=== PATIENT | male | born 1970 | race African-American/Black ===

== ENCOUNTER 2016-11-11 20:59 | Inpatient (IN) | payer MEDICAID ==
[~2016-11-11] VITALS: Ht 185.4 cm; Wt 90.7 kg
[~2016-11-11 20:59] MED LIST: AMOXICILLIN500 MG ORAL; NKM; PRILOSEC20 MG ORAL; TRAMADOL HCL50 MG ORAL
[2016-11-11 21:32] VITALS: BP 154/71
[2016-11-11] MEDS ORDERED: Ampicillin/Sulbactam Sod 3 GM in NS 100 ML IVPB ONE (22:30)
[2016-11-11] MEDS ORDERED: Unasyn 3gm Inj ONE (22:49)
[2016-11-11 23:17] LABS: MEAN CORPUSCULAR HEMOGLOBIN 29.7 PG (27.0-31.0); MEAN CORPUSCULAR VOLUME 93 FL (80-99); MEAN PLATELET VOLUME 5.3 FL (6.5-10.1); PLATELET COUNT 211 K/UL (150-450); RED BLOOD COUNT 4.21 M/UL (4.70-6.10); RED CELL DISTRIBUTION WIDTH 11.7 % (11.6-14.8); WHITE BLOOD COUNT 21.8 K/UL (4.8-10.8)
[2016-11-11 23:36] LABS: TROPONIN I < 0.30 ng/mL (<=0.30)
[2016-11-11 23:44] LABS: LYMPHOCYTES % (MANUAL) 7 % (20-45); NEUTROPHILS % (MANUAL) 92 % (45-75); TOTAL CELLS COUNTED 100
--- NOTE | 2016-11-11 23:44 | Emergency Room Report ---
History of Present Illness General Chief Complaint: Pain Source: Patient Present Illness HPI Patient is a 46-year-old male who presented after increased left leg pain and swelling. The patient had noted to have increased fever. He had been having increased redness and swelling to his left leg. A gradual onset of symptoms. Patient states that he thought he had cellulitis. The patient had not been vomiting. He reported having pain with movement. Allergies: Coded Allergies: No Known Allergies (Unverified , 11/11/16) Patient History Past Medical History: see triage record Reviewed Nursing Documentation: PMH: Agreed, PSxH: Agreed Nursing Documentation-PMH Past Medical History: No Stated History Review of Systems All Other Systems: negative except mentioned in HPI Physical Exam Vital Signs Date Time Temp Pulse Resp B/P Pulse Ox O2 Delivery O2 Flow Rate FiO2 11/11/16 20:52 102.7 76 18 154/71 98 Room Air Sp02 EP Interpretation: reviewed, normal General Appearance: normal inspection, well appearing, no apparent distress, alert, GCS 15, Chronically Ill Head: atraumatic ENT: normal ENT inspection, hearing grossly normal, normal voice Neck: normal inspection, full range of motion, supple, no bony tend Respiratory: normal inspection, lungs clear, normal breath sounds, no respiratory distress, no retraction, no wheezing Cardiovascular #1: regular rate, rhythm, no edema Gastrointestinal: normal inspection, normal bowel sounds, non tender, soft, no guarding, no hernia Genitourinary: no CVA tenderness Musculoskeletal: normal inspection, back normal, normal range of motion Neurologic: normal inspection, alert, oriented x3, responsive, 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 Right Leg with swelling without evident infection Medical Decision Making Diagnostic Impression: Primary Impression: Cellulitis ER Course Patient presented for extremity pain. Differential diagnosis included but was not limited to fracture, contusion, vascular insufficiency, aortic aneurysm, cellulitis.Because of complexity of patient's case laboratory testing and imaging studies were ordered. The patient was noted to have fever and tenderness to his left leg. This is consistent with cellulitis. Laboratory testing was notable for elevated white blood count. The patient was given IV antibiotics. The patient was discussed with Dr. patten for inpatient management Labs Test 11/11/16 22:30 White Blood Count 21.8 K/UL (4.8-10.8) Red Blood Count 4.21 M/UL (4.70-6.10) Hemoglobin 12.5 G/DL (14.2-18.0) Hematocrit 39.1 % (42.0-52.0) Mean Corpuscular Volume 93 FL (80-99) Mean Corpuscular Hemoglobin 29.7 PG (27.0-31.0) Mean Corpuscular Hemoglobin Concent 32.0 G/DL (32.0-36.0) Red Cell Distribution Width 11.7 % (11.6-14.8) Platelet Count 211 K/UL (150-450) Mean Platelet Volume 5.3 FL (6.5-10.1) Neutrophils (%) (Auto) % (45.0-75.0) Lymphocytes (%) (Auto) % (20.0-45.0) Monocytes (%) (Auto) % (1.0-10.0) Eosinophils (%) (Auto) % (0.0-3.0) Basophils (%) (Auto) % (0.0-2.0) Lactic Acid Level 1.60 mmol/L (0.66-2.22) Troponin I < 0.30 ng/mL (<=0.30) Last Vital Signs Date Time Temp Pulse Resp B/P Pulse Ox O2 Delivery O2 Flow Rate FiO2 11/11/16 21:32 102.7 79 18 154/71 98 Room Air Status: unchanged Disposition: ADMITTED INPATIENT Condition: Serious Referrals: NOT CHOSEN IPA/,REFERRING (PCP) Chris Ricci Nov 11, 2016 23:44
[2016-11-11 23:45] LABS: BAND NEUTROPHILS % (MANUAL) 0 % (0-8); BASOPHILS % (MANUAL) 0 % (0-2); EOSINOPHILS % (MANUAL) 0 % (0-3); PLATELET ESTIMATE ADEQUATE; PLATELET MORPHOLOGY NORMAL
[2016-11-11] MEDS ORDERED: Morphine Sulfate 2mg/ml Inj IVP PRN (23:45)
[2016-11-11] MEDS ORDERED: LORazepam Inj 2mg/ml 1ml IV PRN (23:45)
[2016-11-11] MEDS ORDERED: Miralax 17gm pkt ORAL PRN (23:45)
[2016-11-11] MEDS ORDERED: Zolpidem 5mg tab ORAL PRN (23:45)
[2016-11-11] MEDS ORDERED: Mylanta II UD 30ml ORAL PRN (23:45)
[2016-11-11 23:54] LABS: ALANINE AMINOTRANSFERASE 13 U/L (3-41); ANION GAP 17 (5-15); ASPARTATE AMINO TRANSFERASE 23 U/L (5-40); CALCIUM 8.5 mg/dL (8.6-10.2); CARBON DIOXIDE 23 mEQ/L (20-30); CHLORIDE 91 mEQ/L (98-107); CREATININE 1.2 mg/dL (0.7-1.2); GLOMERULAR FILTRATION RATE > 60 mL/min (>60); HEMOLYSIS 7; POTASSIUM 3.5 mEQ/L (3.4-4.9); SODIUM 131 mEQ/L (135-145); TOTAL PROTEIN 6.8 g/dL (6.6-8.7)
[2016-11-12 01:40] VITALS: BP_SYST 104; BP_SYST 90; BP_DIAS 52; BP_DIAS 69
[2016-11-12] MEDS ORDERED: Vancomycin 1.5 GM in D5W 300 ML IVPB SCH ×2 (03:00→16:00)
[2016-11-12 04:00] VITALS: BP 129/65
[2016-11-12] MEDS ORDERED: Cefepime 2gm ONE (05:02)
[2016-11-12 07:27] LABS: MEAN CORPUSCULAR HEMOGLOBIN 29.2 PG (27.0-31.0); MEAN CORPUSCULAR HGB CONC 31.4 G/DL (32.0-36.0); MEAN CORPUSCULAR VOLUME 93 FL (80-99); MEAN PLATELET VOLUME 5.6 FL (6.5-10.1); PLATELET COUNT 236 K/UL (150-450); RED BLOOD COUNT 4.46 M/UL (4.70-6.10); RED CELL DISTRIBUTION WIDTH 11.8 % (11.6-14.8); WHITE BLOOD COUNT 16.6 K/UL (4.8-10.8)
[2016-11-12 07:44] LABS: THYROID STIMULATING HORMONE 0.248 uIU/mL (0.300-4.500)
[2016-11-12 07:45] LABS: ALANINE AMINOTRANSFERASE 11 U/L (3-41); ALBUMIN/GLOBULIN RATIO 0.8 (1.0-2.7); ANION GAP 17 (5-15); ASPARTATE AMINO TRANSFERASE 23 U/L (5-40); CALCIUM 8.2 mg/dL (8.6-10.2); CARBON DIOXIDE 23 mEQ/L (20-30); CHLORIDE 94 mEQ/L (98-107); CHOLESTEROL 88 mg/dL (< 200); CHOLESTEROL/HDL RATIO 1.8 (3.3-4.4); CREATININE 1.4 mg/dL (0.7-1.2); GLOMERULAR FILTRATION RATE > 60 mL/min (>60); HEMOLYSIS 39; LDL CHOLESTEROL (CALC.) 25 mg/dL (60-99); POTASSIUM 4.1 mEQ/L (3.4-4.9); SODIUM 134 mEQ/L (135-145); TOTAL PROTEIN 6.2 g/dL (6.6-8.7)
[2016-11-12 08:00] VITALS: BP 105/64
[2016-11-12 08:02] LABS: HEMOGLOBIN A1C 5.6 % (< 6.0)
[2016-11-12] MEDS: Heparin 5000 units/ml inj SUBQ SCH ×2 (08:22→21:22)
[2016-11-12 10:16] LABS: BAND NEUTROPHILS % (MANUAL) 3 % (0-8); BASOPHILS % (MANUAL) 0 % (0-2); EOSINOPHILS % (MANUAL) 0 % (0-3); LYMPHOCYTES % (MANUAL) 13 % (20-45); NEUTROPHILS % (MANUAL) 79 % (45-75); PLATELET ESTIMATE ADEQUATE; PLATELET MORPHOLOGY NORMAL; TOTAL CELLS COUNTED 100
[2016-11-12 10:17] LABS: HYPOCHROMASIA 1+
--- NOTE | 2016-11-12 11:45 | Consultation ---
Consult Note Consult Note ID Dic # [id number] ALE NOONAN M.D. Nov 12, 2016 11:45
[2016-11-12 12:00] VITALS: BP 110/54
--- NOTE | 2016-11-12 13:38 | Consultation ---
DATE OF CONSULTATION: INFECTIOUS DISEASE CONSULTATION CONSULTING PHYSICIAN: Brad Taylor M.D. REFERRING PHYSICIAN: Hugo Chaparro M.D. REASON FOR CONSULTATION: Left lower extremity cellulitis and antibiotic management. HISTORY OF PRESENT ILLNESS: The patient is a 46-year-old male with admitting prior past medical history of anemia who came to the hospital with chief complaint of left lower extremity swelling and erythema. In the last few days that has worsened. The patient is febrile. Infectious consultation requested for further evaluation of the patient and antibiotic management. PAST MEDICAL HISTORY: Anemia. MEDICATIONS: Vancomycin and cefepime. ALLERGIES: No known drug allergies. SOCIAL HISTORY: The patient smokes cigarettes and drinks alcohol occasionally. The patient also occasionally uses . FAMILY HISTORY: Noncontributory. PHYSICAL EXAMINATION: VITAL SIGNS: Temperature 100.4 degrees, pulse 86, respiratory rate 18, and blood pressure 105/64. HEENT: Mild pale conjunctivae. No icterus. NECK: No lymphadenopathy. CHEST: Coarse breathing sounds. HEART: S1 and S2. ABDOMEN: Soft. EXTREMITIES: The patient has erythema over the left leg that is tender. The patient has left lower extremity edema. LABORATORY AND DIAGNOSTIC DATA: White blood cells 16.6, hemoglobin 13, and platelets 236,000. BUN 15 and creatinine 1.4. ALT, AST and alkaline phosphatase within normal range. ASSESSMENT AND PLAN: The patient is a 46-year-old male with past medical history significant for anemia, who came with left lower extremity cellulitis most likely strep. The patient is afebrile with of possibility of bacteremia. The patient also has leukocytosis. At this time, the patient may benefit from broad-spectrum antibiotics. We get further information from cultures. PLAN: 1. We will continue the patient on vancomycin and cefepime. 2. Monitor CBC. 3. Monitor BMP. 4. Monitor blood culture. 5. Monitor laboratories. 6. Based on the patient's clinical course, laboratories and cultures, we will do further recommendation. Thank you, Dr. Chaparro, for allowing me to participate in the care of this patient. I will follow the patient with you during this hospitalization Brad Taylor M.D. DR: Bhavana JOB#: [id number] CC:
[2016-11-12 15:55] VITALS: BP 91/55
--- NOTE | 2016-11-12 15:57 | History and Physical ---
History of Present Illness General Date patient seen: Nov 12, 2016 Reason for Hospitalization: Pain Present Illness HPI 46-year-old male who presented after increased left leg pain and swelling. The patient had noted to have fever. He had been having increased redness and swelling to his left leg. He was diagnosed to have extensive cellulitis and admitted for further evaluation. Allergies: Coded Allergies: No Known Allergies (Unverified , 11/11/16) Patient History Healthcare decision maker Resuscitation status Full Code Advanced Directive on File No Past Medical/Surgical History Past Medical/Surgical History: (1) Cellulitis Review of Systems All Other Systems: negative except mentioned in HPI Physical Exam Lines, tubes and drains: peripheral, central line HEENT: normocephalic, atraumatic Neck: non-tender, normal alignment Respiratory/Chest: chest wall non-tender, lungs clear Cardiovascular/Chest: normal peripheral pulses, normal rate Abdomen: normal bowel sounds, non tender Genitourinary/Rectal: normal genital exam, normal rectal exam Last 24 Hour Vital Signs Date Time Temp Pulse Resp B/P Pulse Ox O2 Delivery O2 Flow Rate FiO2 11/12/16 12:00 101.7 109 22 110/54 97 Room Air 11/12/16 11:42 101.7 11/12/16 10:38 100.4 11/12/16 08:00 98.4 100 20 105/64 100 Room Air 11/12/16 04:00 99.0 89 18 129/65 100 Room Air 11/12/16 01:40 99.3 87 18 90/52 97 Room Air 11/12/16 01:00 83 16 138/98 100 Room Air 11/11/16 21:32 102.7 79 18 154/71 98 Room Air 11/11/16 20:52 102.7 76 18 154/71 98 Room Air Intake and Output 11/11/16 11/12/16 18:59 06:59 Intake Total 400 ml Balance 400 ml Intake Oral 0 ml IV Total 400 ml # Voids 1 Laboratory Tests Test 11/11/16 22:30 11/12/16 05:25 White Blood Count 21.8 K/UL (4.8-10.8) H 16.6 K/UL (4.8-10.8) H Red Blood Count 4.21 M/UL (4.70-6.10) L 4.46 M/UL (4.70-6.10) L Hemoglobin 12.5 G/DL (14.2-18.0) L 13.0 G/DL (14.2-18.0) L Hematocrit 39.1 % (42.0-52.0) L 41.4 % (42.0-52.0) L Mean Corpuscular Volume 93 FL (80-99) 93 FL (80-99) Mean Corpuscular Hemoglobin 29.7 PG (27.0-31.0) 29.2 PG (27.0-31.0) Mean Corpuscular Hemoglobin Concent 32.0 G/DL (32.0-36.0) 31.4 G/DL (32.0-36.0) L Red Cell Distribution Width 11.7 % (11.6-14.8) 11.8 % (11.6-14.8) Platelet Count 211 K/UL (150-450) 236 K/UL (150-450) Mean Platelet Volume 5.3 FL (6.5-10.1) L 5.6 FL (6.5-10.1) L Neutrophils (%) (Auto) % (45.0-75.0) % (45.0-75.0) Lymphocytes (%) (Auto) % (20.0-45.0) % (20.0-45.0) Monocytes (%) (Auto) % (1.0-10.0) % (1.0-10.0) Eosinophils (%) (Auto) % (0.0-3.0) % (0.0-3.0) Basophils (%) (Auto) % (0.0-2.0) % (0.0-2.0) Differential Total Cells Counted 100 100 Neutrophils % (Manual) 92 % (45-75) H 79 % (45-75) H Lymphocytes % (Manual) 7 % (20-45) L 13 % (20-45) L Monocytes % (Manual) 1 % (1-10) 5 % (1-10) Eosinophils % (Manual) 0 % (0-3) 0 % (0-3) Basophils % (Manual) 0 % (0-2) 0 % (0-2) Band Neutrophils 0 % (0-8) 3 % (0-8) Platelet Estimate Adequate Adequate Platelet Morphology Normal Normal Red Blood Cell Morphology Normal Sodium Level 131 mEQ/L (135-145) L 134 mEQ/L (135-145) L Potassium Level 3.5 mEQ/L (3.4-4.9) 4.1 mEQ/L (3.4-4.9) Chloride Level 91 mEQ/L (98-107) L 94 mEQ/L (98-107) L Carbon Dioxide Level 23 mEQ/L (20-30) 23 mEQ/L (20-30) Anion Gap 17 (5-15) H 17 (5-15) H Blood Urea Nitrogen 13 mg/dL (7-23) 15 mg/dL (7-23) Creatinine 1.2 mg/dL (0.7-1.2) 1.4 mg/dL (0.7-1.2) H Estimat Glomerular Filtration Rate > 60 mL/min (>60) > 60 mL/min (>60) Glucose Level 114 mg/dL (74-106) H 108 mg/dL (74-106) H Lactic Acid Level 1.60 mmol/L (0.66-2.22) Calcium Level 8.5 mg/dL (8.6-10.2) L 8.2 mg/dL (8.6-10.2) L Total Bilirubin 0.6 mg/dL (0.0-1.2) 0.7 mg/dL (0.0-1.2) Aspartate Amino Transf (AST/SGOT) 23 U/L (5-40) 23 U/L (5-40) Alanine Aminotransferase (ALT/SGPT) 13 U/L (3-41) 11 U/L (3-41) Alkaline Phosphatase 58 U/L (40-129) 56 U/L (40-129) Troponin I < 0.30 ng/mL (<=0.30) Total Protein 6.8 g/dL (6.6-8.7) 6.2 g/dL (6.6-8.7) L Albumin 3.4 g/dL (3.5-5.2) L 2.8 g/dL (3.5-5.2) L Globulin 3.4 g/dL 3.4 g/dL Albumin/Globulin Ratio 1.0 (1.0-2.7) 0.8 (1.0-2.7) L Hypochromasia 1+ Hemoglobin A1c 5.6 % (< 6.0) Triglycerides Level 65 mg/dL (< 150) Cholesterol Level 88 mg/dL (< 200) LDL Cholesterol 25 mg/dL (60-99) L HDL Cholesterol 50 mg/dL (> 60) Cholesterol/HDL Ratio 1.8 (3.3-4.4) L Thyroid Stimulating Hormone (TSH) 0.248 uIU/mL (0.300-4.500) Height (Feet): 6 Height (Inches): 1.00 Weight (Pounds): 200 Medications Current Medications Medications (Trade) Dose Ordered Sig/Jenny Route PRN Reason Start Time Stop Time Status Last Admin Dose Admin Acetaminophen (Tylenol) 650 mg Q4H PRN ORAL fever 11/11/16 23:45 12/11/16 23:44 11/12/16 10:43 Al Hydroxide/Mg Hydroxide (Mylanta II) 30 ml Q6H PRN ORAL dyspepsia 11/11/16 23:45 12/11/16 23:44 Cefepime HCl 1 gm/ Sodium Chloride 100 ml @ 200 mls/hr EVERY 8 HOURS IVPB 11/12/16 14:00 11/19/16 13:59 11/12/16 13:23 Dextrose (Dextrose 50%) STAT PRN IV Hypoglycemia 11/11/16 23:45 12/11/16 23:44 Heparin Sodium (Porcine) (Heparin 5000 units/ml) 5,000 units EVERY 12 HOURS SUBQ 11/12/16 09:00 12/12/16 08:59 11/12/16 08:22 Lorazepam (Ativan 2mg/ml 1ml) 0.5 mg Q4H PRN IV For Anxiety 11/11/16 23:45 11/18/16 23:44 Morphine Sulfate (Morphine Sulfate) 1 mg EVERY 4 HOURS PRN IVP For Pain 11/11/16 23:45 11/18/16 23:44 Ondansetron HCl (Zofran) 4 mg Q6H PRN IVP Nausea & Vomiting 11/11/16 23:45 12/11/16 23:44 Polyethylene Glycol (Miralax) 17 gm HSPRN PRN ORAL Constipation 11/11/16 23:45 12/11/16 23:44 Vancomycin HCl 1 ea 1 ea DAILY PRN MISC Per rx protocol 11/11/16 23:45 12/11/16 23:44 Vancomycin HCl/ Dextrose (Vancomycin/D5W 250ml) 250 ml @ 167 mls/hr Q12HR@0400,1600 IVPB 11/12/16 16:00 11/17/16 15:59 Zolpidem Tartrate (Ambien) 5 mg HSPRN PRN ORAL Insomnia 11/11/16 23:45 12/11/16 23:44 Assessment/Plan Problem List: (1) Sepsis ICD Codes: A41.9 - Sepsis, unspecified organism SNOMED: 84680572 (2) Cellulitis ICD Codes: L03.90 - Cellulitis, unspecified SNOMED: 907766022 Qualifiers: Qualified Codes: L03.116 - Cellulitis of left lower limb Assessment/Plan IV antibiotics f/u wbc morphine for pain NARENDRA NICOLE Nov 12, 2016 15:57
[2016-11-12] MEDS ORDERED: Amikacin Rx to dose MISC PRN (16:00)
[2016-11-12] MEDS: Morphine Sulfate 4mg/ml Inj IVP PRN (16:13)
[2016-11-12] MEDS: Vancomycin 1gm/D5W 250ml IVPB SCH ×2 (16:44)
[2016-11-12] MEDS ORDERED: D5NS 1,000 ML IV SCH (17:00)
[2016-11-12] MEDS: D5NS 1,000 ML IV SCH (18:37)
[2016-11-12 19:31] VITALS: BP 117/62
[2016-11-13] VITALS: BP 109/61
[2016-11-13] MEDS: Vancomycin 1gm/D5W 250ml IVPB SCH ×4 (03:38→16:24)
[2016-11-13 04:00] VITALS: BP 111/63
[2016-11-13] MEDS: D5NS 1,000 ML IV SCH ×2 (05:00→13:59)
[2016-11-13 08:00] VITALS: BP 121/57
[2016-11-13] MEDS: Morphine Sulfate 4mg/ml Inj IVP PRN ×2 (08:14→17:33)
[2016-11-13] MEDS: Heparin 5000 units/ml inj SUBQ SCH ×2 (08:15→20:56)
--- NOTE | 2016-11-13 08:58 | Infectious Diseases Prog Note ---
Assessment/Plan Assessment/Plan A: The patient is a 46-year-old male with Fever leucocytosis Left lower extremity cellulitis Doppler : NO DVT Ro bacteremia Hx of Anemia. smoker PLAN: Cont on vancomycin and cefepime # 3 Monitor CBC. Monitor BMP. Monitor blood culture. Monitor laboratories. Subjective Allergies: Coded Allergies: No Known Allergies (Unverified , 11/11/16) Objective Vital Signs Last 24 Hour Vital Signs Date Time Temp Pulse Resp B/P Pulse Ox O2 Delivery O2 Flow Rate FiO2 11/13/16 08:00 100.2 96 22 121/57 98 Room Air 11/13/16 04:00 99.1 87 20 111/63 97 Room Air 11/13/16 02:00 99.6 11/13/16 00:00 100.9 96 20 109/61 99 Room Air 11/12/16 19:31 102.6 111 17 117/62 97 Room Air 11/12/16 15:55 99.9 44 17 91/55 90 Room Air 11/12/16 12:00 101.7 109 22 110/54 97 Room Air 11/12/16 10:38 100.4 Height (Feet): 6 Height (Inches): 1.00 Weight (Pounds): 200 Microbiology Date/Time Source Procedure Growth Status 11/11/16 22:35 Blood Blood Culture - Preliminary NO GROWTH AFTER 24 HOURS Resulted 11/11/16 22:30 Blood Blood Culture - Preliminary NO GROWTH AFTER 24 HOURS Resulted Current Medications Medications (Trade) Dose Ordered Sig/Jenny Route PRN Reason Start Time Stop Time Status Last Admin Dose Admin Acetaminophen (Tylenol) 650 mg Q4H PRN ORAL fever 11/11/16 23:45 12/11/16 23:44 11/13/16 01:00 Al Hydroxide/Mg Hydroxide (Mylanta II) 30 ml Q6H PRN ORAL dyspepsia 11/11/16 23:45 12/11/16 23:44 Amikacin Protocol 1 ea 1 ea DAILY PRN MISC Per rx protocol 11/12/16 16:00 12/12/16 15:59 Amikacin Sulfate 1000 mg/Sodium Chloride 104 ml @ 200 mls/hr Q24H IV 11/12/16 18:00 11/19/16 17:59 11/12/16 18:38 Cefepime HCl 1 gm/ Sodium Chloride 100 ml @ 200 mls/hr EVERY 8 HOURS IVPB 11/12/16 14:00 11/19/16 13:59 11/13/16 05:00 Dextrose (Dextrose 50%) STAT PRN IV Hypoglycemia 11/11/16 23:45 12/11/16 23:44 Dextrose/Sodium Chloride (D5ns) 1,000 ml @ 100 mls/hr Q10H IV 11/12/16 19:00 12/12/16 18:59 11/13/16 05:00 Heparin Sodium (Porcine) (Heparin 5000 units/ml) 5,000 units EVERY 12 HOURS SUBQ 11/12/16 09:00 12/12/16 08:59 11/13/16 08:15 Lorazepam (Ativan 2mg/ml 1ml) 0.5 mg Q4H PRN IV For Anxiety 11/11/16 23:45 11/18/16 23:44 Morphine Sulfate (Morphine Sulfate) 4 mg EVERY 4 HOURS PRN IVP For Pain 11/12/16 16:00 11/19/16 15:59 11/13/16 08:14 Ondansetron HCl (Zofran) 4 mg Q6H PRN IVP Nausea & Vomiting 11/11/16 23:45 12/11/16 23:44 Polyethylene Glycol (Miralax) 17 gm HSPRN PRN ORAL Constipation 11/11/16 23:45 12/11/16 23:44 Vancomycin HCl 1 ea 1 ea DAILY PRN MISC Per rx protocol 11/11/16 23:45 12/11/16 23:44 Vancomycin HCl/ Dextrose (Vancomycin/D5W 250ml) 250 ml @ 167 mls/hr Q12HR@0400,1600 IVPB 11/12/16 16:00 11/17/16 15:59 11/13/16 03:38 Zolpidem Tartrate (Ambien) 5 mg HSPRN PRN ORAL Insomnia 11/11/16 23:45 12/11/16 23:44 ALE NOONAN M.D. Nov 13, 2016 08:58
[2016-11-13 12:10] VITALS: BP 116/64
[2016-11-13 13:00] VITALS: BP 118/72
[2016-11-13] MEDS ORDERED: D5NS 1,000 ML IV SCH (17:00)
[2016-11-13] MEDS ORDERED: D5NS 1000ml IV ONE ×2 (17:16→17:23)
[2016-11-13] MEDS ORDERED: Tubing IV Secondary IV ONE (17:23)
[2016-11-13] MEDS ORDERED: NS 275ml ONE (17:23)
--- NOTE | 2016-11-13 17:46 | Pulmonology Progress Note ---
Assessment/Plan Problems: (1) Sepsis (2) Cellulitis Assessment/Plan continue antibiotics surgical evaluation check cultures Subjective ROS Limited/Unobtainable: No Interval Events: less pain, still febrile Allergies: Coded Allergies: No Known Allergies (Unverified , 11/11/16) Objective Last 24 Hour Vital Signs Date Time Temp Pulse Resp B/P Pulse Ox O2 Delivery O2 Flow Rate FiO2 11/13/16 13:00 98.8 79 20 118/72 98 Room Air 11/13/16 12:10 101.8 81 22 116/64 98 Room Air 11/13/16 10:31 101.8 11/13/16 08:00 100.2 96 22 121/57 98 Room Air 11/13/16 04:00 99.1 87 20 111/63 97 Room Air 11/13/16 00:00 100.9 96 20 109/61 99 Room Air 11/12/16 19:31 102.6 111 17 117/62 97 Room Air Intake and Output 11/12/16 11/13/16 19:00 07:00 Intake Total 1040 ml 2194 ml Output Total 600 ml 700 ml Balance 440 ml 1494 ml Intake Oral 790 ml 740 ml IV Total 250 ml 1454 ml Output Urine Total 600 ml 700 ml General Appearance: WD/WN HEENT: normocephalic Respiratory/Chest: chest wall non-tender, lungs clear Cardiovascular: normal peripheral pulses, normal rate Abdomen: normal bowel sounds Skin: rash Musculoskeletal: other - calf is less swollen Microbiology Date/Time Source Procedure Growth Status 11/11/16 22:35 Blood Blood Culture - Preliminary NO GROWTH AFTER 24 HOURS Resulted 11/11/16 22:30 Blood Blood Culture - Preliminary NO GROWTH AFTER 24 HOURS Resulted Laboratory Tests 11/13/16 09:50: Random Amikacin Level 3.0 11/13/16 15:00: Vancomycin Level Trough 10.2 Current Medications Medications (Trade) Dose Ordered Sig/Jenny Route PRN Reason Start Time Stop Time Status Last Admin Dose Admin Acetaminophen (Tylenol) 650 mg Q4H PRN ORAL fever 11/11/16 23:45 12/11/16 23:44 11/13/16 09:32 Al Hydroxide/Mg Hydroxide (Mylanta II) 30 ml Q6H PRN ORAL dyspepsia 11/11/16 23:45 12/11/16 23:44 Cefepime HCl 1 gm/ Sodium Chloride 100 ml @ 200 mls/hr EVERY 8 HOURS IVPB 11/12/16 14:00 11/19/16 13:59 11/13/16 13:59 Dextrose (Dextrose 50%) STAT PRN IV Hypoglycemia 11/11/16 23:45 12/11/16 23:44 Dextrose/Sodium Chloride (D5ns) 1,000 ml @ 100 mls/hr Q10H IV 11/12/16 19:00 12/12/16 18:59 11/13/16 13:59 Heparin Sodium (Porcine) (Heparin 5000 units/ml) 5,000 units EVERY 12 HOURS SUBQ 11/12/16 09:00 12/12/16 08:59 11/13/16 08:15 Lorazepam (Ativan 2mg/ml 1ml) 0.5 mg Q4H PRN IV For Anxiety 11/11/16 23:45 11/18/16 23:44 Morphine Sulfate 4 mg 4 mg EVERY 4 HOURS PRN IVP For Pain 11/12/16 16:00 11/19/16 15:59 11/13/16 17:33 Ondansetron HCl (Zofran) 4 mg Q6H PRN IVP Nausea & Vomiting 11/11/16 23:45 12/11/16 23:44 Polyethylene Glycol (Miralax) 17 gm HSPRN PRN ORAL Constipation 11/11/16 23:45 12/11/16 23:44 Vancomycin HCl 1 ea 1 ea DAILY PRN MISC Per rx protocol 11/11/16 23:45 12/11/16 23:44 Vancomycin HCl/ Dextrose (Vancomycin/D5W 250ml) 250 ml @ 167 mls/hr Q12HR@0400,1600 IVPB 11/12/16 16:00 11/17/16 15:59 11/13/16 16:24 Zolpidem Tartrate (Ambien) 5 mg HSPRN PRN ORAL Insomnia 11/11/16 23:45 12/11/16 23:44 NARENDRA NICOLE Nov 13, 2016 17:46
[2016-11-13 19:59] VITALS: BP 130/68
[2016-11-14] MEDS: D5NS 1,000 ML IV SCH (03:08)
[2016-11-14] MEDS: Vancomycin 1gm/D5W 250ml IVPB SCH ×4 (03:58→16:00)
[2016-11-14 04:00] VITALS: BP 127/67
[2016-11-14 07:00] LABS: BASOPHILS % (AUTO) 0.3 % (0.0-2.0); EOSINOPHILS % (AUTO) 0.5 % (0.0-3.0); LYMPHOCYTES % (AUTO) 9.5 % (20.0-45.0); MEAN CORPUSCULAR HEMOGLOBIN 30.6 PG (27.0-31.0); MEAN CORPUSCULAR HGB CONC 32.9 G/DL (32.0-36.0); MEAN CORPUSCULAR VOLUME 93 FL (80-99); MONOCYTES % (AUTO) 9.5 % (1.0-10.0); NEUTROPHILS % (AUTO) 80.2 % (45.0-75.0); PLATELET COUNT 162 K/UL (150-450); RED BLOOD COUNT 3.53 M/UL (4.70-6.10); RED CELL DISTRIBUTION WIDTH 11.6 % (11.6-14.8); WHITE BLOOD COUNT 12.2 K/UL (4.8-10.8)
[2016-11-14 07:15] LABS: ALBUMIN/GLOBULIN RATIO 0.6 (1.0-2.7); CALCIUM 7.6 mg/dL (8.6-10.2); CREATININE 2.1 mg/dL (0.7-1.2); GLOMERULAR FILTRATION RATE 41.5 mL/min (>60); POTASSIUM 3.7 mEQ/L (3.4-4.9); TOTAL PROTEIN 5.6 g/dL (6.6-8.7)
--- NOTE | 2016-11-14 09:21 | Consultation ---
History of Present Illness General Date patient seen: Nov 14, 2016 Chief Complaint: Left lower extremity cellulitis and pain Reason for Consultation: LLE Cellulitis Present Illness HPI 46 year old male with left lower extremity cellulitis. states that he was in his normal state of health until day of admission when he had acute onset of left lower extremity pain. he does not recall prior trauma or incident. states he had [place] left the [place] when he noted it. called EMS because of pain which restricted ambulation. presented with edema, erythema, tenderness, fever , and leukocytosis. was admitted and placed on IV Abx. since has been stable but given pain and edema in extremity there were some concerns for potential fascitis. Surgery called for evaluation. when seen patient states that edema is similar but erythema improved a bit. has some skin changes overlying the area of edema. no blisters or evidence of trauma noted. compartments soft. Allergies: Coded Allergies: No Known Allergies (Unverified , 11/11/16) Patient History History Provided By: Patient Healthcare decision maker Resuscitation status Full Code Advanced Directive on File No Review of Systems Constitutional: Denies: chills, fever, malaise, no symptoms, other, see HPI, sweats, weakness Eye: Denies: acuity changes, blurred vision, discharge, double vision, eye pain , no symptoms, nose congestion, nose pain, other, see HPI, tearing ENT: Denies: ear discharge, ear pain, hearing loss, mouth pain, nasal discharge , no symptoms, nose congestion, nose pain, other, see HPI, throat pain, throat swelling Respiratory: Denies: CID, cough, no symptoms, orthopnea, other, see HPI, shortness of breath, sputum, stridor, wheezing Cardiovascular: Denies: PND, chest pain, edema, no symptoms, other, palpitations, see HPI, syncope Gastrointestinal: Denies: abdominal pain, constipation, diarrhea, hematemesis, melena, nausea, no symptoms, other, see HPI, vomiting Genitourinary: Denies: discharge, dysuria, frequency, hematuria, incontinence, no symptoms, other, pain, retention, see HPI, urgency, vag bleed/dc Musculoskeletal: Denies: back pain, gout, joint pain, joint swelling, muscle pain, muscle stiffness, no symptoms, other - lower extermity pain , see HPI Skin: Denies: change in color, change in hair/nails, dryness, lesions, no symptoms, other, rash, see HPI Psychiatric: Denies: HI, SI, anxiety, depressed feelings, emotional problems, hallucinations, no symptoms, other, prior hx, see HPI Neurological: Denies: dizziness, focal weakness, headache, no symptoms, numbness, other, paresthesia, see HPI, seizure, syncope, tingling, tremors Endocrine: Denies: excessive sweating, flushing, increased thirst, increased urine, intolerance to temperature, no symptoms, other, see HPI, unexplained weight loss Hematologic/Lymphatic: Denies: anemia, blood clots, diathesis, easy bleeding, easy bruising, no symptoms, other, see HPI, swollen glands All Other Systems: negative except mentioned in HPI Physical Exam General Appearance: WD/WN, no apparent distress, alert Lines, tubes and drains: peripheral HEENT: normocephalic, atraumatic Neck: non-tender, normal alignment Respiratory/Chest: chest wall non-tender, lungs clear, normal breath sounds, no respiratory distress Cardiovascular/Chest: normal peripheral pulses, normal rate, regular rhythm Abdomen: normal bowel sounds, non tender, soft, no organomegaly Extremities: normal range of motion, other - left foot and distal calf with edema and erythema. compartments soft. pulses present. range of montion in ankle limited from edema. 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, no motor/sensory deficits, alert, oriented x 3, responsive Last 24 Hour Vital Signs Date Time Temp Pulse Resp B/P Pulse Ox O2 Delivery O2 Flow Rate FiO2 11/14/16 07:13 98.4 11/14/16 04:00 99.5 79 18 127/67 96 Room Air 11/13/16 21:07 99.1 11/13/16 19:59 102.0 91 20 130/68 98 Room Air 11/13/16 13:00 98.8 79 20 118/72 98 Room Air 11/13/16 12:10 101.8 81 22 116/64 98 Room Air Intake and Output 11/13/16 11/14/16 19:00 07:00 Intake Total 1150 ml 1657 ml Output Total 475 ml Balance 1150 ml 1182 ml Intake Oral 340 ml IV Total 1150 ml 1317 ml Output Urine Total 475 ml # Voids 2 3 Laboratory Tests Test 11/13/16 09:50 11/13/16 15:00 1/5/17 06:10 Random Amikacin Level 3.0 ug/mL Vancomycin Level Trough 10.2 ug/mL (5.0-12.0) White Blood Count 12.2 K/UL (4.8-10.8) H Red Blood Count 3.53 M/UL (4.70-6.10) L Hemoglobin 10.8 G/DL (14.2-18.0) L Hematocrit 32.8 % (42.0-52.0) L Mean Corpuscular Volume 93 FL (80-99) Mean Corpuscular Hemoglobin 30.6 PG (27.0-31.0) Mean Corpuscular Hemoglobin Concent 32.9 G/DL (32.0-36.0) Red Cell Distribution Width 11.6 % (11.6-14.8) Platelet Count 162 K/UL (150-450) Mean Platelet Volume 6.0 FL (6.5-10.1) L Neutrophils (%) (Auto) 80.2 % (45.0-75.0) H Lymphocytes (%) (Auto) 9.5 % (20.0-45.0) L Monocytes (%) (Auto) 9.5 % (1.0-10.0) Eosinophils (%) (Auto) 0.5 % (0.0-3.0) Basophils (%) (Auto) 0.3 % (0.0-2.0) Sodium Level 137 mEQ/L (135-145) Potassium Level 3.7 mEQ/L (3.4-4.9) Chloride Level 104 mEQ/L (98-107) Carbon Dioxide Level 24 mEQ/L (20-30) Anion Gap 9 (5-15) Blood Urea Nitrogen 22 mg/dL (7-23) Creatinine 2.1 mg/dL (0.7-1.2) H Estimat Glomerular Filtration Rate 41.5 mL/min (>60) Glucose Level 110 mg/dL (74-106) H Calcium Level 7.6 mg/dL (8.6-10.2) L Total Bilirubin 0.3 mg/dL (0.0-1.2) Aspartate Amino Transf (AST/SGOT) 14 U/L (5-40) Alanine Aminotransferase (ALT/SGPT) 8 U/L (3-41) Alkaline Phosphatase 68 U/L (40-129) Total Creatine Kinase 70 U/L (38-174) Total Protein 5.6 g/dL (6.6-8.7) L Albumin 2.2 g/dL (3.5-5.2) L Globulin 3.4 g/dL Albumin/Globulin Ratio 0.6 (1.0-2.7) L Height (Feet): 6 Height (Inches): 1.00 Weight (Pounds): 200 Medications Current Medications Medications (Trade) Dose Ordered Sig/Jenny Route PRN Reason Start Time Stop Time Status Last Admin Dose Admin Acetaminophen (Tylenol) 650 mg Q4H PRN ORAL fever 11/11/16 23:45 12/11/16 23:44 11/14/16 06:14 Al Hydroxide/Mg Hydroxide (Mylanta II) 30 ml Q6H PRN ORAL dyspepsia 11/11/16 23:45 12/11/16 23:44 Cefepime HCl 1 gm/ Sodium Chloride 100 ml @ 200 mls/hr EVERY 8 HOURS IVPB 11/12/16 14:00 11/19/16 13:59 11/14/16 05:28 Dextrose (Dextrose 50%) STAT PRN IV Hypoglycemia 11/11/16 23:45 12/11/16 23:44 Dextrose/Sodium Chloride (D5ns) 1,000 ml @ 100 mls/hr Q10H IV 11/12/16 19:00 12/12/16 18:59 11/14/16 03:08 Heparin Sodium (Porcine) (Heparin 5000 units/ml) 5,000 units EVERY 12 HOURS SUBQ 11/12/16 09:00 12/12/16 08:59 11/13/16 20:56 Lorazepam (Ativan 2mg/ml 1ml) 0.5 mg Q4H PRN IV For Anxiety 11/11/16 23:45 11/18/16 23:44 Morphine Sulfate 4 mg 4 mg EVERY 4 HOURS PRN IVP For Pain 11/12/16 16:00 11/19/16 15:59 11/13/16 17:33 Ondansetron HCl (Zofran) 4 mg Q6H PRN IVP Nausea & Vomiting 11/11/16 23:45 12/11/16 23:44 Polyethylene Glycol (Miralax) 17 gm HSPRN PRN ORAL Constipation 11/11/16 23:45 12/11/16 23:44 Vancomycin HCl 1 ea 1 ea DAILY PRN MISC Per rx protocol 11/11/16 23:45 12/11/16 23:44 Vancomycin HCl/ Dextrose (Vancomycin/D5W 250ml) 250 ml @ 167 mls/hr Q12HR@0400,1600 IVPB 11/12/16 16:00 11/17/16 15:59 11/14/16 03:58 Zolpidem Tartrate (Ambien) 5 mg HSPRN PRN ORAL Insomnia 11/11/16 23:45 12/11/16 23:44 Assessment/Plan Problem List: (1) Cellulitis ICD Codes: L03.90 - Cellulitis, unspecified SNOMED: 264433241 Qualifiers: Qualified Codes: L03.116 - Cellulitis of left lower limb (2) Sepsis ICD Codes: A41.9 - Sepsis, unspecified organism SNOMED: 16350146 Assessment/Plan 46 year old male with left lower extremity cellulitis. Febrile T max 102, leukocytosis improved to 12k from 22k, exam stable. No clinical signs of compartment. Continue current care and management IV Abx Elevated affected extremity Will monitor with serial exams Recommend CT of Left lower extremity (below knee). Marco Villasenor MD Nov 14, 2016 09:21
[2016-11-14] MEDS: Heparin 5000 units/ml inj SUBQ SCH ×2 (10:12→21:00)
[2016-11-14] MEDS: D5 1/2NS 1,000 ML IV SCH ×3 (10:12→22:19)
[2016-11-14 11:44] VITALS: BP 122/72
--- NOTE | 2016-11-14 11:59 | Diagnostic Imaging Report ---
Indications: Pain, swelling, erythema left lower leg Technique: Coronal, sagittal, and axial T1 weighted and STIR sequences of the left leg and ankle performed without IV gadolinium administration. Skin marker placed over area of greatest clinical concern. No IV gadolinium administered due to elevated creatinine level. Findings: Comparison: None The subcutaneous soft tissues of the left leg are diffusely edematous, most prominent anteromedially. A circumscribed plaque-like area of fluid signal cyst atop or between layers of the skin of the anteromedial distal leg, atop which the glide skin marker sits. This measures approximately 4 x 4 cm in cross-sectional diameter and 2 mm in thickness. No subcutaneous circumscribed mass or fluid collection identified. There is suggestion of minimal edema within the intramuscular fascial planes. No intra-muscular edema, mass or fluid collection identified. Tibia and fibula demonstrate normal configuration and marrow signal characteristics. No evidence of marrow edema or overlying cortical destruction. IMPRESSION: Soft tissue edema largely confined to the subcutaneous soft tissues of the leg as described, with overlying blister. No evidence of associated abscess. Questionable minimal edema within intramuscular fascial planes without overt evidence of fasciitis or myositis No evidence of underlying osteomyelitis
[2016-11-14] MEDS ORDERED: D5NS 1000ml IV ONE (14:05)
[2016-11-14 16:00] VITALS: BP 106/60
[2016-11-14] MEDS ORDERED: Sodium Bicarbonate 8.4% 50ml Inj IV SCH (17:15)
[2016-11-14] MEDS ORDERED: Heparin 2000 units/Ns 1000ml INJ SCH (17:15)
[2016-11-14] MEDS ORDERED: Lidocaine 1% Plain 30 ml INJ SCH (17:15)
--- NOTE | 2016-11-14 17:31 | Pulmonology Progress Note ---
Assessment/Plan Problems: (1) Sepsis (2) Cellulitis (3) ATN (acute tubular necrosis) Assessment/Plan continue antibiotics surgical evaluation appreciated, MRI reviewed pt doens't have and line, wanted to take a brake, will order a PICC line for am Renal consult called check cultures Subjective ROS Limited/Unobtainable: No Constitutional: Reports: no symptoms HEENT: Repors: no symptoms Respiratory: Reports: no symptoms Allergies: Coded Allergies: No Known Allergies (Unverified , 11/11/16) Objective Last 24 Hour Vital Signs Date Time Temp Pulse Resp B/P Pulse Ox O2 Delivery O2 Flow Rate FiO2 11/14/16 11:44 98.2 61 21 122/72 97 Room Air 11/14/16 07:13 98.4 11/14/16 04:00 99.5 79 18 127/67 96 Room Air 11/13/16 21:07 99.1 11/13/16 19:59 102.0 91 20 130/68 98 Room Air Intake and Output 11/13/16 11/14/16 19:00 07:00 Intake Total 1150 ml 1657 ml Output Total 475 ml Balance 1150 ml 1182 ml Intake Oral 340 ml IV Total 1150 ml 1317 ml Output Urine Total 475 ml # Voids 2 3 General Appearance: WD/WN, no acute distress Respiratory/Chest: chest wall non-tender Cardiovascular: normal peripheral pulses, regular rhythm Skin: rash - improving 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 Microbiology Date/Time Source Procedure Growth Status 11/12/16 14:30 Blood Blood Culture - Preliminary NO GROWTH AFTER 24 HOURS Resulted 11/12/16 14:15 Blood Blood Culture - Preliminary NO GROWTH AFTER 24 HOURS Resulted 11/11/16 22:35 Blood Blood Culture - Preliminary NO GROWTH AFTER 48 HOURS Resulted 11/11/16 22:30 Blood Blood Culture - Preliminary NO GROWTH AFTER 48 HOURS Resulted Laboratory Tests 11/14/16 06:10: White Blood Count 12.2H, Red Blood Count 3.53L, Hemoglobin 10.8L, Hematocrit 32.8L, Mean Corpuscular Volume 93, Mean Corpuscular Hemoglobin 30.6, Mean Corpuscular Hemoglobin Concent 32.9, Red Cell Distribution Width 11.6, Platelet Count 162, Mean Platelet Volume 6.0L, Neutrophils (%) (Auto) 80.2H, Lymphocytes (%) (Auto) 9.5L, Monocytes (%) (Auto) 9.5, Eosinophils (%) (Auto) 0.5, Basophils (%) (Auto) 0.3, Sodium Level 137, Potassium Level 3.7, Chloride Level 104, Carbon Dioxide Level 24, Anion Gap 9, Blood Urea Nitrogen 22, Creatinine 2.1H, Estimat Glomerular Filtration Rate 41.5, Glucose Level 110H, Calcium Level 7.6L, Total Bilirubin 0.3, Aspartate Amino Transf (AST/SGOT) 14, Alanine Aminotransferase (ALT/SGPT) 8, Alkaline Phosphatase 68, Total Creatine Kinase 70 , Total Protein 5.6L, Albumin 2.2L, Globulin 3.4, Albumin/Globulin Ratio 0.6L Current Medications Medications (Trade) Dose Ordered Sig/Jenny Route PRN Reason Start Time Stop Time Status Last Admin Dose Admin Acetaminophen (Tylenol) 650 mg Q4H PRN ORAL fever 11/11/16 23:45 12/11/16 23:44 11/14/16 16:26 Al Hydroxide/Mg Hydroxide (Mylanta II) 30 ml Q6H PRN ORAL dyspepsia 11/11/16 23:45 12/11/16 23:44 Cefepime HCl 1 gm/ Sodium Chloride 100 ml @ 200 mls/hr EVERY 8 HOURS IVPB 11/12/16 14:00 11/19/16 13:59 11/14/16 05:28 Dextrose (Dextrose 50%) STAT PRN IV Hypoglycemia 11/11/16 23:45 12/11/16 23:44 Dextrose/Sodium Chloride (D5 0.45% NS) 1,000 ml @ 150 mls/hr Q6H40M IV 11/14/16 09:45 12/14/16 09:44 11/14/16 10:12 Heparin Sodium (Porcine) (Heparin 5000 units/ml) 5,000 units EVERY 12 HOURS SUBQ 11/12/16 09:00 12/12/16 08:59 11/14/16 10:12 Heparin Sodium/ Sodium Chloride (Heparin 2000 units/Ns 1000ml premix) 2,000 unit ONCE ONCE INJ 11/14/16 17:15 11/14/16 17:16 UNV Lidocaine HCl (Xylocaine 1% 30ml) 30 ml ONCE ONCE INJ 11/14/16 17:15 1/5/17 17:16 UNV Lorazepam (Ativan 2mg/ml 1ml) 0.5 mg Q4H PRN IV For Anxiety 11/11/16 23:45 11/18/16 23:44 Morphine Sulfate 4 mg 4 mg EVERY 4 HOURS PRN IVP For Pain 11/12/16 16:00 11/19/16 15:59 11/13/16 17:33 Ondansetron HCl (Zofran) 4 mg Q6H PRN IVP Nausea & Vomiting 11/11/16 23:45 12/11/16 23:44 Polyethylene Glycol (Miralax) 17 gm HSPRN PRN ORAL Constipation 11/11/16 23:45 12/11/16 23:44 Sodium Bicarbonate (Sodium Bicarbonate) 50 ml ONCE ONCE IV 11/14/16 17:15 11/14/16 17:16 UNV Vancomycin HCl 1 ea 1 ea DAILY PRN MISC Per rx protocol 11/11/16 23:45 12/11/16 23:44 Vancomycin HCl/ Dextrose (Vancomycin/D5W 250ml) 250 ml @ 167 mls/hr Q12HR@0400,1600 IVPB 11/12/16 16:00 11/17/16 15:59 11/14/16 03:58 Zolpidem Tartrate (Ambien) 5 mg HSPRN PRN ORAL Insomnia 11/11/16 23:45 12/11/16 23:44 NARENDRA NICOLE Nov 14, 2016 17:31
[2016-11-14 18:41] LABS: ALANINE AMINOTRANSFERASE 8 U/L (3-41); ALBUMIN/GLOBULIN RATIO 0.6 (1.0-2.7); ANION GAP 13 (5-15); ASPARTATE AMINO TRANSFERASE 14 U/L (5-40); CALCIUM 7.8 mg/dL (8.6-10.2); CARBON DIOXIDE 23 mEQ/L (20-30); CHLORIDE 102 mEQ/L (98-107); CREATININE 2.5 mg/dL (0.7-1.2); GLOMERULAR FILTRATION RATE 33.8 mL/min (>60); HEMOLYSIS 2; MAGNESIUM 1.7 mg/dL (1.7-2.5); PHOSPHORUS 2.2 mg/dL (2.5-4.8); POTASSIUM 3.6 mEQ/L (3.4-4.9); SODIUM 138 mEQ/L (135-145); TOTAL PROTEIN 5.7 g/dL (6.6-8.7); URIC ACID 6.5 mg/dL (3.0-7.5)
[2016-11-14 18:53] LABS: CORTISOL 16.4 ug/dL; FREE T3 2.1 pg/mL (2.3-4.2); THYROID STIMULATING HORMONE 0.955 uIU/mL (0.300-4.500)
--- NOTE | 2016-11-14 19:37 | Infectious Diseases Prog Note ---
Assessment/Plan Assessment/Plan A: The patient is a 46-year-old male with Fever improving leucocytosis improving Left lower extremity cellulitis MRI : no evidence of associated abscess. Doppler : NO DVT Ro bacteremia SHOAIB worsen ( ? Vanco contributing ) Hx of Anemia. smoker PLAN: Cont on cefepime # 4 and change vancomycin d# 4 to Dapto d# 1 Monitor CBC. Monitor BMP. Monitor blood culture. Monitor laboratories. Subjective Allergies: Coded Allergies: No Known Allergies (Unverified , 11/11/16) Subjective feeling better Objective Vital Signs Last 24 Hour Vital Signs Date Time Temp Pulse Resp B/P Pulse Ox O2 Delivery O2 Flow Rate FiO2 11/14/16 16:00 97.7 83 18 106/60 96 Room Air 11/14/16 11:44 98.2 61 21 122/72 97 Room Air 11/14/16 07:13 98.4 11/14/16 04:00 99.5 79 18 127/67 96 Room Air 11/13/16 21:07 99.1 11/13/16 19:59 102.0 91 20 130/68 98 Room Air Height (Feet): 6 Height (Inches): 1.00 Weight (Pounds): 200 HEENT: anicteric Respiratory/Chest: normal breath sounds Cardiovascular: regularly irregular Abdomen: soft, non tender Microbiology Date/Time Source Procedure Growth Status 11/12/16 14:30 Blood Blood Culture - Preliminary NO GROWTH AFTER 24 HOURS Resulted 11/12/16 14:15 Blood Blood Culture - Preliminary NO GROWTH AFTER 24 HOURS Resulted 11/11/16 22:35 Blood Blood Culture - Preliminary NO GROWTH AFTER 48 HOURS Resulted 11/11/16 22:30 Blood Blood Culture - Preliminary NO GROWTH AFTER 48 HOURS Resulted Laboratory Tests Test 11/14/16 06:10 11/14/16 17:45 White Blood Count 12.2 K/UL (4.8-10.8) H Red Blood Count 3.53 M/UL (4.70-6.10) L Hemoglobin 10.8 G/DL (14.2-18.0) L Hematocrit 32.8 % (42.0-52.0) L Mean Corpuscular Volume 93 FL (80-99) Mean Corpuscular Hemoglobin 30.6 PG (27.0-31.0) Mean Corpuscular Hemoglobin Concent 32.9 G/DL (32.0-36.0) Red Cell Distribution Width 11.6 % (11.6-14.8) Platelet Count 162 K/UL (150-450) Mean Platelet Volume 6.0 FL (6.5-10.1) L Neutrophils (%) (Auto) 80.2 % (45.0-75.0) H Lymphocytes (%) (Auto) 9.5 % (20.0-45.0) L Monocytes (%) (Auto) 9.5 % (1.0-10.0) Eosinophils (%) (Auto) 0.5 % (0.0-3.0) Basophils (%) (Auto) 0.3 % (0.0-2.0) Sodium Level 137 mEQ/L (135-145) 138 mEQ/L (135-145) Potassium Level 3.7 mEQ/L (3.4-4.9) 3.6 mEQ/L (3.4-4.9) Chloride Level 104 mEQ/L (98-107) 102 mEQ/L (98-107) Carbon Dioxide Level 24 mEQ/L (20-30) 23 mEQ/L (20-30) Anion Gap 9 (5-15) 13 (5-15) Blood Urea Nitrogen 22 mg/dL (7-23) 27 mg/dL (7-23) H Creatinine 2.1 mg/dL (0.7-1.2) H 2.5 mg/dL (0.7-1.2) H Estimat Glomerular Filtration Rate 41.5 mL/min (>60) 33.8 mL/min (>60) Glucose Level 110 mg/dL (74-106) H 149 mg/dL (74-106) H Calcium Level 7.6 mg/dL (8.6-10.2) L 7.8 mg/dL (8.6-10.2) L Total Bilirubin 0.3 mg/dL (0.0-1.2) 0.3 mg/dL (0.0-1.2) Aspartate Amino Transf (AST/SGOT) 14 U/L (5-40) 14 U/L (5-40) Alanine Aminotransferase (ALT/SGPT) 8 U/L (3-41) 8 U/L (3-41) Alkaline Phosphatase 68 U/L (40-129) 50 U/L (40-129) Total Creatine Kinase 70 U/L (38-174) 68 U/L (38-174) Total Protein 5.6 g/dL (6.6-8.7) L 5.7 g/dL (6.6-8.7) L Albumin 2.2 g/dL (3.5-5.2) L 2.3 g/dL (3.5-5.2) L Globulin 3.4 g/dL 3.4 g/dL Albumin/Globulin Ratio 0.6 (1.0-2.7) L 0.6 (1.0-2.7) L Osmolality Pending Uric Acid 6.5 mg/dL (3.0-7.5) Phosphorus Level 2.2 mg/dL (2.5-4.8) L Magnesium Level 1.7 mg/dL (1.7-2.5) Thyroid Stimulating Hormone (TSH) 0.955 uIU/mL (0.300-4.500) Free Thyroxine 0.74 ng/dL (0.86-1.85) L Free Triiodothyronine 2.1 pg/mL (2.3-4.2) L Cortisol 16.4 ug/dL Current Medications Medications (Trade) Dose Ordered Sig/Jenny Route PRN Reason Start Time Stop Time Status Last Admin Dose Admin Acetaminophen (Tylenol) 650 mg Q4H PRN ORAL fever 11/11/16 23:45 12/11/16 23:44 11/14/16 16:26 Al Hydroxide/Mg Hydroxide (Mylanta II) 30 ml Q6H PRN ORAL dyspepsia 11/11/16 23:45 12/11/16 23:44 Cefepime HCl 1 gm/ Sodium Chloride 100 ml @ 200 mls/hr EVERY 8 HOURS IVPB 11/12/16 14:00 11/19/16 13:59 11/14/16 05:28 Dextrose (Dextrose 50%) STAT PRN IV Hypoglycemia 11/11/16 23:45 12/11/16 23:44 Dextrose/Sodium Chloride (D5 0.45% NS) 1,000 ml @ 150 mls/hr Q6H40M IV 11/14/16 09:45 12/14/16 09:44 11/14/16 10:12 Heparin Sodium (Porcine) (Heparin 5000 units/ml) 5,000 units EVERY 12 HOURS SUBQ 11/12/16 09:00 12/12/16 08:59 11/14/16 10:12 Heparin Sodium/ Sodium Chloride (Heparin 2000 units/Ns 1000ml premix) 2,000 unit ONCE INJ 11/14/16 17:15 11/15/16 23:59 Lidocaine HCl (Xylocaine 1% 30ml) 30 ml ONCE INJ 11/14/16 17:15 11/15/16 23:59 Lorazepam (Ativan 2mg/ml 1ml) 0.5 mg Q4H PRN IV For Anxiety 11/11/16 23:45 11/18/16 23:44 Morphine Sulfate 4 mg 4 mg EVERY 4 HOURS PRN IVP For Pain 11/12/16 16:00 11/19/16 15:59 11/13/16 17:33 Ondansetron HCl (Zofran) 4 mg Q6H PRN IVP Nausea & Vomiting 11/11/16 23:45 12/11/16 23:44 Polyethylene Glycol (Miralax) 17 gm HSPRN PRN ORAL Constipation 11/11/16 23:45 12/11/16 23:44 Sodium Bicarbonate (Sodium Bicarbonate) 50 ml ONCE IV 11/14/16 17:15 11/15/16 23:59 Vancomycin HCl 1 ea 1 ea DAILY PRN MISC Per rx protocol 11/11/16 23:45 12/11/16 23:44 Vancomycin HCl/ Dextrose (Vancomycin/D5W 250ml) 250 ml @ 167 mls/hr Q12HR@0400,1600 IVPB 11/12/16 16:00 11/17/16 15:59 11/14/16 03:58 Zolpidem Tartrate (Ambien) 5 mg HSPRN PRN ORAL Insomnia 11/11/16 23:45 12/11/16 23:44 ALE NOONAN M.D. Nov 14, 2016 19:37
[2016-11-14] MEDS ORDERED: DAPTOmycin 400 MG in NS 50 ML IVPB SCH (19:45)
[2016-11-14 20:00] VITALS: BP 136/70
[2016-11-14] MEDS: CEFTAROLINE IV SCH (21:00)
[2016-11-14] MEDS: NS IV SCH (21:00)
[2016-11-15] VITALS: BP 138/72
[2016-11-15 04:00] VITALS: BP 125/66
[2016-11-15] MEDS: D5 1/2NS 1,000 ML IV SCH ×3 (05:45→19:24)
[2016-11-15 06:26] LABS: APPEARANCE,URINE TURBID; KETONES,URINE 1+ (NEGATIVE); LEUKOCYTE ESTERASE ,URINE 2+ (NEGATIVE); NITRITE,URINE NEGATIVE (NEGATIVE); PH,URINE 6.5 (4.5-8.0); PROTEIN,URINE 4+ (NEGATIVE); UROBILINOGEN,URINE 1 MG/DL (0.0-1.0)
[2016-11-15 07:42] LABS: BACTERIA,URINE MODERATE /HPF; RBC,URINE TNTC /HPF (0 - 0); SQUAMOUS EPITHELIAL CELL,UR FEW /LPF (NONE/OCC); WBC,URINE TNTC /HPF (0 - 0)
[2016-11-15 08:34] VITALS: BP 139/87
--- NOTE | 2016-11-15 08:45 | Pulmonology Progress Note ---
Assessment/Plan Assessment/Plan ASSESSMENT cellulitis LLE pain LLE anemia ATN PLAN OF CARE MS floor abx, ID follows , blood cx preliminary negative MRI tibia/fibula - no evidence of OM or abscess, no evidence of fasciitis or myositis, surgery eval appreciated no need for surgical intervention venous Duplex bLE negative pain management IVF at 150 labs pending for this am Vanco level stable renal US pending nephro consult today ATN possibly 2 to SE of abx- per ID to change abx? DVT prophylaxis PT/OT bowel regimen case discussed and evaluated by supervising physician Subjective Allergies: Coded Allergies: No Known Allergies (Unverified , 11/11/16) Subjective afebrile, no leukocytosis no labs for today yet creat up to 2. 5 yesterday Objective Last 24 Hour Vital Signs Date Time Temp Pulse Resp B/P Pulse Ox O2 Delivery O2 Flow Rate FiO2 11/15/16 08:34 98.4 68 14 139/87 98 Room Air 11/15/16 07:01 98.5 11/15/16 04:00 99.5 65 20 125/66 95 Room Air 11/15/16 00:00 98.6 72 20 138/72 96 Room Air 11/14/16 20:00 98.1 80 18 136/70 97 Room Air 11/14/16 16:00 97.7 83 18 106/60 96 Room Air 11/14/16 11:44 98.2 61 21 122/72 97 Room Air Intake and Output 11/14/16 11/15/16 19:00 07:00 Intake Total 200 ml 300 ml Output Total 400 ml Balance 200 ml -100 ml Intake Oral 300 ml IV Total 200 ml Output Urine Total 400 ml Respiratory/Chest: chest wall non-tender, lungs clear, no respiratory distress , no accessory muscle use Cardiovascular: normal peripheral pulses, normal rate, regular rhythm Abdomen: normal bowel sounds, soft, non tender, non distended Extremities: no cyanosis, no clubbing, other - left leg edema and erythema improved. blister drained. Skin: other - left leg edema and erythema improved. 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, no motor/sensory deficits, alert, oriented x 3, responsive Lymphatic: no neck adenopathy Musculoskeletal: normal muscle bulk Microbiology Date/Time Source Procedure Growth Status 11/12/16 14:30 Blood Blood Culture - Preliminary NO GROWTH AFTER 48 HOURS Resulted 11/12/16 14:15 Blood Blood Culture - Preliminary NO GROWTH AFTER 48 HOURS Resulted Laboratory Tests 11/14/16 17:45: Sodium Level 138, Potassium Level 3.6, Chloride Level 102, Carbon Dioxide Level 23, Anion Gap 13, Blood Urea Nitrogen 27H, Creatinine 2.5H, Estimat Glomerular Filtration Rate 33.8, Glucose Level 149H, Osmolality [Pending], Uric Acid 6.5, Calcium Level 7.8L, Phosphorus Level 2.2L, Magnesium Level 1.7, Total Bilirubin 0.3, Aspartate Amino Transf (AST/SGOT) 14, Alanine Aminotransferase (ALT/SGPT) 8 , Alkaline Phosphatase 50, Total Creatine Kinase 68, Total Protein 5.7L, Albumin 2.3L, Globulin 3.4, Albumin/Globulin Ratio 0.6L, Thyroid Stimulating Hormone (TSH) 0.955, Free Thyroxine 0.74L, Free Triiodothyronine 2.1L, Cortisol 16.4 11/15/16 05:00: Urine Color Red, Urine Appearance Turbid, Urine pH 6.5, Urine Specific [place] 1.015, Urine Protein 4+H, Urine Glucose (UA) Negative, Urine Ketones 1+H, Urine Occult Blood 5+H, Urine Nitrite Negative, Urine Bilirubin Negative, Urine Urobilinogen 1H, Urine Leukocyte Esterase 2+H, Urine RBC TntcH, Urine WBC TntcH , Urine Squamous Epithelial Cells Few, Urine Bacteria ModerateH, Urine Eosinophils None seen, Urine Random Sodium 11 Current Medications Medications (Trade) Dose Ordered Sig/Jenny Route PRN Reason Start Time Stop Time Status Last Admin Dose Admin Acetaminophen (Tylenol) 650 mg Q4H PRN ORAL fever 11/11/16 23:45 12/11/16 23:44 11/15/16 06:02 Al Hydroxide/Mg Hydroxide (Mylanta II) 30 ml Q6H PRN ORAL dyspepsia 11/11/16 23:45 12/11/16 23:44 Ceftaroline Fosamil/Sodium Chloride (Teflaro/Sodium Chloride 50ml bag) 50 ml @ 50 mls/hr Q12HR IV 11/14/16 21:00 11/21/16 20:59 Dextrose (Dextrose 50%) STAT PRN IV Hypoglycemia 11/11/16 23:45 12/11/16 23:44 Dextrose/Sodium Chloride 1,000 ml @ 150 mls/hr Q6H40M IV 11/14/16 09:45 12/14/16 09:44 11/14/16 10:12 Heparin Sodium (Porcine) (Heparin 5000 units/ml) 5,000 units EVERY 12 HOURS SUBQ 11/12/16 09:00 12/12/16 08:59 11/14/16 10:12 Heparin Sodium/ Sodium Chloride (Heparin 2000 units/Ns 1000ml premix) 2,000 unit ONCE INJ 11/15/16 09:00 12/15/16 08:59 Lidocaine HCl (Xylocaine 1% 30ml) 30 ml ONCE INJ 11/15/16 09:00 12/15/16 08:59 Lorazepam (Ativan 2mg/ml 1ml) 0.5 mg Q4H PRN IV For Anxiety 11/11/16 23:45 11/18/16 23:44 Morphine Sulfate 4 mg 4 mg EVERY 4 HOURS PRN IVP For Pain 11/12/16 16:00 11/19/16 15:59 11/13/16 17:33 Ondansetron HCl (Zofran) 4 mg Q6H PRN IVP Nausea & Vomiting 11/11/16 23:45 12/11/16 23:44 Polyethylene Glycol (Miralax) 17 gm HSPRN PRN ORAL Constipation 11/11/16 23:45 12/11/16 23:44 Sodium Bicarbonate (Sodium Bicarbonate) 50 ml ONCE IV 11/15/16 09:00 12/15/16 08:59 Zolpidem Tartrate (Ambien) 5 mg HSPRN PRN ORAL Insomnia 11/11/16 23:45 12/11/16 23:44 Mabel Roberts NP ([facility]anchtein) Nov 15, 2016 08:44
[2016-11-15] MEDS: CEFTAROLINE IV SCH ×2 (08:49→21:47)
[2016-11-15] MEDS: NS IV SCH ×2 (08:49→21:47)
[2016-11-15] MEDS: Heparin 5000 units/ml inj SUBQ SCH ×2 (08:49→21:00)
[2016-11-15] MEDS ORDERED: Sodium Bicarbonate 8.4% 50ml Inj IV SCH (09:00)
[2016-11-15] MEDS: Lidocaine 1% Plain 30 ml INJ SCH (09:00)
[2016-11-15] MEDS: Heparin 2000 units/Ns 1000ml INJ SCH (09:00)
--- NOTE | 2016-11-15 10:46 | General Surgery Progress Note ---
General Surgery-Progress Note Subjective Reason for Consult left lower extremity cellulitis Chief Complaint: left leg pain Symptoms: improved Additional Comments patient seen and examined at bedside. doing well. pain improved. edema improved. states he feels better. is somewhat non compliant with care (leg not elevated when seen this AM and refused to have labs drawn this AM). Objective Last 24 Hour Vital Signs Date Time Temp Pulse Resp B/P Pulse Ox O2 Delivery O2 Flow Rate FiO2 11/15/16 08:34 98.4 68 14 139/87 98 Room Air 11/15/16 07:01 98.5 11/15/16 04:00 99.5 65 20 125/66 95 Room Air 11/15/16 00:00 98.6 72 20 138/72 96 Room Air 11/14/16 20:00 98.1 80 18 136/70 97 Room Air 11/14/16 16:00 97.7 83 18 106/60 96 Room Air 11/14/16 11:44 98.2 61 21 122/72 97 Room Air I&O Intake and Output 11/14/16 11/15/16 19:00 07:00 Intake Total 200 ml 300 ml Output Total 400 ml Balance 200 ml -100 ml Intake Oral 300 ml IV Total 200 ml Output Urine Total 400 ml Dressing: dry Wound: clean Drains: none Cardiovascular: RSR Respiratory: clear Abdomen: soft, non-tender Extremities: no edema, no tenderness, other - left leg edema and erythema improved. blister drained. much improved from prior exam Laboratory Tests Test 11/14/16 17:45 11/15/16 05:00 Sodium Level 138 mEQ/L (135-145) Potassium Level 3.6 mEQ/L (3.4-4.9) Chloride Level 102 mEQ/L (98-107) Carbon Dioxide Level 23 mEQ/L (20-30) Anion Gap 13 (5-15) Blood Urea Nitrogen 27 mg/dL (7-23) H Creatinine 2.5 mg/dL (0.7-1.2) H Estimat Glomerular Filtration Rate 33.8 mL/min (>60) Glucose Level 149 mg/dL (74-106) H Osmolality Pending Uric Acid 6.5 mg/dL (3.0-7.5) Calcium Level 7.8 mg/dL (8.6-10.2) L Phosphorus Level 2.2 mg/dL (2.5-4.8) L Magnesium Level 1.7 mg/dL (1.7-2.5) Total Bilirubin 0.3 mg/dL (0.0-1.2) Aspartate Amino Transf (AST/SGOT) 14 U/L (5-40) Alanine Aminotransferase (ALT/SGPT) 8 U/L (3-41) Alkaline Phosphatase 50 U/L (40-129) Total Creatine Kinase 68 U/L (38-174) Total Protein 5.7 g/dL (6.6-8.7) L Albumin 2.3 g/dL (3.5-5.2) L Globulin 3.4 g/dL Albumin/Globulin Ratio 0.6 (1.0-2.7) L Thyroid Stimulating Hormone (TSH) 0.955 uIU/mL (0.300-4.500) Free Thyroxine 0.74 ng/dL (0.86-1.85) L Free Triiodothyronine 2.1 pg/mL (2.3-4.2) L Cortisol 16.4 ug/dL Urine Color Red Urine Appearance Turbid Urine pH 6.5 (4.5-8.0) Urine Specific [place] 1.015 (1.005-1.035) Urine Protein 4+ (NEGATIVE) H Urine Glucose (UA) Negative (NEGATIVE) Urine Ketones 1+ (NEGATIVE) H Urine Occult Blood 5+ (NEGATIVE) H Urine Nitrite Negative (NEGATIVE) Urine Bilirubin Negative (NEGATIVE) Urine Urobilinogen 1 MG/DL (0.0-1.0) H Urine Leukocyte Esterase 2+ (NEGATIVE) H Urine RBC Tntc /HPF (0 - 0) H Urine WBC Tntc /HPF (0 - 0) H Urine Squamous Epithelial Cells Few /LPF (NONE/OCC) Urine Bacteria Moderate /HPF (NONE) H Urine Eosinophils None seen Urine Random Sodium 11 mmol/L Assessment Post-op Diagnosis 46 year old male with left lower extremity cellulitis. currently afebrile, HD stable, and exam much improved. patient refused labs this morning so cannot assess renal function or leukocytosis. i spoke to him about this and he will have labs drawn now. will follow up labs to ensure renal function improved and as well leukocytosis. MRI demonstrated soft tissue edema but no abscess or significant fascial distortion. Plan Problems: (1) Cellulitis (2) Sepsis Additional Comments continue with IV Abx diet as tolerated ambulate and oob left leg elevated when in bed or chair follow up labs (trend wbc/renal) Marco Villasenor MD Nov 15, 2016 10:46
--- NOTE | 2016-11-15 11:01 | Infectious Diseases Prog Note ---
Assessment/Plan Assessment/Plan A: The patient is a 46-year-old male with Fever improving leucocytosis improving Left lower extremity cellulitis MRI : no evidence of associated abscess. Doppler : NO DVT Ro bacteremia SHOAIB worsen ( ? Vanco contributing ) Hx of Anemia. smoker PLAN: Cont Ceftaroline d# 1 ( 1/ SP on cefepime and vancomycin d# 4 ) Monitor CBC. ( refused labs) Monitor BMP. ( refused labs ) Monitor blood culture. US of Kid Subjective Constitutional: Denies: anorexia, chills, drenching sweats, fatigue, fever, no symptoms, other Allergies: Coded Allergies: No Known Allergies (Unverified , 11/11/16) Objective Vital Signs Last 24 Hour Vital Signs Date Time Temp Pulse Resp B/P Pulse Ox O2 Delivery O2 Flow Rate FiO2 11/15/16 08:34 98.4 68 14 139/87 98 Room Air 11/15/16 07:01 98.5 11/15/16 04:00 99.5 65 20 125/66 95 Room Air 11/15/16 00:00 98.6 72 20 138/72 96 Room Air 11/14/16 20:00 98.1 80 18 136/70 97 Room Air 11/14/16 16:00 97.7 83 18 106/60 96 Room Air 11/14/16 11:44 98.2 61 21 122/72 97 Room Air Height (Feet): 6 Height (Inches): 1.00 Weight (Pounds): 200 HEENT: atraumatic Respiratory/Chest: lungs clear Cardiovascular: regular rhythm Abdomen: soft, non tender, no mass Microbiology Date/Time Source Procedure Growth Status 11/12/16 14:30 Blood Blood Culture - Preliminary NO GROWTH AFTER 48 HOURS Resulted 11/12/16 14:15 Blood Blood Culture - Preliminary NO GROWTH AFTER 48 HOURS Resulted Laboratory Tests Test 11/14/16 17:45 11/15/16 05:00 Sodium Level 138 mEQ/L (135-145) Potassium Level 3.6 mEQ/L (3.4-4.9) Chloride Level 102 mEQ/L (98-107) Carbon Dioxide Level 23 mEQ/L (20-30) Anion Gap 13 (5-15) Blood Urea Nitrogen 27 mg/dL (7-23) H Creatinine 2.5 mg/dL (0.7-1.2) H Estimat Glomerular Filtration Rate 33.8 mL/min (>60) Glucose Level 149 mg/dL (74-106) H Osmolality Pending Uric Acid 6.5 mg/dL (3.0-7.5) Calcium Level 7.8 mg/dL (8.6-10.2) L Phosphorus Level 2.2 mg/dL (2.5-4.8) L Magnesium Level 1.7 mg/dL (1.7-2.5) Total Bilirubin 0.3 mg/dL (0.0-1.2) Aspartate Amino Transf (AST/SGOT) 14 U/L (5-40) Alanine Aminotransferase (ALT/SGPT) 8 U/L (3-41) Alkaline Phosphatase 50 U/L (40-129) Total Creatine Kinase 68 U/L (38-174) Total Protein 5.7 g/dL (6.6-8.7) L Albumin 2.3 g/dL (3.5-5.2) L Globulin 3.4 g/dL Albumin/Globulin Ratio 0.6 (1.0-2.7) L Thyroid Stimulating Hormone (TSH) 0.955 uIU/mL (0.300-4.500) Free Thyroxine 0.74 ng/dL (0.86-1.85) L Free Triiodothyronine 2.1 pg/mL (2.3-4.2) L Cortisol 16.4 ug/dL Urine Color Red Urine Appearance Turbid Urine pH 6.5 (4.5-8.0) Urine Specific [place] 1.015 (1.005-1.035) Urine Protein 4+ (NEGATIVE) H Urine Glucose (UA) Negative (NEGATIVE) Urine Ketones 1+ (NEGATIVE) H Urine Occult Blood 5+ (NEGATIVE) H Urine Nitrite Negative (NEGATIVE) Urine Bilirubin Negative (NEGATIVE) Urine Urobilinogen 1 MG/DL (0.0-1.0) H Urine Leukocyte Esterase 2+ (NEGATIVE) H Urine RBC Tntc /HPF (0 - 0) H Urine WBC Tntc /HPF (0 - 0) H Urine Squamous Epithelial Cells Few /LPF (NONE/OCC) Urine Bacteria Moderate /HPF (NONE) H Urine Eosinophils None seen Urine Random Sodium 11 mmol/L Current Medications Medications (Trade) Dose Ordered Sig/Jenny Route PRN Reason Start Time Stop Time Status Last Admin Dose Admin Acetaminophen (Tylenol) 650 mg Q4H PRN ORAL fever 11/11/16 23:45 12/11/16 23:44 11/15/16 06:02 Al Hydroxide/Mg Hydroxide (Mylanta II) 30 ml Q6H PRN ORAL dyspepsia 11/11/16 23:45 12/11/16 23:44 Ceftaroline Fosamil/Sodium Chloride (Teflaro/Sodium Chloride 50ml bag) 50 ml @ 50 mls/hr Q12HR IV 11/14/16 21:00 11/21/16 20:59 Dextrose (Dextrose 50%) STAT PRN IV Hypoglycemia 11/11/16 23:45 12/11/16 23:44 Dextrose/Sodium Chloride 1,000 ml @ 150 mls/hr Q6H40M IV 11/14/16 09:45 12/14/16 09:44 11/14/16 10:12 Heparin Sodium (Porcine) (Heparin 5000 units/ml) 5,000 units EVERY 12 HOURS SUBQ 11/12/16 09:00 12/12/16 08:59 11/14/16 10:12 Heparin Sodium/ Sodium Chloride (Heparin 2000 units/Ns 1000ml premix) 2,000 unit ONCE INJ 11/15/16 09:00 12/15/16 08:59 Lidocaine HCl (Xylocaine 1% 30ml) 30 ml ONCE INJ 11/15/16 09:00 12/15/16 08:59 Lorazepam (Ativan 2mg/ml 1ml) 0.5 mg Q4H PRN IV For Anxiety 11/11/16 23:45 11/18/16 23:44 Morphine Sulfate 4 mg 4 mg EVERY 4 HOURS PRN IVP For Pain 11/12/16 16:00 11/19/16 15:59 11/13/16 17:33 Ondansetron HCl (Zofran) 4 mg Q6H PRN IVP Nausea & Vomiting 11/11/16 23:45 12/11/16 23:44 Polyethylene Glycol (Miralax) 17 gm HSPRN PRN ORAL Constipation 11/11/16 23:45 12/11/16 23:44 Sodium Bicarbonate (Sodium Bicarbonate) 50 ml ONCE IV 11/15/16 09:00 12/15/16 08:59 Zolpidem Tartrate (Ambien) 5 mg HSPRN PRN ORAL Insomnia 11/11/16 23:45 12/11/16 23:44 ALE NOONAN M.D. Nov 15, 2016 11:00
[2016-11-15 11:56] VITALS: BP 154/71
[2016-11-15 13:50] LABS: BASOPHILS % (AUTO) 0.3 % (0.0-2.0); LYMPHOCYTES % (AUTO) 11.7 % (20.0-45.0); MEAN CORPUSCULAR HEMOGLOBIN 29.1 PG (27.0-31.0); MEAN CORPUSCULAR HGB CONC 32.4 G/DL (32.0-36.0); MEAN CORPUSCULAR VOLUME 90 FL (80-99); MEAN PLATELET VOLUME 6.2 FL (6.5-10.1); MONOCYTES % (AUTO) 10.3 % (1.0-10.0); NEUTROPHILS % (AUTO) 76.7 % (45.0-75.0); PLATELET COUNT 214 K/UL (150-450); RED CELL DISTRIBUTION WIDTH 11.7 % (11.6-14.8); WHITE BLOOD COUNT 10.9 K/UL (4.8-10.8)
[2016-11-15 13:55] LABS: CALCIUM 7.8 mg/dL (8.6-10.2); CREATININE 3.2 mg/dL (0.7-1.2); GLOMERULAR FILTRATION RATE 25.5 mL/min (>60); POTASSIUM 3.9 mEQ/L (3.4-4.9)
--- NOTE | 2016-11-15 14:49 | Consultation ---
Consult Note Consult Note asked to eval for renal failure- Patient is a 46-year-old male who presented after increased left leg pain and swelling. The patient had noted to have increased fever. He had been having increased redness and swelling to his left leg. A gradual onset of symptoms. Patient states that he thought he had cellulitis. The patient had not been vomiting. He reported having pain with movement. Patient uncoapporative when interviewed and examined Assessment/Plan Status: Acute renal failure: Sepsis , Amikacin , Vancomycin.... Cellulitis Left leg Now on Ceftaroline Anemia Smoker Plan: Hydrate- Vanco level- Adjust Cetaroline dose for CrCl 25 Urine studies- Urine Tox screen- Monitor renal parameters- Per orders GABRIELE GONZALEZ Nov 15, 2016 14:49
[2016-11-15 16:00] VITALS: BP 131/73
--- NOTE | 2016-11-15 18:00 | Diagnostic Imaging Report ---
Indications: Needs long-term IV access Technique: Ultrasound confirms patent compressible left basilic vein. Total sterile technique, including sterile probe cover and sterile gel, hat, mask,, sterile gown, large sterile drape, and preparation with 2% chlorhexidine utilized. Local anesthesia with 1% lidocaine. Under real-time ultrasound guidance, puncture basilic vein using 21-gauge needle, documented and archived, passage 0.018 guidewire under direct fluoroscopy, which was used to determine appropriate catheter length, exchange for 5 Maltese peel-away sheath. 5 M[place] Bard dual-lumen power PICC cut to 49 cm. It was inserted through the peel-away sheath. Peel-away sheath and guidewire removed. Catheter fixed to the skin. Both catheter ports aspirated and flushed. Patient tolerated procedure well, without immediate complication. Digital radiograph documents satisfactory catheter tip position, at the cavoatrial junction. Total fluoroscopy time 0.2 minutes. Total dose area product 4.1 dGycm2 Impression: Successful placement of PICC under sonographic and fluoroscopic guidance, as described above.
[2016-11-15] MEDS ORDERED: D5 1/2NS 1000ml IV ONE (18:25)
[2016-11-15 20:00] VITALS: BP 150/77
[2016-11-16] MEDS: D5 1/2NS 1,000 ML IV SCH ×4 (01:21→21:47)
[2016-11-16 06:54] LABS: BASOPHILS % (AUTO) 0.8 % (0.0-2.0); EOSINOPHILS % (AUTO) 1.7 % (0.0-3.0); LYMPHOCYTES % (AUTO) 12.9 % (20.0-45.0); MEAN CORPUSCULAR HEMOGLOBIN 29.4 PG (27.0-31.0); MEAN CORPUSCULAR HGB CONC 32.1 G/DL (32.0-36.0); MEAN CORPUSCULAR VOLUME 91 FL (80-99); MONOCYTES % (AUTO) 13.3 % (1.0-10.0); NEUTROPHILS % (AUTO) 71.3 % (45.0-75.0); PLATELET COUNT 213 K/UL (150-450); RED BLOOD COUNT 3.71 M/UL (4.70-6.10); RED CELL DISTRIBUTION WIDTH 11.2 % (11.6-14.8)
[2016-11-16 07:02] LABS: CHOLESTEROL 113 mg/dL (< 200); CHOLESTEROL/HDL RATIO 6.6 (3.3-4.4); CRP QUANT 8.5 mg/dL (< 0.5); HEMOLYSIS 3; LDL CHOLESTEROL (CALC.) 67 mg/dL (60-99); MAGNESIUM 1.9 mg/dL (1.7-2.5); PHOSPHORUS 2.8 mg/dL (2.5-4.8)
[2016-11-16] MEDS: Heparin 2000 units/Ns 1000ml INJ SCH (08:19)
[2016-11-16] MEDS: Lidocaine 1% Plain 30 ml INJ SCH (08:20)
[2016-11-16] MEDS: Heparin 5000 units/ml inj SUBQ SCH ×2 (08:35→20:08)
[2016-11-16] MEDS: NS IV SCH ×2 (08:35→20:14)
[2016-11-16] MEDS: CEFTAROLINE IV SCH ×2 (08:35→20:14)
[2016-11-16 09:14] LABS: ALBUMIN/GLOBULIN RATIO 0.6 (1.0-2.7); CALCIUM 7.7 mg/dL (8.6-10.2); CREATININE 4.2 mg/dL (0.7-1.2); GLOMERULAR FILTRATION RATE 18.7 mL/min (>60); POTASSIUM 3.9 mEQ/L (3.4-4.9); TOTAL PROTEIN 5.6 g/dL (6.6-8.7)
--- NOTE | 2016-11-16 10:06 | General Progress Note ---
Assessment/Plan Status: unchanged, deteriorating Status Narrative Cr higher Assessment/Plan Status: Cellulitis left leg- Sepsis, received Amikacin and Vanco in the past. Acute renal failure- HypoAlbuminemia , Proteinuria , ? NS Multi drug abuse Plan: Hydrate- check 24 h urine for protein Add flomax Vanco level- noted DC antibiotics until dose adjusted Urine studies- Urine Tox screen- MJ and Amphetamines Monitor renal parameters- worsening Per orders Subjective ROS Limited/Unobtainable: No Constitutional: Reports: malaise, weakness Allergies: Coded Allergies: SULFUR (Unverified Allergy, Unknown, unk, 11/16/16) Per patient allergic to sulfur Objective Last 24 Hour Vital Signs Date Time Temp Pulse Resp B/P Pulse Ox O2 Delivery O2 Flow Rate FiO2 11/15/16 20:00 99.7 81 18 150/77 95 Room Air 11/15/16 16:00 98.1 68 18 131/73 98 Room Air 11/15/16 11:56 97.9 65 16 154/71 99 Room Air Intake and Output 11/15/16 11/16/16 19:00 07:00 Intake Total 1600 ml 1750 ml Output Total 500 ml Balance 1100 ml 1750 ml Intake Oral 1000 ml 250 ml IV Total 600 ml 1500 ml Output Urine Total 500 ml Laboratory Tests 11/15/16 11:40: White Blood Count 10.9H, Red Blood Count 4.30L, Hemoglobin 12.5L, Hematocrit 38.7L, Mean Corpuscular Volume 90, Mean Corpuscular Hemoglobin 29.1, Mean Corpuscular Hemoglobin Concent 32.4, Red Cell Distribution Width 11.7, Platelet Count 214, Mean Platelet Volume 6.2L, Neutrophils (%) (Auto) 76.7H, Lymphocytes (%) (Auto) 11.7L, Monocytes (%) (Auto) 10.3H, Eosinophils (%) (Auto) 1.0, Basophils (%) (Auto) 0.3, Sodium Level 136, Potassium Level 3.9, Chloride Level 101, Carbon Dioxide Level 24, Anion Gap 11, Blood Urea Nitrogen 34H, Creatinine 3.2H, Estimat Glomerular Filtration Rate 25.5, Glucose Level 107H, Calcium Level 7.8L, Random Vancomycin Level 9.6 11/15/16 15:00: Vancomycin Level Trough 8.4 11/15/16 19:00: Urine Eosinophils None seen, Urine Opiates Screen PositiveH, Urine Barbiturates Screen Negative, Phencyclidine (PCP) Screen Negative, Urine Amphetamines Screen PositiveH, Urine Benzodiazepines Screen Negative, Urine Cocaine Screen Negative , Urine Marijuana (THC) Screen PositiveH 11/16/16 06:12: White Blood Count 12.0H, Red Blood Count 3.71L, Hemoglobin 10.9L, Hematocrit 33.9L, Mean Corpuscular Volume 91, Mean Corpuscular Hemoglobin 29.4, Mean Corpuscular Hemoglobin Concent 32.1, Red Cell Distribution Width 11.2L, Platelet Count 213, Mean Platelet Volume 6.0L, Neutrophils (%) (Auto) 71.3, Lymphocytes (%) (Auto) 12.9L, Monocytes (%) (Auto) 13.3H, Eosinophils (%) (Auto ) 1.7, Basophils (%) (Auto) 0.8, Sodium Level 138, Potassium Level 3.9, Chloride Level 101, Carbon Dioxide Level 22, Anion Gap 15, Blood Urea Nitrogen 41H, Creatinine 4.2H, Estimat Glomerular Filtration Rate 18.7, Glucose Level 109H, Calcium Level 7.7L, Random Vancomycin Level 7.7, Hemoglobin A1c 6.0, Uric Acid 8.0H, Phosphorus Level 2.8, Magnesium Level 1.9, Total Bilirubin 0.4, Gamma Glutamyl Transpeptidase 24, Aspartate Amino Transf (AST/SGOT) 20, Alanine Aminotransferase (ALT/SGPT) 10, Alkaline Phosphatase 55, Total Creatine Kinase 44, C-Reactive Protein, Quantitative 8.5H, Pro-B-Type Natriuretic Peptide 57624J , Total Protein 5.6L, Albumin 2.2L, Globulin 3.4, Albumin/Globulin Ratio 0.6L, Triglycerides Level 143, Cholesterol Level 113, LDL Cholesterol 67, HDL Cholesterol 17, Cholesterol/HDL Ratio 6.6H, Thyroid Stimulating Hormone (TSH) 0.780 Height (Feet): 6 Height (Inches): 1.00 Weight (Pounds): 200 General Appearance: no apparent distress, lethargic Cardiovascular: regular rhythm Abdomen: soft Objective no change in PE GABRIELE GONZALEZ Nov 16, 2016 10:06
--- NOTE | 2016-11-16 11:34 | Diagnostic Imaging Report ---
Indication:Elevated Bun and Creatinine. Technique: Grayscale and duplex Doppler imaging of the kidneys performed. Comparison: None Findings: Both kidneys are echogenic but normal in size. There is no hydronephrosis. The right kidney measures between 12 and 13 cm and the left between 13 and 14 cm in length. IVC is unremarkable. Bladder is unremarkable. Impression: Echogenic kidneys. Medical renal disease suspected.
[2016-11-16] MEDS: Tamsulosin 0.4mg cap ORAL SCH ×2 (11:52→17:21)
[2016-11-16 12:05] VITALS: BP 151/78
--- NOTE | 2016-11-16 14:37 | General Surgery Progress Note ---
General Surgery-Progress Note Subjective Chief Complaint: feels better, less pain and leg inflammation, urine less dark. Hx UTIs Symptoms: worse, improved Additional Comments BUN/Creatinine rising!! UA: 2+ leukocyte esterase, proteinuria, TNTC bacteria, (Frequent anal sex without protection) Objective Last 24 Hour Vital Signs Date Time Temp Pulse Resp B/P Pulse Ox O2 Delivery O2 Flow Rate FiO2 11/16/16 12:05 98.7 66 18 151/78 94 Room Air 11/15/16 20:00 99.7 81 18 150/77 95 Room Air 11/15/16 16:00 98.1 68 18 131/73 98 Room Air I&O Intake and Output 11/15/16 11/16/16 19:00 07:00 Intake Total 1600 ml 1750 ml Output Total 500 ml Balance 1100 ml 1750 ml Intake Oral 1000 ml 250 ml IV Total 600 ml 1500 ml Output Urine Total 500 ml Wound: clean - some bleisters medial lower leg, much less inflammation and erythema Cardiovascular: RSR Respiratory: clear Abdomen: soft, non-tender Extremities: edema - decreased in left lower leg, clean ruptured bulla Laboratory Tests Test 11/15/16 15:00 11/15/16 19:00 11/16/16 06:12 Vancomycin Level Trough 8.4 ug/mL (5.0-12.0) Urine Eosinophils None seen Urine Opiates Screen Positive (NEGATIVE) H Urine Barbiturates Screen Negative (NEGATIVE) Phencyclidine (PCP) Screen Negative (NEGATIVE) Urine Amphetamines Screen Positive (NEGATIVE) H Urine Benzodiazepines Screen Negative (NEGATIVE) Urine Cocaine Screen Negative (NEGATIVE) Urine Marijuana (THC) Screen Positive (NEGATIVE) H White Blood Count 12.0 K/UL (4.8-10.8) H Red Blood Count 3.71 M/UL (4.70-6.10) L Hemoglobin 10.9 G/DL (14.2-18.0) L Hematocrit 33.9 % (42.0-52.0) L Mean Corpuscular Volume 91 FL (80-99) Mean Corpuscular Hemoglobin 29.4 PG (27.0-31.0) Mean Corpuscular Hemoglobin Concent 32.1 G/DL (32.0-36.0) Red Cell Distribution Width 11.2 % (11.6-14.8) L Platelet Count 213 K/UL (150-450) Mean Platelet Volume 6.0 FL (6.5-10.1) L Neutrophils (%) (Auto) 71.3 % (45.0-75.0) Lymphocytes (%) (Auto) 12.9 % (20.0-45.0) L Monocytes (%) (Auto) 13.3 % (1.0-10.0) H Eosinophils (%) (Auto) 1.7 % (0.0-3.0) Basophils (%) (Auto) 0.8 % (0.0-2.0) Sodium Level 138 mEQ/L (135-145) Potassium Level 3.9 mEQ/L (3.4-4.9) Chloride Level 101 mEQ/L (98-107) Carbon Dioxide Level 22 mEQ/L (20-30) Anion Gap 15 (5-15) Blood Urea Nitrogen 41 mg/dL (7-23) H Creatinine 4.2 mg/dL (0.7-1.2) H Estimat Glomerular Filtration Rate 18.7 mL/min (>60) Glucose Level 109 mg/dL (74-106) H Hemoglobin A1c 6.0 % (< 6.0) Uric Acid 8.0 mg/dL (3.0-7.5) H Calcium Level 7.7 mg/dL (8.6-10.2) L Phosphorus Level 2.8 mg/dL (2.5-4.8) Magnesium Level 1.9 mg/dL (1.7-2.5) Total Bilirubin 0.4 mg/dL (0.0-1.2) Gamma Glutamyl Transpeptidase 24 U/L (8-61) Aspartate Amino Transf (AST/SGOT) 20 U/L (5-40) Alanine Aminotransferase (ALT/SGPT) 10 U/L (3-41) Alkaline Phosphatase 55 U/L (40-129) Total Creatine Kinase 44 U/L (38-174) C-Reactive Protein, Quantitative 8.5 mg/dL (< 0.5) H Pro-B-Type Natriuretic Peptide 44014 pg/mL (0-125) H Total Protein 5.6 g/dL (6.6-8.7) L Albumin 2.2 g/dL (3.5-5.2) L Globulin 3.4 g/dL Albumin/Globulin Ratio 0.6 (1.0-2.7) L Triglycerides Level 143 mg/dL (< 150) Cholesterol Level 113 mg/dL (< 200) LDL Cholesterol 67 mg/dL (60-99) HDL Cholesterol 17 mg/dL (> 60) Cholesterol/HDL Ratio 6.6 (3.3-4.4) H Thyroid Stimulating Hormone (TSH) 0.780 uIU/mL (0.300-4.500) Random Vancomycin Level 7.7 ug/mL Imaging MRI.lower left leg: soft tissue and skin edema, no obvious compartment syndrome suggestion. Additional Comments Very concerning acute renal function, Elevated beta natruiretic peptide, hx dark urine. ARF, cause undetermined: infection?, cardiac malfunction, toxic injury? Assessment Additional Comments needs cardiac eval, nephrology in case, check urine C&S. Continue leg elevation and antibiotics for leg cellulitis. MARIANA CASTANO Nov 16, 2016 14:37
--- NOTE | 2016-11-16 15:07 | Pulmonology Progress Note ---
Assessment/Plan Assessment/Plan ASSESSMENT cellulitis LLE pain LLE anemia ATN on chronic renal disease possible UTI elevated pro BNP PLAN OF CARE MS floor abx, ID follows , blood cx preliminary negative , get urine cx stat MRI tibia/fibula - no evidence of OM or abscess, no evidence of fasciitis or myositis, surgery follows no need for surgical intervention venous Duplex bLE negative pain management IVF at 150 nephro consult appreciated, avoid nephrotoxic abx regimen to be adjusted as per ID for renal function Vanco level stable renal US - no hydro, echogenic kidneys, c/w medical renal disease urine tox screen + marijuana, amphetamines, opiates recheck pro BNP in am ECHO DVT prophylaxis PT/OT bowel regimen case discussed and evaluated by supervising physician Subjective Allergies: Coded Allergies: SULFUR (Unverified Allergy, Unknown, unk, 11/16/16) Per patient allergic to sulfur Subjective afebrile, leukocytosis today creat up to 4.2 pro [id number] Objective Last 24 Hour Vital Signs Date Time Temp Pulse Resp B/P Pulse Ox O2 Delivery O2 Flow Rate FiO2 11/16/16 12:05 98.7 66 18 151/78 94 Room Air 11/15/16 20:00 99.7 81 18 150/77 95 Room Air 11/15/16 16:00 98.1 68 18 131/73 98 Room Air Intake and Output 11/15/16 11/16/16 19:00 07:00 Intake Total 1600 ml 1750 ml Output Total 500 ml Balance 1100 ml 1750 ml Intake Oral 1000 ml 250 ml IV Total 600 ml 1500 ml Output Urine Total 500 ml Objective General: NAD, A/A/O x 3 male HEENT: NC/AT, EOMI PERRLA, OP moist Respiratory/Chest: chest wall non-tender, lungs clear, no respiratory distress , no accessory muscle use Cardiovascular: normal peripheral pulses, normal rate, regular rhythm Abdomen: normal bowel sounds, soft, non tender, non distended Extremities: no cyanosis, no clubbing, other - left leg edema and erythema improved. blister drained. Skin: left leg edema and erythema improved. 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4, Mean Corpuscular Hemoglobin Concent 32.1, Red Cell Distribution Width 11.2L, Platelet Count 213, Mean Platelet Volume 6.0L, Neutrophils (%) (Auto) 71.3, Lymphocytes (%) (Auto) 12.9L, Monocytes (%) (Auto) 13.3H, Eosinophils (%) (Auto ) 1.7, Basophils (%) (Auto) 0.8, Sodium Level 138, Potassium Level 3.9, Chloride Level 101, Carbon Dioxide Level 22, Anion Gap 15, Blood Urea Nitrogen 41H, Creatinine 4.2H, Estimat Glomerular Filtration Rate 18.7, Glucose Level 109H, Hemoglobin A1c 6.0, Uric Acid 8.0H, Calcium Level 7.7L, Phosphorus Level 2.8, Magnesium Level 1.9, Total Bilirubin 0.4, Gamma Glutamyl Transpeptidase 24 , Aspartate Amino Transf (AST/SGOT) 20, Alanine Aminotransferase (ALT/SGPT) 10, Alkaline Phosphatase 55, Total Creatine Kinase 44, C-Reactive Protein, Quantitative 8.5H, Pro-B-Type Natriuretic Peptide 40198A, Total Protein 5.6L, Albumin 2.2L, Globulin 3.4, Albumin/Globulin Ratio 0.6L, Triglycerides Level 143 , Cholesterol Level 113, LDL Cholesterol 67, HDL Cholesterol 17, Cholesterol/ HDL Ratio 6.6H, Thyroid Stimulating Hormone (TSH) 0.780, Random Vancomycin Level 7.7 Current Medications Medications (Trade) Dose Ordered Sig/Jenyn Route PRN Reason Start Time Stop Time Status Last Admin Dose Admin Acetaminophen (Tylenol) 650 mg Q4H PRN ORAL fever 11/11/16 23:45 12/11/16 23:44 11/16/16 02:46 Ceftaroline Fosamil/Sodium Chloride (Teflaro/Sodium Chloride 50ml bag) 50 ml @ 50 mls/hr Q12HR IV 11/16/16 21:00 11/23/16 20:59 Dextrose (Dextrose 50%) STAT PRN IV Hypoglycemia 11/11/16 23:45 12/11/16 23:44 Dextrose/Sodium Chloride (D5 0.45% NS) 1,000 ml @ 150 mls/hr Q6H40M IV 11/14/16 09:45 12/14/16 09:44 11/16/16 14:56 Heparin Sodium (Porcine) (Heparin 5000 units/ml) 5,000 units EVERY 12 HOURS SUBQ 11/12/16 09:00 12/12/16 08:59 11/14/16 10:12 Heparin Sodium/ Sodium Chloride (Heparin 2000 units/Ns 1000ml premix) 2,000 unit ONCE INJ 11/15/16 09:00 12/15/16 08:59 Lidocaine HCl (Xylocaine 1% 30ml) 30 ml ONCE INJ 11/15/16 09:00 12/15/16 08:59 Lorazepam (Ativan 2mg/ml 1ml) 0.5 mg Q4H PRN IV For Anxiety 11/11/16 23:45 11/18/16 23:44 Morphine Sulfate 4 mg 4 mg EVERY 4 HOURS PRN IVP For Pain 11/12/16 16:00 11/19/16 15:59 11/13/16 17:33 Ondansetron HCl (Zofran) 4 mg Q6H PRN IVP Nausea & Vomiting 11/11/16 23:45 12/11/16 23:44 Polyethylene Glycol (Miralax) 17 gm HSPRN PRN ORAL Constipation 11/11/16 23:45 12/11/16 23:44 Tamsulosin HCl 0.4 mg 0.4 mg BID ORAL 11/16/16 11:30 12/16/16 11:29 11/16/16 11:52 Zolpidem Tartrate (Ambien) 5 mg HSPRN PRN ORAL Insomnia 11/11/16 23:45 12/11/16 23:44 Mabel Roberts NP (Vanchtein) Nov 16, 2016 15:07
[2016-11-16 15:47] VITALS: BP 139/80
[2016-11-16 19:00] VITALS: BP 134/70
[2016-11-17] VITALS: BP 109/64
[2016-11-17] MEDS: D5 1/2NS 1,000 ML IV SCH (03:17)
[2016-11-17 08:00] VITALS: BP 146/78
[2016-11-17 08:48] LABS: BASOPHILS % (AUTO) 1.4 % (0.0-2.0); LYMPHOCYTES % (AUTO) 12.3 % (20.0-45.0); MEAN CORPUSCULAR HEMOGLOBIN 28.9 PG (27.0-31.0); MEAN CORPUSCULAR HGB CONC 32.3 G/DL (32.0-36.0); MEAN CORPUSCULAR VOLUME 90 FL (80-99); MEAN PLATELET VOLUME 6.1 FL (6.5-10.1); MONOCYTES % (AUTO) 12.3 % (1.0-10.0); NEUTROPHILS % (AUTO) 70.9 % (45.0-75.0); PLATELET COUNT 252 K/UL (150-450); RED BLOOD COUNT 3.89 M/UL (4.70-6.10); RED CELL DISTRIBUTION WIDTH 11.3 % (11.6-14.8); WHITE BLOOD COUNT 10.5 K/UL (4.8-10.8)
[2016-11-17] MEDS: Heparin 2000 units/Ns 1000ml INJ SCH (09:00)
[2016-11-17] MEDS: Lidocaine 1% Plain 30 ml INJ SCH (09:00)
[2016-11-17] MEDS: Heparin 5000 units/ml inj SUBQ SCH ×2 (09:00→20:30)
[2016-11-17 09:02] LABS: ALANINE AMINOTRANSFERASE 12 U/L (3-41); ALBUMIN/GLOBULIN RATIO 0.6 (1.0-2.7); ANION GAP 14 (5-15); ASPARTATE AMINO TRANSFERASE 22 U/L (5-40); CALCIUM 7.5 mg/dL (8.6-10.2); CARBON DIOXIDE 21 mEQ/L (20-30); CHLORIDE 96 mEQ/L (98-107); CREATININE 5.1 mg/dL (0.7-1.2); CRP QUANT 6.5 mg/dL (< 0.5); GLOMERULAR FILTRATION RATE 14.9 mL/min (>60); HEMOLYSIS 2; MAGNESIUM 1.9 mg/dL (1.7-2.5); PHOSPHORUS 3.6 mg/dL (2.5-4.8); POTASSIUM 3.6 mEQ/L (3.4-4.9); SODIUM 131 mEQ/L (135-145); TOTAL PROTEIN 5.3 g/dL (6.6-8.7); URIC ACID 8.3 mg/dL (3.0-7.5)
[2016-11-17] MEDS: Tamsulosin 0.4mg cap ORAL SCH ×2 (09:44→17:08)
[2016-11-17] MEDS: CEFTAROLINE IV SCH ×2 (09:45→20:30)
[2016-11-17] MEDS: NS IV SCH ×2 (09:45→20:30)
--- NOTE | 2016-11-17 09:55 | General Progress Note ---
Assessment/Plan Status: unchanged, deteriorating Status Narrative Cr rising Assessment/Plan Status: Cellulitis left leg- Sepsis, received Amikacin and Vanco in the past. Acute renal failure- HypoAlbuminemia , Proteinuria , ? NS Multi drug abuse Plan: Hydrate- change IV to NS- check 24 h urine for protein Add flomax Vanco level- noted DC antibiotics until dose adjusted Urine studies- Urine Tox screen- MJ and Amphetamines Monitor renal parameters- worsening placement of dialysis catheter, patinet not agreeable as of now- Per orders Subjective ROS Limited/Unobtainable: No Constitutional: Reports: malaise, weakness Allergies: Coded Allergies: SULFUR (Unverified Allergy, Unknown, unk, 11/16/16) Per patient allergic to sulfur Objective Last 24 Hour Vital Signs Date Time Temp Pulse Resp B/P Pulse Ox O2 Delivery O2 Flow Rate FiO2 11/17/16 08:00 98.2 63 16 146/78 97 Room Air 11/17/16 00:00 97.9 71 18 109/64 94 Room Air 11/16/16 19:00 98.2 70 20 134/70 97 Room Air 11/16/16 15:47 98.8 65 20 139/80 98 Room Air 11/16/16 12:05 98.7 66 18 151/78 94 Room Air Intake and Output 11/16/16 11/17/16 19:00 07:00 Intake Total 1250 ml 1220 ml Output Total 250 ml 300 ml Balance 1000 ml 920 ml Intake Oral 50 ml 320 ml IV Total 1200 ml 900 ml Output Urine Total 250 ml 300 ml # Voids 3 Laboratory Tests 11/17/16 08:15: White Blood Count 10.5, Red Blood Count 3.89L, Hemoglobin 11.3L, Hematocrit 34.8L, Mean Corpuscular Volume 90, Mean Corpuscular Hemoglobin 28.9, Mean Corpuscular Hemoglobin Concent 32.3, Red Cell Distribution Width 11.3L, Platelet Count 252, Mean Platelet Volume 6.1L, Neutrophils (%) (Auto) 70.9, Lymphocytes (%) (Auto) 12.3L, Monocytes (%) (Auto) 12.3H, Eosinophils (%) (Auto ) 3.0, Basophils (%) (Auto) 1.4, Sodium Level 131L, Potassium Level 3.6, Chloride Level 96L, Carbon Dioxide Level 21, Anion Gap 14, Blood Urea Nitrogen 43H, Creatinine 5.1H, Estimat Glomerular Filtration Rate 14.9, Glucose Level 146H, Uric Acid 8.3H, Calcium Level 7.5L, Phosphorus Level 3.6, Magnesium Level 1.9, Total Bilirubin 0.3, Aspartate Amino Transf (AST/SGOT) 22, Alanine Aminotransferase (ALT/SGPT) 12, Alkaline Phosphatase 48, Total Creatine Kinase 43, C-Reactive Protein, Quantitative 6.5H, Pro-B-Type Natriuretic Peptide 74488S , Total Protein 5.3L, Albumin 2.1L, Globulin 3.2, Albumin/Globulin Ratio 0.6L Height (Feet): 6 Height (Inches): 1.00 Weight (Pounds): 200 General Appearance: no apparent distress Objective no change in PE GABRIELE GONZALEZ Nov 17, 2016 09:55
[2016-11-17 12:00] VITALS: BP 160/78
--- NOTE | 2016-11-17 12:01 | Infectious Diseases Prog Note ---
Assessment/Plan Assessment/Plan A: The patient is a 46-year-old male with Fever imSP leucocytosis SP Left lower extremity cellulitis improved significantly MRI : no evidence of associated abscess. Doppler : NO DVT Urine Tox screen: +Ve MJ and Amphetamines SHOAIB worsen less urine out put( ? Vanco contributing ) need HD as per Nephro US of Kid : Echogenic kidneys. Medical renal disease suspected. Hx of Anemia. smoker PLAN: Cont Ceftaroline d# 3 / 7 ( 1 SP on cefepime and vancomycin d# 4 ) Monitor CBC. Monitor BMP. Monitor blood culture. HD access on friday Subjective Allergies: Coded Allergies: SULFUR (Unverified Allergy, Unknown, unk, 11/16/16) Per patient allergic to sulfur Objective Vital Signs Last 24 Hour Vital Signs Date Time Temp Pulse Resp B/P Pulse Ox O2 Delivery O2 Flow Rate FiO2 11/17/16 08:00 98.2 63 16 146/78 97 Room Air 11/17/16 00:00 97.9 71 18 109/64 94 Room Air 11/16/16 19:00 98.2 70 20 134/70 97 Room Air 11/16/16 15:47 98.8 65 20 139/80 98 Room Air 11/16/16 12:05 98.7 66 18 151/78 94 Room Air Height (Feet): 6 Height (Inches): 1.00 Weight (Pounds): 200 Microbiology Date/Time Source Procedure Growth Status 11/16/16 17:05 Urine,Clean Catch Urine Culture - Preliminary NO GROWTH Resulted 11/15/16 05:00 Urine,Clean Catch Urine Culture - Preliminary NO GROWTH AFTER 24 HOURS Resulted Laboratory Tests Test 11/17/16 08:15 White Blood Count 10.5 K/UL (4.8-10.8) Red Blood Count 3.89 M/UL (4.70-6.10) L Hemoglobin 11.3 G/DL (14.2-18.0) L Hematocrit 34.8 % (42.0-52.0) L Mean Corpuscular Volume 90 FL (80-99) Mean Corpuscular Hemoglobin 28.9 PG (27.0-31.0) Mean Corpuscular Hemoglobin Concent 32.3 G/DL (32.0-36.0) Red Cell Distribution Width 11.3 % (11.6-14.8) L Platelet Count 252 K/UL (150-450) Mean Platelet Volume 6.1 FL (6.5-10.1) L Neutrophils (%) (Auto) 70.9 % (45.0-75.0) Lymphocytes (%) (Auto) 12.3 % (20.0-45.0) L Monocytes (%) (Auto) 12.3 % (1.0-10.0) H Eosinophils (%) (Auto) 3.0 % (0.0-3.0) Basophils (%) (Auto) 1.4 % (0.0-2.0) Sodium Level 131 mEQ/L (135-145) L Potassium Level 3.6 mEQ/L (3.4-4.9) Chloride Level 96 mEQ/L (98-107) L Carbon Dioxide Level 21 mEQ/L (20-30) Anion Gap 14 (5-15) Blood Urea Nitrogen 43 mg/dL (7-23) H Creatinine 5.1 mg/dL (0.7-1.2) H Estimat Glomerular Filtration Rate 14.9 mL/min (>60) Glucose Level 146 mg/dL (74-106) H Uric Acid 8.3 mg/dL (3.0-7.5) H Calcium Level 7.5 mg/dL (8.6-10.2) L Phosphorus Level 3.6 mg/dL (2.5-4.8) Magnesium Level 1.9 mg/dL (1.7-2.5) Total Bilirubin 0.3 mg/dL (0.0-1.2) Aspartate Amino Transf (AST/SGOT) 22 U/L (5-40) Alanine Aminotransferase (ALT/SGPT) 12 U/L (3-41) Alkaline Phosphatase 48 U/L (40-129) Total Creatine Kinase 43 U/L (38-174) C-Reactive Protein, Quantitative 6.5 mg/dL (< 0.5) H Pro-B-Type Natriuretic Peptide 27521 pg/mL (0-125) H Total Protein 5.3 g/dL (6.6-8.7) L Albumin 2.1 g/dL (3.5-5.2) L Globulin 3.2 g/dL Albumin/Globulin Ratio 0.6 (1.0-2.7) L Current Medications Medications (Trade) Dose Ordered Sig/Jenny Route PRN Reason Start Time Stop Time Status Last Admin Dose Admin Acetaminophen (Tylenol) 650 mg Q4H PRN ORAL fever 11/11/16 23:45 12/11/16 23:44 11/16/16 02:46 Ceftaroline Fosamil 300 mg/ Sodium Chloride 50 ml @ 50 mls/hr Q12HR IV 11/16/16 21:00 11/23/16 20:59 11/17/16 09:45 Dextrose (Dextrose 50%) STAT PRN IV Hypoglycemia 11/11/16 23:45 12/11/16 23:44 Heparin Sodium (Porcine) (Heparin 5000 units/ml) 5,000 units EVERY 12 HOURS SUBQ 11/12/16 09:00 12/12/16 08:59 11/14/16 10:12 Heparin Sodium/ Sodium Chloride (Heparin 2000 units/Ns 1000ml premix) 2,000 unit ONCE INJ 11/15/16 09:00 12/15/16 08:59 Lidocaine HCl (Xylocaine 1% 30ml) 30 ml ONCE INJ 11/15/16 09:00 12/15/16 08:59 Lorazepam (Ativan 2mg/ml 1ml) 0.5 mg Q4H PRN IV For Anxiety 11/11/16 23:45 11/18/16 23:44 Morphine Sulfate (Morphine Sulfate) 4 mg EVERY 4 HOURS PRN IVP For Pain 11/12/16 16:00 11/19/16 15:59 11/13/16 17:33 Ondansetron HCl (Zofran) 4 mg Q6H PRN IVP Nausea & Vomiting 11/11/16 23:45 12/11/16 23:44 Polyethylene Glycol (Miralax) 17 gm HSPRN PRN ORAL Constipation 11/11/16 23:45 12/11/16 23:44 Sodium Chloride (Sodium Chloride 1000ml bag) 1,000 ml @ 100 mls/hr Q10H IV 11/17/16 10:00 12/17/16 09:59 11/17/16 11:09 Tamsulosin HCl 0.4 mg 0.4 mg BID ORAL 11/16/16 11:30 12/16/16 11:29 11/17/16 09:44 Zolpidem Tartrate (Ambien) 5 mg HSPRN PRN ORAL Insomnia 11/11/16 23:45 12/11/16 23:44 ALE NOONAN M.D. Nov 17, 2016 12:01
--- NOTE | 2016-11-17 12:04 | General Progress Note ---
Progress Note Progress Note Afebrile, no pain. all wounds stable cleaner on exam yesterday. Ready for Rehab. MARIANA CASTANO Nov 17, 2016 12:04
--- NOTE | 2016-11-17 12:25 | General Progress Note ---
Progress Note Progress Note Afebrile, pain decreased, no pus in wound. Bullae ruptured, crust present. Renal failure worsening. May need HD. MARIANA CASTANO Nov 17, 2016 12:25
--- NOTE | 2016-11-17 12:43 | Pulmonology Progress Note ---
Assessment/Plan Assessment/Plan ASSESSMENT cellulitis LLE pain LLE anemia ATN on chronic renal disease -worsening possible UTI elevated pro BNP drug abuse ( amphetamine) PLAN OF CARE MS floor abx, ID follows , blood cx preliminary negative , urine cx preliminary negative MRI tibia/fibula - no evidence of OM or abscess, no evidence of fasciitis or myositis, surgery follows no need for surgical intervention venous Duplex bLE negative pain management IVF nephro follows renal parameters worse, creat trending up nephro ordered placement of HD catheter, likely will need HD if no change in renal parameters in 1-2 days avoid nephrotoxic abx regimen adjusted for renal function Vanco level stable renal US - no hydro, echogenic kidneys, c/w medical renal disease urine tox screen + marijuana, amphetamines, opiates ECHO DVT prophylaxis PT/OT bowel regimen case discussed and evaluated by supervising physician Subjective Allergies: Coded Allergies: SULFUR (Unverified Allergy, Unknown, unk, 11/16/16) Per patient allergic to sulfur Subjective afebrile, leukocytosis resolved creat up to 5.1 Objective Last 24 Hour Vital Signs Date Time Temp Pulse Resp B/P Pulse Ox O2 Delivery O2 Flow Rate FiO2 11/17/16 12:00 98.4 63 18 160/78 98 Room Air 11/17/16 08:00 98.2 63 16 146/78 97 Room Air 11/17/16 00:00 97.9 71 18 109/64 94 Room Air 11/16/16 19:00 98.2 70 20 134/70 97 Room Air 11/16/16 15:47 98.8 65 20 139/80 98 Room Air Intake and Output 11/16/16 11/17/16 19:00 07:00 Intake Total 1250 ml 1220 ml Output Total 250 ml 300 ml Balance 1000 ml 920 ml Intake Oral 50 ml 320 ml IV Total 1200 ml 900 ml Output Urine Total 250 ml 300 ml # Voids 3 Objective General: NAD, A/A/O x 3 male HEENT: NC/AT, EOMI PERRLA, OP moist Respiratory/Chest: chest wall non-tender, lungs clear, no respiratory distress , no accessory muscle use Cardiovascular: normal peripheral pulses, normal rate, regular rhythm Abdomen: normal bowel sounds, soft, non tender, non distended Extremities: no cyanosis, no clubbing, other - left leg edema and erythema improved. blister drained. Skin: left leg edema and erythema improved. 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, no motor/sensory deficits, alert, oriented x 3, responsive Lymphatic: no neck adenopathy Musculoskeletal: normal muscle bulk Microbiology Date/Time Source Procedure Growth Status 11/16/16 17:05 Urine,Clean Catch Urine Culture - Preliminary NO GROWTH Resulted 11/15/16 05:00 Urine,Clean Catch Urine Culture - Preliminary NO GROWTH AFTER 24 HOURS Resulted Laboratory Tests 11/17/16 08:15: White Blood Count 10.5, Red Blood Count 3.89L, Hemoglobin 11.3L, Hematocrit 34.8L, Mean Corpuscular Volume 90, Mean Corpuscular Hemoglobin 28.9, Mean Corpuscular Hemoglobin Concent 32.3, Red Cell Distribution Width 11.3L, Platelet Count 252, Mean Platelet Volume 6.1L, Neutrophils (%) (Auto) 70.9, Lymphocytes (%) (Auto) 12.3L, Monocytes (%) (Auto) 12.3H, Eosinophils (%) (Auto ) 3.0, Basophils (%) (Auto) 1.4, Sodium Level 131L, Potassium Level 3.6, Chloride Level 96L, Carbon Dioxide Level 21, Anion Gap 14, Blood Urea Nitrogen 43H, Creatinine 5.1H, Estimat Glomerular Filtration Rate 14.9, Glucose Level 146H, Uric Acid 8.3H, Calcium Level 7.5L, Phosphorus Level 3.6, Magnesium Level 1.9, Total Bilirubin 0.3, Aspartate Amino Transf (AST/SGOT) 22, Alanine Aminotransferase (ALT/SGPT) 12, Alkaline Phosphatase 48, Total Creatine Kinase 43, C-Reactive Protein, Quantitative 6.5H, Pro-B-Type Natriuretic Peptide 88625C , Total Protein 5.3L, Albumin 2.1L, Globulin 3.2, Albumin/Globulin Ratio 0.6L Current Medications Medications (Trade) Dose Ordered Sig/Jenny Route PRN Reason Start Time Stop Time Status Last Admin Dose Admin Acetaminophen (Tylenol) 650 mg Q4H PRN ORAL fever 11/11/16 23:45 12/11/16 23:44 11/16/16 02:46 Ceftaroline Fosamil 300 mg/ Sodium Chloride 50 ml @ 50 mls/hr Q12HR IV 11/16/16 21:00 11/23/16 20:59 11/17/16 09:45 Dextrose (Dextrose 50%) STAT PRN IV Hypoglycemia 11/11/16 23:45 12/11/16 23:44 Heparin Sodium (Porcine) (Heparin 5000 units/ml) 5,000 units EVERY 12 HOURS SUBQ 11/12/16 09:00 12/12/16 08:59 11/14/16 10:12 Heparin Sodium/ Sodium Chloride (Heparin 2000 units/Ns 1000ml premix) 2,000 unit ONCE INJ 11/15/16 09:00 12/15/16 08:59 Lidocaine HCl (Xylocaine 1% 30ml) 30 ml ONCE INJ 11/15/16 09:00 12/15/16 08:59 Lorazepam (Ativan 2mg/ml 1ml) 0.5 mg Q4H PRN IV For Anxiety 11/11/16 23:45 11/18/16 23:44 Morphine Sulfate (Morphine Sulfate) 4 mg EVERY 4 HOURS PRN IVP For Pain 11/12/16 16:00 11/19/16 15:59 11/13/16 17:33 Ondansetron HCl (Zofran) 4 mg Q6H PRN IVP Nausea & Vomiting 11/11/16 23:45 12/11/16 23:44 Polyethylene Glycol (Miralax) 17 gm HSPRN PRN ORAL Constipation 11/11/16 23:45 12/11/16 23:44 Sodium Chloride (Sodium Chloride 1000ml bag) 1,000 ml @ 100 mls/hr Q10H IV 11/17/16 10:00 12/17/16 09:59 11/17/16 11:09 Tamsulosin HCl 0.4 mg 0.4 mg BID ORAL 11/16/16 11:30 12/16/16 11:29 11/17/16 09:44 Zolpidem Tartrate (Ambien) 5 mg HSPRN PRN ORAL Insomnia 11/11/16 23:45 12/11/16 23:44 Mabel Roberts NP (Vanchtein) Nov 17, 2016 12:43
[2016-11-17 13:41] VITALS: BP 150/75
[2016-11-17 15:46] VITALS: BP 137/76
[2016-11-17] MEDS ORDERED: Tubing IV Secondary IV ONE (16:56)
[2016-11-17] MEDS ORDERED: D5 1/2NS 1000ml IV ONE (16:56)
[2016-11-17 17:53] LABS: TOTAL PROTEIN 24HR URINE 959.5 mg/24hr (< 150)
[2016-11-17 19:00] VITALS: BP 145/80
[2016-11-18] VITALS (11 sets, daily range): BP systolic 135–163; BP diastolic 78–91
[2016-11-18 06:31] LABS: INR 1.1 (0.9-1.1); PROTHROMBIN TIME 10.7 SEC (9.30-11.50)
[2016-11-18 06:33] LABS: BASOPHILS % (AUTO) 1.8 % (0.0-2.0); EOSINOPHILS % (AUTO) 4.8 % (0.0-3.0); MEAN CORPUSCULAR HEMOGLOBIN 29.2 PG (27.0-31.0); MEAN CORPUSCULAR HGB CONC 32.1 G/DL (32.0-36.0); MEAN CORPUSCULAR VOLUME 91 FL (80-99); MEAN PLATELET VOLUME 5.5 FL (6.5-10.1); MONOCYTES % (AUTO) 15.2 % (1.0-10.0); NEUTROPHILS % (AUTO) 63.2 % (45.0-75.0); PLATELET COUNT 321 K/UL (150-450); RED BLOOD COUNT 3.53 M/UL (4.70-6.10); RED CELL DISTRIBUTION WIDTH 11.3 % (11.6-14.8); WHITE BLOOD COUNT 9.5 K/UL (4.8-10.8)
[2016-11-18 07:16] LABS: ALBUMIN/GLOBULIN RATIO 0.7 (1.0-2.7); CALCIUM 7.7 mg/dL (8.6-10.2); CREATININE 5.9 mg/dL (0.7-1.2); GLOMERULAR FILTRATION RATE 12.6 mL/min (>60); MAGNESIUM 1.9 mg/dL (1.7-2.5); PHOSPHORUS 4.7 mg/dL (2.5-4.8); POTASSIUM 3.6 mEQ/L (3.4-4.9); TOTAL PROTEIN 5.3 g/dL (6.6-8.7)
[2016-11-18] MEDS: Heparin 5000 units/ml inj SUBQ SCH ×2 (09:00→21:00)
[2016-11-18] MEDS: CEFTAROLINE IV SCH ×2 (09:34→22:31)
[2016-11-18] MEDS: NS IV SCH ×2 (09:34→22:31)
[2016-11-18] MEDS: Tamsulosin 0.4mg cap ORAL SCH ×2 (09:35→18:00)
[2016-11-18] MEDS ORDERED: Lidocaine 1% Plain 30 ml INJ SCH (10:30)
[2016-11-18] MEDS ORDERED: Heparin 2000 units/Ns 1000ml INJ SCH (10:30)
[2016-11-18] MEDS ORDERED: Heparin Sod 1000 units/ml 10ml INJ SCH (10:30)
[2016-11-18] MEDS ORDERED: Sodium Bicarbonate 8.4% 50ml Inj IV SCH (10:30)
--- NOTE | 2016-11-18 10:38 | General Progress Note ---
Assessment/Plan Status: deteriorating - from renal stand Assessment/Plan Status: Cellulitis left leg- Sepsis, received Amikacin and Vanco in the past. Acute renal failure- HypoAlbuminemia , Proteinuria , ? NS Multi drug abuse Plan: Hydrate- change IV to NS- check 24 h urine for protein, pending Add flomax Vanco level- noted DC antibiotics until dose adjusted Urine studies- Urine Tox screen- MJ and Amphetamines Monitor renal parameters- worsening placement of dialysis catheter, and dialysis today- patient agreable Per orders Subjective ROS Limited/Unobtainable: No Constitutional: Reports: malaise Allergies: Coded Allergies: SULFUR (Unverified Allergy, Unknown, unk, 11/16/16) Per patient allergic to sulfur Objective Last 24 Hour Vital Signs Date Time Temp Pulse Resp B/P Pulse Ox O2 Delivery O2 Flow Rate FiO2 11/18/16 08:39 97.0 66 19 141/80 97 Room Air 11/18/16 04:00 98.2 72 21 147/83 96 Room Air 11/18/16 00:00 97.7 72 20 135/80 95 Room Air 11/17/16 19:00 97.7 77 20 145/80 97 Room Air 11/17/16 15:46 97.3 71 20 137/76 98 Room Air 11/17/16 13:41 150/75 11/17/16 12:00 98.4 63 18 160/78 98 Room Air Intake and Output 11/17/16 11/18/16 19:00 07:00 Intake Total 250 ml 920 ml Output Total 250 ml Balance 250 ml 670 ml Intake Oral 100 ml 120 ml IV Total 150 ml 800 ml Output Urine Total 250 ml # Voids 1 3 # Bowel Movements 1 Laboratory Tests 11/18/16 06:00: White Blood Count 9.5, Red Blood Count 3.53L, Hemoglobin 10.3L, Hematocrit 32.1L , Mean Corpuscular Volume 91, Mean Corpuscular Hemoglobin 29.2, Mean Corpuscular Hemoglobin Concent 32.1, Red Cell Distribution Width 11.3L, Platelet Count 321, Mean Platelet Volume 5.5L, Neutrophils (%) (Auto) 63.2, Lymphocytes (%) (Auto) 15.0L, Monocytes (%) (Auto) 15.2H, Eosinophils (%) (Auto ) 4.8H, Basophils (%) (Auto) 1.8, Prothrombin Time 10.7, Prothromb Time International Ratio 1.1, Activated Partial Thromboplast Time 34H, Sodium Level 134L, Potassium Level 3.6, Chloride Level 98, Carbon Dioxide Level 19L, Anion Gap 17H, Blood Urea Nitrogen 46H, Creatinine 5.9H, Estimat Glomerular Filtration Rate 12.6, Glucose Level 98, Calcium Level 7.7L, Phosphorus Level 4.7 , Magnesium Level 1.9, Total Bilirubin 0.2, Aspartate Amino Transf (AST/SGOT) 23 , Alanine Aminotransferase (ALT/SGPT) 16, Alkaline Phosphatase 50, Pro-B-Type Natriuretic Peptide 9182H, Total Protein 5.3L, Albumin 2.2L, Globulin 3.1, Albumin/Globulin Ratio 0.7L Height (Feet): 6 Height (Inches): 1.00 Weight (Pounds): 200 General Appearance: no apparent distress, lethargic Cardiovascular: normal rate Respiratory/Chest: lungs clear Abdomen: soft Objective no change in PE GABRIELE GONZALEZ Nov 18, 2016 10:38
--- NOTE | 2016-11-18 11:56 | Diagnostic Imaging Report ---
Indication: Patient requires hemodialysis. Findings: After the indications, procedure, risks, complications, and alternatives of the procedure were explained, written informed consent was obtained. The neck was prepped with alcohol. All elements of maximal sterile barrier technique were followed including usage of a cap, mask, sterile gown, sterile gloves, hand hygiene and a large sterile sheet. 1% lidocaine was used to anesthetize the skin. Sonographic evaluation of the neck was performed demonstrating a patent and compressible jugular vein. Access was obtained under real-time ultrasound guidance using an 18 gauge needle and a digital image was saved in archive. An 035 wire was then advanced into the vein. Needle exchanged or a dilator. A temporary hemodialysis catheter (12.5 [place]) was then advanced over the wire such that the tip resides in the SVC. Wire was removed. Catheter was secured to the skin using 2-0 Prolene suture. Both ports aspirate and flush easily. Fluoroscopic imaging was utilized to negotiate the 035 wire into the IVC. Final position of the hemodialysis catheter was confirmed by fluoroscopy. Fluoroscopic time 0.5 minutes. The catheter is cleared for use. Impression: Successful placement of right jugular hemodialysis catheter.
--- NOTE | 2016-11-18 12:33 | General Progress Note ---
Progress Note Progress Note Afebrile. Left leg wound is healing, ROM in left foot is intact. Creatine was elevated to 5.9. He underwent placement of a dialysis catheter today. He is stable from a surgical standpoint. Dhruv Hallman MD Nov 18, 2016 12:33
[2016-11-18] MEDS ORDERED: Heplock Flush 100 units/ml 3 ml syr INJ ONE (14:45)
--- NOTE | 2016-11-18 16:03 | Pulmonology Progress Note ---
Assessment/Plan Problems: (1) Sepsis (2) Cellulitis (3) ATN (acute tubular necrosis) Assessment/Plan being dialyzed legs looks much better continue antibiotics surgical evaluation appreciated, Subjective ROS Limited/Unobtainable: No Constitutional: Reports: no symptoms HEENT: Repors: no symptoms Respiratory: Reports: no symptoms Allergies: Coded Allergies: SULFUR (Unverified Allergy, Unknown, unk, 11/16/16) Per patient allergic to sulfur Objective Last 24 Hour Vital Signs Date Time Temp Pulse Resp B/P Pulse Ox O2 Delivery O2 Flow Rate FiO2 11/18/16 13:00 Room Air 11/18/16 12:45 98.6 71 20 163/81 96 Room Air 11/18/16 11:39 97.5 63 19 149/78 96 Room Air 11/18/16 10:45 66 13 153/87 98 Room Air 11/18/16 10:40 67 14 145/82 94 Room Air 11/18/16 10:35 67 16 160/88 98 Room Air 11/18/16 10:31 65 16 11/18/16 08:39 97.0 66 19 141/80 97 Room Air 11/18/16 04:00 98.2 72 21 147/83 96 Room Air 11/18/16 00:00 97.7 72 20 135/80 95 Room Air 11/17/16 19:00 97.7 77 20 145/80 97 Room Air Intake and Output 11/17/16 11/18/16 19:00 07:00 Intake Total 250 ml 920 ml Output Total 250 ml Balance 250 ml 670 ml Intake Oral 100 ml 120 ml IV Total 150 ml 800 ml Output Urine Total 250 ml # Voids 1 3 # Bowel Movements 1 General Appearance: WD/WN HEENT: normocephalic Respiratory/Chest: chest wall non-tender, lungs clear Cardiovascular: normal peripheral pulses, normal rate Abdomen: normal bowel sounds Extremities: no cyanosis Skin: no rash Lymphatic: no neck adenopathy Microbiology Date/Time Source Procedure Growth Status 11/16/16 17:05 Urine,Clean Catch Urine Culture - Preliminary NO GROWTH AFTER 24 HOURS Resulted Laboratory Tests 11/18/16 06:00: White Blood Count 9.5, Red Blood Count 3.53L, Hemoglobin 10.3L, Hematocrit 32.1L , Mean Corpuscular Volume 91, Mean Corpuscular Hemoglobin 29.2, Mean Corpuscular Hemoglobin Concent 32.1, Red Cell Distribution Width 11.3L, Platelet Count 321, Mean Platelet Volume 5.5L, Neutrophils (%) (Auto) 63.2, Lymphocytes (%) (Auto) 15.0L, Monocytes (%) (Auto) 15.2H, Eosinophils (%) (Auto ) 4.8H, Basophils (%) (Auto) 1.8, Prothrombin Time 10.7, Prothromb Time International Ratio 1.1, Activated Partial Thromboplast Time 34H, Sodium Level 134L, Potassium Level 3.6, Chloride Level 98, Carbon Dioxide Level 19L, Anion Gap 17H, Blood Urea Nitrogen 46H, Creatinine 5.9H, Estimat Glomerular Filtration Rate 12.6, Glucose Level 98, Calcium Level 7.7L, Phosphorus Level 4.7 , Magnesium Level 1.9, Total Bilirubin 0.2, Aspartate Amino Transf (AST/SGOT) 23 , Alanine Aminotransferase (ALT/SGPT) 16, Alkaline Phosphatase 50, Pro-B-Type Natriuretic Peptide 9182H, Total Protein 5.3L, Albumin 2.2L, Globulin 3.1, Albumin/Globulin Ratio 0.7L Current Medications Medications (Trade) Dose Ordered Sig/Jenny Route PRN Reason Start Time Stop Time Status Last Admin Dose Admin Acetaminophen (Tylenol) 650 mg Q4H PRN ORAL fever 11/11/16 23:45 12/11/16 23:44 11/16/16 02:46 Ceftaroline Fosamil 300 mg/ Sodium Chloride 50 ml @ 50 mls/hr Q12HR IV 11/16/16 21:00 11/23/16 20:59 11/18/16 09:34 Dextrose (Dextrose 50%) STAT PRN IV Hypoglycemia 11/11/16 23:45 12/11/16 23:44 Heparin Sodium (Porcine) (Heparin 5000 units/ml) 5,000 units EVERY 12 HOURS SUBQ 11/12/16 09:00 12/12/16 08:59 11/14/16 10:12 Heparin Sodium (Porcine) (Heparin Sod 1000 units/ml 10ml) 1,000 unit ONCE INJ 11/18/16 10:30 11/18/16 23:59 Heparin Sodium/ Sodium Chloride (Heparin 2000 units/Ns 1000ml premix) 2,000 unit ONCE INJ 11/18/16 10:30 11/18/16 23:59 Lidocaine HCl (Xylocaine 1% 30ml) 30 ml ONCE INJ 11/18/16 10:30 11/18/16 23:59 Lorazepam (Ativan 2mg/ml 1ml) 0.5 mg Q4H PRN IV For Anxiety 11/11/16 23:45 11/18/16 23:44 Morphine Sulfate (Morphine Sulfate) 4 mg EVERY 4 HOURS PRN IVP For Pain 11/12/16 16:00 11/19/16 15:59 11/13/16 17:33 Ondansetron HCl (Zofran) 4 mg Q6H PRN IVP Nausea & Vomiting 11/11/16 23:45 12/11/16 23:44 Polyethylene Glycol (Miralax) 17 gm HSPRN PRN ORAL Constipation 11/11/16 23:45 12/11/16 23:44 Sodium Bicarbonate (Sodium Bicarbonate) 50 ml ONCE IV 11/18/16 10:30 11/18/16 23:59 Sodium Chloride (Sodium Chloride 1000ml bag) 1,000 ml @ 100 mls/hr Q10H IV 11/17/16 10:00 12/17/16 09:59 11/18/16 05:53 Tamsulosin HCl 0.4 mg 0.4 mg BID ORAL 11/16/16 11:30 12/16/16 11:29 11/18/16 09:35 Zolpidem Tartrate (Ambien) 5 mg HSPRN PRN ORAL Insomnia 11/11/16 23:45 12/11/16 23:44 NARENDRA NICOLE Nov 18, 2016 16:03
--- NOTE | 2016-11-18 17:04 | Infectious Diseases Prog Note ---
Assessment/Plan Assessment/Plan ASSESSMENT: 46-year-old male with: Left lower extremity cellulitis - improved significantly MRI : no evidence of associated abscess, fasciitis or osteomyelitis Doppler : No DVT Fever - resolved Leucocytosis - resolved ARF SP roddy 11/18, initiated HD US of Kid : Echogenic kidneys. Medical renal disease suspected. Polysubstance abuse - UDS(+) Amphetamines, opiates, marijuana, tobacco Sulfa allergy Full Code PLAN: Continue Ceftaroline d# 4 / 7 ( 11/14 SP on cefepime and vancomycin d# 4 ) Monitor CBC, temperatures Monitor BMP. HD prn Subjective Allergies: Coded Allergies: SULFUR (Unverified Allergy, Unknown, unk, 11/16/16) Per patient allergic to sulfur Subjective remains afebrile. improved HD cath placed Objective Vital Signs Last 24 Hour Vital Signs Date Time Temp Pulse Resp B/P Pulse Ox O2 Delivery O2 Flow Rate FiO2 11/18/16 16:17 Room Air 11/18/16 16:16 98.6 92 18 160/78 94 Room Air 11/18/16 16:06 98.4 70 18 160/87 90 Room Air 11/18/16 13:00 Room Air 11/18/16 12:45 98.6 71 20 163/81 96 Room Air 11/18/16 11:39 97.5 63 19 149/78 96 Room Air 11/18/16 10:45 66 13 153/87 98 Room Air 11/18/16 10:40 67 14 145/82 94 Room Air 11/18/16 10:35 67 16 160/88 98 Room Air 11/18/16 10:31 65 16 11/18/16 08:39 97.0 66 19 141/80 97 Room Air 11/18/16 04:00 98.2 72 21 147/83 96 Room Air 11/18/16 00:00 97.7 72 20 135/80 95 Room Air 11/17/16 19:00 97.7 77 20 145/80 97 Room Air Height (Feet): 6 Height (Inches): 1.00 Weight (Pounds): 200 General Appearance: no acute distress Respiratory/Chest: no respiratory distress Cardiovascular: normal rate, regular rhythm Abdomen: normal bowel sounds, soft, non tender, non distended Microbiology Date/Time Source Procedure Growth Status 11/16/16 17:05 Urine,Clean Catch Urine Culture - Preliminary NO GROWTH AFTER 24 HOURS Resulted Laboratory Tests Test 11/18/16 06:00 White Blood Count 9.5 K/UL (4.8-10.8) Red Blood Count 3.53 M/UL (4.70-6.10) L Hemoglobin 10.3 G/DL (14.2-18.0) L Hematocrit 32.1 % (42.0-52.0) L Mean Corpuscular Volume 91 FL (80-99) Mean Corpuscular Hemoglobin 29.2 PG (27.0-31.0) Mean Corpuscular Hemoglobin Concent 32.1 G/DL (32.0-36.0) Red Cell Distribution Width 11.3 % (11.6-14.8) L Platelet Count 321 K/UL (150-450) Mean Platelet Volume 5.5 FL (6.5-10.1) L Neutrophils (%) (Auto) 63.2 % (45.0-75.0) Lymphocytes (%) (Auto) 15.0 % (20.0-45.0) L Monocytes (%) (Auto) 15.2 % (1.0-10.0) H Eosinophils (%) (Auto) 4.8 % (0.0-3.0) H Basophils (%) (Auto) 1.8 % (0.0-2.0) Prothrombin Time 10.7 SEC (9.30-11.50) Prothromb Time International Ratio 1.1 (0.9-1.1) Activated Partial Thromboplast Time 34 SEC (23-33) H Sodium Level 134 mEQ/L (135-145) L Potassium Level 3.6 mEQ/L (3.4-4.9) Chloride Level 98 mEQ/L (98-107) Carbon Dioxide Level 19 mEQ/L (20-30) L Anion Gap 17 (5-15) H Blood Urea Nitrogen 46 mg/dL (7-23) H Creatinine 5.9 mg/dL (0.7-1.2) H Estimat Glomerular Filtration Rate 12.6 mL/min (>60) Glucose Level 98 mg/dL (74-106) Calcium Level 7.7 mg/dL (8.6-10.2) L Phosphorus Level 4.7 mg/dL (2.5-4.8) Magnesium Level 1.9 mg/dL (1.7-2.5) Total Bilirubin 0.2 mg/dL (0.0-1.2) Aspartate Amino Transf (AST/SGOT) 23 U/L (5-40) Alanine Aminotransferase (ALT/SGPT) 16 U/L (3-41) Alkaline Phosphatase 50 U/L (40-129) Pro-B-Type Natriuretic Peptide 9182 pg/mL (0-125) H Total Protein 5.3 g/dL (6.6-8.7) L Albumin 2.2 g/dL (3.5-5.2) L Globulin 3.1 g/dL Albumin/Globulin Ratio 0.7 (1.0-2.7) L Current Medications Medications (Trade) Dose Ordered Sig/Jenny Route PRN Reason Start Time Stop Time Status Last Admin Dose Admin Acetaminophen (Tylenol) 650 mg Q4H PRN ORAL fever 11/11/16 23:45 12/11/16 23:44 11/16/16 02:46 Ceftaroline Fosamil 300 mg/ Sodium Chloride 50 ml @ 50 mls/hr Q12HR IV 11/16/16 21:00 11/23/16 20:59 11/18/16 09:34 Dextrose (Dextrose 50%) STAT PRN IV Hypoglycemia 11/11/16 23:45 12/11/16 23:44 Heparin Sodium (Porcine) (Heparin 5000 units/ml) 5,000 units EVERY 12 HOURS SUBQ 11/12/16 09:00 12/12/16 08:59 11/14/16 10:12 Heparin Sodium (Porcine) (Heparin Sod 1000 units/ml 10ml) 1,000 unit ONCE INJ 11/18/16 10:30 11/18/16 23:59 Heparin Sodium/ Sodium Chloride (Heparin 2000 units/Ns 1000ml premix) 2,000 unit ONCE INJ 11/18/16 10:30 11/18/16 23:59 Lidocaine HCl (Xylocaine 1% 30ml) 30 ml ONCE INJ 11/18/16 10:30 11/18/16 23:59 Lorazepam (Ativan 2mg/ml 1ml) 0.5 mg Q4H PRN IV For Anxiety 11/11/16 23:45 11/18/16 23:44 Morphine Sulfate (Morphine Sulfate) 4 mg EVERY 4 HOURS PRN IVP For Pain 11/12/16 16:00 11/19/16 15:59 11/13/16 17:33 Ondansetron HCl (Zofran) 4 mg Q6H PRN IVP Nausea & Vomiting 11/11/16 23:45 12/11/16 23:44 Polyethylene Glycol (Miralax) 17 gm HSPRN PRN ORAL Constipation 11/11/16 23:45 12/11/16 23:44 Sodium Bicarbonate (Sodium Bicarbonate) 50 ml ONCE IV 11/18/16 10:30 11/18/16 23:59 Sodium Chloride (Sodium Chloride 1000ml bag) 1,000 ml @ 100 mls/hr Q10H IV 11/17/16 10:00 12/17/16 09:59 11/18/16 05:53 Tamsulosin HCl 0.4 mg 0.4 mg BID ORAL 11/16/16 11:30 12/16/16 11:29 11/18/16 09:35 Zolpidem Tartrate (Ambien) 5 mg HSPRN PRN ORAL Insomnia 11/11/16 23:45 12/11/16 23:44 JULIO CHRISTIANSEN Nov 18, 2016 17:03
[2016-11-18 18:29] LABS: APPEARANCE,URINE SLIGHTLY CLOUDY; KETONES,URINE NEGATIVE (NEGATIVE); LEUKOCYTE ESTERASE ,URINE 3+ (NEGATIVE); NITRITE,URINE NEGATIVE (NEGATIVE); PH,URINE 5 (4.5-8.0); PROTEIN,URINE 4+ (NEGATIVE); UROBILINOGEN,URINE NORMAL MG/DL (0.0-1.0)
[2016-11-18 18:56] LABS: BACTERIA,URINE MODERATE /HPF; RBC,URINE 20-30 /HPF (0 - 0); WBC,URINE 15-20 /HPF (0 - 0)
[2016-11-18 18:57] LABS: AMORPHOUS SEDIMENT,UR FEW /LPF
[2016-11-19] VITALS: BP 153/77
[2016-11-19 04:00] VITALS: BP 156/74
[2016-11-19 05:42] LABS: EOSINOPHILS % (AUTO) 4.3 % (0.0-3.0); LYMPHOCYTES % (AUTO) 19.1 % (20.0-45.0); MEAN CORPUSCULAR HEMOGLOBIN 29.4 PG (27.0-31.0); MEAN CORPUSCULAR HGB CONC 32.8 G/DL (32.0-36.0); MEAN CORPUSCULAR VOLUME 90 FL (80-99); MEAN PLATELET VOLUME 5.3 FL (6.5-10.1); MONOCYTES % (AUTO) 14.8 % (1.0-10.0); NEUTROPHILS % (AUTO) 60.8 % (45.0-75.0); PLATELET COUNT 360 K/UL (150-450); RED BLOOD COUNT 3.34 M/UL (4.70-6.10); RED CELL DISTRIBUTION WIDTH 11.2 % (11.6-14.8); WHITE BLOOD COUNT 8.6 K/UL (4.8-10.8)
[2016-11-19 06:15] LABS: ALBUMIN/GLOBULIN RATIO 0.7 (1.0-2.7); CALCIUM 7.4 mg/dL (8.6-10.2); CREATININE 4.5 mg/dL (0.7-1.2); CRP QUANT 4.4 mg/dL (< 0.5); GLOMERULAR FILTRATION RATE 17.2 mL/min (>60); MAGNESIUM 1.9 mg/dL (1.7-2.5); PHOSPHORUS 4.4 mg/dL (2.5-4.8); POTASSIUM 3.8 mEQ/L (3.4-4.9); TOTAL PROTEIN 5.1 g/dL (6.6-8.7); URIC ACID 6.9 mg/dL (3.0-7.5)
[2016-11-19 08:00] VITALS: BP 139/76
[2016-11-19] MEDS: Heparin 5000 units/ml inj SUBQ SCH ×2 (09:00→21:00)
[2016-11-19] MEDS: NS IV SCH (10:04)
[2016-11-19] MEDS: Tamsulosin 0.4mg cap ORAL SCH ×2 (10:04→18:00)
[2016-11-19] MEDS: CEFTAROLINE IV SCH ×2 (10:04→21:00)
--- NOTE | 2016-11-19 11:30 | General Surgery Progress Note ---
General Surgery-Progress Note Subjective Symptoms: improved Additional Comments patient seen and examined at bedside. doing well. had dialysis yesterday. states leg feels much better. no n/v/f/c. Objective Last 24 Hour Vital Signs Date Time Temp Pulse Resp B/P Pulse Ox O2 Delivery O2 Flow Rate FiO2 11/19/16 08:00 98.2 75 19 139/76 93 Room Air 11/19/16 04:00 97.0 76 18 156/74 95 Room Air 11/19/16 00:00 98.1 75 18 153/77 94 Room Air 11/18/16 16:17 Room Air 11/18/16 16:16 98.6 92 18 160/78 94 Room Air 11/18/16 16:06 98.4 70 18 160/87 90 Room Air 11/18/16 13:00 Room Air 11/18/16 12:45 98.6 71 20 163/81 96 Room Air 11/18/16 11:39 97.5 63 19 149/78 96 Room Air I&O Intake and Output 11/18/16 11/19/16 19:00 07:00 Intake Total 340 ml 1690 ml Output Total 1100 ml Balance -760 ml 1690 ml Intake Oral 240 ml 640 ml IV Total 100 ml 1050 ml Output Urine Total 0 ml Hemodialysis UF 1100 ml Wound: clean, dry Cardiovascular: RSR Respiratory: clear Abdomen: non-tender Extremities: no edema Laboratory Tests Test 11/18/16 17:40 11/19/16 05:00 Urine Color Brown Urine Appearance Slightly cloudy Urine pH 5 (4.5-8.0) Urine Specific [place] 1.015 (1.005-1.035) Urine Protein 4+ (NEGATIVE) H Urine Glucose (UA) Negative (NEGATIVE) Urine Ketones Negative (NEGATIVE) Urine Occult Blood 5+ (NEGATIVE) H Urine Nitrite Negative (NEGATIVE) Urine Bilirubin Negative (NEGATIVE) Urine Urobilinogen Normal MG/DL (0.0-1.0) Urine Leukocyte Esterase 3+ (NEGATIVE) H Urine RBC 20-30 /HPF (0 - 0) H Urine WBC 15-20 /HPF (0 - 0) H Urine Squamous Epithelial Cells None /LPF (NONE/OCC) Urine Amorphous Sediment Few /LPF (NONE) H Urine Bacteria Moderate /HPF (NONE) H Urine Coarse Granular Casts 2-4 /LPF (NONE) H Urine Random Sodium 10 mmol/L White Blood Count 8.6 K/UL (4.8-10.8) Red Blood Count 3.34 M/UL (4.70-6.10) L Hemoglobin 9.8 G/DL (14.2-18.0) L Hematocrit 30.0 % (42.0-52.0) L Mean Corpuscular Volume 90 FL (80-99) Mean Corpuscular Hemoglobin 29.4 PG (27.0-31.0) Mean Corpuscular Hemoglobin Concent 32.8 G/DL (32.0-36.0) Red Cell Distribution Width 11.2 % (11.6-14.8) L Platelet Count 360 K/UL (150-450) Mean Platelet Volume 5.3 FL (6.5-10.1) L Neutrophils (%) (Auto) 60.8 % (45.0-75.0) Lymphocytes (%) (Auto) 19.1 % (20.0-45.0) L Monocytes (%) (Auto) 14.8 % (1.0-10.0) H Eosinophils (%) (Auto) 4.3 % (0.0-3.0) H Basophils (%) (Auto) 1.0 % (0.0-2.0) Urine Eosinophils None seen Sodium Level 138 mEQ/L (135-145) Potassium Level 3.8 mEQ/L (3.4-4.9) Chloride Level 101 mEQ/L (98-107) Carbon Dioxide Level 25 mEQ/L (20-30) Anion Gap 12 (5-15) Blood Urea Nitrogen 37 mg/dL (7-23) H Creatinine 4.5 mg/dL (0.7-1.2) H Estimat Glomerular Filtration Rate 17.2 mL/min (>60) Glucose Level 98 mg/dL (74-106) Uric Acid 6.9 mg/dL (3.0-7.5) Calcium Level 7.4 mg/dL (8.6-10.2) L Phosphorus Level 4.4 mg/dL (2.5-4.8) Magnesium Level 1.9 mg/dL (1.7-2.5) Total Bilirubin 0.2 mg/dL (0.0-1.2) Gamma Glutamyl Transpeptidase 22 U/L (8-61) Aspartate Amino Transf (AST/SGOT) 18 U/L (5-40) Alanine Aminotransferase (ALT/SGPT) 12 U/L (3-41) Alkaline Phosphatase 46 U/L (40-129) C-Reactive Protein, Quantitative 4.4 mg/dL (< 0.5) H Pro-B-Type Natriuretic Peptide 5200 pg/mL (0-125) H Total Protein 5.1 g/dL (6.6-8.7) L Albumin 2.2 g/dL (3.5-5.2) L Globulin 2.9 g/dL Albumin/Globulin Ratio 0.7 (1.0-2.7) L Assessment Post-op Diagnosis 46 year old male with left lower extremity cellulitis that is now resolved. wounds clean and dry and leg recovering well. renal function declined during hospital course and required dialysis yesterday. will hopefully recover from renal aspect soon too. otherwise no further surgical intervention necessary. leg looks much improved and small area of blister healing well. Plan Problems: (1) Cellulitis (2) Sepsis Marco Villasenor MD Nov 19, 2016 11:30
--- NOTE | 2016-11-19 11:32 | Diagnostic Imaging Report ---
Indications: COUGH Technique: Portable AP chest Findings: Comparison: None Cardiac silhouette partially obscured. Pulmonary vascular redistribution, bilateral interstitial infiltrates, bibasal pleural effusions. PICC, hemodialysis catheter. IMPRESSION: Congestive heart failure Lines and tubes as described
--- NOTE | 2016-11-19 11:36 | General Progress Note ---
Assessment/Plan Status: unchanged Assessment/Plan Status: Cellulitis left leg- Sepsis, received Amikacin and Vanco in the past. Acute renal failure- HypoAlbuminemia , Proteinuria , ? NS Multi drug abuse Plan: Hydrate- change IV to NS- check 24 h urine for protein, les than 1 gram On flomax Vanco level- noted Urine studies- Urine Tox screen- MJ and Amphetamines Monitor renal parameters- ialysed 11/18 due dialysis 11/20 Per orders Subjective ROS Limited/Unobtainable: No Constitutional: Reports: malaise, weakness Allergies: Coded Allergies: SULFUR (Unverified Allergy, Unknown, unk, 11/16/16) Per patient allergic to sulfur Objective Last 24 Hour Vital Signs Date Time Temp Pulse Resp B/P Pulse Ox O2 Delivery O2 Flow Rate FiO2 11/19/16 08:00 98.2 75 19 139/76 93 Room Air 11/19/16 04:00 97.0 76 18 156/74 95 Room Air 11/19/16 00:00 98.1 75 18 153/77 94 Room Air 11/18/16 16:17 Room Air 11/18/16 16:16 98.6 92 18 160/78 94 Room Air 11/18/16 16:06 98.4 70 18 160/87 90 Room Air 11/18/16 13:00 Room Air 11/18/16 12:45 98.6 71 20 163/81 96 Room Air 11/18/16 11:39 97.5 63 19 149/78 96 Room Air Intake and Output 11/18/16 11/19/16 19:00 07:00 Intake Total 340 ml 1690 ml Output Total 1100 ml Balance -760 ml 1690 ml Intake Oral 240 ml 640 ml IV Total 100 ml 1050 ml Output Urine Total 0 ml Hemodialysis UF 1100 ml Laboratory Tests 11/18/16 17:40: Urine Color Brown, Urine Appearance Slightly cloudy, Urine pH 5, Urine Specific [place] 1.015, Urine Protein 4+H, Urine Glucose (UA) Negative, Urine Ketones Negative, Urine Occult Blood 5+H, Urine Nitrite Negative, Urine Bilirubin Negative, Urine Urobilinogen Normal, Urine Leukocyte Esterase 3+H, Urine RBC 20- 30H, Urine WBC 15-20H, Urine Squamous Epithelial Cells None, Urine Amorphous Sediment FewH, Urine Bacteria ModerateH, Urine Coarse Granular Casts 2-4H, Urine Random Sodium 10 11/19/16 05:00: White Blood Count 8.6, Red Blood Count 3.34L, Hemoglobin 9.8L, Hematocrit 30.0L , Mean Corpuscular Volume 90, Mean Corpuscular Hemoglobin 29.4, Mean Corpuscular Hemoglobin Concent 32.8, Red Cell Distribution Width 11.2L, Platelet Count 360, Mean Platelet Volume 5.3L, Neutrophils (%) (Auto) 60.8, Lymphocytes (%) (Auto) 19.1L, Monocytes (%) (Auto) 14.8H, Eosinophils (%) (Auto ) 4.3H, Basophils (%) (Auto) 1.0, Urine Eosinophils None seen, Sodium Level 138 , Potassium Level 3.8, Chloride Level 101, Carbon Dioxide Level 25, Anion Gap 12 , Blood Urea Nitrogen 37H, Creatinine 4.5H, Estimat Glomerular Filtration Rate 17.2, Glucose Level 98, Uric Acid 6.9, Calcium Level 7.4L, Phosphorus Level 4.4 , Magnesium Level 1.9, Total Bilirubin 0.2, Gamma Glutamyl Transpeptidase 22, Aspartate Amino Transf (AST/SGOT) 18, Alanine Aminotransferase (ALT/SGPT) 12, Alkaline Phosphatase 46, C-Reactive Protein, Quantitative 4.4H, Pro-B-Type Natriuretic Peptide 5200H, Total Protein 5.1L, Albumin 2.2L, Globulin 2.9, Albumin/Globulin Ratio 0.7L Height (Feet): 6 Height (Inches): 1.00 Weight (Pounds): 200 General Appearance: no apparent distress Objective no change in PE GABRIELE GONZALEZ Nov 19, 2016 11:36
[2016-11-19 12:00] VITALS: BP 159/94
[2016-11-19 16:00] VITALS: BP 143/78
--- NOTE | 2016-11-19 16:46 | Infectious Diseases Prog Note ---
Assessment/Plan Assessment/Plan ASSESSMENT: 46-year-old male with: Left lower extremity cellulitis - improved significantly MRI : no evidence of associated abscess, fasciitis or osteomyelitis Doppler : No DVT Fever - resolved Leucocytosis - resolved ARF SP roddy 11/18, initiated HD US of Kid : Echogenic kidneys. Medical renal disease suspected. Polysubstance abuse - UDS(+) Amphetamines, opiates, marijuana, tobacco Sulfa allergy Full Code PLAN: Continue Ceftaroline d# 5 / ( 11/14 SP on cefepime and vancomycin d# 4 ) Monitor CBC, temperatures Monitor BMP. HD prn Subjective Allergies: Coded Allergies: SULFUR (Unverified Allergy, Unknown, unk, 11/16/16) Per patient allergic to sulfur Subjective remains afebrile. improved Objective Vital Signs Last 24 Hour Vital Signs Date Time Temp Pulse Resp B/P Pulse Ox O2 Delivery O2 Flow Rate FiO2 11/19/16 12:00 98.0 71 19 159/94 97 Room Air 11/19/16 08:00 98.2 75 19 139/76 93 Room Air 11/19/16 04:00 97.0 76 18 156/74 95 Room Air 11/19/16 00:00 98.1 75 18 153/77 94 Room Air Height (Feet): 6 Height (Inches): 1.00 Weight (Pounds): 200 General Appearance: no acute distress Respiratory/Chest: no respiratory distress Cardiovascular: normal rate, regular rhythm Abdomen: normal bowel sounds, soft, non tender, non distended Microbiology Date/Time Source Procedure Growth Status 11/18/16 17:40 Urine,Clean Catch Urine Culture - Preliminary NO GROWTH Resulted 11/16/16 17:05 Urine,Clean Catch Urine Culture - Final NO GROWTH AFTER 48 HOURS Complete Laboratory Tests Test 11/18/16 17:40 11/19/16 05:00 Urine Color Brown Urine Appearance Slightly cloudy Urine pH 5 (4.5-8.0) Urine Specific [place] 1.015 (1.005-1.035) Urine Protein 4+ (NEGATIVE) H Urine Glucose (UA) Negative (NEGATIVE) Urine Ketones Negative (NEGATIVE) Urine Occult Blood 5+ (NEGATIVE) H Urine Nitrite Negative (NEGATIVE) Urine Bilirubin Negative (NEGATIVE) Urine Urobilinogen Normal MG/DL (0.0-1.0) Urine Leukocyte Esterase 3+ (NEGATIVE) H Urine RBC 20-30 /HPF (0 - 0) H Urine WBC 15-20 /HPF (0 - 0) H Urine Squamous Epithelial Cells None /LPF (NONE/OCC) Urine Amorphous Sediment Few /LPF (NONE) H Urine Bacteria Moderate /HPF (NONE) H Urine Coarse Granular Casts 2-4 /LPF (NONE) H Urine Random Sodium 10 mmol/L White Blood Count 8.6 K/UL (4.8-10.8) Red Blood Count 3.34 M/UL (4.70-6.10) L Hemoglobin 9.8 G/DL (14.2-18.0) L Hematocrit 30.0 % (42.0-52.0) L Mean Corpuscular Volume 90 FL (80-99) Mean Corpuscular Hemoglobin 29.4 PG (27.0-31.0) Mean Corpuscular Hemoglobin Concent 32.8 G/DL (32.0-36.0) Red Cell Distribution Width 11.2 % (11.6-14.8) L Platelet Count 360 K/UL (150-450) Mean Platelet Volume 5.3 FL (6.5-10.1) L Neutrophils (%) (Auto) 60.8 % (45.0-75.0) Lymphocytes (%) (Auto) 19.1 % (20.0-45.0) L Monocytes (%) (Auto) 14.8 % (1.0-10.0) H Eosinophils (%) (Auto) 4.3 % (0.0-3.0) H Basophils (%) (Auto) 1.0 % (0.0-2.0) Urine Eosinophils None seen Sodium Level 138 mEQ/L (135-145) Potassium Level 3.8 mEQ/L (3.4-4.9) Chloride Level 101 mEQ/L (98-107) Carbon Dioxide Level 25 mEQ/L (20-30) Anion Gap 12 (5-15) Blood Urea Nitrogen 37 mg/dL (7-23) H Creatinine 4.5 mg/dL (0.7-1.2) H Estimat Glomerular Filtration Rate 17.2 mL/min (>60) Glucose Level 98 mg/dL (74-106) Uric Acid 6.9 mg/dL (3.0-7.5) Calcium Level 7.4 mg/dL (8.6-10.2) L Phosphorus Level 4.4 mg/dL (2.5-4.8) Magnesium Level 1.9 mg/dL (1.7-2.5) Total Bilirubin 0.2 mg/dL (0.0-1.2) Gamma Glutamyl Transpeptidase 22 U/L (8-61) Aspartate Amino Transf (AST/SGOT) 18 U/L (5-40) Alanine Aminotransferase (ALT/SGPT) 12 U/L (3-41) Alkaline Phosphatase 46 U/L (40-129) C-Reactive Protein, Quantitative 4.4 mg/dL (< 0.5) H Pro-B-Type Natriuretic Peptide 5200 pg/mL (0-125) H Total Protein 5.1 g/dL (6.6-8.7) L Albumin 2.2 g/dL (3.5-5.2) L Globulin 2.9 g/dL Albumin/Globulin Ratio 0.7 (1.0-2.7) L Current Medications Medications (Trade) Dose Ordered Sig/Jenny Route PRN Reason Start Time Stop Time Status Last Admin Dose Admin Acetaminophen (Tylenol) 650 mg Q4H PRN ORAL fever 11/11/16 23:45 12/11/16 23:44 11/16/16 02:46 Ceftaroline Fosamil/Dextrose (Teflaro/D5W 50ml) 50 ml @ 50 mls/hr Q12HR IV 11/19/16 21:00 11/23/16 20:59 Dextrose (Dextrose 50%) STAT PRN IV Hypoglycemia 11/11/16 23:45 12/11/16 23:44 Heparin Sodium (Porcine) (Heparin 5000 units/ml) 5,000 units EVERY 12 HOURS SUBQ 11/12/16 09:00 12/12/16 08:59 11/14/16 10:12 Ondansetron HCl (Zofran) 4 mg Q6H PRN IVP Nausea & Vomiting 11/11/16 23:45 12/11/16 23:44 Polyethylene Glycol (Miralax) 17 gm HSPRN PRN ORAL Constipation 11/11/16 23:45 12/11/16 23:44 Sodium Chloride 1,000 ml @ 100 mls/hr Q10H IV 11/17/16 10:00 12/17/16 09:59 11/19/16 12:41 Tamsulosin HCl 0.4 mg 0.4 mg BID ORAL 11/16/16 11:30 12/16/16 11:29 11/19/16 10:04 Zolpidem Tartrate (Ambien) 5 mg HSPRN PRN ORAL Insomnia 11/11/16 23:45 12/11/16 23:44 JULIO CHRISTIANSEN Nov 19, 2016 16:46
--- NOTE | 2016-11-19 16:49 | Pulmonology Progress Note ---
Assessment/Plan Problems: (1) Sepsis (2) Cellulitis (3) ATN (acute tubular necrosis) Assessment/Plan afebrile no new complains being dialyzed legs looks much better continue antibiotics Subjective ROS Limited/Unobtainable: No Constitutional: Reports: no symptoms HEENT: Repors: no symptoms Respiratory: Reports: no symptoms Allergies: Coded Allergies: SULFUR (Unverified Allergy, Unknown, unk, 11/16/16) Per patient allergic to sulfur Objective Last 24 Hour Vital Signs Date Time Temp Pulse Resp B/P Pulse Ox O2 Delivery O2 Flow Rate FiO2 11/19/16 12:00 98.0 71 19 159/94 97 Room Air 11/19/16 08:00 98.2 75 19 139/76 93 Room Air 11/19/16 04:00 97.0 76 18 156/74 95 Room Air 11/19/16 00:00 98.1 75 18 153/77 94 Room Air Intake and Output 11/18/16 11/19/16 19:00 07:00 Intake Total 340 ml 1690 ml Output Total 1100 ml Balance -760 ml 1690 ml Intake Oral 240 ml 640 ml IV Total 100 ml 1050 ml Output Urine Total 0 ml Hemodialysis UF 1100 ml General Appearance: WD/WN HEENT: normocephalic, atraumatic Respiratory/Chest: chest wall non-tender, lungs clear Abdomen: normal bowel sounds Extremities: no cyanosis Skin: no lesions Microbiology Date/Time Source Procedure Growth Status 11/18/16 17:40 Urine,Clean Catch Urine Culture - Preliminary NO GROWTH Resulted 11/16/16 17:05 Urine,Clean Catch Urine Culture - Final NO GROWTH AFTER 48 HOURS Complete Laboratory Tests 11/18/16 17:40: Urine Color Brown, Urine Appearance Slightly cloudy, Urine pH 5, Urine Specific [place] 1.015, Urine Protein 4+H, Urine Glucose (UA) Negative, Urine Ketones Negative, Urine Occult Blood 5+H, Urine Nitrite Negative, Urine Bilirubin Negative, Urine Urobilinogen Normal, Urine Leukocyte Esterase 3+H, Urine RBC 20- 30H, Urine WBC 15-20H, Urine Squamous Epithelial Cells None, Urine Amorphous Sediment FewH, Urine Bacteria ModerateH, Urine Coarse Granular Casts 2-4H, Urine Random Sodium 10 11/19/16 05:00: White Blood Count 8.6, Red Blood Count 3.34L, Hemoglobin 9.8L, Hematocrit 30.0L , Mean Corpuscular Volume 90, Mean Corpuscular Hemoglobin 29.4, Mean Corpuscular Hemoglobin Concent 32.8, Red Cell Distribution Width 11.2L, Platelet Count 360, Mean Platelet Volume 5.3L, Neutrophils (%) (Auto) 60.8, Lymphocytes (%) (Auto) 19.1L, Monocytes (%) (Auto) 14.8H, Eosinophils (%) (Auto ) 4.3H, Basophils (%) (Auto) 1.0, Urine Eosinophils None seen, Sodium Level 138 , Potassium Level 3.8, Chloride Level 101, Carbon Dioxide Level 25, Anion Gap 12 , Blood Urea Nitrogen 37H, Creatinine 4.5H, Estimat Glomerular Filtration Rate 17.2, Glucose Level 98, Uric Acid 6.9, Calcium Level 7.4L, Phosphorus Level 4.4 , Magnesium Level 1.9, Total Bilirubin 0.2, Gamma Glutamyl Transpeptidase 22, Aspartate Amino Transf (AST/SGOT) 18, Alanine Aminotransferase (ALT/SGPT) 12, Alkaline Phosphatase 46, C-Reactive Protein, Quantitative 4.4H, Pro-B-Type Natriuretic Peptide 5200H, Total Protein 5.1L, Albumin 2.2L, Globulin 2.9, Albumin/Globulin Ratio 0.7L Current Medications Medications (Trade) Dose Ordered Sig/Jenny Route PRN Reason Start Time Stop Time Status Last Admin Dose Admin Acetaminophen (Tylenol) 650 mg Q4H PRN ORAL fever 11/11/16 23:45 12/11/16 23:44 11/16/16 02:46 Ceftaroline Fosamil/Dextrose (Teflaro/D5W 50ml) 50 ml @ 50 mls/hr Q12HR IV 11/19/16 21:00 11/23/16 20:59 Dextrose (Dextrose 50%) STAT PRN IV Hypoglycemia 11/11/16 23:45 12/11/16 23:44 Heparin Sodium (Porcine) (Heparin 5000 units/ml) 5,000 units EVERY 12 HOURS SUBQ 11/12/16 09:00 12/12/16 08:59 11/14/16 10:12 Ondansetron HCl (Zofran) 4 mg Q6H PRN IVP Nausea & Vomiting 11/11/16 23:45 12/11/16 23:44 Polyethylene Glycol (Miralax) 17 gm HSPRN PRN ORAL Constipation 11/11/16 23:45 12/11/16 23:44 Sodium Chloride 1,000 ml @ 100 mls/hr Q10H IV 11/17/16 10:00 12/17/16 09:59 11/19/16 12:41 Tamsulosin HCl 0.4 mg 0.4 mg BID ORAL 11/16/16 11:30 12/16/16 11:29 11/19/16 10:04 Zolpidem Tartrate (Ambien) 5 mg HSPRN PRN ORAL Insomnia 11/11/16 23:45 12/11/16 23:44 NARENDRA NICOLE Nov 19, 2016 16:48
[2016-11-19 19:00] VITALS: BP 135/77
[2016-11-19] MEDS: D5W IV SCH (21:00)
--- NOTE | 2016-11-19 22:47 | Diagnostic Imaging Report ---
APPROVED REPORT CPT Code: 73607 Present Symptoms Lower Extremity Pain: Left Lower Extremity Edema: Left Comments: Cellulitis BILATERAL: Imaging reveals a patent deep venous system bilaterally. There is no evidence of thrombus within the femoral, popliteal or tibial segments. The greater saphenous veins are also within normal limits. Doppler indicates normal spontaneous flow within these segments.
[2016-11-20 07:21] LABS: LYMPHOCYTES % (AUTO) 16.7 % (20.0-45.0); MEAN CORPUSCULAR HEMOGLOBIN 28.5 PG (27.0-31.0); MEAN CORPUSCULAR HGB CONC 30.6 G/DL (32.0-36.0); MEAN CORPUSCULAR VOLUME 93 FL (80-99); MEAN PLATELET VOLUME 5.3 FL (6.5-10.1); MONOCYTES % (AUTO) 12.1 % (1.0-10.0); NEUTROPHILS % (AUTO) 66.2 % (45.0-75.0); PLATELET COUNT 390 K/UL (150-450); RED CELL DISTRIBUTION WIDTH 11.8 % (11.6-14.8); WHITE BLOOD COUNT 9.3 K/UL (4.8-10.8)
[2016-11-20 08:00] VITALS: BP 148/72
[2016-11-20 08:14] LABS: ALANINE AMINOTRANSFERASE 14 U/L (3-41); ALBUMIN/GLOBULIN RATIO 0.8 (1.0-2.7); ANION GAP 12 (5-15); ASPARTATE AMINO TRANSFERASE 21 U/L (5-40); CALCIUM 7.6 mg/dL (8.6-10.2); CARBON DIOXIDE 24 mEQ/L (20-30); CHLORIDE 104 mEQ/L (98-107); GLOMERULAR FILTRATION RATE 15.3 mL/min (>60); HEMOLYSIS 2; MAGNESIUM 2.1 mg/dL (1.7-2.5); PHOSPHORUS 4.7 mg/dL (2.5-4.8); POTASSIUM 3.8 mEQ/L (3.4-4.9); SODIUM 140 mEQ/L (135-145); TOTAL PROTEIN 5.2 g/dL (6.6-8.7); URIC ACID 7.6 mg/dL (3.0-7.5)
[2016-11-20] MEDS: Tamsulosin 0.4mg cap ORAL SCH ×2 (09:00→18:58)
[2016-11-20] MEDS: Heparin 5000 units/ml inj SUBQ SCH ×2 (09:00→21:50)
[2016-11-20] MEDS: CEFTAROLINE IV SCH ×2 (09:00→21:50)
[2016-11-20] MEDS: D5W IV SCH ×2 (09:00→21:50)
--- NOTE | 2016-11-20 10:17 | General Progress Note ---
Assessment/Plan Status: unchanged Assessment/Plan Status: Cellulitis left leg- Sepsis, received Amikacin and Vanco in the past. Acute renal failure- HypoAlbuminemia , Proteinuria , ? NS Multi drug abuse Plan: Hydrate- change IV to NS- check 24 h urine for protein, les than 1 gram On flomax Vanco level- noted Urine studies- Urine Tox screen- MJ and Amphetamines Monitor renal parameters- Dialysed 11/18 due dialysis 11/20 today Per orders Subjective ROS Limited/Unobtainable: No Allergies: Coded Allergies: SULFUR (Unverified Allergy, Unknown, unk, 11/16/16) Per patient allergic to sulfur Objective Last 24 Hour Vital Signs Date Time Temp Pulse Resp B/P Pulse Ox O2 Delivery O2 Flow Rate FiO2 11/20/16 08:00 98.1 76 20 148/72 94 Room Air 11/19/16 19:00 98.1 80 20 135/77 96 Room Air 11/19/16 16:00 99.0 84 20 143/78 Room Air 11/19/16 12:00 98.0 71 19 159/94 97 Room Air Intake and Output 11/19/16 11/20/16 19:00 07:00 Intake Total 940 ml 360 ml Output Total 350 ml 450 ml Balance 590 ml -90 ml Intake Oral 240 ml 360 ml IV Total 700 ml Output Urine Total 350 ml 450 ml # Voids 5 Laboratory Tests 11/20/16 06:50: White Blood Count 9.3, Red Blood Count 3.20L, Hemoglobin 9.1L, Hematocrit 29.8L , Mean Corpuscular Volume 93, Mean Corpuscular Hemoglobin 28.5, Mean Corpuscular Hemoglobin Concent 30.6L, Red Cell Distribution Width 11.8, Platelet Count 390, Mean Platelet Volume 5.3L, Neutrophils (%) (Auto) 66.2, Lymphocytes (%) (Auto) 16.7L, Monocytes (%) (Auto) 12.1H, Eosinophils (%) (Auto ) 4.0H, Basophils (%) (Auto) 1.0, Sodium Level 140, Potassium Level 3.8, Chloride Level 104, Carbon Dioxide Level 24, Anion Gap 12, Blood Urea Nitrogen 37H, Creatinine 5.0H, Estimat Glomerular Filtration Rate 15.3, Glucose Level 111H, Uric Acid 7.6H, Calcium Level 7.6L, Phosphorus Level 4.7, Magnesium Level 2.1, Total Bilirubin < 0.2, Aspartate Amino Transf (AST/SGOT) 21, Alanine Aminotransferase (ALT/SGPT) 14, Alkaline Phosphatase 51, Total Creatine Kinase 67, C-Reactive Protein, Quantitative 4.0H, Pro-B-Type Natriuretic Peptide 5526H , Total Protein 5.2L, Albumin 2.4L, Globulin 2.8, Albumin/Globulin Ratio 0.8L 11/20/16 06:55: Urine Eosinophils None seen Height (Feet): 6 Height (Inches): 1.00 Weight (Pounds): 200 General Appearance: no apparent distress Objective no change in PE GABRIELE GONZALEZ Nov 20, 2016 10:17
[2016-11-20 12:00] VITALS: BP 153/70
--- NOTE | 2016-11-20 12:19 | General Surgery Progress Note ---
General Surgery-Progress Note Subjective Chief Complaint: left lower leg wound much shrimp cleaner, some crust, but pain decreased. HD done Symptoms: improved Objective Last 24 Hour Vital Signs Date Time Temp Pulse Resp B/P Pulse Ox O2 Delivery O2 Flow Rate FiO2 11/20/16 08:00 98.1 76 20 148/72 94 Room Air 11/19/16 19:00 98.1 80 20 135/77 96 Room Air 11/19/16 16:00 99.0 84 20 143/78 Room Air I&O Intake and Output 11/19/16 11/20/16 19:00 07:00 Intake Total 940 ml 360 ml Output Total 350 ml 450 ml Balance 590 ml -90 ml Intake Oral 240 ml 360 ml IV Total 700 ml Output Urine Total 350 ml 450 ml # Voids 5 Wound: clean - rust in place, no bleeding or infection, edemaa subsiding Drains: none Cardiovascular: RSR Respiratory: clear Abdomen: soft Extremities: edema - 2+, much less tense Laboratory Tests Test 11/20/16 06:50 11/20/16 06:55 White Blood Count 9.3 K/UL (4.8-10.8) Red Blood Count 3.20 M/UL (4.70-6.10) L Hemoglobin 9.1 G/DL (14.2-18.0) L Hematocrit 29.8 % (42.0-52.0) L Mean Corpuscular Volume 93 FL (80-99) Mean Corpuscular Hemoglobin 28.5 PG (27.0-31.0) Mean Corpuscular Hemoglobin Concent 30.6 G/DL (32.0-36.0) L Red Cell Distribution Width 11.8 % (11.6-14.8) Platelet Count 390 K/UL (150-450) Mean Platelet Volume 5.3 FL (6.5-10.1) L Neutrophils (%) (Auto) 66.2 % (45.0-75.0) Lymphocytes (%) (Auto) 16.7 % (20.0-45.0) L Monocytes (%) (Auto) 12.1 % (1.0-10.0) H Eosinophils (%) (Auto) 4.0 % (0.0-3.0) H Basophils (%) (Auto) 1.0 % (0.0-2.0) Sodium Level 140 mEQ/L (135-145) Potassium Level 3.8 mEQ/L (3.4-4.9) Chloride Level 104 mEQ/L (98-107) Carbon Dioxide Level 24 mEQ/L (20-30) Anion Gap 12 (5-15) Blood Urea Nitrogen 37 mg/dL (7-23) H Creatinine 5.0 mg/dL (0.7-1.2) H Estimat Glomerular Filtration Rate 15.3 mL/min (>60) Glucose Level 111 mg/dL (74-106) H Uric Acid 7.6 mg/dL (3.0-7.5) H Calcium Level 7.6 mg/dL (8.6-10.2) L Phosphorus Level 4.7 mg/dL (2.5-4.8) Magnesium Level 2.1 mg/dL (1.7-2.5) Total Bilirubin < 0.2 mg/dL (0.0-1.2) Aspartate Amino Transf (AST/SGOT) 21 U/L (5-40) Alanine Aminotransferase (ALT/SGPT) 14 U/L (3-41) Alkaline Phosphatase 51 U/L (40-129) Total Creatine Kinase 67 U/L (38-174) C-Reactive Protein, Quantitative 4.0 mg/dL (< 0.5) H Pro-B-Type Natriuretic Peptide 5526 pg/mL (0-125) H Total Protein 5.2 g/dL (6.6-8.7) L Albumin 2.4 g/dL (3.5-5.2) L Globulin 2.8 g/dL Albumin/Globulin Ratio 0.8 (1.0-2.7) L Urine Eosinophils None seen Additional Comments S/P left medial lower leg severe cellulitis and bullous injury, r/o spider bite with toxin (brown recluse spider?) with acute renal failure, cause undetermined UTI resolving Assessment Additional Comments Continue HD, elevation, local wound care. Hopefully will have return of renal function MARIANA CASTANO Nov 20, 2016 12:19
--- NOTE | 2016-11-20 15:55 | Infectious Diseases Prog Note ---
Assessment/Plan Assessment/Plan ASSESSMENT: 46-year-old male with: Left lower extremity cellulitis - improved MRI : no evidence of associated abscess, fasciitis or osteomyelitis Doppler : No DVT Fever - resolved Leucocytosis - resolved ARF SP roddy 11/18, initiated HD US of Kid : Echogenic kidneys. Medical renal disease suspected. Polysubstance abuse - UDS(+) Amphetamines, opiates, marijuana, tobacco Sulfa allergy Full Code PLAN: Continue Ceftaroline d# 6 / 7 ( 11/14 SP on cefepime and vancomycin d# 4 ) Monitor CBC, temperatures Monitor BMP. HD prn Subjective Allergies: Coded Allergies: SULFUR (Unverified Allergy, Unknown, unk, 11/16/16) Per patient allergic to sulfur Subjective remains afebrile. improved Objective Vital Signs Last 24 Hour Vital Signs Date Time Temp Pulse Resp B/P Pulse Ox O2 Delivery O2 Flow Rate FiO2 11/20/16 12:00 97.7 67 20 153/70 94 Room Air 11/20/16 08:00 98.1 76 20 148/72 94 Room Air 11/19/16 19:00 98.1 80 20 135/77 96 Room Air 11/19/16 16:00 99.0 84 20 143/78 Room Air Height (Feet): 6 Height (Inches): 1.00 Weight (Pounds): 200 General Appearance: no acute distress Respiratory/Chest: no respiratory distress Cardiovascular: normal rate, regular rhythm Abdomen: normal bowel sounds, soft, non tender, non distended Microbiology Date/Time Source Procedure Growth Status 11/18/16 17:40 Urine,Clean Catch Urine Culture - Preliminary NO GROWTH AFTER 24 HOURS Resulted Laboratory Tests Test 11/20/16 06:50 11/20/16 06:55 White Blood Count 9.3 K/UL (4.8-10.8) Red Blood Count 3.20 M/UL (4.70-6.10) L Hemoglobin 9.1 G/DL (14.2-18.0) L Hematocrit 29.8 % (42.0-52.0) L Mean Corpuscular Volume 93 FL (80-99) Mean Corpuscular Hemoglobin 28.5 PG (27.0-31.0) Mean Corpuscular Hemoglobin Concent 30.6 G/DL (32.0-36.0) L Red Cell Distribution Width 11.8 % (11.6-14.8) Platelet Count 390 K/UL (150-450) Mean Platelet Volume 5.3 FL (6.5-10.1) L Neutrophils (%) (Auto) 66.2 % (45.0-75.0) Lymphocytes (%) (Auto) 16.7 % (20.0-45.0) L Monocytes (%) (Auto) 12.1 % (1.0-10.0) H Eosinophils (%) (Auto) 4.0 % (0.0-3.0) H Basophils (%) (Auto) 1.0 % (0.0-2.0) Sodium Level 140 mEQ/L (135-145) Potassium Level 3.8 mEQ/L (3.4-4.9) Chloride Level 104 mEQ/L (98-107) Carbon Dioxide Level 24 mEQ/L (20-30) Anion Gap 12 (5-15) Blood Urea Nitrogen 37 mg/dL (7-23) H Creatinine 5.0 mg/dL (0.7-1.2) H Estimat Glomerular Filtration Rate 15.3 mL/min (>60) Glucose Level 111 mg/dL (74-106) H Uric Acid 7.6 mg/dL (3.0-7.5) H Calcium Level 7.6 mg/dL (8.6-10.2) L Phosphorus Level 4.7 mg/dL (2.5-4.8) Magnesium Level 2.1 mg/dL (1.7-2.5) Total Bilirubin < 0.2 mg/dL (0.0-1.2) Aspartate Amino Transf (AST/SGOT) 21 U/L (5-40) Alanine Aminotransferase (ALT/SGPT) 14 U/L (3-41) Alkaline Phosphatase 51 U/L (40-129) Total Creatine Kinase 67 U/L (38-174) C-Reactive Protein, Quantitative 4.0 mg/dL (< 0.5) H Pro-B-Type Natriuretic Peptide 5526 pg/mL (0-125) H Total Protein 5.2 g/dL (6.6-8.7) L Albumin 2.4 g/dL (3.5-5.2) L Globulin 2.8 g/dL Albumin/Globulin Ratio 0.8 (1.0-2.7) L Urine Eosinophils None seen Current Medications Medications (Trade) Dose Ordered Sig/Jenny Route PRN Reason Start Time Stop Time Status Last Admin Dose Admin Acetaminophen (Tylenol) 650 mg Q4H PRN ORAL fever 11/11/16 23:45 12/11/16 23:44 11/16/16 02:46 Ceftaroline Fosamil/Dextrose (Teflaro/D5W 50ml) 50 ml @ 50 mls/hr Q12HR IV 11/19/16 21:00 11/23/16 20:59 Dextrose (Dextrose 50%) STAT PRN IV Hypoglycemia 11/11/16 23:45 12/11/16 23:44 Heparin Sodium (Porcine) (Heparin 5000 units/ml) 5,000 units EVERY 12 HOURS SUBQ 11/12/16 09:00 12/12/16 08:59 11/14/16 10:12 Ondansetron HCl (Zofran) 4 mg Q6H PRN IVP Nausea & Vomiting 11/11/16 23:45 12/11/16 23:44 Polyethylene Glycol (Miralax) 17 gm HSPRN PRN ORAL Constipation 11/11/16 23:45 12/11/16 23:44 Sodium Chloride 1,000 ml @ 100 mls/hr Q10H IV 11/17/16 10:00 12/17/16 09:59 11/19/16 12:41 Tamsulosin HCl 0.4 mg 0.4 mg BID ORAL 11/16/16 11:30 12/16/16 11:29 11/19/16 10:04 Zolpidem Tartrate (Ambien) 5 mg HSPRN PRN ORAL Insomnia 11/11/16 23:45 12/11/16 23:44 JULIO CHRISTIANSEN Nov 20, 2016 15:55
[2016-11-20 15:56] VITALS: BP 158/80
--- NOTE | 2016-11-20 18:14 | Pulmonology Progress Note ---
Assessment/Plan Problems: (1) Sepsis (2) Cellulitis (3) ATN (acute tubular necrosis) Assessment/Plan afebrile no new complains being dialyzed legs looks much better continue antibiotics Subjective ROS Limited/Unobtainable: Yes Constitutional: Reports: anorexia, chills, fatigue, fever Musculoskeletal: Reports: pain, stiffness, swelling Allergies: Coded Allergies: SULFUR (Unverified Allergy, Unknown, unk, 11/16/16) Per patient allergic to sulfur Objective Last 24 Hour Vital Signs Date Time Temp Pulse Resp B/P Pulse Ox O2 Delivery O2 Flow Rate FiO2 11/20/16 15:56 98.1 79 20 158/80 95 Room Air 11/20/16 15:30 Room Air 11/20/16 12:00 97.7 67 20 153/70 94 Room Air 11/20/16 08:00 98.1 76 20 148/72 94 Room Air 11/19/16 19:00 98.1 80 20 135/77 96 Room Air Intake and Output 11/19/16 11/20/16 19:00 07:00 Intake Total 940 ml 360 ml Output Total 350 ml 450 ml Balance 590 ml -90 ml Intake Oral 240 ml 360 ml IV Total 700 ml Output Urine Total 350 ml 450 ml # Voids 5 General Appearance: no acute distress HEENT: normocephalic, atraumatic, PERRL Respiratory/Chest: chest wall non-tender, lungs clear, normal breath sounds Cardiovascular: normal peripheral pulses, normal rate, regular rhythm, no JVD Abdomen: normal bowel sounds, soft, non tender, no organomegaly, non distended Genitourinary: normal external genitalia Extremities: no cyanosis, no clubbing Skin: rash, lesions Neurologic/Psychiatric: oleomargarine maker II-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 grossly normal, no motor/sensory deficits Microbiology Date/Time Source Procedure Growth Status 11/18/16 17:40 Urine,Clean Catch Urine Culture - Preliminary NO GROWTH AFTER 24 HOURS Resulted Laboratory Tests 11/20/16 06:50: White Blood Count 9.3, Red Blood Count 3.20L, Hemoglobin 9.1L, Hematocrit 29.8L , Mean Corpuscular Volume 93, Mean Corpuscular Hemoglobin 28.5, Mean Corpuscular Hemoglobin Concent 30.6L, Red Cell Distribution Width 11.8, Platelet Count 390, Mean Platelet Volume 5.3L, Neutrophils (%) (Auto) 66.2, Lymphocytes (%) (Auto) 16.7L, Monocytes (%) (Auto) 12.1H, Eosinophils (%) (Auto ) 4.0H, Basophils (%) (Auto) 1.0, Sodium Level 140, Potassium Level 3.8, Chloride Level 104, Carbon Dioxide Level 24, Anion Gap 12, Blood Urea Nitrogen 37H, Creatinine 5.0H, Estimat Glomerular Filtration Rate 15.3, Glucose Level 111H, Uric Acid 7.6H, Calcium Level 7.6L, Phosphorus Level 4.7, Magnesium Level 2.1, Total Bilirubin < 0.2, Aspartate Amino Transf (AST/SGOT) 21, Alanine Aminotransferase (ALT/SGPT) 14, Alkaline Phosphatase 51, Total Creatine Kinase 67, C-Reactive Protein, Quantitative 4.0H, Pro-B-Type Natriuretic Peptide 5526H , Total Protein 5.2L, Albumin 2.4L, Globulin 2.8, Albumin/Globulin Ratio 0.8L 11/20/16 06:55: Urine Eosinophils None seen Current Medications Medications (Trade) Dose Ordered Sig/Jenny Route PRN Reason Start Time Stop Time Status Last Admin Dose Admin Acetaminophen (Tylenol) 650 mg Q4H PRN ORAL fever 11/11/16 23:45 12/11/16 23:44 11/16/16 02:46 Ceftaroline Fosamil/Dextrose (Teflaro/D5W 50ml) 50 ml @ 50 mls/hr Q12HR IV 11/19/16 21:00 11/23/16 20:59 Dextrose (Dextrose 50%) STAT PRN IV Hypoglycemia 11/11/16 23:45 12/11/16 23:44 Heparin Sodium (Porcine) (Heparin 5000 units/ml) 5,000 units EVERY 12 HOURS SUBQ 11/12/16 09:00 12/12/16 08:59 11/14/16 10:12 Ondansetron HCl (Zofran) 4 mg Q6H PRN IVP Nausea & Vomiting 11/11/16 23:45 12/11/16 23:44 Polyethylene Glycol (Miralax) 17 gm HSPRN PRN ORAL Constipation 11/11/16 23:45 12/11/16 23:44 Sodium Chloride 1,000 ml @ 100 mls/hr Q10H IV 11/17/16 10:00 12/17/16 09:59 1/10/17 12:41 Tamsulosin HCl 0.4 mg 0.4 mg BID ORAL 11/16/16 11:30 12/16/16 11:29 11/19/16 10:04 Zolpidem Tartrate (Ambien) 5 mg HSPRN PRN ORAL Insomnia 11/11/16 23:45 12/11/16 23:44 NARENDRA NICOLE Nov 20, 2016 18:14
[2016-11-20 19:00] VITALS: BP 157/86
[2016-11-20] MEDS: Morphine Sulfate 4mg/ml Inj IVP PRN (22:17)
[2016-11-21] VITALS: BP 146/93
[2016-11-21 04:00] VITALS: BP 156/89
[2016-11-21 06:14] LABS: EOSINOPHILS % (AUTO) 3.3 % (0.0-3.0); MEAN CORPUSCULAR HEMOGLOBIN 28.9 PG (27.0-31.0); MEAN CORPUSCULAR HGB CONC 32.2 G/DL (32.0-36.0); MEAN CORPUSCULAR VOLUME 90 FL (80-99); MEAN PLATELET VOLUME 5.3 FL (6.5-10.1); MONOCYTES % (AUTO) 11.9 % (1.0-10.0); NEUTROPHILS % (AUTO) 66.8 % (45.0-75.0); PLATELET COUNT 397 K/UL (150-450); RED BLOOD COUNT 3.15 M/UL (4.70-6.10); RED CELL DISTRIBUTION WIDTH 11.9 % (11.6-14.8); WHITE BLOOD COUNT 9.8 K/UL (4.8-10.8)
[2016-11-21 06:27] LABS: ALBUMIN/GLOBULIN RATIO 0.6 (1.0-2.7); CALCIUM 7.7 mg/dL (8.6-10.2); CREATININE 4.7 mg/dL (0.7-1.2); GLOMERULAR FILTRATION RATE 16.4 mL/min (>60); MAGNESIUM 1.9 mg/dL (1.7-2.5); PHOSPHORUS 4.9 mg/dL (2.5-4.8); POTASSIUM 3.9 mEQ/L (3.4-4.9); TOTAL PROTEIN 5.5 g/dL (6.6-8.7)
[2016-11-21 07:12] LABS: URIC ACID 7.5 mg/dL (3.0-7.5)
[2016-11-21 08:00] VITALS: BP 163/99
[2016-11-21] MEDS: Tamsulosin 0.4mg cap ORAL SCH ×2 (10:05→18:37)
[2016-11-21] MEDS: Morphine Sulfate 4mg/ml Inj IVP PRN ×3 (10:10→19:23)
[2016-11-21] MEDS: Heparin 5000 units/ml inj SUBQ SCH ×2 (10:12→21:40)
[2016-11-21] MEDS: CEFTAROLINE IV SCH ×2 (10:15→22:47)
[2016-11-21] MEDS: D5W IV SCH ×2 (10:15→22:47)
--- NOTE | 2016-11-21 12:24 | General Progress Note ---
Assessment/Plan Status: unchanged Assessment/Plan Status: Cellulitis left leg- Sepsis, received Amikacin and Vanco in the past. Acute renal failure- HypoAlbuminemia , Proteinuria , ? NS Multi drug abuse Plan: DC IV- Add Norvasc- Change Dialysis cath- check 24 h urine for protein, les than 1 gram On flomax- Vanco level- noted Urine studies- Urine Tox screen- MJ and Amphetamines Monitor renal parameters- Dialysed 11/18 due dialysis 11/20 Per orders Subjective ROS Limited/Unobtainable: No Constitutional: Reports: malaise Respiratory: Reports: shortness of breath Allergies: Coded Allergies: SULFUR (Unverified Allergy, Unknown, unk, 11/16/16) Per patient allergic to sulfur Objective Last 24 Hour Vital Signs Date Time Temp Pulse Resp B/P Pulse Ox O2 Delivery O2 Flow Rate FiO2 11/21/16 08:00 97.5 77 19 163/99 96 Room Air 11/21/16 04:00 97.3 81 18 156/89 95 Nasal Cannula 2.0 11/21/16 00:00 98.4 86 20 146/93 91 Room Air 11/20/16 19:00 98.2 86 20 157/86 93 Room Air 11/20/16 18:10 Room Air 11/20/16 15:56 98.1 79 20 158/80 95 Room Air 11/20/16 15:30 Room Air Intake and Output 11/20/16 11/21/16 19:00 07:00 Intake Total 450 ml 120 ml Output Total 1500 ml 1000 ml Balance -1050 ml -880 ml Intake Oral 450 ml 120 ml Output Urine Total 400 ml 1000 ml Hemodialysis UF 1100 ml # Voids 4 Laboratory Tests 11/21/16 05:00: White Blood Count 9.8, Red Blood Count 3.15L, Hemoglobin 9.1L, Hematocrit 28.3L , Mean Corpuscular Volume 90, Mean Corpuscular Hemoglobin 28.9, Mean Corpuscular Hemoglobin Concent 32.2, Red Cell Distribution Width 11.9, Platelet Count 397, Mean Platelet Volume 5.3L, Neutrophils (%) (Auto) 66.8, Lymphocytes ( %) (Auto) 17.0L, Monocytes (%) (Auto) 11.9H, Eosinophils (%) (Auto) 3.3H, Basophils (%) (Auto) 1.0, Sodium Level 139, Potassium Level 3.9, Chloride Level 103, Carbon Dioxide Level 25, Anion Gap 11, Blood Urea Nitrogen 33H, Creatinine 4.7H, Estimat Glomerular Filtration Rate 16.4, Glucose Level 92, Uric Acid 7.5, Calcium Level 7.7L, Phosphorus Level 4.9H, Magnesium Level 1.9, Total Bilirubin 0.3, Aspartate Amino Transf (AST/SGOT) 21, Alanine Aminotransferase (ALT/SGPT) 14, Alkaline Phosphatase 49, Total Protein 5.5L, Albumin 2.2L, Globulin 3.3, Albumin/Globulin Ratio 0.6L Height (Feet): 6 Height (Inches): 1.00 Weight (Pounds): 200 General Appearance: mild distress Cardiovascular: normal rate Respiratory/Chest: decreased breath sounds Abdomen: soft Objective no change in PE GABRIELE GONZALEZ Nov 21, 2016 12:24
[2016-11-21 16:10] VITALS: BP 161/94
[2016-11-21] MEDS ORDERED: Metolazone 5mg tab ORAL ONE (17:00)
--- NOTE | 2016-11-21 18:10 | Pulmonology Progress Note ---
Assessment/Plan Problems: (1) Sepsis (2) Cellulitis (3) ATN (acute tubular necrosis) Assessment/Plan afebrile no new complains being dialyzed legs looks much better continue antibiotics Subjective ROS Limited/Unobtainable: No Constitutional: Reports: anorexia, chills, fatigue, fever Musculoskeletal: Reports: pain, stiffness, swelling Allergies: Coded Allergies: SULFUR (Unverified Allergy, Unknown, unk, 11/16/16) Per patient allergic to sulfur Objective Last 24 Hour Vital Signs Date Time Temp Pulse Resp B/P Pulse Ox O2 Delivery O2 Flow Rate FiO2 11/21/16 14:09 77 163/99 11/21/16 08:00 97.5 77 19 163/99 96 Room Air 11/21/16 04:00 97.3 81 18 156/89 95 Nasal Cannula 2.0 11/21/16 00:00 98.4 86 20 146/93 91 Room Air 11/20/16 19:00 98.2 86 20 157/86 93 Room Air Intake and Output 11/20/16 11/21/16 19:00 07:00 Intake Total 450 ml 120 ml Output Total 1500 ml 1000 ml Balance -1050 ml -880 ml Intake Oral 450 ml 120 ml Output Urine Total 400 ml 1000 ml Hemodialysis UF 1100 ml # Voids 4 General Appearance: no acute distress HEENT: normocephalic, atraumatic, anicteric, PERRL Respiratory/Chest: chest wall non-tender, lungs clear, decreased breath sounds , accessory muscle use Cardiovascular: normal peripheral pulses, normal rate, regular rhythm Abdomen: normal bowel sounds, soft, non tender, no organomegaly Genitourinary: normal external genitalia Extremities: no cyanosis Skin: rash, lesions Neurologic/Psychiatric: kiss mixer II-XII grossly normal, no motor/sensory deficits Laboratory Tests 11/21/16 05:00: White Blood Count 9.8, Red Blood Count 3.15L, Hemoglobin 9.1L, Hematocrit 28.3L , Mean Corpuscular Volume 90, Mean Corpuscular Hemoglobin 28.9, Mean Corpuscular Hemoglobin Concent 32.2, Red Cell Distribution Width 11.9, Platelet Count 397, Mean Platelet Volume 5.3L, Neutrophils (%) (Auto) 66.8, Lymphocytes ( %) (Auto) 17.0L, Monocytes (%) (Auto) 11.9H, Eosinophils (%) (Auto) 3.3H, Basophils (%) (Auto) 1.0, Sodium Level 139, Potassium Level 3.9, Chloride Level 103, Carbon Dioxide Level 25, Anion Gap 11, Blood Urea Nitrogen 33H, Creatinine 4.7H, Estimat Glomerular Filtration Rate 16.4, Glucose Level 92, Uric Acid 7.5, Calcium Level 7.7L, Phosphorus Level 4.9H, Magnesium Level 1.9, Total Bilirubin 0.3, Aspartate Amino Transf (AST/SGOT) 21, Alanine Aminotransferase (ALT/SGPT) 14, Alkaline Phosphatase 49, Total Protein 5.5L, Albumin 2.2L, Globulin 3.3, Albumin/Globulin Ratio 0.6L Current Medications Medications (Trade) Dose Ordered Sig/Jenny Route PRN Reason Start Time Stop Time Status Last Admin Dose Admin Acetaminophen (Tylenol) 650 mg Q4H PRN ORAL fever 11/11/16 23:45 12/11/16 23:44 11/16/16 02:46 Amlodipine Besylate (Norvasc) 5 mg DAILY ORAL 11/21/16 13:00 12/21/16 12:59 11/21/16 14:09 Ceftaroline Fosamil/Dextrose (Teflaro/D5W 50ml) 50 ml @ 50 mls/hr Q12HR IV 11/19/16 21:00 11/23/16 20:59 11/21/16 10:15 Dextrose (Dextrose 50%) STAT PRN IV Hypoglycemia 11/11/16 23:45 12/11/16 23:44 Heparin Sodium (Porcine) (Heparin 5000 units/ml) 5,000 units EVERY 12 HOURS SUBQ 11/12/16 09:00 12/12/16 08:59 11/21/16 10:12 Heparin Sodium (Porcine) (Heparin Sod 1000 units/ml 10ml) 2,000 unit ONCE ONCE INJ 11/21/16 14:00 11/21/16 14:01 UNV Heparin Sodium/ Sodium Chloride (Heparin 2000 units/Ns 1000ml premix) 2,000 unit ONCE ONCE INJ 11/21/16 14:00 11/21/16 14:01 UNV Lidocaine HCl (Xylocaine 1% 30ml) 30 ml ONCE ONCE INJ 11/21/16 14:00 11/21/16 14:01 UNV Morphine Sulfate (Morphine Sulfate) 4 mg Q4H PRN IVP For Pain 11/20/16 22:00 11/27/16 21:59 11/21/16 14:22 Ondansetron HCl (Zofran) 4 mg Q6H PRN IVP Nausea & Vomiting 11/11/16 23:45 12/11/16 23:44 Polyethylene Glycol (Miralax) 17 gm HSPRN PRN ORAL Constipation 11/11/16 23:45 12/11/16 23:44 Sodium Bicarbonate (Sodium Bicarbonate) 50 ml ONCE ONCE IV 11/21/16 14:00 11/21/16 14:01 UNV Tamsulosin HCl 0.4 mg 0.4 mg BID ORAL 11/16/16 11:30 12/16/16 11:29 11/21/16 10:05 Zolpidem Tartrate (Ambien) 5 mg HSPRN PRN ORAL Insomnia 11/11/16 23:45 12/11/16 23:44 NARENDRA NICOLE Nov 21, 2016 18:10
[2016-11-22] MEDS: Morphine Sulfate 4mg/ml Inj IVP PRN ×6 (00:48→22:30)
[2016-11-22 04:00] VITALS: BP 150/92
[2016-11-22 07:20] LABS: ALBUMIN/GLOBULIN RATIO 0.6 (1.0-2.7); CALCIUM 7.8 mg/dL (8.6-10.2); CREATININE 4.8 mg/dL (0.7-1.2); CRP QUANT 4.9 mg/dL (< 0.5); PHOSPHORUS 6.9 mg/dL (2.5-4.8); POTASSIUM 4.4 mEQ/L (3.4-4.9); TOTAL PROTEIN 5.4 g/dL (6.6-8.7); URIC ACID 8.2 mg/dL (3.0-7.5)
[2016-11-22 07:21] LABS: HEMOLYSIS 2; IRON 29 ug/dL (59-158); TOTAL IRON BINDING CAPACITY 158 ug/dL (250-400)
[2016-11-22 07:23] LABS: BASOPHILS % (AUTO) 0.9 % (0.0-2.0); EOSINOPHILS % (AUTO) 4.3 % (0.0-3.0); LYMPHOCYTES % (AUTO) 17.2 % (20.0-45.0); MEAN CORPUSCULAR HEMOGLOBIN 29.3 PG (27.0-31.0); MEAN CORPUSCULAR HGB CONC 32.3 G/DL (32.0-36.0); MEAN CORPUSCULAR VOLUME 91 FL (80-99); MEAN PLATELET VOLUME 4.8 FL (6.5-10.1); MONOCYTES % (AUTO) 12.8 % (1.0-10.0); NEUTROPHILS % (AUTO) 64.8 % (45.0-75.0); PLATELET COUNT 402 K/UL (150-450); RED BLOOD COUNT 3.04 M/UL (4.70-6.10); RED CELL DISTRIBUTION WIDTH 11.9 % (11.6-14.8); WHITE BLOOD COUNT 8.6 K/UL (4.8-10.8)
[2016-11-22 08:03] VITALS: BP 140/77
[2016-11-22] MEDS: Heparin 5000 units/ml inj SUBQ SCH ×2 (08:58→22:22)
[2016-11-22] MEDS: Tamsulosin 0.4mg cap ORAL SCH ×2 (08:59→18:28)
[2016-11-22] MEDS ORDERED: Heparin Sod 1000 units/ml 10ml INJ ONE ×2 (09:00→13:30)
[2016-11-22] MEDS: D5W IV SCH ×2 (09:00→22:23)
[2016-11-22] MEDS: CEFTAROLINE IV SCH ×2 (09:00→22:23)
[2016-11-22] MEDS ORDERED: Sodium Bicarbonate 8.4% 50ml Inj IV ONE ×2 (09:00→13:30)
[2016-11-22] MEDS ORDERED: Heparin 2000 units/Ns 1000ml INJ ONE ×2 (09:00→13:30)
[2016-11-22] MEDS ORDERED: Lidocaine 1% Plain 30 ml INJ ONE ×2 (09:00→13:30)
[2016-11-22] MEDS ORDERED: Lidocaine 1% Plain 30 ml INJ SCH (10:45)
[2016-11-22] MEDS ORDERED: Heparin 2000 units/Ns 1000ml INJ SCH (10:45)
[2016-11-22] MEDS ORDERED: Sodium Bicarbonate 8.4% 50ml Inj IV SCH (10:45)
--- NOTE | 2016-11-22 10:46 | General Surgery Progress Note ---
General Surgery-Progress Note Subjective Reason for Consult left lower extremity cellulitis Symptoms: improved Additional Comments leg looks much better. Objective Last 24 Hour Vital Signs Date Time Temp Pulse Resp B/P Pulse Ox O2 Delivery O2 Flow Rate FiO2 11/22/16 08:59 97 140/88 11/22/16 08:03 97.1 18 140/77 89 Nasal Cannula 2.0 11/22/16 04:00 95.4 78 20 150/92 99 Nasal Cannula 2.0 11/21/16 16:10 98.1 83 18 161/94 90 Room Air 11/21/16 14:09 77 163/99 I&O Intake and Output 11/21/16 11/22/16 19:00 07:00 Intake Total 200 ml 980 ml Balance 200 ml 980 ml Intake Oral 200 ml 930 ml IV Total 50 ml # Voids 2 4 Wound: clean, dry - dry scab over prior blister Cardiovascular: RSR Respiratory: clear Abdomen: soft, non-tender Extremities: no edema, other - left leg much improved. small area of scab from prior blister. no edema. good pulses Laboratory Tests Test 11/22/16 05:00 White Blood Count 8.6 K/UL (4.8-10.8) Red Blood Count 3.04 M/UL (4.70-6.10) L Hemoglobin 8.9 G/DL (14.2-18.0) L Hematocrit 27.6 % (42.0-52.0) L Mean Corpuscular Volume 91 FL (80-99) Mean Corpuscular Hemoglobin 29.3 PG (27.0-31.0) Mean Corpuscular Hemoglobin Concent 32.3 G/DL (32.0-36.0) Red Cell Distribution Width 11.9 % (11.6-14.8) Platelet Count 402 K/UL (150-450) Mean Platelet Volume 4.8 FL (6.5-10.1) L Neutrophils (%) (Auto) 64.8 % (45.0-75.0) Lymphocytes (%) (Auto) 17.2 % (20.0-45.0) L Monocytes (%) (Auto) 12.8 % (1.0-10.0) H Eosinophils (%) (Auto) 4.3 % (0.0-3.0) H Basophils (%) (Auto) 0.9 % (0.0-2.0) Sodium Level 142 mEQ/L (135-145) Potassium Level 4.4 mEQ/L (3.4-4.9) Chloride Level 103 mEQ/L (98-107) Carbon Dioxide Level 26 mEQ/L (20-30) Anion Gap 13 (5-15) Blood Urea Nitrogen 36 mg/dL (7-23) H Creatinine 4.8 mg/dL (0.7-1.2) H Estimat Glomerular Filtration Rate 16.0 mL/min (>60) Glucose Level 93 mg/dL (74-106) Uric Acid 8.2 mg/dL (3.0-7.5) H Calcium Level 7.8 mg/dL (8.6-10.2) L Phosphorus Level 6.9 mg/dL (2.5-4.8) H Iron Level 29 ug/dL (59-158) L Total Iron Binding Capacity 158 ug/dL (250-400) L Percent Iron Saturation 18 % (15-50) Unsaturated Iron Binding 129 ug/dL (112-346) Ferritin 216 ng/mL (10-230) Total Bilirubin 0.2 mg/dL (0.0-1.2) Gamma Glutamyl Transpeptidase 18 U/L (8-61) Aspartate Amino Transf (AST/SGOT) 18 U/L (5-40) Alanine Aminotransferase (ALT/SGPT) 10 U/L (3-41) Alkaline Phosphatase 49 U/L (40-129) C-Reactive Protein, Quantitative 4.9 mg/dL (< 0.5) H Pro-B-Type Natriuretic Peptide 5032 pg/mL (0-125) H Total Protein 5.4 g/dL (6.6-8.7) L Albumin 2.2 g/dL (3.5-5.2) L Globulin 3.2 g/dL Albumin/Globulin Ratio 0.6 (1.0-2.7) L Vitamin B12 Level 366 pg/mL (211-946) Folate Pending Assessment Post-op Diagnosis 46 year old male with left lower extremity cellulitis that is now resolved. wounds clean and dry and leg healing. renal function declined during hospital course and required dialysis. will hopefully recover from renal aspect soon too. Plan Problems: (1) Cellulitis (2) Sepsis Marco Villasenor MD Nov 22, 2016 10:46
--- NOTE | 2016-11-22 11:24 | General Progress Note ---
Assessment/Plan Status: unchanged Assessment/Plan Status: Cellulitis left leg- Sepsis, received Amikacin and Vanco in the past. Acute renal failure- HypoAlbuminemia , Proteinuria , ? NS Multi drug abuse Plan: Off IV- On Norvasc- will add Renagel- No need for HD today- Cr ? leveling off Change Dialysis cath- check 24 h urine for protein, les than 1 gram On flomax- Vanco level- noted Urine studies- Urine Tox screen- MJ and Amphetamines Monitor renal parameters- Dialysed 11/20 Per orders Subjective ROS Limited/Unobtainable: No Constitutional: Reports: malaise Allergies: Coded Allergies: SULFUR (Unverified Allergy, Unknown, unk, 11/16/16) Per patient allergic to sulfur Objective Last 24 Hour Vital Signs Date Time Temp Pulse Resp B/P Pulse Ox O2 Delivery O2 Flow Rate FiO2 11/22/16 08:59 97 140/88 11/22/16 08:03 97.1 18 140/77 89 Nasal Cannula 2.0 11/22/16 04:00 95.4 78 20 150/92 99 Nasal Cannula 2.0 11/21/16 16:10 98.1 83 18 161/94 90 Room Air 11/21/16 14:09 77 163/99 Intake and Output 11/21/16 11/22/16 19:00 07:00 Intake Total 200 ml 980 ml Balance 200 ml 980 ml Intake Oral 200 ml 930 ml IV Total 50 ml # Voids 2 4 Laboratory Tests 11/22/16 05:00: White Blood Count 8.6, Red Blood Count 3.04L, Hemoglobin 8.9L, Hematocrit 27.6L , Mean Corpuscular Volume 91, Mean Corpuscular Hemoglobin 29.3, Mean Corpuscular Hemoglobin Concent 32.3, Red Cell Distribution Width 11.9, Platelet Count 402, Mean Platelet Volume 4.8L, Neutrophils (%) (Auto) 64.8, Lymphocytes ( %) (Auto) 17.2L, Monocytes (%) (Auto) 12.8H, Eosinophils (%) (Auto) 4.3H, Basophils (%) (Auto) 0.9, Sodium Level 142, Potassium Level 4.4, Chloride Level 103, Carbon Dioxide Level 26, Anion Gap 13, Blood Urea Nitrogen 36H, Creatinine 4.8H, Estimat Glomerular Filtration Rate 16.0, Glucose Level 93, Uric Acid 8.2H , Calcium Level 7.8L, Phosphorus Level 6.9H, Iron Level 29L, Total Iron Binding Capacity 158L, Percent Iron Saturation 18, Unsaturated Iron Binding 129, Ferritin 216, Total Bilirubin 0.2, Gamma Glutamyl Transpeptidase 18, Aspartate Amino Transf (AST/SGOT) 18, Alanine Aminotransferase (ALT/SGPT) 10, Alkaline Phosphatase 49, C-Reactive Protein, Quantitative 4.9H, Pro-B-Type Natriuretic Peptide 5032H, Total Protein 5.4L, Albumin 2.2L, Globulin 3.2, Albumin/Globulin Ratio 0.6L, Vitamin B12 Level 366, Folate [Pending] Height (Feet): 6 Height (Inches): 1.00 Weight (Pounds): 200 General Appearance: no apparent distress Objective no change in PE GABRIELE GONZALEZ Nov 22, 2016 11:24
--- NOTE | 2016-11-22 12:06 | Diagnostic Imaging Report ---
Indication: Dyspnea Comparison: 11/19/16 A single view chest radiograph was obtained. Findings: Patchy bilateral perihilar and basilar parenchymal opacities likely mild pulmonary edema noted. Bilateral pleural effusions also suspected with hazy basilar opacities. The findings have improved since last study. Right jugular catheter is in good position unchanged. PICC line is stable. Impression: CHF bilateral pleural effusions. Overall improved since last study
[2016-11-22] MEDS ORDERED: Metolazone 5mg tab ORAL ONE (12:30)
[2016-11-22] MEDS: Docusate 100mg cap ORAL SCH ×2 (13:00→18:28)
--- NOTE | 2016-11-22 13:38 | Infectious Diseases Prog Note ---
Assessment/Plan Assessment/Plan ASSESSMENT: 46-year-old male with: Left lower extremity cellulitis - improved MRI : no evidence of associated abscess, fasciitis or osteomyelitis Doppler : No DVT Fever - resolved Leucocytosis - resolved ARF SP roddy 11/18, initiated HD US of Kid : Echogenic kidneys. Medical renal disease suspected. Polysubstance abuse - UDS(+) Amphetamines, opiates, marijuana, tobacco Sulfa allergy Full Code PLAN: ok to DC on PO doxycycline x5d from ID standpoint - Rx on chart. Will continue Ceftaroline d# 8 while still inpt ( 11/14 SP on cefepime and vancomycin d# 4 ) Monitor CBC, temperatures Monitor BMP. HD prn d/w Dr. Chaparro Subjective Allergies: Coded Allergies: SULFUR (Unverified Allergy, Unknown, unk, 11/16/16) Per patient allergic to sulfur Subjective remains afebrile. improved Objective Vital Signs Last 24 Hour Vital Signs Date Time Temp Pulse Resp B/P Pulse Ox O2 Delivery O2 Flow Rate FiO2 11/22/16 08:59 97 140/88 11/22/16 08:03 97.1 18 140/77 89 Nasal Cannula 2.0 11/22/16 04:00 95.4 78 20 150/92 99 Nasal Cannula 2.0 11/21/16 16:10 98.1 83 18 161/94 90 Room Air 11/21/16 14:09 77 163/99 Height (Feet): 6 Height (Inches): 1.00 Weight (Pounds): 200 General Appearance: no acute distress Respiratory/Chest: no respiratory distress Cardiovascular: normal rate, regular rhythm Abdomen: normal bowel sounds, soft, non tender, non distended Laboratory Tests Test 11/22/16 05:00 White Blood Count 8.6 K/UL (4.8-10.8) Red Blood Count 3.04 M/UL (4.70-6.10) L Hemoglobin 8.9 G/DL (14.2-18.0) L Hematocrit 27.6 % (42.0-52.0) L Mean Corpuscular Volume 91 FL (80-99) Mean Corpuscular Hemoglobin 29.3 PG (27.0-31.0) Mean Corpuscular Hemoglobin Concent 32.3 G/DL (32.0-36.0) Red Cell Distribution Width 11.9 % (11.6-14.8) Platelet Count 402 K/UL (150-450) Mean Platelet Volume 4.8 FL (6.5-10.1) L Neutrophils (%) (Auto) 64.8 % (45.0-75.0) Lymphocytes (%) (Auto) 17.2 % (20.0-45.0) L Monocytes (%) (Auto) 12.8 % (1.0-10.0) H Eosinophils (%) (Auto) 4.3 % (0.0-3.0) H Basophils (%) (Auto) 0.9 % (0.0-2.0) Sodium Level 142 mEQ/L (135-145) Potassium Level 4.4 mEQ/L (3.4-4.9) Chloride Level 103 mEQ/L (98-107) Carbon Dioxide Level 26 mEQ/L (20-30) Anion Gap 13 (5-15) Blood Urea Nitrogen 36 mg/dL (7-23) H Creatinine 4.8 mg/dL (0.7-1.2) H Estimat Glomerular Filtration Rate 16.0 mL/min (>60) Glucose Level 93 mg/dL (74-106) Uric Acid 8.2 mg/dL (3.0-7.5) H Calcium Level 7.8 mg/dL (8.6-10.2) L Phosphorus Level 6.9 mg/dL (2.5-4.8) H Iron Level 29 ug/dL (59-158) L Total Iron Binding Capacity 158 ug/dL (250-400) L Percent Iron Saturation 18 % (15-50) Unsaturated Iron Binding 129 ug/dL (112-346) Ferritin 216 ng/mL (10-230) Total Bilirubin 0.2 mg/dL (0.0-1.2) Gamma Glutamyl Transpeptidase 18 U/L (8-61) Aspartate Amino Transf (AST/SGOT) 18 U/L (5-40) Alanine Aminotransferase (ALT/SGPT) 10 U/L (3-41) Alkaline Phosphatase 49 U/L (40-129) C-Reactive Protein, Quantitative 4.9 mg/dL (< 0.5) H Pro-B-Type Natriuretic Peptide 5032 pg/mL (0-125) H Total Protein 5.4 g/dL (6.6-8.7) L Albumin 2.2 g/dL (3.5-5.2) L Globulin 3.2 g/dL Albumin/Globulin Ratio 0.6 (1.0-2.7) L Vitamin B12 Level 366 pg/mL (211-946) Folate Pending Current Medications Medications (Trade) Dose Ordered Sig/Jenny Route PRN Reason Start Time Stop Time Status Last Admin Dose Admin Acetaminophen (Tylenol) 650 mg Q4H PRN ORAL fever 11/11/16 23:45 12/11/16 23:44 11/16/16 02:46 Amlodipine Besylate (Norvasc) 5 mg BID ORAL 11/22/16 18:00 12/22/16 17:59 Ceftaroline Fosamil/Dextrose (Teflaro/D5W 50ml) 50 ml @ 50 mls/hr Q12HR IV 11/19/16 21:00 11/23/16 20:59 11/21/16 22:47 Dextrose (Dextrose 50%) STAT PRN IV Hypoglycemia 11/11/16 23:45 12/11/16 23:44 Docusate Sodium (Colace) 100 mg THREE TIMES A DAY ORAL 11/22/16 13:00 12/22/16 12:59 Heparin Sodium (Porcine) (Heparin 5000 units/ml) 5,000 units EVERY 12 HOURS SUBQ 11/12/16 09:00 12/12/16 08:59 11/22/16 08:58 Heparin Sodium/ Sodium Chloride (Heparin 2000 units/Ns 1000ml premix) 2,000 unit ONCE INJ 11/22/16 10:45 11/22/16 16:00 Lidocaine HCl (Xylocaine 1% 30ml) 30 ml ONCE INJ 11/22/16 10:45 11/22/16 16:00 Morphine Sulfate (Morphine Sulfate) 4 mg Q4H PRN IVP For Pain 11/20/16 22:00 11/27/16 21:59 11/22/16 12:30 Ondansetron HCl (Zofran) 4 mg Q6H PRN IVP Nausea & Vomiting 11/11/16 23:45 12/11/16 23:44 Polyethylene Glycol (Miralax) 17 gm HSPRN PRN ORAL Constipation 11/11/16 23:45 12/11/16 23:44 Sevelamer Carbonate (Renvela) 1,600 mg THREE TIMES A DAY ORAL 11/22/16 13:00 12/22/16 12:59 Sodium Bicarbonate (Sodium Bicarbonate) 50 ml ONCE IV 11/22/16 10:45 11/22/16 16:00 Tamsulosin HCl 0.4 mg 0.4 mg BID ORAL 11/16/16 11:30 12/16/16 11:29 11/22/16 08:59 Zolpidem Tartrate (Ambien) 5 mg HSPRN PRN ORAL Insomnia 11/11/16 23:45 12/11/16 23:44 JULIO CHRISTIANSEN Nov 22, 2016 13:38
[2016-11-22 16:00] VITALS: BP 168/92
--- NOTE | 2016-11-22 16:11 | Pulmonology Progress Note ---
Assessment/Plan Problems: (1) Sepsis (2) Cellulitis (3) ATN (acute tubular necrosis) Assessment/Plan afebrile no new complains legs looks much better continue antibiotics waiting to see if pt will need Hd Subjective ROS Limited/Unobtainable: No Interval Events: doens't want to talk about anything to me Allergies: Coded Allergies: SULFUR (Unverified Allergy, Unknown, unk, 11/16/16) Per patient allergic to sulfur Objective Last 24 Hour Vital Signs Date Time Temp Pulse Resp B/P Pulse Ox O2 Delivery O2 Flow Rate FiO2 11/22/16 08:59 97 140/88 11/22/16 08:03 97.1 18 140/77 89 Nasal Cannula 2.0 11/22/16 04:00 95.4 78 20 150/92 99 Nasal Cannula 2.0 Intake and Output 11/21/16 11/22/16 19:00 07:00 Intake Total 200 ml 980 ml Balance 200 ml 980 ml Intake Oral 200 ml 930 ml IV Total 50 ml # Voids 2 4 Respiratory/Chest: chest wall non-tender, normal breath sounds Cardiovascular: normal peripheral pulses, normal rate Abdomen: normal bowel sounds Skin: no rash 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 Laboratory Tests 11/22/16 05:00: White Blood Count 8.6, Red Blood Count 3.04L, Hemoglobin 8.9L, Hematocrit 27.6L , Mean Corpuscular Volume 91, Mean Corpuscular Hemoglobin 29.3, Mean Corpuscular Hemoglobin Concent 32.3, Red Cell Distribution Width 11.9, Platelet Count 402, Mean Platelet Volume 4.8L, Neutrophils (%) (Auto) 64.8, Lymphocytes ( %) (Auto) 17.2L, Monocytes (%) (Auto) 12.8H, Eosinophils (%) (Auto) 4.3H, Basophils (%) (Auto) 0.9, Sodium Level 142, Potassium Level 4.4, Chloride Level 103, Carbon Dioxide Level 26, Anion Gap 13, Blood Urea Nitrogen 36H, Creatinine 4.8H, Estimat Glomerular Filtration Rate 16.0, Glucose Level 93, Uric Acid 8.2H , Calcium Level 7.8L, Phosphorus Level 6.9H, Iron Level 29L, Total Iron Binding Capacity 158L, Percent Iron Saturation 18, Unsaturated Iron Binding 129, Ferritin 216, Total Bilirubin 0.2, Gamma Glutamyl Transpeptidase 18, Aspartate Amino Transf (AST/SGOT) 18, Alanine Aminotransferase (ALT/SGPT) 10, Alkaline Phosphatase 49, C-Reactive Protein, Quantitative 4.9H, Pro-B-Type Natriuretic Peptide 5032H, Total Protein 5.4L, Albumin 2.2L, Globulin 3.2, Albumin/Globulin Ratio 0.6L, Vitamin B12 Level 366, Folate [Pending] Current Medications Medications (Trade) Dose Ordered Sig/Jenny Route PRN Reason Start Time Stop Time Status Last Admin Dose Admin Acetaminophen (Tylenol) 650 mg Q4H PRN ORAL fever 11/11/16 23:45 12/11/16 23:44 11/16/16 02:46 Amlodipine Besylate (Norvasc) 5 mg BID ORAL 11/22/16 18:00 12/22/16 17:59 Ceftaroline Fosamil/Dextrose (Teflaro/D5W 50ml) 50 ml @ 50 mls/hr Q12HR IV 11/19/16 21:00 11/24/16 20:59 11/21/16 22:47 Dextrose (Dextrose 50%) STAT PRN IV Hypoglycemia 11/11/16 23:45 12/11/16 23:44 Docusate Sodium (Colace) 100 mg THREE TIMES A DAY ORAL 11/22/16 13:00 12/22/16 12:59 Heparin Sodium (Porcine) (Heparin 5000 units/ml) 5,000 units EVERY 12 HOURS SUBQ 11/12/16 09:00 12/12/16 08:59 11/22/16 08:58 Morphine Sulfate (Morphine Sulfate) 4 mg Q4H PRN IVP For Pain 11/20/16 22:00 11/27/16 21:59 11/22/16 12:30 Ondansetron HCl (Zofran) 4 mg Q6H PRN IVP Nausea & Vomiting 11/11/16 23:45 12/11/16 23:44 Polyethylene Glycol (Miralax) 17 gm HSPRN PRN ORAL Constipation 11/11/16 23:45 12/11/16 23:44 Sevelamer Carbonate (Renvela) 1,600 mg THREE TIMES A DAY ORAL 11/22/16 13:00 12/22/16 12:59 Tamsulosin HCl 0.4 mg 0.4 mg BID ORAL 11/16/16 11:30 12/16/16 11:29 11/22/16 08:59 Zolpidem Tartrate (Ambien) 5 mg HSPRN PRN ORAL Insomnia 11/11/16 23:45 12/11/16 23:44 NARENDRA NICOLE Nov 22, 2016 16:11
[2016-11-22] MEDS ORDERED: NS 275ml ONE (17:46)
[2016-11-22 20:00] VITALS: BP 156/87
[2016-11-23] VITALS: BP 138/78
[2016-11-23] MEDS: Morphine Sulfate 4mg/ml Inj IVP PRN ×2 (06:55→15:35)
--- NOTE | 2016-11-23 07:30 | General Progress Note ---
Progress Note Progress Note pt is followed for left leg cellulitis. Feels better. states he is ambulationg. Less pain. Had developed azotemia that is starting to resolve Labs Test 11/22/16 05:00 White Blood Count 8.6 K/UL (4.8-10.8) Red Blood Count 3.04 M/UL (4.70-6.10) Hemoglobin 8.9 G/DL (14.2-18.0) Hematocrit 27.6 % (42.0-52.0) Mean Corpuscular Volume 91 FL (80-99) Mean Corpuscular Hemoglobin 29.3 PG (27.0-31.0) Mean Corpuscular Hemoglobin Concent 32.3 G/DL (32.0-36.0) Red Cell Distribution Width 11.9 % (11.6-14.8) Platelet Count 402 K/UL (150-450) Mean Platelet Volume 4.8 FL (6.5-10.1) Neutrophils (%) (Auto) 64.8 % (45.0-75.0) Lymphocytes (%) (Auto) 17.2 % (20.0-45.0) Monocytes (%) (Auto) 12.8 % (1.0-10.0) Eosinophils (%) (Auto) 4.3 % (0.0-3.0) Basophils (%) (Auto) 0.9 % (0.0-2.0) Sodium Level 142 mEQ/L (135-145) Potassium Level 4.4 mEQ/L (3.4-4.9) Chloride Level 103 mEQ/L (98-107) Carbon Dioxide Level 26 mEQ/L (20-30) Anion Gap 13 (5-15) Blood Urea Nitrogen 36 mg/dL (7-23) Creatinine 4.8 mg/dL (0.7-1.2) Estimat Glomerular Filtration Rate 16.0 mL/min (>60) Glucose Level 93 mg/dL (74-106) Uric Acid 8.2 mg/dL (3.0-7.5) Calcium Level 7.8 mg/dL (8.6-10.2) Phosphorus Level 6.9 mg/dL (2.5-4.8) Iron Level 29 ug/dL (59-158) Total Iron Binding Capacity 158 ug/dL (250-400) Percent Iron Saturation 18 % (15-50) Unsaturated Iron Binding 129 ug/dL (112-346) Ferritin 216 ng/mL (10-230) Total Bilirubin 0.2 mg/dL (0.0-1.2) Gamma Glutamyl Transpeptidase 18 U/L (8-61) Aspartate Amino Transf (AST/SGOT) 18 U/L (5-40) Alanine Aminotransferase (ALT/SGPT) 10 U/L (3-41) Alkaline Phosphatase 49 U/L (40-129) C-Reactive Protein, Quantitative 4.9 mg/dL (< 0.5) Pro-B-Type Natriuretic Peptide 5032 pg/mL (0-125) Total Protein 5.4 g/dL (6.6-8.7) Albumin 2.2 g/dL (3.5-5.2) Globulin 3.2 g/dL Albumin/Globulin Ratio 0.6 (1.0-2.7) Vitamin B12 Level 366 pg/mL (211-946) Last 24 Hour Vital Signs Date Time Temp Pulse Resp B/P Pulse Ox O2 Delivery O2 Flow Rate FiO2 11/23/16 00:00 98.1 83 18 138/78 97 Nasal Cannula 2.0 11/22/16 20:00 97.9 90 18 156/87 97 Room Air 11/22/16 18:28 90 168/92 11/22/16 16:00 98.2 90 18 168/92 93 Room Air 11/22/16 08:59 97 140/88 11/22/16 08:03 97.1 18 140/77 89 Nasal Cannula 2.0 left calf still mildly erythematous. nontender, no tenseness to suggest compartment syndrome. Eschar at site of previous blister. Surgically stable. Will check labs JAMES KUMAR Nov 23, 2016 07:30
[2016-11-23 08:22] VITALS: BP 152/91
--- NOTE | 2016-11-23 08:29 | Cardiology Report ---
APPROVED REPORT EXAM: Two-dimensional and M-mode echocardiogram with Doppler and color Doppler. M-Mode DIMENSIONS IVSd1.4 (0.7-1.1cm)Left Atrium (MM)3.9 (1.6-4.0cm) LVDd4.3 (3.5-5.6cm)Aortic Root3.0 (2.0-3.7cm) PWd1.3 (0.7-1.1cm)Aortic Cusp Exc.1.9 (1.5-2.0cm) LVDs2.7 (2.5-4.0cm) PWs1.8 cm Technically difficult study due lungs. Normal left ventricular chamber size, systolic function and wall motion. Left ventricular ejection fraction estimated to be 65%. RV appears mildley hypokinetic on some veiws only Mild left ventricular hypertrophy. Mild Bi-atrial enlargment seen in 2D. Focal aortic valve sclerosis with adequate cusp excursion. Thickened mitral valve leaflets with normal excursion. Pulmonic valve well visualized. Normal tricuspid valve structure. IVC dilated at 2.5cm with physiologic collapse. A color flow and spectral Doppler study was performed and revealed: No aortic regurgitation. Mild mitral regurgitation. Mitral inflow velocities indicate normal diastolic dysfunction. Mild-moderate tricuspid regurgitation. Tricuspid systolic velocities suggests peak right ventricular systolic pressure of 47 mmHg. Consistent with moderate pulmonary hypertension. No pulmonic regurgitation present.
[2016-11-23] MEDS: D5W IV SCH (09:00)
[2016-11-23] MEDS: CEFTAROLINE IV SCH (09:00)
[2016-11-23] MEDS: Tamsulosin 0.4mg cap ORAL SCH ×2 (09:04→17:02)
[2016-11-23] MEDS: Docusate 100mg cap ORAL SCH ×3 (09:05→17:30)
[2016-11-23] MEDS: Heparin 5000 units/ml inj SUBQ SCH ×2 (09:09→20:12)
--- NOTE | 2016-11-23 11:08 | General Progress Note ---
Assessment/Plan Status: other - unclear status as refusing blood work. Assessment/Plan Status: Cellulitis left leg- Sepsis, received Amikacin and Vanco in the past. Acute renal failure- HypoAlbuminemia , Proteinuria , ? NS Multi drug abuse Plan: Refusing catheter change and blood work. On Norvasc- On Renagel- Change Dialysis cath- refused check 24 h urine for protein, les than 1 gram On flomax- Vanco level- noted Urine studies- Urine Tox screen- MJ and Amphetamines Monitor renal parameters- Dialysed 11/20 Per orders Subjective ROS Limited/Unobtainable: No Allergies: Coded Allergies: SULFUR (Unverified Allergy, Unknown, unk, 11/16/16) Per patient allergic to sulfur Objective Last 24 Hour Vital Signs Date Time Temp Pulse Resp B/P Pulse Ox O2 Delivery O2 Flow Rate FiO2 11/23/16 09:04 77 152/91 11/23/16 08:22 97.7 77 15 152/91 98 Nasal Cannula 11/23/16 00:00 98.1 83 18 138/78 97 Nasal Cannula 2.0 11/22/16 20:00 97.9 90 18 156/87 97 Room Air 11/22/16 18:28 90 168/92 11/22/16 16:00 98.2 90 18 168/92 93 Room Air Intake and Output 11/22/16 11/23/16 19:00 07:00 Intake Total 480 ml 370 ml Output Total 700 ml Balance 480 ml -330 ml Intake Oral 480 ml 320 ml IV Total 50 ml Output Urine Total 700 ml # Voids 4 Height (Feet): 6 Height (Inches): 1.00 Weight (Pounds): 200 General Appearance: no apparent distress Objective no change in PE GABRIELE GONZALEZ Nov 23, 2016 11:08
--- NOTE | 2016-11-23 11:47 | Pulmonology Progress Note ---
Assessment/Plan Problems: (1) Sepsis (2) Cellulitis (3) ATN (acute tubular necrosis) Assessment/Plan afebrile no new complains legs looks much better continue antibiotics waiting to see if pt will need Hd Subjective ROS Limited/Unobtainable: Yes Constitutional: Reports: anorexia, chills, fatigue, fever Allergies: Coded Allergies: SULFUR (Unverified Allergy, Unknown, unk, 11/16/16) Per patient allergic to sulfur Objective Last 24 Hour Vital Signs Date Time Temp Pulse Resp B/P Pulse Ox O2 Delivery O2 Flow Rate FiO2 11/23/16 09:04 77 152/91 11/23/16 08:22 97.7 77 15 152/91 98 Nasal Cannula 11/23/16 00:00 98.1 83 18 138/78 97 Nasal Cannula 2.0 11/22/16 20:00 97.9 90 18 156/87 97 Room Air 11/22/16 18:28 90 168/92 11/22/16 16:00 98.2 90 18 168/92 93 Room Air Intake and Output 11/22/16 11/23/16 19:00 07:00 Intake Total 480 ml 370 ml Output Total 700 ml Balance 480 ml -330 ml Intake Oral 480 ml 320 ml IV Total 50 ml Output Urine Total 700 ml # Voids 4 General Appearance: no acute distress HEENT: normocephalic, atraumatic, PERRL Respiratory/Chest: chest wall non-tender, decreased breath sounds, accessory muscle use, crackles/rales Cardiovascular: normal peripheral pulses, normal rate, regular rhythm, no JVD Abdomen: normal bowel sounds, soft, non tender, no organomegaly Genitourinary: normal external genitalia Extremities: no cyanosis Skin: no rash, no lesions Neurologic/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: 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 grossly normal, responsive, disoriented, depressed affect Current Medications Medications (Trade) Dose Ordered Sig/Jenny Route PRN Reason Start Time Stop Time Status Last Admin Dose Admin Acetaminophen (Tylenol) 650 mg Q4H PRN ORAL fever 11/11/16 23:45 12/11/16 23:44 11/16/16 02:46 Amlodipine Besylate (Norvasc) 5 mg BID ORAL 11/22/16 18:00 12/22/16 17:59 11/23/16 09:04 Dextrose (Dextrose 50%) STAT PRN IV Hypoglycemia 11/11/16 23:45 12/11/16 23:44 Docusate Sodium (Colace) 100 mg THREE TIMES A DAY ORAL 11/22/16 13:00 12/22/16 12:59 11/23/16 09:05 Doxycycline Monohydrate (Vibramycin) 100 mg EVERY 12 HOURS ORAL 11/23/16 21:00 11/30/16 20:59 Heparin Sodium (Porcine) (Heparin 5000 units/ml) 5,000 units EVERY 12 HOURS SUBQ 11/12/16 09:00 12/12/16 08:59 11/23/16 09:09 Morphine Sulfate (Morphine Sulfate) 4 mg Q4H PRN IVP For Pain 11/20/16 22:00 11/27/16 21:59 11/23/16 06:55 Ondansetron HCl (Zofran) 4 mg Q6H PRN IVP Nausea & Vomiting 11/11/16 23:45 12/11/16 23:44 Polyethylene Glycol (Miralax) 17 gm HSPRN PRN ORAL Constipation 11/11/16 23:45 12/11/16 23:44 Sevelamer Carbonate (Renvela) 1,600 mg THREE TIMES A DAY ORAL 11/22/16 13:00 12/22/16 12:59 11/23/16 09:04 Tamsulosin HCl (Flomax) 0.4 mg BID ORAL 11/16/16 11:30 12/16/16 11:29 11/23/16 09:04 Zolpidem Tartrate (Ambien) 5 mg HSPRN PRN ORAL Insomnia 11/11/16 23:45 12/11/16 23:44 NARENDRA NICOLE Nov 23, 2016 11:47
[2016-11-23 11:55] VITALS: BP 159/90
[2016-11-23 12:50] LABS: ALANINE AMINOTRANSFERASE 9 U/L (3-41); ALBUMIN/GLOBULIN RATIO 0.6 (1.0-2.7); ANION GAP 12 (5-15); ASPARTATE AMINO TRANSFERASE 15 U/L (5-40); CALCIUM 7.9 mg/dL (8.6-10.2); CARBON DIOXIDE 28 mEQ/L (20-30); CHLORIDE 102 mEQ/L (98-107); CREATININE 5.2 mg/dL (0.7-1.2); GLOMERULAR FILTRATION RATE 14.5 mL/min (>60); HEMOLYSIS 0; PHOSPHORUS 6.3 mg/dL (2.5-4.8); SODIUM 142 mEQ/L (135-145); TOTAL PROTEIN 5.9 g/dL (6.6-8.7)
[2016-11-23] MEDS ORDERED: DuoNeb 0.5-3(2.5)mg/3ml neb HHN PRN (16:00)
[2016-11-23 16:44] VITALS: BP 139/83
[2016-11-23 20:00] VITALS: BP 144/79
[2016-11-24] VITALS: BP 142/82
[2016-11-24] MEDS: Morphine Sulfate 4mg/ml Inj IVP PRN ×2 (00:33→17:34)
[2016-11-24 04:00] VITALS: BP 150/58
--- NOTE | 2016-11-24 07:48 | General Progress Note ---
Progress Note Progress Note pt followed by us for left leg edema to rule out compartment synddrome or abscess. Has ad progressilve improvement of edema, still with minimal erythema.no signs of abscess Labs Test 11/23/16 12:00 Sodium Level 142 mEQ/L (135-145) Potassium Level 4.0 mEQ/L (3.4-4.9) Chloride Level 102 mEQ/L (98-107) Carbon Dioxide Level 28 mEQ/L (20-30) Anion Gap 12 (5-15) Blood Urea Nitrogen 34 mg/dL (7-23) Creatinine 5.2 mg/dL (0.7-1.2) Estimat Glomerular Filtration Rate 14.5 mL/min (>60) Glucose Level 107 mg/dL (74-106) Calcium Level 7.9 mg/dL (8.6-10.2) Phosphorus Level 6.3 mg/dL (2.5-4.8) Magnesium Level 2.1 mg/dL (1.7-2.5) Total Bilirubin < 0.2 mg/dL (0.0-1.2) Aspartate Amino Transf (AST/SGOT) 15 U/L (5-40) Alanine Aminotransferase (ALT/SGPT) 9 U/L (3-41) Alkaline Phosphatase 51 U/L (40-129) Total Protein 5.9 g/dL (6.6-8.7) Albumin 2.3 g/dL (3.5-5.2) Globulin 3.6 g/dL Albumin/Globulin Ratio 0.6 (1.0-2.7) has had azotemia that is still present. \ no acute surgical concerns at present. JAMES KUMAR Nov 24, 2016 07:48
[2016-11-24 08:00] VITALS: BP 145/91
[2016-11-24] MEDS: Docusate 100mg cap ORAL SCH ×3 (09:45→17:28)
[2016-11-24] MEDS: Heparin 5000 units/ml inj SUBQ SCH ×2 (09:45→20:09)
[2016-11-24] MEDS: Tamsulosin 0.4mg cap ORAL SCH ×2 (09:50→17:28)
--- NOTE | 2016-11-24 10:06 | Infectious Diseases Prog Note ---
Assessment/Plan Assessment/Plan ASSESSMENT: 46-year-old male with: Left lower extremity cellulitis - improved MRI : no evidence of associated abscess, fasciitis or osteomyelitis Doppler : No DVT Fever - resolved Leucocytosis - resolved ARF SP roddy 11/18, initiated HD US of Kid : Echogenic kidneys. Medical renal disease suspected. Polysubstance abuse - UDS(+) Amphetamines, opiates, marijuana, tobacco Sulfa allergy Full Code PLAN: ok to DC on PO doxycycline x4d from ID standpoint - Rx on chart. ( 11/23 SP Ceftaroline d# 9 ) ( 11/14 SP on cefepime and vancomycin d# 4 ) Monitor CBC, temperatures Monitor BMP. HD prn Subjective Allergies: Coded Allergies: SULFUR (Unverified Allergy, Unknown, unk, 11/16/16) Per patient allergic to sulfur Subjective remains afebrile. improved refused IV ABX, HD cath change Objective Vital Signs Last 24 Hour Vital Signs Date Time Temp Pulse Resp B/P Pulse Ox O2 Delivery O2 Flow Rate FiO2 11/24/16 08:00 97.7 92 20 145/91 94 Nasal Cannula 2.0 11/24/16 04:00 97.7 88 18 150/58 94 Nasal Cannula 2.0 11/24/16 00:00 98.1 101 20 142/82 94 Nasal Cannula 2.0 11/23/16 20:00 98.1 90 18 144/79 92 Room Air 11/23/16 17:02 89 139/83 11/23/16 16:44 98.0 89 15 139/83 92 Room Air 11/23/16 16:05 97.3 11/23/16 11:55 97.3 88 16 159/90 96 Room Air Height (Feet): 6 Height (Inches): 1.00 Weight (Pounds): 200 General Appearance: no acute distress Respiratory/Chest: no respiratory distress Cardiovascular: normal rate, regular rhythm Abdomen: normal bowel sounds, soft, non tender, non distended Extremities: other - edema Laboratory Tests Test 11/23/16 12:00 Sodium Level 142 mEQ/L (135-145) Potassium Level 4.0 mEQ/L (3.4-4.9) Chloride Level 102 mEQ/L (98-107) Carbon Dioxide Level 28 mEQ/L (20-30) Anion Gap 12 (5-15) Blood Urea Nitrogen 34 mg/dL (7-23) H Creatinine 5.2 mg/dL (0.7-1.2) H Estimat Glomerular Filtration Rate 14.5 mL/min (>60) Glucose Level 107 mg/dL (74-106) H Calcium Level 7.9 mg/dL (8.6-10.2) L Phosphorus Level 6.3 mg/dL (2.5-4.8) H Magnesium Level 2.1 mg/dL (1.7-2.5) Total Bilirubin < 0.2 mg/dL (0.0-1.2) Aspartate Amino Transf (AST/SGOT) 15 U/L (5-40) Alanine Aminotransferase (ALT/SGPT) 9 U/L (3-41) Alkaline Phosphatase 51 U/L (40-129) Total Protein 5.9 g/dL (6.6-8.7) L Albumin 2.3 g/dL (3.5-5.2) L Globulin 3.6 g/dL Albumin/Globulin Ratio 0.6 (1.0-2.7) L Current Medications Medications (Trade) Dose Ordered Sig/Jenny Route PRN Reason Start Time Stop Time Status Last Admin Dose Admin Acetaminophen (Tylenol) 650 mg Q4H PRN ORAL fever 11/11/16 23:45 12/11/16 23:44 11/16/16 02:46 Albuterol/ Ipratropium (DuoNeb 0.5-3(2.5)mg/3ml) 3 ml Q4H PRN HHN Shortness of breath 11/23/16 16:00 11/28/16 15:59 Amlodipine Besylate (Norvasc) 5 mg BID ORAL 11/22/16 18:00 12/22/16 17:59 11/23/16 17:02 Dextrose (Dextrose 50%) STAT PRN IV Hypoglycemia 11/11/16 23:45 12/11/16 23:44 Docusate Sodium (Colace) 100 mg THREE TIMES A DAY ORAL 11/22/16 13:00 12/22/16 12:59 11/23/16 13:38 Doxycycline Monohydrate (Vibramycin) 100 mg EVERY 12 HOURS ORAL 11/23/16 21:00 11/30/16 20:59 11/23/16 20:27 Heparin Sodium (Porcine) (Heparin 5000 units/ml) 5,000 units EVERY 12 HOURS SUBQ 11/12/16 09:00 12/12/16 08:59 11/23/16 09:09 Morphine Sulfate (Morphine Sulfate) 4 mg Q4H PRN IVP For Pain 11/20/16 22:00 11/27/16 21:59 11/24/16 00:33 Ondansetron HCl (Zofran) 4 mg Q6H PRN IVP Nausea & Vomiting 11/11/16 23:45 12/11/16 23:44 Polyethylene Glycol (Miralax) 17 gm HSPRN PRN ORAL Constipation 11/11/16 23:45 12/11/16 23:44 Sevelamer Carbonate (Renvela) 1,600 mg THREE TIMES A DAY ORAL 11/22/16 13:00 12/22/16 12:59 11/23/16 17:02 Tamsulosin HCl (Flomax) 0.4 mg BID ORAL 11/16/16 11:30 12/16/16 11:29 11/23/16 17:02 Zolpidem Tartrate (Ambien) 5 mg HSPRN PRN ORAL Insomnia 11/11/16 23:45 12/11/16 23:44 JULIO CHRISTIANSEN Nov 24, 2016 10:06
--- NOTE | 2016-11-24 10:59 | General Progress Note ---
Assessment/Plan Status: unchanged Status Narrative Cr rising Assessment/Plan Status: Cellulitis left leg- Sepsis, received Amikacin and Vanco in the past. Acute renal failure- HypoAlbuminemia , Proteinuria , ? NS Multi drug abuse Plan: Refusing " catheter change" and blood work. retry in am On Norvasc- On Renagel- Change Dialysis cath- refused On flomax- Urine studies- Urine Tox screen- MJ and Amphetamines Monitor renal parameters- Dialysed 11/20 Per orders Subjective ROS Limited/Unobtainable: No Constitutional: Reports: malaise, weakness Allergies: Coded Allergies: SULFUR (Unverified Allergy, Unknown, unk, 11/16/16) Per patient allergic to sulfur Objective Last 24 Hour Vital Signs Date Time Temp Pulse Resp B/P Pulse Ox O2 Delivery O2 Flow Rate FiO2 11/24/16 10:46 92 18 Nasal Cannula 2.0 28 11/24/16 09:45 88 140/77 11/24/16 08:00 97.7 92 20 145/91 94 Nasal Cannula 2.0 11/24/16 04:00 97.7 88 18 150/58 94 Nasal Cannula 2.0 11/24/16 00:00 98.1 101 20 142/82 94 Nasal Cannula 2.0 11/23/16 20:00 98.1 90 18 144/79 92 Room Air 11/23/16 17:02 89 139/83 11/23/16 16:44 98.0 89 15 139/83 92 Room Air 11/23/16 16:05 97.3 11/23/16 11:55 97.3 88 16 159/90 96 Room Air Intake and Output 11/23/16 11/24/16 19:00 07:00 Intake Total 1700 ml 630 ml Output Total 950 ml Balance 750 ml 630 ml Intake Oral 1700 ml 630 ml Output Urine Total 950 ml # Voids 2 Laboratory Tests 11/23/16 12:00: Sodium Level 142, Potassium Level 4.0, Chloride Level 102, Carbon Dioxide Level 28, Anion Gap 12, Blood Urea Nitrogen 34H, Creatinine 5.2H, Estimat Glomerular Filtration Rate 14.5, Glucose Level 107H, Calcium Level 7.9L, Phosphorus Level 6.3H, Magnesium Level 2.1, Total Bilirubin < 0.2, Aspartate Amino Transf (AST/ SGOT) 15, Alanine Aminotransferase (ALT/SGPT) 9, Alkaline Phosphatase 51, Total Protein 5.9L, Albumin 2.3L, Globulin 3.6, Albumin/Globulin Ratio 0.6L Height (Feet): 6 Height (Inches): 1.00 Weight (Pounds): 200 General Appearance: no apparent distress Objective no change in PE GABRIELE GONZALEZ Nov 24, 2016 10:59
[2016-11-24 12:36] VITALS: BP 140/78
--- NOTE | 2016-11-24 13:10 | Pulmonology Progress Note ---
Assessment/Plan Problems: (1) Sepsis (2) Cellulitis (3) ATN (acute tubular necrosis) Assessment/Plan afebrile no new complains legs looks much better continue antibiotics waiting to see if pt will need Hd Subjective ROS Limited/Unobtainable: No Constitutional: Reports: fatigue, fever Musculoskeletal: Reports: pain, stiffness, swelling Allergies: Coded Allergies: SULFUR (Unverified Allergy, Unknown, unk, 11/16/16) Per patient allergic to sulfur Objective Last 24 Hour Vital Signs Date Time Temp Pulse Resp B/P Pulse Ox O2 Delivery O2 Flow Rate FiO2 11/24/16 12:36 97.8 17 140/78 96 Nasal Cannula 11/24/16 10:46 92 18 Nasal Cannula 2.0 28 11/24/16 09:45 88 140/77 11/24/16 08:00 97.7 92 20 145/91 94 Nasal Cannula 2.0 11/24/16 04:00 97.7 88 18 150/58 94 Nasal Cannula 2.0 11/24/16 00:00 98.1 101 20 142/82 94 Nasal Cannula 2.0 11/23/16 20:00 98.1 90 18 144/79 92 Room Air 11/23/16 17:02 89 139/83 11/23/16 16:44 98.0 89 15 139/83 92 Room Air 11/23/16 16:05 97.3 Intake and Output 11/23/16 11/24/16 19:00 07:00 Intake Total 1700 ml 630 ml Output Total 950 ml Balance 750 ml 630 ml Intake Oral 1700 ml 630 ml Output Urine Total 950 ml # Voids 2 General Appearance: no acute distress HEENT: normocephalic, atraumatic, PERRL Respiratory/Chest: chest wall non-tender, decreased breath sounds, accessory muscle use Cardiovascular: normal peripheral pulses, normal rate, regular rhythm, no JVD Abdomen: normal bowel sounds, soft, non tender, no organomegaly Genitourinary: normal external genitalia Extremities: no cyanosis Skin: no rash, no lesions 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, no motor/sensory deficits Current Medications Medications (Trade) Dose Ordered Sig/Jenny Route PRN Reason Start Time Stop Time Status Last Admin Dose Admin Acetaminophen (Tylenol) 650 mg Q4H PRN ORAL fever 11/11/16 23:45 12/11/16 23:44 11/16/16 02:46 Albuterol/ Ipratropium (DuoNeb 0.5-3(2.5)mg/3ml) 3 ml Q4H PRN HHN Shortness of breath 11/23/16 16:00 11/28/16 15:59 Amlodipine Besylate (Norvasc) 5 mg BID ORAL 11/22/16 18:00 12/22/16 17:59 11/24/16 09:45 Dextrose (Dextrose 50%) STAT PRN IV Hypoglycemia 11/11/16 23:45 12/11/16 23:44 Docusate Sodium (Colace) 100 mg THREE TIMES A DAY ORAL 11/22/16 13:00 12/22/16 12:59 11/24/16 09:45 Doxycycline Monohydrate (Vibramycin) 100 mg EVERY 12 HOURS ORAL 11/23/16 21:00 11/30/16 20:59 11/24/16 09:45 Heparin Sodium (Porcine) (Heparin 5000 units/ml) 5,000 units EVERY 12 HOURS SUBQ 11/12/16 09:00 12/12/16 08:59 11/24/16 09:45 Morphine Sulfate (Morphine Sulfate) 4 mg Q4H PRN IVP For Pain 11/20/16 22:00 11/27/16 21:59 11/24/16 00:33 Ondansetron HCl (Zofran) 4 mg Q6H PRN IVP Nausea & Vomiting 11/11/16 23:45 12/11/16 23:44 Polyethylene Glycol (Miralax) 17 gm HSPRN PRN ORAL Constipation 11/11/16 23:45 12/11/16 23:44 Quetiapine Fumarate (SEROquel) 25 mg Q12HR ORAL 11/24/16 11:00 12/24/16 10:59 Sevelamer Carbonate (Renvela) 1,600 mg THREE TIMES A DAY ORAL 11/22/16 13:00 12/22/16 12:59 11/23/16 17:02 Tamsulosin HCl (Flomax) 0.4 mg BID ORAL 11/16/16 11:30 12/16/16 11:29 11/23/16 17:02 Zolpidem Tartrate (Ambien) 5 mg HSPRN PRN ORAL Insomnia 11/11/16 23:45 12/11/16 23:44 NARENDRA NICOLE Nov 24, 2016 13:10
[2016-11-24 16:42] VITALS: BP 132/77
[2016-11-24 20:00] VITALS: BP 149/85
[2016-11-25] VITALS (14 sets, daily range): BP systolic 136–178; BP diastolic 79–105
[2016-11-25] MEDS: Morphine Sulfate 4mg/ml Inj IVP PRN ×2 (00:33→22:22)
[2016-11-25 06:00] LABS: INR 1.1 (0.9-1.1); PROTHROMBIN TIME 11.1 SEC (9.30-11.50)
[2016-11-25 06:30] LABS: BASOPHILS % (AUTO) 1.9 % (0.0-2.0); EOSINOPHILS % (AUTO) 3.9 % (0.0-3.0); LYMPHOCYTES % (AUTO) 21.5 % (20.0-45.0); MEAN CORPUSCULAR HEMOGLOBIN 30.3 PG (27.0-31.0); MEAN CORPUSCULAR HGB CONC 33.5 G/DL (32.0-36.0); MEAN CORPUSCULAR VOLUME 91 FL (80-99); MEAN PLATELET VOLUME 4.6 FL (6.5-10.1); MONOCYTES % (AUTO) 10.9 % (1.0-10.0); NEUTROPHILS % (AUTO) 61.7 % (45.0-75.0); PLATELET COUNT 401 K/UL (150-450); RED BLOOD COUNT 2.89 M/UL (4.70-6.10); RED CELL DISTRIBUTION WIDTH 12.1 % (11.6-14.8); WHITE BLOOD COUNT 8.7 K/UL (4.8-10.8)
[2016-11-25 07:03] LABS: ALBUMIN/GLOBULIN RATIO 0.6 (1.0-2.7); CALCIUM 8.1 mg/dL (8.6-10.2); CREATININE 5.8 mg/dL (0.7-1.2); CRP QUANT 4.2 mg/dL (< 0.5); GLOMERULAR FILTRATION RATE 12.8 mL/min (>60); MAGNESIUM 1.9 mg/dL (1.7-2.5); POTASSIUM 4.2 mEQ/L (3.4-4.9); TOTAL PROTEIN 5.7 g/dL (6.6-8.7); URIC ACID 8.3 mg/dL (3.0-7.5)
[2016-11-25] MEDS: Tamsulosin 0.4mg cap ORAL SCH ×3 (08:49→22:10)
[2016-11-25] MEDS: Docusate 100mg cap ORAL SCH ×3 (08:49→18:00)
[2016-11-25] MEDS: Heparin 5000 units/ml inj SUBQ SCH ×2 (08:53→22:12)
--- NOTE | 2016-11-25 08:57 | General Progress Note ---
Assessment/Plan Status: unchanged, deteriorating Assessment/Plan Status: Cellulitis left leg- Sepsis, received Amikacin and Vanco in the past. Acute renal failure- HypoAlbuminemia , Proteinuria , ? NS Multi drug abuse Plan: been Refusing " catheter change" and blood work. will try change of cath today and dialyse- On Norvasc- On Renagel- On flomax- Urine studies- Urine Tox screen- MJ and Amphetamines Monitor renal parameters- Dialysed 11/20 Per orders Subjective ROS Limited/Unobtainable: No Constitutional: Reports: malaise Allergies: Coded Allergies: SULFUR (Unverified Allergy, Unknown, unk, 11/16/16) Per patient allergic to sulfur Objective Last 24 Hour Vital Signs Date Time Temp Pulse Resp B/P Pulse Ox O2 Delivery O2 Flow Rate FiO2 11/25/16 08:47 88 150/88 11/25/16 07:58 98.1 88 20 150/88 98 Nasal Cannula 2.0 11/25/16 04:00 98.6 90 20 138/88 91 Room Air 11/25/16 00:00 98.2 95 20 147/84 90 Room Air 11/24/16 20:00 98.1 95 18 149/85 92 Room Air 11/24/16 19:30 90 20 Room Air 21 11/24/16 18:04 99.1 11/24/16 17:28 98 132/77 11/24/16 16:42 99.1 98 16 132/77 95 Room Air 11/24/16 12:36 97.8 17 140/78 96 Nasal Cannula 11/24/16 10:46 92 18 Nasal Cannula 2.0 28 11/24/16 09:45 88 140/77 Intake and Output 11/24/16 11/25/16 19:00 07:00 Intake Total 1075 ml 400 ml Output Total 300 ml 360 ml Balance 775 ml 40 ml Intake Oral 1075 ml 400 ml Output Urine Total 300 ml 360 ml # Voids 3 2 Laboratory Tests 11/25/16 05:15: White Blood Count 8.7, Red Blood Count 2.89L, Hemoglobin 8.8L, Hematocrit 26.2L , Mean Corpuscular Volume 91, Mean Corpuscular Hemoglobin 30.3, Mean Corpuscular Hemoglobin Concent 33.5, Red Cell Distribution Width 12.1, Platelet Count 401, Mean Platelet Volume 4.6L, Neutrophils (%) (Auto) 61.7, Lymphocytes ( %) (Auto) 21.5, Monocytes (%) (Auto) 10.9H, Eosinophils (%) (Auto) 3.9H, Basophils (%) (Auto) 1.9, Prothrombin Time 11.1, Prothromb Time International Ratio 1.1, Activated Partial Thromboplast Time 32, Sodium Level 142, Potassium Level 4.2, Chloride Level 102, Carbon Dioxide Level 26, Anion Gap 14, Blood Urea Nitrogen 38H, Creatinine 5.8H, Estimat Glomerular Filtration Rate 12.8, Glucose Level 92, Uric Acid 8.3H, Calcium Level 8.1L, Phosphorus Level 6.0H, Magnesium Level 1.9, Total Bilirubin 0.3, Aspartate Amino Transf (AST/SGOT) 14, Alanine Aminotransferase (ALT/SGPT) 6, Alkaline Phosphatase 48, C-Reactive Protein, Quantitative 4.2H, Pro-B-Type Natriuretic Peptide 5189H, Total Protein 5.7L, Albumin 2.3L, Globulin 3.4, Albumin/Globulin Ratio 0.6L Height (Feet): 6 Height (Inches): 1.00 Weight (Pounds): 200 General Appearance: no apparent distress Objective no change in PE GABRIELE GONZALEZ Nov 25, 2016 08:57
--- NOTE | 2016-11-25 10:37 | General Surgery Progress Note ---
General Surgery-Progress Note Subjective Reason for Consult left leg cellulitis Symptoms: improved Additional Comments patient seen and examined. left leg significantly improved. renal function still poor. Objective Last 24 Hour Vital Signs Date Time Temp Pulse Resp B/P Pulse Ox O2 Delivery O2 Flow Rate FiO2 11/25/16 08:47 88 150/88 11/25/16 07:58 98.1 88 20 150/88 98 Nasal Cannula 2.0 11/25/16 04:00 98.6 90 20 138/88 91 Room Air 11/25/16 00:00 98.2 95 20 147/84 90 Room Air 11/24/16 20:00 98.1 95 18 149/85 92 Room Air 11/24/16 19:30 90 20 Room Air 21 11/24/16 18:04 99.1 11/24/16 17:28 98 132/77 11/24/16 16:42 99.1 98 16 132/77 95 Room Air 11/24/16 12:36 97.8 17 140/78 96 Nasal Cannula 11/24/16 10:46 92 18 Nasal Cannula 2.0 28 I&O Intake and Output 11/24/16 11/25/16 19:00 07:00 Intake Total 1075 ml 400 ml Output Total 300 ml 360 ml Balance 775 ml 40 ml Intake Oral 1075 ml 400 ml Output Urine Total 300 ml 360 ml # Voids 3 2 Dressing: dry Wound: clean Drains: none Cardiovascular: RSR Respiratory: clear Abdomen: soft, non-tender Extremities: no edema, pulses Laboratory Tests Test 11/25/16 05:15 11/25/16 08:55 White Blood Count 8.7 K/UL (4.8-10.8) Red Blood Count 2.89 M/UL (4.70-6.10) L Hemoglobin 8.8 G/DL (14.2-18.0) L Hematocrit 26.2 % (42.0-52.0) L Mean Corpuscular Volume 91 FL (80-99) Mean Corpuscular Hemoglobin 30.3 PG (27.0-31.0) Mean Corpuscular Hemoglobin Concent 33.5 G/DL (32.0-36.0) Red Cell Distribution Width 12.1 % (11.6-14.8) Platelet Count 401 K/UL (150-450) Mean Platelet Volume 4.6 FL (6.5-10.1) L Neutrophils (%) (Auto) 61.7 % (45.0-75.0) Lymphocytes (%) (Auto) 21.5 % (20.0-45.0) Monocytes (%) (Auto) 10.9 % (1.0-10.0) H Eosinophils (%) (Auto) 3.9 % (0.0-3.0) H Basophils (%) (Auto) 1.9 % (0.0-2.0) Prothrombin Time 11.1 SEC (9.30-11.50) Prothromb Time International Ratio 1.1 (0.9-1.1) Activated Partial Thromboplast Time 32 SEC (23-33) Sodium Level 142 mEQ/L (135-145) Potassium Level 4.2 mEQ/L (3.4-4.9) Chloride Level 102 mEQ/L (98-107) Carbon Dioxide Level 26 mEQ/L (20-30) Anion Gap 14 (5-15) Blood Urea Nitrogen 38 mg/dL (7-23) H Creatinine 5.8 mg/dL (0.7-1.2) H Estimat Glomerular Filtration Rate 12.8 mL/min (>60) Glucose Level 92 mg/dL (74-106) Uric Acid 8.3 mg/dL (3.0-7.5) H Calcium Level 8.1 mg/dL (8.6-10.2) L Phosphorus Level 6.0 mg/dL (2.5-4.8) H Magnesium Level 1.9 mg/dL (1.7-2.5) Total Bilirubin 0.3 mg/dL (0.0-1.2) Aspartate Amino Transf (AST/SGOT) 14 U/L (5-40) Alanine Aminotransferase (ALT/SGPT) 6 U/L (3-41) Alkaline Phosphatase 48 U/L (40-129) C-Reactive Protein, Quantitative 4.2 mg/dL (< 0.5) H Pro-B-Type Natriuretic Peptide 5189 pg/mL (0-125) H Total Protein 5.7 g/dL (6.6-8.7) L Albumin 2.3 g/dL (3.5-5.2) L Globulin 3.4 g/dL Albumin/Globulin Ratio 0.6 (1.0-2.7) L Hepatitis A IgM Antibody Pending Hepatitis B Surface Antigen Pending Hepatitis B Core IgM Antibody Pending Hepatitis C Antibody Pending Assessment Post-op Diagnosis 46 year old male with left lower extremity cellulitis that is now resolved. wounds clean and dry and leg healing. renal function declined during hospital course and required dialysis. will hopefully recover from renal aspect soon too. Plan Problems: (1) Cellulitis Assessment & Plan: 46 M left leg cellulitis. improving. no signs of infection at this time in leg. edema resolved. small area of blister now just a scab. currently no surgical issues. (2) Sepsis Marco Villasenor MD Nov 25, 2016 10:37
[2016-11-25 14:28] LABS: FOLIC ACID 11.5 ng/mL (3.1-17.5)
[2016-11-25] MEDS ORDERED: Sodium Bicarbonate 8.4% 50ml Inj ONE (14:51)
[2016-11-25] MEDS ORDERED: Lidocaine 1% Plain 30 ml INJ ONE (14:51)
[2016-11-25] MEDS ORDERED: Heparin 2000 units/Ns 1000ml 1,000 ML ONE (14:51)
[2016-11-25] MEDS ORDERED: Heparin Sod 1000 units/ml 10ml ONE (14:52)
--- NOTE | 2016-11-25 14:55 | Pulmonology Progress Note ---
Assessment/Plan Problems: (1) Sepsis (2) Cellulitis (3) ATN (acute tubular necrosis) Assessment/Plan afebrile no new complains legs looks much better continue antibiotics waiting to see if pt will need Hd Subjective ROS Limited/Unobtainable: No Constitutional: Reports: anorexia, fatigue Skin: Reports: rash, ulcer Allergies: Coded Allergies: SULFUR (Unverified Allergy, Unknown, unk, 11/16/16) Per patient allergic to sulfur Objective Last 24 Hour Vital Signs Date Time Temp Pulse Resp B/P Pulse Ox O2 Delivery O2 Flow Rate FiO2 11/25/16 08:47 88 150/88 11/25/16 07:58 98.1 88 20 150/88 98 Nasal Cannula 2.0 11/25/16 04:00 98.6 90 20 138/88 91 Room Air 11/25/16 00:00 98.2 95 20 147/84 90 Room Air 11/24/16 20:00 98.1 95 18 149/85 92 Room Air 11/24/16 19:30 90 20 Room Air 21 11/24/16 18:04 99.1 11/24/16 17:28 98 132/77 11/24/16 16:42 99.1 98 16 132/77 95 Room Air Intake and Output 11/24/16 11/25/16 19:00 07:00 Intake Total 1075 ml 400 ml Output Total 300 ml 360 ml Balance 775 ml 40 ml Intake Oral 1075 ml 400 ml Output Urine Total 300 ml 360 ml # Voids 3 2 General Appearance: no acute distress HEENT: normocephalic, atraumatic, PERRL Respiratory/Chest: chest wall non-tender, respiratory distress, decreased breath sounds, accessory muscle use Cardiovascular: normal peripheral pulses, normal rate, regular rhythm, no JVD Abdomen: normal bowel sounds, soft, non tender, no organomegaly, non distended Genitourinary: normal external genitalia Extremities: no cyanosis Skin: rash, lesions 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, no motor/sensory deficits Laboratory Tests 11/25/16 05:15: White Blood Count 8.7, Red Blood Count 2.89L, Hemoglobin 8.8L, Hematocrit 26.2L , Mean Corpuscular Volume 91, Mean Corpuscular Hemoglobin 30.3, Mean Corpuscular Hemoglobin Concent 33.5, Red Cell Distribution Width 12.1, Platelet Count 401, Mean Platelet Volume 4.6L, Neutrophils (%) (Auto) 61.7, Lymphocytes ( %) (Auto) 21.5, Monocytes (%) (Auto) 10.9H, Eosinophils (%) (Auto) 3.9H, Basophils (%) (Auto) 1.9, Prothrombin Time 11.1, Prothromb Time International Ratio 1.1, Activated Partial Thromboplast Time 32, Sodium Level 142, Potassium Level 4.2, Chloride Level 102, Carbon Dioxide Level 26, Anion Gap 14, Blood Urea Nitrogen 38H, Creatinine 5.8H, Estimat Glomerular Filtration Rate 12.8, Glucose Level 92, Uric Acid 8.3H, Calcium Level 8.1L, Phosphorus Level 6.0H, Magnesium Level 1.9, Total Bilirubin 0.3, Aspartate Amino Transf (AST/SGOT) 14, Alanine Aminotransferase (ALT/SGPT) 6, Alkaline Phosphatase 48, C-Reactive Protein, Quantitative 4.2H, Pro-B-Type Natriuretic Peptide 5189H, Total Protein 5.7L, Albumin 2.3L, Globulin 3.4, Albumin/Globulin Ratio 0.6L 11/25/16 08:55: Hepatitis A IgM Antibody [Pending], Hepatitis B Surface Antigen [Pending], Hepatitis B Core IgM Antibody [Pending], Hepatitis C Antibody [Pending] Current Medications Medications (Trade) Dose Ordered Sig/Jenny Route PRN Reason Start Time Stop Time Status Last Admin Dose Admin Acetaminophen (Tylenol) 650 mg Q4H PRN ORAL fever 11/11/16 23:45 12/11/16 23:44 11/16/16 02:46 Albuterol/ Ipratropium (DuoNeb 0.5-3(2.5)mg/3ml) 3 ml Q4H PRN HHN Shortness of breath 11/23/16 16:00 11/28/16 15:59 Amlodipine Besylate (Norvasc) 5 mg BID ORAL 11/22/16 18:00 12/22/16 17:59 11/25/16 08:47 Dextrose (Dextrose 50%) STAT PRN IV Hypoglycemia 11/11/16 23:45 12/11/16 23:44 Docusate Sodium (Colace) 100 mg THREE TIMES A DAY ORAL 11/22/16 13:00 12/22/16 12:59 11/25/16 13:27 Doxycycline Monohydrate (Vibramycin) 100 mg EVERY 12 HOURS ORAL 11/23/16 21:00 11/30/16 20:59 11/25/16 10:35 Heparin Sodium (Porcine) (Heparin 5000 units/ml) 5,000 units EVERY 12 HOURS SUBQ 11/12/16 09:00 12/12/16 08:59 11/25/16 08:53 Morphine Sulfate (Morphine Sulfate) 4 mg Q4H PRN IVP For Pain 11/20/16 22:00 11/27/16 21:59 11/25/16 00:33 Ondansetron HCl (Zofran) 4 mg Q6H PRN IVP Nausea & Vomiting 11/11/16 23:45 12/11/16 23:44 Polyethylene Glycol (Miralax) 17 gm HSPRN PRN ORAL Constipation 11/11/16 23:45 12/11/16 23:44 Quetiapine Fumarate (SEROquel) 25 mg Q12HR ORAL 11/24/16 11:00 12/24/16 10:59 11/25/16 08:46 Sevelamer Carbonate (Renvela) 2,400 mg THREE TIMES A DAY ORAL 11/25/16 09:30 12/25/16 09:29 11/25/16 13:28 Tamsulosin HCl (Flomax) 0.4 mg BID ORAL 11/16/16 11:30 12/16/16 11:29 11/25/16 08:49 Zolpidem Tartrate (Ambien) 5 mg HSPRN PRN ORAL Insomnia 11/11/16 23:45 12/11/16 23:44 NARENDRA NICOLE Nov 25, 2016 14:55
--- NOTE | 2016-11-25 16:26 | Infectious Diseases Prog Note ---
Assessment/Plan Assessment/Plan ASSESSMENT: 46-year-old male with: Left lower extremity cellulitis - improved MRI : no evidence of associated abscess, fasciitis or osteomyelitis Doppler : No DVT Fever - resolved Leucocytosis - resolved ARF SP roddy 11/18, initiated HD US of Kid : Echogenic kidneys. Medical renal disease suspected. Polysubstance abuse - UDS(+) Amphetamines, opiates, marijuana, tobacco Sulfa allergy Full Code PLAN: ok to DC on PO doxycycline x3d from ID standpoint - Rx on chart. ( 11/23 SP Ceftaroline d# 9 ) ( 11/14 SP on cefepime and vancomycin d# 4 ) Monitor CBC, temperatures Monitor BMP. HD prn Subjective Allergies: Coded Allergies: SULFUR (Unverified Allergy, Unknown, unk, 11/16/16) Per patient allergic to sulfur Subjective remains afebrile. improved Objective Vital Signs Last 24 Hour Vital Signs Date Time Temp Pulse Resp B/P Pulse Ox O2 Delivery O2 Flow Rate FiO2 11/25/16 16:01 90 20 Nasal Cannula 2.0 28 11/25/16 15:20 88 20 154/83 97 Nasal Cannula 2.0 11/25/16 15:16 88 20 161/85 97 Nasal Cannula 2.0 11/25/16 15:10 85 20 158/83 98 Nasal Cannula 2.0 11/25/16 15:05 86 20 158/85 98 Nasal Cannula 2.0 11/25/16 15:03 88 20 2.0 11/25/16 15:01 86 20 158/85 94 Nasal Cannula 2.0 11/25/16 14:55 89 20 148/85 94 Nasal Cannula 2.0 11/25/16 14:48 89 20 150/90 90 Room Air 11/25/16 08:47 88 150/88 11/25/16 07:58 98.1 88 20 150/88 98 Nasal Cannula 2.0 11/25/16 06:40 Nasal Cannula 28.0 28 11/25/16 06:40 93 Nasal Cannula 2.0 28 11/25/16 04:00 98.6 90 20 138/88 91 Room Air 11/25/16 00:00 98.2 95 20 147/84 90 Room Air 11/24/16 20:00 98.1 95 18 149/85 92 Room Air 11/24/16 19:30 90 20 Room Air 21 11/24/16 18:04 99.1 11/24/16 17:28 98 132/77 11/24/16 16:42 99.1 98 16 132/77 95 Room Air Height (Feet): 6 Height (Inches): 1.00 Weight (Pounds): 200 General Appearance: no acute distress Respiratory/Chest: no respiratory distress Cardiovascular: normal rate, regular rhythm Abdomen: normal bowel sounds, soft, non tender, non distended Extremities: other - edema Laboratory Tests Test 11/25/16 05:15 11/25/16 08:55 White Blood Count 8.7 K/UL (4.8-10.8) Red Blood Count 2.89 M/UL (4.70-6.10) L Hemoglobin 8.8 G/DL (14.2-18.0) L Hematocrit 26.2 % (42.0-52.0) L Mean Corpuscular Volume 91 FL (80-99) Mean Corpuscular Hemoglobin 30.3 PG (27.0-31.0) Mean Corpuscular Hemoglobin Concent 33.5 G/DL (32.0-36.0) Red Cell Distribution Width 12.1 % (11.6-14.8) Platelet Count 401 K/UL (150-450) Mean Platelet Volume 4.6 FL (6.5-10.1) L Neutrophils (%) (Auto) 61.7 % (45.0-75.0) Lymphocytes (%) (Auto) 21.5 % (20.0-45.0) Monocytes (%) (Auto) 10.9 % (1.0-10.0) H Eosinophils (%) (Auto) 3.9 % (0.0-3.0) H Basophils (%) (Auto) 1.9 % (0.0-2.0) Prothrombin Time 11.1 SEC (9.30-11.50) Prothromb Time International Ratio 1.1 (0.9-1.1) Activated Partial Thromboplast Time 32 SEC (23-33) Sodium Level 142 mEQ/L (135-145) Potassium Level 4.2 mEQ/L (3.4-4.9) Chloride Level 102 mEQ/L (98-107) Carbon Dioxide Level 26 mEQ/L (20-30) Anion Gap 14 (5-15) Blood Urea Nitrogen 38 mg/dL (7-23) H Creatinine 5.8 mg/dL (0.7-1.2) H Estimat Glomerular Filtration Rate 12.8 mL/min (>60) Glucose Level 92 mg/dL (74-106) Uric Acid 8.3 mg/dL (3.0-7.5) H Calcium Level 8.1 mg/dL (8.6-10.2) L Phosphorus Level 6.0 mg/dL (2.5-4.8) H Magnesium Level 1.9 mg/dL (1.7-2.5) Total Bilirubin 0.3 mg/dL (0.0-1.2) Aspartate Amino Transf (AST/SGOT) 14 U/L (5-40) Alanine Aminotransferase (ALT/SGPT) 6 U/L (3-41) Alkaline Phosphatase 48 U/L (40-129) C-Reactive Protein, Quantitative 4.2 mg/dL (< 0.5) H Pro-B-Type Natriuretic Peptide 5189 pg/mL (0-125) H Total Protein 5.7 g/dL (6.6-8.7) L Albumin 2.3 g/dL (3.5-5.2) L Globulin 3.4 g/dL Albumin/Globulin Ratio 0.6 (1.0-2.7) L Hepatitis A IgM Antibody Pending Hepatitis B Surface Antigen Pending Hepatitis B Core IgM Antibody Pending Hepatitis C Antibody Pending Current Medications Medications (Trade) Dose Ordered Sig/Jenny Route PRN Reason Start Time Stop Time Status Last Admin Dose Admin Acetaminophen (Tylenol) 650 mg Q4H PRN ORAL fever 11/11/16 23:45 12/11/16 23:44 11/16/16 02:46 Albuterol/ Ipratropium (DuoNeb 0.5-3(2.5)mg/3ml) 3 ml Q4H PRN HHN Shortness of breath 11/23/16 16:00 11/28/16 15:59 Amlodipine Besylate (Norvasc) 5 mg BID ORAL 11/22/16 18:00 12/22/16 17:59 11/25/16 08:47 Dextrose (Dextrose 50%) STAT PRN IV Hypoglycemia 11/11/16 23:45 12/11/16 23:44 Docusate Sodium (Colace) 100 mg THREE TIMES A DAY ORAL 11/22/16 13:00 12/22/16 12:59 11/25/16 13:27 Doxycycline Monohydrate (Vibramycin) 100 mg EVERY 12 HOURS ORAL 11/23/16 21:00 11/30/16 20:59 11/25/16 10:35 Heparin Sodium (Porcine) (Heparin 5000 units/ml) 5,000 units EVERY 12 HOURS SUBQ 11/12/16 09:00 12/12/16 08:59 11/25/16 08:53 Morphine Sulfate (Morphine Sulfate) 4 mg Q4H PRN IVP For Pain 11/20/16 22:00 11/27/16 21:59 11/25/16 00:33 Ondansetron HCl (Zofran) 4 mg Q6H PRN IVP Nausea & Vomiting 11/11/16 23:45 12/11/16 23:44 Polyethylene Glycol (Miralax) 17 gm HSPRN PRN ORAL Constipation 11/11/16 23:45 12/11/16 23:44 Quetiapine Fumarate (SEROquel) 25 mg Q12HR ORAL 11/24/16 11:00 12/24/16 10:59 11/25/16 08:46 Sevelamer Carbonate (Renvela) 2,400 mg THREE TIMES A DAY ORAL 11/25/16 09:30 12/25/16 09:29 11/25/16 13:28 Tamsulosin HCl (Flomax) 0.4 mg BID ORAL 11/16/16 11:30 12/16/16 11:29 11/25/16 08:49 Zolpidem Tartrate (Ambien) 5 mg HSPRN PRN ORAL Insomnia 11/11/16 23:45 12/11/16 23:44 JULIO CHRISTIANSEN Nov 25, 2016 16:26
[2016-11-26] VITALS: BP 151/90
[2016-11-26 04:00] VITALS: BP 115/79
[2016-11-26 08:10] VITALS: BP 153/97
[2016-11-26] MEDS: Docusate 100mg cap ORAL SCH ×3 (08:12→18:19)
[2016-11-26] MEDS: Tamsulosin 0.4mg cap ORAL SCH ×2 (08:13→18:19)
[2016-11-26] MEDS: Heparin 5000 units/ml inj SUBQ SCH ×2 (08:18→20:39)
[2016-11-26] MEDS: Morphine Sulfate 4mg/ml Inj IVP PRN (08:37)
--- NOTE | 2016-11-26 09:52 | General Progress Note ---
Progress Note Progress Note Afebrile, still on intermittent HD, BUN/CREAT yesterday at highest since admission. (before dialysis) Lower left leg wound all healed. Will sign off. Nothing surgical at this time MARIANA CASTANO Nov 26, 2016 09:52
--- NOTE | 2016-11-26 11:17 | General Progress Note ---
Assessment/Plan Status: unchanged - from renal stand Assessment/Plan Status: Cellulitis left leg- Sepsis, received Amikacin and Vanco in the past. Acute renal failure- HypoAlbuminemia , Proteinuria , ? NS Multi drug abuse Plan: eventually had the catheter changed and dialysed yesterday- On Norvasc- On Renagel- On flomax- Urine studies- Urine Tox screen- MJ and Amphetamines Monitor renal parameters- DC planning... Per orders Subjective ROS Limited/Unobtainable: No Constitutional: Reports: malaise Allergies: Coded Allergies: SULFUR (Unverified Allergy, Unknown, unk, 11/16/16) Per patient allergic to sulfur Objective Last 24 Hour Vital Signs Date Time Temp Pulse Resp B/P Pulse Ox O2 Delivery O2 Flow Rate FiO2 11/26/16 09:23 98.1 11/26/16 08:12 86 153/97 11/26/16 08:10 98.1 86 21 153/97 97 Room Air 11/26/16 07:55 Nasal Cannula 28.0 28 11/26/16 07:54 90 18 Nasal Cannula 2.0 28 11/26/16 07:54 92 Nasal Cannula 2.0 28 11/26/16 04:00 97.8 92 20 115/79 90 Room Air 11/26/16 00:00 98.2 90 20 151/90 92 Nasal Cannula 2.0 11/25/16 23:05 Room Air 11/25/16 23:04 96.4 84 18 163/79 96 Room Air 11/25/16 22:10 94 178/105 11/25/16 20:00 Room Air 11/25/16 19:45 96.8 94 21 178/105 96 Room Air 11/25/16 19:20 93 Nasal Cannula 2.0 28 11/25/16 19:20 Nasal Cannula 28.0 28 11/25/16 19:00 98.1 99 20 136/104 90 Room Air 11/25/16 16:01 90 20 Nasal Cannula 2.0 28 11/25/16 15:20 88 20 154/83 97 Nasal Cannula 2.0 11/25/16 15:16 88 20 161/85 97 Nasal Cannula 2.0 11/25/16 15:10 85 20 158/83 98 Nasal Cannula 2.0 11/25/16 15:05 86 20 158/85 98 Nasal Cannula 2.0 11/25/16 15:03 88 20 2.0 11/25/16 15:01 86 20 158/85 94 Nasal Cannula 2.0 11/25/16 14:55 89 20 148/85 94 Nasal Cannula 2.0 11/25/16 14:48 89 20 150/90 90 Room Air Intake and Output 11/25/16 11/26/16 19:00 07:00 Intake Total 360 ml Output Total 1100 ml Balance -740 ml Intake Oral 360 ml Hemodialysis UF 1100 ml # Voids 5 Height (Feet): 6 Height (Inches): 1.00 Weight (Pounds): 200 General Appearance: no apparent distress Cardiovascular: regular rhythm Respiratory/Chest: decreased breath sounds Abdomen: soft Objective no change in PE GABRIELE GONZALEZ Nov 26, 2016 11:17
--- NOTE | 2016-11-26 15:11 | Pulmonology Progress Note ---
Assessment/Plan Problems: (1) Sepsis (2) Cellulitis (3) ATN (acute tubular necrosis) Assessment/Plan afebrile no new complains legs looks much better continue antibiotics dialyzed yesterday don't know yet if pt will need penitentiary HD. Subjective ROS Limited/Unobtainable: No Interval Events: dialyzed yesterday Constitutional: Reports: no symptoms HEENT: Repors: no symptoms Allergies: Coded Allergies: SULFUR (Unverified Allergy, Unknown, unk, 11/16/16) Per patient allergic to sulfur Objective Last 24 Hour Vital Signs Date Time Temp Pulse Resp B/P Pulse Ox O2 Delivery O2 Flow Rate FiO2 11/26/16 09:23 98.1 11/26/16 08:12 86 153/97 11/26/16 08:10 98.1 86 21 153/97 97 Room Air 11/26/16 07:55 Nasal Cannula 28.0 28 11/26/16 07:54 90 18 Nasal Cannula 2.0 28 11/26/16 07:54 92 Nasal Cannula 2.0 28 11/26/16 04:00 97.8 92 20 115/79 90 Room Air 11/26/16 00:00 98.2 90 20 151/90 92 Nasal Cannula 2.0 11/25/16 23:05 Room Air 11/25/16 23:04 96.4 84 18 163/79 96 Room Air 11/25/16 22:10 94 178/105 11/25/16 20:00 Room Air 11/25/16 19:45 96.8 94 21 178/105 96 Room Air 11/25/16 19:20 93 Nasal Cannula 2.0 28 11/25/16 19:20 Nasal Cannula 28.0 28 11/25/16 19:00 98.1 99 20 136/104 90 Room Air 11/25/16 16:01 90 20 Nasal Cannula 2.0 28 11/25/16 15:20 88 20 154/83 97 Nasal Cannula 2.0 11/25/16 15:16 88 20 161/85 97 Nasal Cannula 2.0 Intake and Output 11/25/16 11/26/16 19:00 07:00 Intake Total 360 ml Output Total 1100 ml Balance -740 ml Intake Oral 360 ml Hemodialysis UF 1100 ml # Voids 5 General Appearance: WD/WN HEENT: normocephalic, atraumatic Respiratory/Chest: chest wall non-tender, lungs clear Cardiovascular: normal peripheral pulses, normal rate Abdomen: normal bowel sounds, soft, non tender Genitourinary: normal external genitalia Extremities: no cyanosis Skin: no lesions 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 Lymphatic: no neck adenopathy Current Medications Medications (Trade) Dose Ordered Sig/Jenny Route PRN Reason Start Time Stop Time Status Last Admin Dose Admin Acetaminophen (Tylenol) 650 mg Q4H PRN ORAL fever 11/11/16 23:45 12/11/16 23:44 11/16/16 02:46 Albuterol/ Ipratropium (DuoNeb 0.5-3(2.5)mg/3ml) 3 ml Q4H PRN HHN Shortness of breath 11/23/16 16:00 11/28/16 15:59 Amlodipine Besylate (Norvasc) 5 mg BID ORAL 11/22/16 18:00 12/22/16 17:59 11/26/16 08:12 Dextrose (Dextrose 50%) STAT PRN IV Hypoglycemia 11/11/16 23:45 12/11/16 23:44 Docusate Sodium (Colace) 100 mg THREE TIMES A DAY ORAL 11/22/16 13:00 12/22/16 12:59 11/26/16 12:21 Doxycycline Monohydrate (Vibramycin) 100 mg EVERY 12 HOURS ORAL 11/23/16 21:00 11/30/16 20:59 11/26/16 08:12 Heparin Sodium (Porcine) (Heparin 5000 units/ml) 5,000 units EVERY 12 HOURS SUBQ 11/12/16 09:00 12/12/16 08:59 11/26/16 08:18 Morphine Sulfate (Morphine Sulfate) 4 mg Q4H PRN IVP For Pain 11/20/16 22:00 11/27/16 21:59 11/26/16 08:37 Ondansetron HCl (Zofran) 4 mg Q6H PRN IVP Nausea & Vomiting 11/11/16 23:45 12/11/16 23:44 Polyethylene Glycol (Miralax) 17 gm HSPRN PRN ORAL Constipation 11/11/16 23:45 12/11/16 23:44 Quetiapine Fumarate (SEROquel) 25 mg Q12HR ORAL 11/24/16 11:00 12/24/16 10:59 11/25/16 08:46 Sevelamer Carbonate (Renvela) 2,400 mg THREE TIMES A DAY ORAL 11/25/16 09:30 12/25/16 09:29 11/26/16 12:21 Tamsulosin HCl (Flomax) 0.4 mg BID ORAL 11/16/16 11:30 12/16/16 11:29 11/26/16 08:13 Zolpidem Tartrate (Ambien) 5 mg HSPRN PRN ORAL Insomnia 11/11/16 23:45 12/11/16 23:44 NARENDRA NICOLE Nov 26, 2016 15:11
--- NOTE | 2016-11-26 15:57 | Diagnostic Imaging Report ---
Indications: Nonfunctioning temporary hemodialysis catheter Technique: Procedure, indications, risks, alternatives were explained to the patient's family, who understands and gives written consent to proceed. Strict aseptic technique was utilized, including hand washing, use of hat and mask, use of sterile gown and gloves, prepping of external portion of indwelling temporary hemodialysis catheter and surrounding right neck base skin with 2% chlorhexidine solution, and application of large sterile barrier over this area. Skin and subcutaneous soft tissues surrounding the catheter dermatotomy site infiltrated with 1% lidocaine and sodium bicarbonate. Each port of indwelling catheter aspirated, then flushed with heparinized saline. 0.035 inch [employer] guidewire was advanced through the venous port of the catheter under direct fluoroscopic guidance into the inferior vena cava. Catheter partially withdrawn over the guidewire into the right brachiocephalic vein. Nonionic contrast injected through the catheter arterial port and digital subtraction images of the right brachiocephalic vein and superior vena cava obtained. Catheter removed over guidewire. A new 12 [place] 20 cm temporary hemodialysis catheter was advanced over the guidewire via the existing access under direct fluoroscopic guidance into the superior vena cava. Guidewire removed. Both catheter ports aspirated, then flushed with heparinized saline. 1000 units into each catheter port. Catheter secured the skin with suture and adhesive dressing. Final spot film image obtained. Patient tolerated procedures well without immediate complications and was returned to his room in stable condition. Total fluoroscopy time one minute. Dose area product 99 dGy-cm Findings: Comparison: None Venous port of the catheter aspirates and flushes freely. Arterial port catheter flushes but does not aspirate. Venogram demonstrates patent right brachiocephalic vein and superior vena cava without obvious intraluminal filling defect or stenosis. Removed catheter intact. Final image demonstrates tip of new temporary hemodialysis catheter at level of SVC-right atrial junction. Both ports aspirate and flush freely. IMPRESSION: Right brachiocephalic and superior vena cava venogram within normal limits Exchange of indwelling temporary hemodialysis catheter for a new longer catheter, in good position, working well.
[2016-11-26 16:00] VITALS: BP 131/86
--- NOTE | 2016-11-26 16:05 | Infectious Diseases Prog Note ---
Assessment/Plan Assessment/Plan ASSESSMENT: 46-year-old male with: Left lower extremity cellulitis - improved MRI : no evidence of associated abscess, fasciitis or osteomyelitis Doppler : No DVT Fever - resolved Leucocytosis - resolved ARF --> HD SP roddy 11/18, exchanged 11/25 US of Kid : Echogenic kidneys. Medical renal disease suspected. Polysubstance abuse - UDS(+) Amphetamines, opiates, marijuana, tobacco Sulfa allergy Full Code PLAN: ok to DC on PO doxycycline x2d from ID standpoint - Rx on chart. ( 11/23 SP Ceftaroline d# 9 ) ( 11/14 SP on cefepime and vancomycin d# 4 ) Monitor CBC, temperatures Monitor BMP. HD prn Subjective Allergies: Coded Allergies: SULFUR (Unverified Allergy, Unknown, unk, 11/16/16) Per patient allergic to sulfur Subjective remains afebrile. no new complaint HD cath exchanged Objective Vital Signs Last 24 Hour Vital Signs Date Time Temp Pulse Resp B/P Pulse Ox O2 Delivery O2 Flow Rate FiO2 11/26/16 09:23 98.1 11/26/16 08:12 86 153/97 11/26/16 08:10 98.1 86 21 153/97 97 Room Air 11/26/16 07:55 Nasal Cannula 28.0 28 11/26/16 07:54 90 18 Nasal Cannula 2.0 28 11/26/16 07:54 92 Nasal Cannula 2.0 28 11/26/16 04:00 97.8 92 20 115/79 90 Room Air 11/26/16 00:00 98.2 90 20 151/90 92 Nasal Cannula 2.0 11/25/16 23:05 Room Air 11/25/16 23:04 96.4 84 18 163/79 96 Room Air 11/25/16 22:10 94 178/105 11/25/16 20:00 Room Air 11/25/16 19:45 96.8 94 21 178/105 96 Room Air 11/25/16 19:20 93 Nasal Cannula 2.0 28 11/25/16 19:20 Nasal Cannula 28.0 28 11/25/16 19:00 98.1 99 20 136/104 90 Room Air Height (Feet): 6 Height (Inches): 1.00 Weight (Pounds): 200 General Appearance: no acute distress Respiratory/Chest: no respiratory distress Cardiovascular: normal rate, regular rhythm Abdomen: normal bowel sounds, soft, non tender, non distended Current Medications Medications (Trade) Dose Ordered Sig/Jenny Route PRN Reason Start Time Stop Time Status Last Admin Dose Admin Acetaminophen (Tylenol) 650 mg Q4H PRN ORAL fever 11/11/16 23:45 12/11/16 23:44 11/16/16 02:46 Albuterol/ Ipratropium (DuoNeb 0.5-3(2.5)mg/3ml) 3 ml Q4H PRN HHN Shortness of breath 11/23/16 16:00 11/28/16 15:59 Amlodipine Besylate (Norvasc) 5 mg BID ORAL 11/22/16 18:00 12/22/16 17:59 11/26/16 08:12 Dextrose (Dextrose 50%) STAT PRN IV Hypoglycemia 11/11/16 23:45 12/11/16 23:44 Docusate Sodium (Colace) 100 mg THREE TIMES A DAY ORAL 11/22/16 13:00 12/22/16 12:59 11/26/16 12:21 Doxycycline Monohydrate (Vibramycin) 100 mg EVERY 12 HOURS ORAL 11/23/16 21:00 11/30/16 20:59 11/26/16 08:12 Heparin Sodium (Porcine) (Heparin 5000 units/ml) 5,000 units EVERY 12 HOURS SUBQ 11/12/16 09:00 12/12/16 08:59 11/26/16 08:18 Morphine Sulfate (Morphine Sulfate) 4 mg Q4H PRN IVP For Pain 11/20/16 22:00 11/27/16 21:59 11/26/16 08:37 Ondansetron HCl (Zofran) 4 mg Q6H PRN IVP Nausea & Vomiting 11/11/16 23:45 12/11/16 23:44 Polyethylene Glycol (Miralax) 17 gm HSPRN PRN ORAL Constipation 11/11/16 23:45 12/11/16 23:44 Quetiapine Fumarate (SEROquel) 25 mg Q12HR ORAL 11/24/16 11:00 12/24/16 10:59 11/25/16 08:46 Sevelamer Carbonate (Renvela) 2,400 mg THREE TIMES A DAY ORAL 11/25/16 09:30 12/25/16 09:29 11/26/16 12:21 Tamsulosin HCl (Flomax) 0.4 mg BID ORAL 11/16/16 11:30 12/16/16 11:29 11/26/16 08:13 Zolpidem Tartrate (Ambien) 5 mg HSPRN PRN ORAL Insomnia 11/11/16 23:45 12/11/16 23:44 JULIO CHRISTIANSEN Nov 26, 2016 16:05
[2016-11-26 19:00] VITALS: BP 128/82
[2016-11-27] VITALS (11 sets, daily range): BP systolic 150–170; BP diastolic 75–103
[2016-11-27 05:48] LABS: BASOPHILS % (AUTO) 2.7 % (0.0-2.0); MEAN CORPUSCULAR HEMOGLOBIN 29.2 PG (27.0-31.0); MEAN CORPUSCULAR HGB CONC 33.3 G/DL (32.0-36.0); MEAN CORPUSCULAR VOLUME 88 FL (80-99); MEAN PLATELET VOLUME 5.7 FL (6.5-10.1); MONOCYTES % (AUTO) 10.7 % (1.0-10.0); NEUTROPHILS % (AUTO) 60.5 % (45.0-75.0); PLATELET COUNT 306 K/UL (150-450); RED BLOOD COUNT 3.12 M/UL (4.70-6.10); RED CELL DISTRIBUTION WIDTH 11.6 % (11.6-14.8); WHITE BLOOD COUNT 6.8 K/UL (4.8-10.8)
[2016-11-27 07:24] LABS: ALBUMIN/GLOBULIN RATIO 0.6 (1.0-2.7); CALCIUM 8.3 mg/dL (8.6-10.2); CREATININE 5.4 mg/dL (0.7-1.2); GLOMERULAR FILTRATION RATE 13.9 mL/min (>60); PHOSPHORUS 5.2 mg/dL (2.5-4.8); TOTAL PROTEIN 6.1 g/dL (6.6-8.7); URIC ACID 5.6 mg/dL (3.0-7.5)
[2016-11-27] MEDS: Tamsulosin 0.4mg cap ORAL SCH ×2 (09:00→17:55)
[2016-11-27] MEDS: Docusate 100mg cap ORAL SCH ×3 (09:00→17:55)
[2016-11-27] MEDS: Heparin 5000 units/ml inj SUBQ SCH ×2 (09:00→20:39)
[2016-11-27] MEDS ORDERED: Heparin Sod 1000 units/ml 10ml INJ ONE (10:30)
[2016-11-27] MEDS ORDERED: Sodium Bicarbonate 8.4% 50ml Inj IV ONE (10:30)
[2016-11-27] MEDS ORDERED: Heparin 2000 units/Ns 1000ml INJ ONE (10:30)
[2016-11-27] MEDS ORDERED: ceFAZolin 1gm/50ml Premix 50 ML IV ONE (10:30)
[2016-11-27] MEDS ORDERED: Lidocaine 1% 10mg/ml/Epi 0.005mg/ml 30ml vial INJ ONE (10:30)
[2016-11-27] MEDS ORDERED: Norco 10mg/325mg tab ORAL PRN (11:30)
--- NOTE | 2016-11-27 13:05 | General Progress Note ---
Assessment/Plan Status: unchanged Status Narrative ready for DC after change od catheter to permacath and placement arrangement for OP HD . Assessment/Plan Status: Cellulitis left leg- Sepsis, received Amikacin and Vanco in the past. Acute renal failure- HypoAlbuminemia , Proteinuria , ? NS Multi drug abuse Plan: eventually had the catheter changed and dialysed On Norvasc- On Renagel- On flomax- Urine studies- Urine Tox screen- MJ and Amphetamines Monitor renal parameters- DC planning... Per orders Subjective ROS Limited/Unobtainable: No Allergies: Coded Allergies: SULFUR (Unverified Allergy, Unknown, unk, 11/16/16) Per patient allergic to sulfur Objective Last 24 Hour Vital Signs Date Time Temp Pulse Resp B/P Pulse Ox O2 Delivery O2 Flow Rate FiO2 11/27/16 12:05 104 15 170/96 98 Nasal Cannula 2.0 11/27/16 12:00 106 26 167/94 98 Nasal Cannula 2.0 11/27/16 11:55 101 17 156/90 98 Nasal Cannula 2.0 11/27/16 11:53 101 17 156/90 98 Nasal Cannula 2.0 11/27/16 11:50 93 14 154/90 100 Nasal Cannula 2.0 11/27/16 11:45 82 14 161/96 99 Nasal Cannula 2.0 11/27/16 11:11 82 12 2.0 11/27/16 07:56 Room Air 11/27/16 07:54 91 Room Air 21 11/27/16 07:53 89 18 Room Air 21 11/27/16 04:00 97.9 87 18 153/75 91 Room Air 11/27/16 00:28 98.1 90 20 150/90 91 Nasal Cannula 2.0 11/26/16 19:42 Nasal Cannula 28.0 28 11/26/16 19:41 96 Nasal Cannula 2.0 28 11/26/16 19:41 92 18 Nasal Cannula 2.0 28 11/26/16 19:00 98.1 97 20 128/82 100 Room Air 11/26/16 18:19 96 131/86 11/26/16 16:00 98.2 96 20 131/86 96 Room Air Intake and Output 11/26/16 11/27/16 19:00 07:00 Intake Total 480 ml 620 ml Output Total 800 ml Balance 480 ml -180 ml Intake Oral 480 ml 620 ml Output Urine Total 800 ml # Voids 2 Current Medications Medications (Trade) Dose Ordered Sig/Jenny Route PRN Reason Start Time Stop Time Status Last Admin Dose Admin Acetaminophen (Tylenol) 650 mg Q4H PRN ORAL fever 11/11/16 23:45 12/11/16 23:44 11/16/16 02:46 Acetaminophen/ Hydrocodone Bitart ([place] 10/325) 1 ea Q4H PRN ORAL For Pain 11/27/16 11:30 12/04/16 11:29 Albuterol/ Ipratropium (DuoNeb 0.5-3(2.5)mg/3ml) 3 ml Q4H PRN HHN Shortness of breath 11/23/16 16:00 11/28/16 15:59 Amlodipine Besylate (Norvasc) 5 mg BID ORAL 11/22/16 18:00 12/22/16 17:59 11/26/16 18:19 Dextrose (Dextrose 50%) STAT PRN IV Hypoglycemia 11/11/16 23:45 12/11/16 23:44 Docusate Sodium (Colace) 100 mg THREE TIMES A DAY ORAL 11/22/16 13:00 12/22/16 12:59 11/26/16 18:19 Doxycycline Monohydrate (Vibramycin) 100 mg EVERY 12 HOURS ORAL 11/23/16 21:00 11/30/16 20:59 11/26/16 20:37 Heparin Sodium (Porcine) (Heparin 5000 units/ml) 5,000 units EVERY 12 HOURS SUBQ 11/12/16 09:00 12/12/16 08:59 11/26/16 20:39 Ondansetron HCl (Zofran) 4 mg Q6H PRN IVP Nausea & Vomiting 11/11/16 23:45 12/11/16 23:44 Polyethylene Glycol (Miralax) 17 gm HSPRN PRN ORAL Constipation 11/11/16 23:45 12/11/16 23:44 Quetiapine Fumarate (SEROquel) 25 mg Q12HR ORAL 11/24/16 11:00 12/24/16 10:59 11/25/16 08:46 Sevelamer Carbonate (Renvela) 2,400 mg THREE TIMES A DAY ORAL 11/25/16 09:30 12/25/16 09:29 11/26/16 18:19 Tamsulosin HCl (Flomax) 0.4 mg BID ORAL 11/16/16 11:30 12/16/16 11:29 11/26/16 18:19 Zolpidem Tartrate (Ambien) 5 mg HSPRN PRN ORAL Insomnia 11/11/16 23:45 12/11/16 23:44 Laboratory Tests 11/27/16 05:00: White Blood Count 6.8, Red Blood Count 3.12L, Hemoglobin 9.1L, Hematocrit 27.4L , Mean Corpuscular Volume 88, Mean Corpuscular Hemoglobin 29.2, Mean Corpuscular Hemoglobin Concent 33.3, Red Cell Distribution Width 11.6, Platelet Count 306, Mean Platelet Volume 5.7L, Neutrophils (%) (Auto) 60.5, Lymphocytes ( %) (Auto) 23.0, Monocytes (%) (Auto) 10.7H, Eosinophils (%) (Auto) 3.0, Basophils (%) (Auto) 2.7H, Sodium Level 141, Potassium Level 4.0, Chloride Level 101, Carbon Dioxide Level 28, Anion Gap 12, Blood Urea Nitrogen 31H, Creatinine 5.4H, Estimat Glomerular Filtration Rate 13.9, Glucose Level 97, Uric Acid 5.6, Calcium Level 8.3L, Phosphorus Level 5.2H, Total Bilirubin 0.3, Aspartate Amino Transf (AST/SGOT) 19, Alanine Aminotransferase (ALT/SGPT) 7, Alkaline Phosphatase 49, Total Protein 6.1L, Albumin 2.5L, Globulin 3.6, Albumin /Globulin Ratio 0.6L Height (Feet): 6 Height (Inches): 1.00 Weight (Pounds): 200 General Appearance: no apparent distress Objective no change in PE GABRIELE GONZALEZ Nov 27, 2016 13:05
[2016-11-27] MEDS ORDERED: Morphine Sulfate 4mg/ml Inj IVP PRN (14:00)
--- NOTE | 2016-11-27 14:35 | Diagnostic Imaging Report ---
Indication: Patient requires long-term hemodialysis. Findings: After the indications, procedure, risks, complications, and alternatives of the procedure were explained, written informed consent was obtained. Patient was brought to the angio-fluoroscopic suite and placed supine on the table. All elements of maximum sterile barrier technique were followed including use of a cap and mask, sterile gown, sterile gloves, and a large sterile sheet. Alcohol used to prep the skin. 1% lidocaine was used to anesthetize the skin and subcutaneous tissue. Sonographic evaluation of the the right jugular vein was performed demonstrating a patent and compressible vein. Access using an 18 gauge needle was obtained under real-time ultrasound guidance and digital image was saved in archive. An 035 wire was then advanced into the vein and negotiated fluoroscopically into the inferior vena cava. Lidocaine infiltration of the right anterior chest wall was then performed followed by dermatotomy. A tunnel of lidocaine was then made between this site and the venous puncture site. A 14.5 thai 23 cm dual-lumen catheter was then tunneled through the tract. The wire within the jugular vein was then exchanged for a dilator. Serial dilatations were performed. The catheter was then inserted into the last dilator/peel-away sheath such that the tip resides in the SVC. The dilator/peel-away sheath and wire were removed and the catheter was completely buried under the skin. Proximal portion of the catheter was secured to the skin using 2-0 Prolene suture. Both ports aspirate and flush easily. Both dermatotomy sites were closed with Dermabond. Impression: Successful placement of tunneled right jugular hemodialysis catheter. No complications.
--- NOTE | 2016-11-27 17:04 | Pulmonology Progress Note ---
Assessment/Plan Problems: (1) Sepsis (2) Cellulitis (3) ATN (acute tubular necrosis) Assessment/Plan perma cath was place no new complains legs looks much better continue antibiotics dialyzed yesterday pt will need senior living HD at least for now Subjective ROS Limited/Unobtainable: No Interval Events: had perma cath today Constitutional: Reports: no symptoms HEENT: Repors: no symptoms Respiratory: Reports: no symptoms Allergies: Coded Allergies: SULFUR (Unverified Allergy, Unknown, unk, 11/16/16) Per patient allergic to sulfur Objective Last 24 Hour Vital Signs Date Time Temp Pulse Resp B/P Pulse Ox O2 Delivery O2 Flow Rate FiO2 11/27/16 16:00 98.8 92 20 157/100 94 Nasal Cannula 2.0 11/27/16 12:05 104 15 170/96 98 Nasal Cannula 2.0 11/27/16 12:00 106 26 167/94 98 Nasal Cannula 2.0 11/27/16 11:55 101 17 156/90 98 Nasal Cannula 2.0 11/27/16 11:53 101 17 156/90 98 Nasal Cannula 2.0 11/27/16 11:50 93 14 154/90 100 Nasal Cannula 2.0 11/27/16 11:45 82 14 161/96 99 Nasal Cannula 2.0 11/27/16 11:11 82 12 2.0 11/27/16 07:56 Room Air 11/27/16 07:54 91 Room Air 21 11/27/16 07:53 89 18 Room Air 21 11/27/16 04:00 97.9 87 18 153/75 91 Room Air 11/27/16 00:28 98.1 90 20 150/90 91 Nasal Cannula 2.0 11/26/16 19:42 Nasal Cannula 28.0 28 11/26/16 19:41 96 Nasal Cannula 2.0 28 11/26/16 19:41 92 18 Nasal Cannula 2.0 28 11/26/16 19:00 98.1 97 20 128/82 100 Room Air 11/26/16 18:19 96 131/86 Intake and Output 11/26/16 11/27/16 19:00 07:00 Intake Total 480 ml 620 ml Output Total 800 ml Balance 480 ml -180 ml Intake Oral 480 ml 620 ml Output Urine Total 800 ml # Voids 2 General Appearance: WD/WN HEENT: atraumatic Respiratory/Chest: chest wall non-tender, lungs clear Cardiovascular: normal peripheral pulses, normal rate Abdomen: normal bowel sounds, no organomegaly Extremities: no cyanosis, no clubbing Neurologic/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: 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 grossly normal, no motor/sensory deficits Laboratory Tests 11/27/16 05:00: White Blood Count 6.8, Red Blood Count 3.12L, Hemoglobin 9.1L, Hematocrit 27.4L , Mean Corpuscular Volume 88, Mean Corpuscular Hemoglobin 29.2, Mean Corpuscular Hemoglobin Concent 33.3, Red Cell Distribution Width 11.6, Platelet Count 306, Mean Platelet Volume 5.7L, Neutrophils (%) (Auto) 60.5, Lymphocytes ( %) (Auto) 23.0, Monocytes (%) (Auto) 10.7H, Eosinophils (%) (Auto) 3.0, Basophils (%) (Auto) 2.7H, Sodium Level 141, Potassium Level 4.0, Chloride Level 101, Carbon Dioxide Level 28, Anion Gap 12, Blood Urea Nitrogen 31H, Creatinine 5.4H, Estimat Glomerular Filtration Rate 13.9, Glucose Level 97, Uric Acid 5.6, Calcium Level 8.3L, Phosphorus Level 5.2H, Total Bilirubin 0.3, Aspartate Amino Transf (AST/SGOT) 19, Alanine Aminotransferase (ALT/SGPT) 7, Alkaline Phosphatase 49, Total Protein 6.1L, Albumin 2.5L, Globulin 3.6, Albumin /Globulin Ratio 0.6L Current Medications Medications (Trade) Dose Ordered Sig/Jenny Route PRN Reason Start Time Stop Time Status Last Admin Dose Admin Acetaminophen (Tylenol) 650 mg Q4H PRN ORAL fever 11/11/16 23:45 12/11/16 23:44 11/16/16 02:46 Acetaminophen/ Hydrocodone Bitart ([place] 10/325) 1 ea Q4H PRN ORAL For MODERATE Pain 11/27/16 15:03 12/04/16 11:29 Albuterol/ Ipratropium (DuoNeb 0.5-3(2.5)mg/3ml) 3 ml Q4H PRN HHN Shortness of breath 11/23/16 16:00 11/28/16 15:59 Amlodipine Besylate (Norvasc) 5 mg BID ORAL 11/22/16 18:00 12/22/16 17:59 11/26/16 18:19 Dextrose (Dextrose 50%) STAT PRN IV Hypoglycemia 11/11/16 23:45 12/11/16 23:44 Docusate Sodium (Colace) 100 mg THREE TIMES A DAY ORAL 11/22/16 13:00 12/22/16 12:59 11/26/16 18:19 Doxycycline Monohydrate (Vibramycin) 100 mg EVERY 12 HOURS ORAL 11/23/16 21:00 11/30/16 20:59 11/26/16 20:37 Heparin Sodium (Porcine) (Heparin 5000 units/ml) 5,000 units EVERY 12 HOURS SUBQ 11/12/16 09:00 12/12/16 08:59 11/26/16 20:39 Morphine Sulfate (Morphine Sulfate) 4 mg Q4H PRN IVP Severe Pain (Pain Scale 7-10) 11/27/16 14:00 12/04/16 13:59 11/27/16 16:12 Ondansetron HCl (Zofran) 4 mg Q6H PRN IVP Nausea & Vomiting 11/11/16 23:45 12/11/16 23:44 Polyethylene Glycol (Miralax) 17 gm HSPRN PRN ORAL Constipation 11/11/16 23:45 12/11/16 23:44 Quetiapine Fumarate (SEROquel) 25 mg Q12HR ORAL 11/24/16 11:00 12/24/16 10:59 11/25/16 08:46 Sevelamer Carbonate (Renvela) 2,400 mg THREE TIMES A DAY ORAL 11/25/16 09:30 12/25/16 09:29 11/26/16 18:19 Tamsulosin HCl (Flomax) 0.4 mg BID ORAL 11/16/16 11:30 12/16/16 11:29 11/26/16 18:19 Zolpidem Tartrate (Ambien) 5 mg HSPRN PRN ORAL Insomnia 11/11/16 23:45 12/11/16 23:44 NARENDRA NICOLE Nov 27, 2016 17:03
[2016-11-27] MEDS ORDERED: Morphine Sulfate 2mg/ml Inj IVP PRN (17:15)
--- NOTE | 2016-11-27 17:25 | Infectious Diseases Prog Note ---
Assessment/Plan Assessment/Plan ASSESSMENT: 46-year-old male with: Left lower extremity cellulitis - improved MRI : no evidence of associated abscess, fasciitis or osteomyelitis Doppler : No DVT Fever - resolved Leucocytosis - resolved ARF --> HD SP roddy 11/18, exchanged 11/25 US of Kid : Echogenic kidneys. Medical renal disease suspected. Polysubstance abuse - UDS(+) Amphetamines, opiates, marijuana, tobacco Sulfa allergy Full Code PLAN: ok to DC on PO doxycycline x1d from ID standpoint - Rx on chart. ( 11/23 SP Ceftaroline d# 9 ) ( 11/14 SP on cefepime and vancomycin d# 4 ) Monitor CBC, temperatures Monitor BMP. HD prn Subjective Allergies: Coded Allergies: SULFUR (Unverified Allergy, Unknown, unk, 11/16/16) Per patient allergic to sulfur Subjective remains afebrile. no new complaint Objective Vital Signs Last 24 Hour Vital Signs Date Time Temp Pulse Resp B/P Pulse Ox O2 Delivery O2 Flow Rate FiO2 11/27/16 16:00 98.8 92 20 157/100 94 Nasal Cannula 2.0 11/27/16 12:05 104 15 170/96 98 Nasal Cannula 2.0 11/27/16 12:00 106 26 167/94 98 Nasal Cannula 2.0 11/27/16 11:55 101 17 156/90 98 Nasal Cannula 2.0 11/27/16 11:53 101 17 156/90 98 Nasal Cannula 2.0 11/27/16 11:50 93 14 154/90 100 Nasal Cannula 2.0 11/27/16 11:45 82 14 161/96 99 Nasal Cannula 2.0 11/27/16 11:11 82 12 2.0 11/27/16 07:56 Room Air 11/27/16 07:54 91 Room Air 21 11/27/16 07:53 89 18 Room Air 21 11/27/16 04:00 97.9 87 18 153/75 91 Room Air 11/27/16 00:28 98.1 90 20 150/90 91 Nasal Cannula 2.0 11/26/16 19:42 Nasal Cannula 28.0 28 11/26/16 19:41 96 Nasal Cannula 2.0 28 11/26/16 19:41 92 18 Nasal Cannula 2.0 11/26/16 19:00 98.1 97 20 128/82 100 Room Air 11/26/16 18:19 96 131/86 Height (Feet): 6 Height (Inches): 1.00 Weight (Pounds): 200 General Appearance: no acute distress Respiratory/Chest: no respiratory distress Cardiovascular: normal rate, regular rhythm Abdomen: normal bowel sounds, soft, non tender, non distended Laboratory Tests Test 11/27/16 05:00 White Blood Count 6.8 K/UL (4.8-10.8) Red Blood Count 3.12 M/UL (4.70-6.10) L Hemoglobin 9.1 G/DL (14.2-18.0) L Hematocrit 27.4 % (42.0-52.0) L Mean Corpuscular Volume 88 FL (80-99) Mean Corpuscular Hemoglobin 29.2 PG (27.0-31.0) Mean Corpuscular Hemoglobin Concent 33.3 G/DL (32.0-36.0) Red Cell Distribution Width 11.6 % (11.6-14.8) Platelet Count 306 K/UL (150-450) Mean Platelet Volume 5.7 FL (6.5-10.1) L Neutrophils (%) (Auto) 60.5 % (45.0-75.0) Lymphocytes (%) (Auto) 23.0 % (20.0-45.0) Monocytes (%) (Auto) 10.7 % (1.0-10.0) H Eosinophils (%) (Auto) 3.0 % (0.0-3.0) Basophils (%) (Auto) 2.7 % (0.0-2.0) H Sodium Level 141 mEQ/L (135-145) Potassium Level 4.0 mEQ/L (3.4-4.9) Chloride Level 101 mEQ/L (98-107) Carbon Dioxide Level 28 mEQ/L (20-30) Anion Gap 12 (5-15) Blood Urea Nitrogen 31 mg/dL (7-23) H Creatinine 5.4 mg/dL (0.7-1.2) H Estimat Glomerular Filtration Rate 13.9 mL/min (>60) Glucose Level 97 mg/dL (74-106) Uric Acid 5.6 mg/dL (3.0-7.5) Calcium Level 8.3 mg/dL (8.6-10.2) L Phosphorus Level 5.2 mg/dL (2.5-4.8) H Total Bilirubin 0.3 mg/dL (0.0-1.2) Aspartate Amino Transf (AST/SGOT) 19 U/L (5-40) Alanine Aminotransferase (ALT/SGPT) 7 U/L (3-41) Alkaline Phosphatase 49 U/L (40-129) Total Protein 6.1 g/dL (6.6-8.7) L Albumin 2.5 g/dL (3.5-5.2) L Globulin 3.6 g/dL Albumin/Globulin Ratio 0.6 (1.0-2.7) L Current Medications Medications (Trade) Dose Ordered Sig/Jenny Route PRN Reason Start Time Stop Time Status Last Admin Dose Admin Acetaminophen (Tylenol) 650 mg Q4H PRN ORAL fever 11/11/16 23:45 12/11/16 23:44 11/16/16 02:46 Acetaminophen/ Hydrocodone Bitart ([place] 10/325) 1 ea Q4H PRN ORAL For MODERATE Pain 11/27/16 15:03 12/04/16 11:29 Albuterol/ Ipratropium (DuoNeb 0.5-3(2.5)mg/3ml) 3 ml Q4H PRN HHN Shortness of breath 11/23/16 16:00 11/28/16 15:59 Amlodipine Besylate (Norvasc) 5 mg BID ORAL 11/22/16 18:00 12/22/16 17:59 11/26/16 18:19 Dextrose (Dextrose 50%) STAT PRN IV Hypoglycemia 11/11/16 23:45 12/11/16 23:44 Docusate Sodium (Colace) 100 mg THREE TIMES A DAY ORAL 11/22/16 13:00 12/22/16 12:59 11/26/16 18:19 Doxycycline Monohydrate (Vibramycin) 100 mg EVERY 12 HOURS ORAL 11/23/16 21:00 11/30/16 20:59 11/26/16 20:37 Heparin Sodium (Porcine) (Heparin 5000 units/ml) 5,000 units EVERY 12 HOURS SUBQ 11/12/16 09:00 12/12/16 08:59 11/26/16 20:39 Morphine Sulfate (Morphine Sulfate) 2 mg Q4H PRN IVP PAIN UNRELIEVED BY NORCO 11/27/16 17:15 12/04/16 17:14 Ondansetron HCl (Zofran) 4 mg Q6H PRN IVP Nausea & Vomiting 11/11/16 23:45 12/11/16 23:44 Polyethylene Glycol (Miralax) 17 gm HSPRN PRN ORAL Constipation 11/11/16 23:45 12/11/16 23:44 Quetiapine Fumarate (SEROquel) 25 mg Q12HR ORAL 11/24/16 11:00 12/24/16 10:59 11/25/16 08:46 Sevelamer Carbonate (Renvela) 2,400 mg THREE TIMES A DAY ORAL 11/25/16 09:30 12/25/16 09:29 11/26/16 18:19 Tamsulosin HCl (Flomax) 0.4 mg BID ORAL 11/16/16 11:30 12/16/16 11:29 11/26/16 18:19 Zolpidem Tartrate (Ambien) 5 mg HSPRN PRN ORAL Insomnia 11/11/16 23:45 12/11/16 23:44 JULIO CHRISTIANSEN Nov 27, 2016 17:25
[2016-11-27] MEDS: Norco 10mg/325mg tab ORAL PRN (19:49)
[2016-11-28] VITALS (8 sets, daily range): BP systolic 139–179; BP diastolic 77–120
[2016-11-28] MEDS: Norco 10mg/325mg tab ORAL PRN ×5 (00:15→22:46)
[2016-11-28 05:56] LABS: ALBUMIN/GLOBULIN RATIO 0.6 (1.0-2.7); CALCIUM 8.2 mg/dL (8.6-10.2); CREATININE 5.2 mg/dL (0.7-1.2); GLOMERULAR FILTRATION RATE 14.5 mL/min (>60); PHOSPHORUS 5.3 mg/dL (2.5-4.8)
[2016-11-28] MEDS: Heparin 5000 units/ml inj SUBQ SCH ×2 (09:00→21:00)
[2016-11-28] MEDS: Tamsulosin 0.4mg cap ORAL SCH ×2 (09:00→18:28)
[2016-11-28] MEDS: Docusate 100mg cap ORAL SCH ×3 (09:26→18:28)
--- NOTE | 2016-11-28 11:05 | General Progress Note ---
Assessment/Plan Status: stable Assessment/Plan Status: Cellulitis left leg- Sepsis, received Amikacin and Vanco in the past. Acute renal failure- HypoAlbuminemia , Proteinuria , ? NS Multi drug abuse Plan: eventually had the catheter changed and dialysed - On Dialysis today- change Norvasc to Procardiaxl BID clonidin PRN On Renagel- On flomax- Urine studies- Urine Tox screen- MJ and Amphetamines Monitor renal parameters- DC planning... Per orders Subjective ROS Limited/Unobtainable: No Constitutional: Reports: malaise Allergies: Coded Allergies: SULFUR (Unverified Allergy, Unknown, unk, 11/16/16) Per patient allergic to sulfur Objective Last 24 Hour Vital Signs Date Time Temp Pulse Resp B/P Pulse Ox O2 Delivery O2 Flow Rate FiO2 11/28/16 10:10 79 170/102 11/28/16 08:15 98.1 82 21 154/110 97 Room Air 11/28/16 08:10 96.8 74 20 179/104 97 Nasal Cannula 2.0 11/28/16 08:10 Nasal Cannula 2.0 11/28/16 06:54 Room Air 11/28/16 06:53 93 Room Air 11/28/16 06:52 86 18 Room Air 11/28/16 03:53 98.6 97 20 157/106 97 Room Air 11/28/16 00:00 98.2 72 20 149/87 98 Room Air 11/27/16 19:00 Nasal Cannula 28.0 28 11/27/16 19:00 92 16 Room Air 21 11/27/16 19:00 94 Nasal Cannula 2.0 28 11/27/16 19:00 98.2 89 20 163/103 91 Nasal Cannula 2.0 11/27/16 17:55 92 157/100 11/27/16 16:00 98.8 92 20 157/100 94 Nasal Cannula 2.0 11/27/16 12:05 104 15 170/96 98 Nasal Cannula 2.0 11/27/16 12:00 106 26 167/94 98 Nasal Cannula 2.0 11/27/16 11:55 101 17 156/90 98 Nasal Cannula 2.0 11/27/16 11:53 101 17 156/90 98 Nasal Cannula 2.0 11/27/16 11:50 93 14 154/90 100 Nasal Cannula 2.0 11/27/16 11:45 82 14 161/96 99 Nasal Cannula 2.0 11/27/16 11:11 82 12 2.0 Intake and Output 11/27/16 11/28/16 19:00 07:00 Intake Total 1200 ml Output Total 600 ml 1200 ml Balance -600 ml 0 ml Intake Oral 1200 ml Output Urine Total 600 ml 1200 ml # Voids 1 3 Laboratory Tests 11/28/16 04:30: Sodium Level 141, Potassium Level 4.0, Chloride Level 102, Carbon Dioxide Level 25, Anion Gap 14, Blood Urea Nitrogen 34H, Creatinine 5.2H, Estimat Glomerular Filtration Rate 14.5, Glucose Level 89, Calcium Level 8.2L, Phosphorus Level 5.3H, Total Bilirubin 0.3, Aspartate Amino Transf (AST/SGOT) 17, Alanine Aminotransferase (ALT/SGPT) 8, Alkaline Phosphatase 48, Total Protein 6.0L, Albumin 2.3L, Globulin 3.7, Albumin/Globulin Ratio 0.6L Height (Feet): 6 Height (Inches): 1.00 Weight (Pounds): 200 General Appearance: no apparent distress Objective no change in PE GABRIELE GONZALEZ Nov 28, 2016 11:05
[2016-11-28 11:23] LABS: BASOPHILS % (AUTO) 1.8 % (0.0-2.0); EOSINOPHILS % (AUTO) 3.8 % (0.0-3.0); LYMPHOCYTES % (AUTO) 20.8 % (20.0-45.0); MEAN CORPUSCULAR HEMOGLOBIN 28.6 PG (27.0-31.0); MEAN CORPUSCULAR HGB CONC 32.2 G/DL (32.0-36.0); MEAN CORPUSCULAR VOLUME 89 FL (80-99); MEAN PLATELET VOLUME 5.6 FL (6.5-10.1); MONOCYTES % (AUTO) 10.7 % (1.0-10.0); NEUTROPHILS % (AUTO) 62.9 % (45.0-75.0); PLATELET COUNT 337 K/UL (150-450); RED BLOOD COUNT 3.38 M/UL (4.70-6.10); RED CELL DISTRIBUTION WIDTH 11.5 % (11.6-14.8); WHITE BLOOD COUNT 6.1 K/UL (4.8-10.8)
--- NOTE | 2016-11-28 16:20 | Infectious Diseases Prog Note ---
Assessment/Plan Assessment/Plan ASSESSMENT: 46-year-old male with: Left lower extremity cellulitis - improved SP Rx MRI : no evidence of associated abscess, fasciitis or osteomyelitis Doppler : No DVT Fever - resolved Leucocytosis - resolved ARF --> HD SP roddy 11/18, exchanged 11/25 US of Kid : Echogenic kidneys. Medical renal disease suspected. Polysubstance abuse - UDS(+) Amphetamines, opiates, marijuana, tobacco Sulfa allergy Full Code PLAN: ok to DC off of ABX from ID standpoint ( 11/28 SP PO doxycycline d# 7 ) ( 11/23 SP Ceftaroline d# 9 ) ( 11/14 SP on cefepime and vancomycin d# 4 ) Monitor CBC, temperatures Monitor BMP. HD prn Subjective Allergies: Coded Allergies: SULFUR (Unverified Allergy, Unknown, unk, 11/16/16) Per patient allergic to sulfur Subjective remains afebrile. no new complaint Objective Vital Signs Last 24 Hour Vital Signs Date Time Temp Pulse Resp B/P Pulse Ox O2 Delivery O2 Flow Rate FiO2 11/28/16 16:00 98.6 86 20 144/98 94 Room Air 11/28/16 13:15 Room Air 2.0 28 11/28/16 12:17 80 167/101 11/28/16 12:10 Room Air 11/28/16 11:11 Simple Mask 2.0 11/28/16 11:10 97.0 78 18 170/102 Nasal Cannula 2.0 11/28/16 10:10 79 170/102 11/28/16 08:15 98.1 82 21 154/110 97 Room Air 11/28/16 08:10 96.8 74 20 179/104 97 Nasal Cannula 2.0 11/28/16 08:10 Nasal Cannula 2.0 11/28/16 06:54 Room Air 11/28/16 06:53 93 Room Air 11/28/16 06:52 86 18 Room Air 11/28/16 03:53 98.6 97 20 157/106 97 Room Air 11/28/16 00:00 98.2 72 20 149/87 98 Room Air 11/27/16 19:00 Nasal Cannula 28.0 28 11/27/16 19:00 92 16 Room Air 21 11/27/16 19:00 94 Nasal Cannula 2.0 28 11/27/16 19:00 98.2 89 20 163/103 91 Nasal Cannula 2.0 11/27/16 17:55 92 157/100 Height (Feet): 6 Height (Inches): 1.00 Weight (Pounds): 200 General Appearance: no acute distress Respiratory/Chest: no respiratory distress Cardiovascular: normal rate, regular rhythm Abdomen: normal bowel sounds, soft, non tender, non distended Laboratory Tests Test 11/28/16 04:30 11/28/16 11:00 Sodium Level 141 mEQ/L (135-145) Potassium Level 4.0 mEQ/L (3.4-4.9) Chloride Level 102 mEQ/L (98-107) Carbon Dioxide Level 25 mEQ/L (20-30) Anion Gap 14 (5-15) Blood Urea Nitrogen 34 mg/dL (7-23) H Creatinine 5.2 mg/dL (0.7-1.2) H Estimat Glomerular Filtration Rate 14.5 mL/min (>60) Glucose Level 89 mg/dL (74-106) Calcium Level 8.2 mg/dL (8.6-10.2) L Phosphorus Level 5.3 mg/dL (2.5-4.8) H Total Bilirubin 0.3 mg/dL (0.0-1.2) Aspartate Amino Transf (AST/SGOT) 17 U/L (5-40) Alanine Aminotransferase (ALT/SGPT) 8 U/L (3-41) Alkaline Phosphatase 48 U/L (40-129) Total Protein 6.0 g/dL (6.6-8.7) L Albumin 2.3 g/dL (3.5-5.2) L Globulin 3.7 g/dL Albumin/Globulin Ratio 0.6 (1.0-2.7) L White Blood Count 6.1 K/UL (4.8-10.8) Red Blood Count 3.38 M/UL (4.70-6.10) L Hemoglobin 9.7 G/DL (14.2-18.0) L Hematocrit 30.1 % (42.0-52.0) L Mean Corpuscular Volume 89 FL (80-99) Mean Corpuscular Hemoglobin 28.6 PG (27.0-31.0) Mean Corpuscular Hemoglobin Concent 32.2 G/DL (32.0-36.0) Red Cell Distribution Width 11.5 % (11.6-14.8) L Platelet Count 337 K/UL (150-450) Mean Platelet Volume 5.6 FL (6.5-10.1) L Neutrophils (%) (Auto) 62.9 % (45.0-75.0) Lymphocytes (%) (Auto) 20.8 % (20.0-45.0) Monocytes (%) (Auto) 10.7 % (1.0-10.0) H Eosinophils (%) (Auto) 3.8 % (0.0-3.0) H Basophils (%) (Auto) 1.8 % (0.0-2.0) Current Medications Medications (Trade) Dose Ordered Sig/Jenny Route PRN Reason Start Time Stop Time Status Last Admin Dose Admin Acetaminophen (Tylenol) 650 mg Q4H PRN ORAL fever 11/11/16 23:45 12/11/16 23:44 11/16/16 02:46 Acetaminophen/ Hydrocodone Bitart ([place] 10/325) 1 ea Q4H PRN ORAL For MODERATE Pain 11/27/16 15:03 12/04/16 11:29 11/28/16 09:27 Clonidine HCl (Catapres) 0.1 mg Q4H PRN ORAL bp over 170 syst 11/28/16 11:15 12/28/16 11:14 Dextrose (Dextrose 50%) STAT PRN IV Hypoglycemia 11/11/16 23:45 12/11/16 23:44 Docusate Sodium (Colace) 100 mg THREE TIMES A DAY ORAL 11/22/16 13:00 12/22/16 12:59 11/28/16 09:26 Doxycycline Monohydrate (Vibramycin) 100 mg EVERY 12 HOURS ORAL 11/23/16 21:00 11/30/16 20:59 11/26/16 20:37 Heparin Sodium (Porcine) (Heparin 5000 units/ml) 5,000 units EVERY 12 HOURS SUBQ 11/12/16 09:00 12/12/16 08:59 11/26/16 20:39 Morphine Sulfate (Morphine Sulfate) 2 mg Q4H PRN IVP PAIN UNRELIEVED BY NORCO 11/27/16 17:15 12/04/16 17:14 Nifedipine (Procardia XL) 60 mg BID ORAL 11/28/16 12:00 12/28/16 11:59 11/28/16 12:17 Ondansetron HCl (Zofran) 4 mg Q6H PRN IVP Nausea & Vomiting 11/11/16 23:45 12/11/16 23:44 Polyethylene Glycol (Miralax) 17 gm HSPRN PRN ORAL Constipation 11/11/16 23:45 12/11/16 23:44 Quetiapine Fumarate (SEROquel) 25 mg Q12HR ORAL 11/24/16 11:00 12/24/16 10:59 11/25/16 08:46 Sevelamer Carbonate (Renvela) 2,400 mg THREE TIMES A DAY ORAL 11/25/16 09:30 12/25/16 09:29 11/27/16 17:55 Tamsulosin HCl (Flomax) 0.4 mg BID ORAL 11/16/16 11:30 12/16/16 11:29 11/27/16 17:55 Zolpidem Tartrate (Ambien) 5 mg HSPRN PRN ORAL Insomnia 11/11/16 23:45 12/11/16 23:44 JULIO CHRISTIANSEN Nov 28, 2016 16:20
--- NOTE | 2016-11-28 17:01 | Pulmonology Progress Note ---
Assessment/Plan Problems: (1) Sepsis (2) Cellulitis (3) ATN (acute tubular necrosis) Assessment/Plan perma cath was placed no new complains legs looks much better continue antibiotics awaiting Medical number to arrange for outpatient HD Subjective ROS Limited/Unobtainable: No Allergies: Coded Allergies: SULFUR (Unverified Allergy, Unknown, unk, 11/16/16) Per patient allergic to sulfur Objective Last 24 Hour Vital Signs Date Time Temp Pulse Resp B/P Pulse Ox O2 Delivery O2 Flow Rate FiO2 11/28/16 16:00 98.6 86 20 144/98 94 Room Air 11/28/16 13:15 Room Air 2.0 28 11/28/16 12:17 80 167/101 11/28/16 12:10 Room Air 11/28/16 11:11 Simple Mask 2.0 11/28/16 11:10 97.0 78 18 170/102 Nasal Cannula 2.0 11/28/16 10:10 79 170/102 11/28/16 08:15 98.1 82 21 154/110 97 Room Air 11/28/16 08:10 96.8 74 20 179/104 97 Nasal Cannula 2.0 11/28/16 08:10 Nasal Cannula 2.0 11/28/16 06:54 Room Air 11/28/16 06:53 93 Room Air 11/28/16 06:52 86 18 Room Air 11/28/16 03:53 98.6 97 20 157/106 97 Room Air 11/28/16 00:00 98.2 72 20 149/87 98 Room Air 11/27/16 19:00 Nasal Cannula 28.0 28 11/27/16 19:00 92 16 Room Air 21 11/27/16 19:00 94 Nasal Cannula 2.0 28 11/27/16 19:00 98.2 89 20 163/103 91 Nasal Cannula 2.0 11/27/16 17:55 92 157/100 Intake and Output 11/27/16 11/28/16 19:00 07:00 Intake Total 1200 ml Output Total 600 ml 1200 ml Balance -600 ml 0 ml Intake Oral 1200 ml Output Urine Total 600 ml 1200 ml # Voids 1 3 General Appearance: WD/WN HEENT: normocephalic Respiratory/Chest: chest wall non-tender, lungs clear Cardiovascular: normal peripheral pulses, normal rate Abdomen: normal bowel sounds, soft, non tender, no organomegaly Extremities: no cyanosis Skin: no rash Laboratory Tests 11/28/16 04:30: Sodium Level 141, Potassium Level 4.0, Chloride Level 102, Carbon Dioxide Level 25, Anion Gap 14, Blood Urea Nitrogen 34H, Creatinine 5.2H, Estimat Glomerular Filtration Rate 14.5, Glucose Level 89, Calcium Level 8.2L, Phosphorus Level 5.3H, Total Bilirubin 0.3, Aspartate Amino Transf (AST/SGOT) 17, Alanine Aminotransferase (ALT/SGPT) 8, Alkaline Phosphatase 48, Total Protein 6.0L, Albumin 2.3L, Globulin 3.7, Albumin/Globulin Ratio 0.6L 11/28/16 11:00: White Blood Count 6.1, Red Blood Count 3.38L, Hemoglobin 9.7L, Hematocrit 30.1L , Mean Corpuscular Volume 89, Mean Corpuscular Hemoglobin 28.6, Mean Corpuscular Hemoglobin Concent 32.2, Red Cell Distribution Width 11.5L, Platelet Count 337, Mean Platelet Volume 5.6L, Neutrophils (%) (Auto) 62.9, Lymphocytes (%) (Auto) 20.8, Monocytes (%) (Auto) 10.7H, Eosinophils (%) (Auto) 3.8H, Basophils (%) (Auto) 1.8 Current Medications Medications (Trade) Dose Ordered Sig/Jenny Route PRN Reason Start Time Stop Time Status Last Admin Dose Admin Acetaminophen (Tylenol) 650 mg Q4H PRN ORAL fever 11/11/16 23:45 12/11/16 23:44 11/16/16 02:46 Acetaminophen/ Hydrocodone Bitart ([place] 10/325) 1 ea Q4H PRN ORAL For MODERATE Pain 11/27/16 15:03 12/04/16 11:29 11/28/16 09:27 Clonidine HCl (Catapres) 0.1 mg Q4H PRN ORAL bp over 170 syst 11/28/16 11:15 12/28/16 11:14 Dextrose (Dextrose 50%) STAT PRN IV Hypoglycemia 11/11/16 23:45 12/11/16 23:44 Docusate Sodium (Colace) 100 mg THREE TIMES A DAY ORAL 11/22/16 13:00 12/22/16 12:59 11/28/16 09:26 Doxycycline Monohydrate (Vibramycin) 100 mg EVERY 12 HOURS ORAL 11/23/16 21:00 11/28/16 23:59 11/26/16 20:37 Heparin Sodium (Porcine) (Heparin 5000 units/ml) 5,000 units EVERY 12 HOURS SUBQ 11/12/16 09:00 12/12/16 08:59 11/26/16 20:39 Morphine Sulfate (Morphine Sulfate) 2 mg Q4H PRN IVP PAIN UNRELIEVED BY NORCO 11/27/16 17:15 12/04/16 17:14 Nifedipine (Procardia XL) 60 mg BID ORAL 11/28/16 12:00 12/28/16 11:59 11/28/16 12:17 Ondansetron HCl (Zofran) 4 mg Q6H PRN IVP Nausea & Vomiting 11/11/16 23:45 12/11/16 23:44 Polyethylene Glycol (Miralax) 17 gm HSPRN PRN ORAL Constipation 11/11/16 23:45 12/11/16 23:44 Quetiapine Fumarate (SEROquel) 25 mg Q12HR ORAL 11/24/16 11:00 12/24/16 10:59 11/25/16 08:46 Sevelamer Carbonate (Renvela) 2,400 mg THREE TIMES A DAY ORAL 11/25/16 09:30 12/25/16 09:29 11/27/16 17:55 Tamsulosin HCl (Flomax) 0.4 mg BID ORAL 11/16/16 11:30 12/16/16 11:29 11/27/16 17:55 Zolpidem Tartrate (Ambien) 5 mg HSPRN PRN ORAL Insomnia 11/11/16 23:45 12/11/16 23:44 NARENDRA NICOLE Nov 28, 2016 17:01
[2016-11-29 04:00] VITALS: BP 124/74
[2016-11-29] MEDS: Norco 10mg/325mg tab ORAL PRN ×4 (04:46→22:00)
--- NOTE | 2016-11-29 07:17 | Pulmonology Progress Note ---
Assessment/Plan Assessment/Plan ASSESSMENT sepsis cellulitis LLE pain LLE anemia ATN on chronic renal disease started on HD HTN [id number] pulmonary HTN polysubstance abuse PLAN OF CARE MS floor s/p abx Rx, ID follows , blood and urine cx negative , MRI tibia/fibula - no evidence of OM or abscess, no evidence of fasciitis or myositis, surgery seen and evaluated no need for surgical intervention venous Duplex BLE negative pain management started on HD s/p Zeferino placement 11/18 and subsequent exchange to permacath 11/25 nephro follows monitor renal parameters and lytes, avoid nephrotoxic renal US - no hydro, echogenic kidneys, c/w medical renal disease urine tox screen + marijuana, amphetamines, opiates ECHO with preserved EF and RVSP of 47 c/w moderate pulmonary HTN BP management with CCB DVT prophylaxis PT/OT bowel regimen dc plan need outpt HD arrangement case discussed and evaluated by supervising physician Subjective Allergies: Coded Allergies: SULFUR (Unverified Allergy, Unknown, unk, 11/16/16) Per patient allergic to sulfur Subjective afebrile, leukocytosis resolved on HD currently Objective Last 24 Hour Vital Signs Date Time Temp Pulse Resp B/P Pulse Ox O2 Delivery O2 Flow Rate FiO2 11/29/16 04:00 97.5 81 20 124/74 94 Nasal Cannula 2.0 11/28/16 23:44 99.7 89 20 167/77 92 Room Air 11/28/16 19:38 Room Air 11/28/16 19:37 92 14 Room Air 11/28/16 19:37 94 Room Air 11/28/16 19:26 98.6 11/28/16 19:00 97.9 100 20 166/120 92 Room Air 11/28/16 16:00 98.6 86 20 144/98 94 Room Air 11/28/16 13:15 Room Air 2.0 28 11/28/16 12:17 80 167/101 11/28/16 12:10 Room Air 11/28/16 11:11 Simple Mask 2.0 11/28/16 11:10 97.0 78 18 170/102 Nasal Cannula 2.0 11/28/16 10:10 79 170/102 11/28/16 08:15 98.1 82 21 154/110 97 Room Air 11/28/16 08:10 96.8 74 20 179/104 97 Nasal Cannula 2.0 11/28/16 08:10 Nasal Cannula 2.0 Intake and Output 11/28/16 11/29/16 19:00 07:00 Intake Total 480 ml 600 ml Output Total 1200 ml 500 ml Balance -720 ml 100 ml Intake Oral 480 ml 600 ml Output Urine Total 500 ml Hemodialysis UF 1200 ml # Voids 3 Objective General: NAD, A/A/O x 3 male HEENT: NC/AT, EOMI PERRLA, OP moist Respiratory/Chest: chest wall non-tender, lungs clear, no respiratory distress , no accessory muscle use, RIJ HD catheter, intact Cardiovascular: normal peripheral pulses, normal rate, regular rhythm Abdomen: normal bowel sounds, soft, non tender, non distended Extremities: no cyanosis, no clubbing, left leg edema and erythema improved. Skin: left leg edema and erythema improved. 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, no motor/sensory deficits, alert, oriented x 3, responsive Lymphatic: no neck adenopathy Musculoskeletal: normal muscle bulk Laboratory Tests 11/28/16 11:00: White Blood Count 6.1, Red Blood Count 3.38L, Hemoglobin 9.7L, Hematocrit 30.1L , Mean Corpuscular Volume 89, Mean Corpuscular Hemoglobin 28.6, Mean Corpuscular Hemoglobin Concent 32.2, Red Cell Distribution Width 11.5L, Platelet Count 337, Mean Platelet Volume 5.6L, Neutrophils (%) (Auto) 62.9, Lymphocytes (%) (Auto) 20.8, Monocytes (%) (Auto) 10.7H, Eosinophils (%) (Auto) 3.8H, Basophils (%) (Auto) 1.8 11/29/16 06:30: White Blood Count [Pending], Red Blood Count [Pending], Hemoglobin [Pending], Hematocrit [Pending], Mean Corpuscular Volume [Pending], Mean Corpuscular Hemoglobin [Pending], Mean Corpuscular Hemoglobin Concent [Pending], Red Cell Distribution Width [Pending], Platelet Count [Pending], Mean Platelet Volume [ Pending], Neutrophils (%) (Auto) [Pending], Lymphocytes (%) (Auto) [Pending], Monocytes (%) (Auto) [Pending], Eosinophils (%) (Auto) [Pending], Basophils (%) (Auto) [Pending], Sodium Level [Pending], Potassium Level [Pending], Chloride Level [Pending], Carbon Dioxide Level [Pending], Blood Urea Nitrogen [Pending], Creatinine [Pending], Estimat Glomerular Filtration Rate [Pending], Glucose Level [Pending], Uric Acid [Pending], Calcium Level [Pending], Phosphorus Level [Pending], Magnesium Level [Pending], Total Bilirubin [Pending], Aspartate Amino Transf (AST/SGOT) [Pending], Alanine Aminotransferase (ALT/SGPT) [Pending] , Alkaline Phosphatase [Pending], Total Protein [Pending], Albumin [Pending], Globulin [Pending] Current Medications Medications (Trade) Dose Ordered Sig/Jenny Route PRN Reason Start Time Stop Time Status Last Admin Dose Admin Acetaminophen (Tylenol) 650 mg Q4H PRN ORAL fever 11/11/16 23:45 12/11/16 23:44 11/16/16 02:46 Acetaminophen/ Hydrocodone Bitart ([place] 10/325) 1 ea Q4H PRN ORAL For MODERATE Pain 11/27/16 15:03 12/04/16 11:29 11/29/16 04:46 Clonidine HCl (Catapres) 0.1 mg Q4H PRN ORAL bp over 170 syst 11/28/16 11:15 12/28/16 11:14 Dextrose (Dextrose 50%) STAT PRN IV Hypoglycemia 11/11/16 23:45 12/11/16 23:44 Docusate Sodium (Colace) 100 mg THREE TIMES A DAY ORAL 11/22/16 13:00 12/22/16 12:59 11/28/16 18:28 Heparin Sodium (Porcine) (Heparin 5000 units/ml) 5,000 units EVERY 12 HOURS SUBQ 11/12/16 09:00 12/12/16 08:59 11/26/16 20:39 Morphine Sulfate (Morphine Sulfate) 2 mg Q4H PRN IVP PAIN UNRELIEVED BY NORCO 11/27/16 17:15 12/04/16 17:14 Nifedipine (Procardia XL) 60 mg BID ORAL 11/28/16 12:00 12/28/16 11:59 11/28/16 12:17 Ondansetron HCl (Zofran) 4 mg Q6H PRN IVP Nausea & Vomiting 11/11/16 23:45 12/11/16 23:44 Polyethylene Glycol (Miralax) 17 gm HSPRN PRN ORAL Constipation 11/11/16 23:45 12/11/16 23:44 Quetiapine Fumarate (SEROquel) 25 mg Q12HR ORAL 11/24/16 11:00 12/24/16 10:59 11/25/16 08:46 Sevelamer Carbonate (Renvela) 2,400 mg THREE TIMES A DAY ORAL 11/25/16 09:30 12/25/16 09:29 11/28/16 18:27 Tamsulosin HCl (Flomax) 0.4 mg BID ORAL 11/16/16 11:30 12/16/16 11:29 11/28/16 18:28 Zolpidem Tartrate (Ambien) 5 mg HSPRN PRN ORAL Insomnia 11/11/16 23:45 12/11/16 23:44 Armando FergusonTonsil HospitalMabel Velazco NP Nov 29, 2016 07:17
[2016-11-29 07:21] LABS: BASOPHILS % (AUTO) 2.1 % (0.0-2.0); EOSINOPHILS % (AUTO) 3.4 % (0.0-3.0); LYMPHOCYTES % (AUTO) 25.5 % (20.0-45.0); MEAN CORPUSCULAR HEMOGLOBIN 28.7 PG (27.0-31.0); MEAN CORPUSCULAR HGB CONC 32.5 G/DL (32.0-36.0); MEAN CORPUSCULAR VOLUME 88 FL (80-99); MEAN PLATELET VOLUME 5.4 FL (6.5-10.1); MONOCYTES % (AUTO) 12.1 % (1.0-10.0); NEUTROPHILS % (AUTO) 56.9 % (45.0-75.0); PLATELET COUNT 302 K/UL (150-450); RED BLOOD COUNT 3.28 M/UL (4.70-6.10); RED CELL DISTRIBUTION WIDTH 11.7 % (11.6-14.8); WHITE BLOOD COUNT 5.9 K/UL (4.8-10.8)
[2016-11-29 07:40] LABS: ALANINE AMINOTRANSFERASE 7 U/L (3-41); ALBUMIN/GLOBULIN RATIO 0.7 (1.0-2.7); ANION GAP 13 (5-15); ASPARTATE AMINO TRANSFERASE 17 U/L (5-40); CALCIUM 8.2 mg/dL (8.6-10.2); CARBON DIOXIDE 28 mEQ/L (20-30); CHLORIDE 102 mEQ/L (98-107); CREATININE 4.3 mg/dL (0.7-1.2); GLOMERULAR FILTRATION RATE 18.1 mL/min (>60); HEMOLYSIS 1; MAGNESIUM 1.7 mg/dL (1.7-2.5); PHOSPHORUS 5.9 mg/dL (2.5-4.8); POTASSIUM 3.7 mEQ/L (3.4-4.9); SODIUM 143 mEQ/L (135-145); TOTAL PROTEIN 6.1 g/dL (6.6-8.7); URIC ACID 3.8 mg/dL (3.0-7.5)
[2016-11-29 08:01] VITALS: BP 147/74
[2016-11-29] MEDS: Docusate 100mg cap ORAL SCH ×3 (09:00→17:57)
[2016-11-29] MEDS: Heparin 5000 units/ml inj SUBQ SCH ×2 (09:00→22:03)
[2016-11-29] MEDS: Tamsulosin 0.4mg cap ORAL SCH ×2 (09:00→17:57)
[2016-11-29 11:40] VITALS: BP 149/78
--- NOTE | 2016-11-29 15:56 | Infectious Diseases Prog Note ---
Assessment/Plan Assessment/Plan ASSESSMENT: 46-year-old male with: Left lower extremity cellulitis - improved SP Rx MRI : no evidence of associated abscess, fasciitis or osteomyelitis Doppler : No DVT Fever - resolved Leucocytosis - resolved ARF --> HD SP roddy 11/18, exchanged 11/25 US of Kid : Echogenic kidneys. Medical renal disease suspected. Polysubstance abuse - UDS(+) Amphetamines, opiates, marijuana, tobacco Sulfa allergy Full Code PLAN: ok to DC off of ABX from ID standpoint ( 11/28 SP PO doxycycline d# 7 ) ( 11/23 SP Ceftaroline d# 9 ) ( 11/14 SP on cefepime and vancomycin d# 4 ) Monitor CBC, temperatures Monitor BMP. HD prn Subjective Allergies: Coded Allergies: SULFUR (Unverified Allergy, Unknown, unk, 11/16/16) Per patient allergic to sulfur Subjective remains afebrile. no new complaint DC planning ongoing Objective Vital Signs Last 24 Hour Vital Signs Date Time Temp Pulse Resp B/P Pulse Ox O2 Delivery O2 Flow Rate FiO2 11/29/16 11:40 98.2 85 16 149/78 97 Room Air 11/29/16 08:01 99.0 84 15 147/74 94 Room Air 11/29/16 04:00 97.5 81 20 124/74 94 Nasal Cannula 2.0 11/28/16 23:44 99.7 89 20 167/77 92 Room Air 11/28/16 19:38 Room Air 11/28/16 19:37 92 14 Room Air 11/28/16 19:37 94 Room Air 11/28/16 19:26 98.6 11/28/16 19:00 97.9 100 20 166/120 92 Room Air 11/28/16 16:00 98.6 86 20 144/98 94 Room Air Height (Feet): 6 Height (Inches): 1.00 Weight (Pounds): 200 General Appearance: no acute distress Respiratory/Chest: no respiratory distress Cardiovascular: normal rate, regular rhythm Abdomen: normal bowel sounds, soft, non tender, non distended Laboratory Tests Test 11/29/16 06:30 White Blood Count 5.9 K/UL (4.8-10.8) Red Blood Count 3.28 M/UL (4.70-6.10) L Hemoglobin 9.4 G/DL (14.2-18.0) L Hematocrit 29.0 % (42.0-52.0) L Mean Corpuscular Volume 88 FL (80-99) Mean Corpuscular Hemoglobin 28.7 PG (27.0-31.0) Mean Corpuscular Hemoglobin Concent 32.5 G/DL (32.0-36.0) Red Cell Distribution Width 11.7 % (11.6-14.8) Platelet Count 302 K/UL (150-450) Mean Platelet Volume 5.4 FL (6.5-10.1) L Neutrophils (%) (Auto) 56.9 % (45.0-75.0) Lymphocytes (%) (Auto) 25.5 % (20.0-45.0) Monocytes (%) (Auto) 12.1 % (1.0-10.0) H Eosinophils (%) (Auto) 3.4 % (0.0-3.0) H Basophils (%) (Auto) 2.1 % (0.0-2.0) H Sodium Level 143 mEQ/L (135-145) Potassium Level 3.7 mEQ/L (3.4-4.9) Chloride Level 102 mEQ/L (98-107) Carbon Dioxide Level 28 mEQ/L (20-30) Anion Gap 13 (5-15) Blood Urea Nitrogen 25 mg/dL (7-23) H Creatinine 4.3 mg/dL (0.7-1.2) H Estimat Glomerular Filtration Rate 18.1 mL/min (>60) Glucose Level 91 mg/dL (74-106) Uric Acid 3.8 mg/dL (3.0-7.5) Calcium Level 8.2 mg/dL (8.6-10.2) L Phosphorus Level 5.9 mg/dL (2.5-4.8) H Magnesium Level 1.7 mg/dL (1.7-2.5) Total Bilirubin < 0.2 mg/dL (0.0-1.2) Aspartate Amino Transf (AST/SGOT) 17 U/L (5-40) Alanine Aminotransferase (ALT/SGPT) 7 U/L (3-41) Alkaline Phosphatase 50 U/L (40-129) Total Protein 6.1 g/dL (6.6-8.7) L Albumin 2.6 g/dL (3.5-5.2) L Globulin 3.5 g/dL Albumin/Globulin Ratio 0.7 (1.0-2.7) L Current Medications Medications (Trade) Dose Ordered Sig/Jenny Route PRN Reason Start Time Stop Time Status Last Admin Dose Admin Acetaminophen (Tylenol) 650 mg Q4H PRN ORAL fever 11/11/16 23:45 12/11/16 23:44 11/16/16 02:46 Acetaminophen/ Hydrocodone Bitart ([place] 10/325) 1 ea Q4H PRN ORAL For MODERATE Pain 11/27/16 15:03 12/04/16 11:29 11/29/16 13:04 Clonidine HCl (Catapres) 0.1 mg Q4H PRN ORAL bp over 170 syst 11/28/16 11:15 12/28/16 11:14 Dextrose (Dextrose 50%) STAT PRN IV Hypoglycemia 11/11/16 23:45 12/11/16 23:44 Docusate Sodium (Colace) 100 mg THREE TIMES A DAY ORAL 11/22/16 13:00 12/22/16 12:59 11/29/16 13:04 Heparin Sodium (Porcine) (Heparin 5000 units/ml) 5,000 units EVERY 12 HOURS SUBQ 11/12/16 09:00 12/12/16 08:59 11/26/16 20:39 Morphine Sulfate (Morphine Sulfate) 2 mg Q4H PRN IVP PAIN UNRELIEVED BY KEVIN 11/27/16 17:15 12/04/16 17:14 Nifedipine (Procardia XL) 60 mg BID ORAL 11/28/16 12:00 12/28/16 11:59 11/28/16 12:17 Ondansetron HCl (Zofran) 4 mg Q6H PRN IVP Nausea & Vomiting 11/11/16 23:45 12/11/16 23:44 Polyethylene Glycol (Miralax) 17 gm HSPRN PRN ORAL Constipation 11/11/16 23:45 12/11/16 23:44 Quetiapine Fumarate (SEROquel) 25 mg Q12HR ORAL 11/24/16 11:00 12/24/16 10:59 11/25/16 08:46 Sevelamer Carbonate (Renvela) 2,400 mg THREE TIMES A DAY ORAL 11/25/16 09:30 12/25/16 09:29 11/29/16 13:04 Tamsulosin HCl (Flomax) 0.4 mg BID ORAL 11/16/16 11:30 12/16/16 11:29 11/28/16 18:28 Zolpidem Tartrate (Ambien) 5 mg HSPRN PRN ORAL Insomnia 11/11/16 23:45 12/11/16 23:44 JULIO CHRISTIANSEN Nov 29, 2016 15:56
[2016-11-29 16:00] VITALS: BP 149/70
--- NOTE | 2016-11-29 16:09 | General Progress Note ---
Assessment/Plan Status: stable Assessment/Plan Status: Cellulitis left leg- Sepsis, received Amikacin and Vanco in the past. Acute renal failure- HypoAlbuminemia , Proteinuria , ? NS Multi drug abuse Plan: eventually had the catheter changed and dialysed - last dialysis 11/28 next 11/30 change Norvasc to Procardiaxl BID clonidin PRN On Renagel- On flomax- Urine studies- Urine Tox screen- MJ and Amphetamines Monitor renal parameters- DC planning... Per orders Subjective ROS Limited/Unobtainable: No Constitutional: Reports: malaise Allergies: Coded Allergies: SULFUR (Unverified Allergy, Unknown, unk, 11/16/16) Per patient allergic to sulfur Objective Last 24 Hour Vital Signs Date Time Temp Pulse Resp B/P Pulse Ox O2 Delivery O2 Flow Rate FiO2 11/29/16 11:40 98.2 85 16 149/78 97 Room Air 11/29/16 08:01 99.0 84 15 147/74 94 Room Air 11/29/16 04:00 97.5 81 20 124/74 94 Nasal Cannula 2.0 11/28/16 23:44 99.7 89 20 167/77 92 Room Air 11/28/16 19:38 Room Air 11/28/16 19:37 92 14 Room Air 11/28/16 19:37 94 Room Air 11/28/16 19:26 98.6 11/28/16 19:00 97.9 100 20 166/120 92 Room Air Intake and Output 11/28/16 11/29/16 19:00 07:00 Intake Total 480 ml 600 ml Output Total 1200 ml 500 ml Balance -720 ml 100 ml Intake Oral 480 ml 600 ml Output Urine Total 500 ml Hemodialysis UF 1200 ml # Voids 3 Laboratory Tests 11/29/16 06:30: White Blood Count 5.9, Red Blood Count 3.28L, Hemoglobin 9.4L, Hematocrit 29.0L , Mean Corpuscular Volume 88, Mean Corpuscular Hemoglobin 28.7, Mean Corpuscular Hemoglobin Concent 32.5, Red Cell Distribution Width 11.7, Platelet Count 302, Mean Platelet Volume 5.4L, Neutrophils (%) (Auto) 56.9, Lymphocytes ( %) (Auto) 25.5, Monocytes (%) (Auto) 12.1H, Eosinophils (%) (Auto) 3.4H, Basophils (%) (Auto) 2.1H, Sodium Level 143, Potassium Level 3.7, Chloride Level 102, Carbon Dioxide Level 28, Anion Gap 13, Blood Urea Nitrogen 25H, Creatinine 4.3H, Estimat Glomerular Filtration Rate 18.1, Glucose Level 91, Uric Acid 3.8, Calcium Level 8.2L, Phosphorus Level 5.9H, Magnesium Level 1.7, Total Bilirubin < 0.2, Aspartate Amino Transf (AST/SGOT) 17, Alanine Aminotransferase (ALT/SGPT) 7, Alkaline Phosphatase 50, Total Protein 6.1L, Albumin 2.6L, Globulin 3.5, Albumin/Globulin Ratio 0.7L Height (Feet): 6 Height (Inches): 1.00 Weight (Pounds): 200 General Appearance: no apparent distress Objective no change in PE GABRIELE GONZALEZ Nov 29, 2016 16:09
[2016-11-29 19:00] VITALS: BP 140/81
[2016-11-30] VITALS (8 sets, daily range): BP systolic 129–163; BP diastolic 76–102
[2016-11-30] MEDS: Norco 10mg/325mg tab ORAL PRN ×2 (08:05→14:35)
[2016-11-30] MEDS: Docusate 100mg cap ORAL SCH ×3 (08:06→18:00)
[2016-11-30] MEDS: Heparin 5000 units/ml inj SUBQ SCH ×2 (08:12→21:00)
[2016-11-30 08:55] LABS: ALBUMIN/GLOBULIN RATIO 0.7 (1.0-2.7); CALCIUM 8.5 mg/dL (8.6-10.2); CREATININE 4.4 mg/dL (0.7-1.2); CRP QUANT 3.1 mg/dL (< 0.5); GLOMERULAR FILTRATION RATE 17.7 mL/min (>60); MAGNESIUM 1.7 mg/dL (1.7-2.5); PHOSPHORUS 5.5 mg/dL (2.5-4.8); POTASSIUM 3.7 mEQ/L (3.4-4.9); TOTAL PROTEIN 6.5 g/dL (6.6-8.7)
[2016-11-30 09:14] LABS: MEAN CORPUSCULAR HEMOGLOBIN 28.3 PG (27.0-31.0); MEAN CORPUSCULAR HGB CONC 31.1 G/DL (32.0-36.0); MEAN CORPUSCULAR VOLUME 91 FL (80-99); MEAN PLATELET VOLUME 5.8 FL (6.5-10.1); PLATELET COUNT 149 K/UL (150-450); RED BLOOD COUNT 6.24 M/UL (4.70-6.10); RED CELL DISTRIBUTION WIDTH 11.8 % (11.6-14.8); WHITE BLOOD COUNT 2.5 K/UL (4.8-10.8)
[2016-11-30] MEDS: Tamsulosin 0.4mg cap ORAL SCH ×2 (11:00→18:00)
[2016-11-30 13:03] LABS: BAND NEUTROPHILS % (MANUAL) 2 % (0-8); BASOPHILS % (MANUAL) 0 % (0-2); EOSINOPHILS % (MANUAL) 6 % (0-3); LYMPHOCYTES % (MANUAL) 16 % (20-45); NEUTROPHILS % (MANUAL) 69 % (45-75); PLATELET ESTIMATE ADEQUATE; PLATELET MORPHOLOGY NORMAL; TOTAL CELLS COUNTED 100
--- NOTE | 2016-11-30 14:22 | Infectious Diseases Prog Note ---
Assessment/Plan Assessment/Plan ASSESSMENT: 46-year-old male with: Left lower extremity cellulitis - improved SP Rx MRI : no evidence of associated abscess, fasciitis or osteomyelitis Doppler : No DVT Fever - resolved Leucocytosis - resolved ARF --> HD SP roddy 11/18, exchanged 11/25 US of Kid : Echogenic kidneys. Medical renal disease suspected. Polysubstance abuse - UDS(+) Amphetamines, opiates, marijuana, tobacco Sulfa allergy Full Code PLAN: ok to DC off of ABX from ID standpoint ( 11/28 SP PO doxycycline d# 7 ) ( 11/23 SP Ceftaroline d# 9 ) ( 11/14 SP on cefepime and vancomycin d# 4 ) Monitor CBC, temperatures Monitor BMP. HD prn Subjective Allergies: Coded Allergies: SULFUR (Unverified Allergy, Unknown, unk, 11/16/16) Per patient allergic to sulfur Objective Vital Signs Last 24 Hour Vital Signs Date Time Temp Pulse Resp B/P Pulse Ox O2 Delivery O2 Flow Rate FiO2 11/30/16 11:51 97.9 76 16 142/85 Room Air 11/30/16 11:24 Room Air 11/30/16 11:01 83 156/78 11/30/16 10:30 97.0 82 18 154/78 96 Room Air 11/30/16 09:04 98.1 11/30/16 08:51 98.1 83 18 163/102 98 Room Air 11/30/16 07:30 Nasal Cannula 2.0 11/30/16 07:30 98.0 83 20 163/102 98 Nasal Cannula 2.0 11/30/16 04:00 97.7 76 20 150/93 95 Room Air 11/30/16 00:00 97.5 71 20 145/76 96 Nasal Cannula 2.0 11/29/16 19:00 98.0 79 18 140/81 96 Room Air 11/29/16 19:00 96 Room Air 11/29/16 19:00 Room Air 11/29/16 19:00 92 16 Room Air 11/29/16 17:57 86 149/70 11/29/16 16:00 98.1 86 20 149/70 96 Room Air Height (Feet): 6 Height (Inches): 1.00 Weight (Pounds): 200 Respiratory/Chest: lungs clear Cardiovascular: normal rate, regular rhythm Abdomen: soft, non tender, no organomegaly Laboratory Tests Test 11/30/16 07:30 White Blood Count 2.5 K/UL (4.8-10.8) #L Red Blood Count 6.24 M/UL (4.70-6.10) H Hemoglobin 17.7 G/DL (14.2-18.0) # Hematocrit 56.9 % (42.0-52.0) #H Mean Corpuscular Volume 91 FL (80-99) Mean Corpuscular Hemoglobin 28.3 PG (27.0-31.0) Mean Corpuscular Hemoglobin Concent 31.1 G/DL (32.0-36.0) L Red Cell Distribution Width 11.8 % (11.6-14.8) Platelet Count 149 K/UL (150-450) #L Mean Platelet Volume 5.8 FL (6.5-10.1) L Neutrophils (%) (Auto) % (45.0-75.0) Lymphocytes (%) (Auto) % (20.0-45.0) Monocytes (%) (Auto) % (1.0-10.0) Eosinophils (%) (Auto) % (0.0-3.0) Basophils (%) (Auto) % (0.0-2.0) Differential Total Cells Counted 100 Neutrophils % (Manual) 69 % (45-75) Lymphocytes % (Manual) 16 % (20-45) L Monocytes % (Manual) 7 % (1-10) Eosinophils % (Manual) 6 % (0-3) H Basophils % (Manual) 0 % (0-2) Band Neutrophils 2 % (0-8) Platelet Estimate Adequate Platelet Morphology Normal Red Blood Cell Morphology Normal Sodium Level 140 mEQ/L (135-145) Potassium Level 3.7 mEQ/L (3.4-4.9) Chloride Level 99 mEQ/L (98-107) Carbon Dioxide Level 28 mEQ/L (20-30) Anion Gap 13 (5-15) Blood Urea Nitrogen 24 mg/dL (7-23) H Creatinine 4.4 mg/dL (0.7-1.2) H Estimat Glomerular Filtration Rate 17.7 mL/min (>60) Glucose Level 93 mg/dL (74-106) Uric Acid 4.0 mg/dL (3.0-7.5) Calcium Level 8.5 mg/dL (8.6-10.2) L Phosphorus Level 5.5 mg/dL (2.5-4.8) H Magnesium Level 1.7 mg/dL (1.7-2.5) Total Bilirubin 0.2 mg/dL (0.0-1.2) Aspartate Amino Transf (AST/SGOT) 19 U/L (5-40) Alanine Aminotransferase (ALT/SGPT) 8 U/L (3-41) Alkaline Phosphatase 53 U/L (40-129) C-Reactive Protein, Quantitative 3.1 mg/dL (< 0.5) H Pro-B-Type Natriuretic Peptide 1556 pg/mL (0-125) H Total Protein 6.5 g/dL (6.6-8.7) L Albumin 2.8 g/dL (3.5-5.2) L Globulin 3.7 g/dL Albumin/Globulin Ratio 0.7 (1.0-2.7) L Current Medications Medications (Trade) Dose Ordered Sig/Jenny Route PRN Reason Start Time Stop Time Status Last Admin Dose Admin Acetaminophen (Tylenol) 650 mg Q4H PRN ORAL fever 11/11/16 23:45 12/11/16 23:44 11/16/16 02:46 Acetaminophen/ Hydrocodone Bitart ([place] 10/325) 1 ea Q4H PRN ORAL For MODERATE Pain 11/27/16 15:03 12/04/16 11:29 11/30/16 08:05 Clonidine HCl (Catapres) 0.1 mg Q4H PRN ORAL bp over 170 syst 11/28/16 11:15 12/28/16 11:14 Dextrose (Dextrose 50%) STAT PRN IV Hypoglycemia 11/11/16 23:45 12/11/16 23:44 Docusate Sodium (Colace) 100 mg THREE TIMES A DAY ORAL 11/22/16 13:00 12/22/16 12:59 11/30/16 12:22 Heparin Sodium (Porcine) (Heparin 5000 units/ml) 5,000 units EVERY 12 HOURS SUBQ 11/12/16 09:00 12/12/16 08:59 11/30/16 08:12 Morphine Sulfate (Morphine Sulfate) 2 mg Q4H PRN IVP PAIN UNRELIEVED BY NORCO 11/27/16 17:15 12/04/16 17:14 Nifedipine (Procardia XL) 60 mg BID ORAL 11/28/16 12:00 12/28/16 11:59 11/30/16 11:01 Ondansetron HCl (Zofran) 4 mg Q6H PRN IVP Nausea & Vomiting 11/11/16 23:45 12/11/16 23:44 Polyethylene Glycol (Miralax) 17 gm HSPRN PRN ORAL Constipation 11/11/16 23:45 12/11/16 23:44 Quetiapine Fumarate (SEROquel) 25 mg Q12HR ORAL 11/24/16 11:00 12/24/16 10:59 11/25/16 08:46 Sevelamer Carbonate (Renvela) 2,400 mg THREE TIMES A DAY ORAL 11/25/16 09:30 12/25/16 09:29 11/30/16 12:23 Tamsulosin HCl (Flomax) 0.4 mg BID ORAL 11/16/16 11:30 12/16/16 11:29 11/30/16 11:00 Zolpidem Tartrate (Ambien) 5 mg HSPRN PRN ORAL Insomnia 11/11/16 23:45 12/11/16 23:44 ALE NOONAN M.D. Nov 30, 2016 14:22
--- NOTE | 2016-11-30 14:32 | Pulmonology Progress Note ---
Assessment/Plan Assessment/Plan ASSESSMENT sepsis cellulitis LLE pain LLE anemia ATN on chronic renal disease started on HD HTN moderate pulmonary HTN polysubstance abuse PLAN OF CARE MS floor s/p abx Rx, ID follows , blood and urine cx negative , MRI tibia/fibula - no evidence of OM or abscess, no evidence of fasciitis or myositis, surgery seen and evaluated no need for surgical intervention venous Duplex BLE negative pain management started on HD s/p Zeferino placement 11/18 and subsequent exchange to permacath 11/25 nephro follows monitor renal parameters and lytes, avoid nephrotoxic renal US - no hydro, echogenic kidneys, c/w medical renal disease urine tox screen + marijuana, amphetamines, opiates ECHO with preserved EF and RVSP of 47 c/w moderate pulmonary HTN BP management with CCB DVT prophylaxis PT/OT bowel regimen dc plan need outpt HD arrangement case discussed and evaluated by supervising physician Subjective Allergies: Coded Allergies: SULFUR (Unverified Allergy, Unknown, unk, 11/16/16) Per patient allergic to sulfur Subjective afebrile, leukocytosis resolved on HD currently Objective Last 24 Hour Vital Signs Date Time Temp Pulse Resp B/P Pulse Ox O2 Delivery O2 Flow Rate FiO2 11/30/16 11:51 97.9 76 16 142/85 Room Air 11/30/16 11:24 Room Air 11/30/16 11:01 83 156/78 11/30/16 10:30 97.0 82 18 154/78 96 Room Air 11/30/16 09:04 98.1 11/30/16 08:51 98.1 83 18 163/102 98 Room Air 11/30/16 07:30 Nasal Cannula 2.0 11/30/16 07:30 98.0 83 20 163/102 98 Nasal Cannula 2.0 11/30/16 04:00 97.7 76 20 150/93 95 Room Air 11/30/16 00:00 97.5 71 20 145/76 96 Nasal Cannula 2.0 11/29/16 19:00 98.0 79 18 140/81 96 Room Air 11/29/16 19:00 96 Room Air 11/29/16 19:00 Room Air 11/29/16 19:00 92 16 Room Air 11/29/16 17:57 86 149/70 11/29/16 16:00 98.1 86 20 149/70 96 Room Air Intake and Output 11/29/16 11/30/16 19:00 07:00 Intake Total 1500 ml 480 ml Output Total 800 ml 700 ml Balance 700 ml -220 ml Intake Oral 1500 ml 480 ml Output Urine Total 800 ml 700 ml # Voids 4 Objective General: NAD, A/A/O x 3 male HEENT: NC/AT, EOMI PERRLA, OP moist Respiratory/Chest: chest wall non-tender, lungs clear, no respiratory distress , no accessory muscle use, RIJ HD catheter, intact Cardiovascular: normal peripheral pulses, normal rate, regular rhythm Abdomen: normal bowel sounds, soft, non tender, non distended Extremities: no cyanosis, no clubbing, Skin: left leg edema and erythema improved. 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, no motor/sensory deficits, alert, oriented x 3, responsive Lymphatic: no neck adenopathy Musculoskeletal: normal muscle bulk Laboratory Tests 11/30/16 07:30: White Blood Count 2.5#L, Red Blood Count 6.24H, Hemoglobin 17.7#, Hematocrit 56.9#H, Mean Corpuscular Volume 91, Mean Corpuscular Hemoglobin 28.3, Mean Corpuscular Hemoglobin Concent 31.1L, Red Cell Distribution Width 11.8, Platelet Count 149#L, Mean Platelet Volume 5.8L, Neutrophils (%) (Auto) , Lymphocytes (%) (Auto) , Monocytes (%) (Auto) , Eosinophils (%) (Auto) , Basophils (%) (Auto) , Differential Total Cells Counted 100, Neutrophils % ( Manual) 69, Lymphocytes % (Manual) 16L, Monocytes % (Manual) 7, Eosinophils % ( Manual) 6H, Basophils % (Manual) 0, Band Neutrophils 2, Platelet Estimate Adequate, Platelet Morphology Normal, Red Blood Cell Morphology Normal, Sodium Level 140, Potassium Level 3.7, Chloride Level 99, Carbon Dioxide Level 28, Anion Gap 13, Blood Urea Nitrogen 24H, Creatinine 4.4H, Estimat Glomerular Filtration Rate 17.7, Glucose Level 93, Uric Acid 4.0, Calcium Level 8.5L, Phosphorus Level 5.5H, Magnesium Level 1.7, Total Bilirubin 0.2, Aspartate Amino Transf (AST/SGOT) 19, Alanine Aminotransferase (ALT/SGPT) 8, Alkaline Phosphatase 53, C-Reactive Protein, Quantitative 3.1H, Pro-B-Type Natriuretic Peptide 1556H, Total Protein 6.5L, Albumin 2.8L, Globulin 3.7, Albumin/Globulin Ratio 0.7L Current Medications Medications (Trade) Dose Ordered Sig/Jenny Route PRN Reason Start Time Stop Time Status Last Admin Dose Admin Acetaminophen (Tylenol) 650 mg Q4H PRN ORAL fever 11/11/16 23:45 12/11/16 23:44 11/16/16 02:46 Acetaminophen/ Hydrocodone Bitart ([place] 10/325) 1 ea Q4H PRN ORAL For MODERATE Pain 11/27/16 15:03 12/04/16 11:29 11/30/16 08:05 Clonidine HCl (Catapres) 0.1 mg Q4H PRN ORAL bp over 170 syst 11/28/16 11:15 12/28/16 11:14 Dextrose (Dextrose 50%) STAT PRN IV Hypoglycemia 11/11/16 23:45 12/11/16 23:44 Docusate Sodium (Colace) 100 mg THREE TIMES A DAY ORAL 11/22/16 13:00 12/22/16 12:59 11/30/16 12:22 Heparin Sodium (Porcine) (Heparin 5000 units/ml) 5,000 units EVERY 12 HOURS SUBQ 11/12/16 09:00 12/12/16 08:59 11/30/16 08:12 Morphine Sulfate (Morphine Sulfate) 2 mg Q4H PRN IVP PAIN UNRELIEVED BY NORCO 11/27/16 17:15 12/04/16 17:14 Nifedipine (Procardia XL) 60 mg BID ORAL 11/28/16 12:00 12/28/16 11:59 11/30/16 11:01 Ondansetron HCl (Zofran) 4 mg Q6H PRN IVP Nausea & Vomiting 11/11/16 23:45 12/11/16 23:44 Polyethylene Glycol (Miralax) 17 gm HSPRN PRN ORAL Constipation 11/11/16 23:45 12/11/16 23:44 Quetiapine Fumarate (SEROquel) 25 mg Q12HR ORAL 11/24/16 11:00 12/24/16 10:59 11/25/16 08:46 Sevelamer Carbonate (Renvela) 2,400 mg THREE TIMES A DAY ORAL 11/25/16 09:30 12/25/16 09:29 11/30/16 12:23 Tamsulosin HCl (Flomax) 0.4 mg BID ORAL 11/16/16 11:30 12/16/16 11:29 11/30/16 11:00 Zolpidem Tartrate (Ambien) 5 mg HSPRN PRN ORAL Insomnia 11/11/16 23:45 12/11/16 23:44 Armando ([facility])Mabel NP Nov 30, 2016 14:32
--- NOTE | 2016-11-30 14:46 | General Progress Note ---
Assessment/Plan Status: stable Assessment/Plan Status: Cellulitis left leg- Sepsis, received Amikacin and Vanco in the past. Acute renal failure- HypoAlbuminemia , Proteinuria , ? NS Multi drug abuse Plan: eventually had the catheter changed and dialysed - last dialysis 11/28 next 11/30 change Norvasc to Procardiaxl BID clonidin PRN On Renagel- On flomax- Urine studies- Urine Tox screen- MJ and Amphetamines Monitor renal parameters- DC planning... Per orders Subjective ROS Limited/Unobtainable: No Constitutional: Reports: malaise Allergies: Coded Allergies: SULFUR (Unverified Allergy, Unknown, unk, 11/16/16) Per patient allergic to sulfur Objective Last 24 Hour Vital Signs Date Time Temp Pulse Resp B/P Pulse Ox O2 Delivery O2 Flow Rate FiO2 11/30/16 11:51 97.9 76 16 142/85 Room Air 11/30/16 11:24 Room Air 11/30/16 11:01 83 156/78 11/30/16 10:30 97.0 82 18 154/78 96 Room Air 11/30/16 09:04 98.1 11/30/16 08:51 98.1 83 18 163/102 98 Room Air 11/30/16 07:30 Nasal Cannula 2.0 11/30/16 07:30 98.0 83 20 163/102 98 Nasal Cannula 2.0 11/30/16 04:00 97.7 76 20 150/93 95 Room Air 11/30/16 00:00 97.5 71 20 145/76 96 Nasal Cannula 2.0 11/29/16 19:00 98.0 79 18 140/81 96 Room Air 11/29/16 19:00 96 Room Air 11/29/16 19:00 Room Air 11/29/16 19:00 92 16 Room Air 11/29/16 17:57 86 149/70 11/29/16 16:00 98.1 86 20 149/70 96 Room Air Intake and Output 11/29/16 11/30/16 19:00 07:00 Intake Total 1500 ml 480 ml Output Total 800 ml 700 ml Balance 700 ml -220 ml Intake Oral 1500 ml 480 ml Output Urine Total 800 ml 700 ml # Voids 4 Laboratory Tests 11/30/16 07:30: White Blood Count 2.5#L, Red Blood Count 6.24H, Hemoglobin 17.7#, Hematocrit 56.9#H, Mean Corpuscular Volume 91, Mean Corpuscular Hemoglobin 28.3, Mean Corpuscular Hemoglobin Concent 31.1L, Red Cell Distribution Width 11.8, Platelet Count 149#L, Mean Platelet Volume 5.8L, Neutrophils (%) (Auto) , Lymphocytes (%) (Auto) , Monocytes (%) (Auto) , Eosinophils (%) (Auto) , Basophils (%) (Auto) , Differential Total Cells Counted 100, Neutrophils % ( Manual) 69, Lymphocytes % (Manual) 16L, Monocytes % (Manual) 7, Eosinophils % ( Manual) 6H, Basophils % (Manual) 0, Band Neutrophils 2, Platelet Estimate Adequate, Platelet Morphology Normal, Red Blood Cell Morphology Normal, Sodium Level 140, Potassium Level 3.7, Chloride Level 99, Carbon Dioxide Level 28, Anion Gap 13, Blood Urea Nitrogen 24H, Creatinine 4.4H, Estimat Glomerular Filtration Rate 17.7, Glucose Level 93, Uric Acid 4.0, Calcium Level 8.5L, Phosphorus Level 5.5H, Magnesium Level 1.7, Total Bilirubin 0.2, Aspartate Amino Transf (AST/SGOT) 19, Alanine Aminotransferase (ALT/SGPT) 8, Alkaline Phosphatase 53, C-Reactive Protein, Quantitative 3.1H, Pro-B-Type Natriuretic Peptide 1556H, Total Protein 6.5L, Albumin 2.8L, Globulin 3.7, Albumin/Globulin Ratio 0.7L Height (Feet): 6 Height (Inches): 1.00 Weight (Pounds): 200 General Appearance: no apparent distress Objective no change in PE GABRIELE GONZALEZ Nov 30, 2016 14:46
[2016-12-01] VITALS: BP 151/83
[2016-12-01] MEDS: Heplock Flush 100 units/ml 3 ml syr INJ PRN (01:37)
[2016-12-01 04:00] VITALS: BP 133/78
[2016-12-01] MEDS: Heparin 5000 units/ml inj SUBQ SCH ×3 (09:00→21:02)
--- NOTE | 2016-12-01 11:17 | General Progress Note ---
Assessment/Plan Status: stable Assessment/Plan Status: Cellulitis left leg- Sepsis, received Amikacin and Vanco in the past. Acute renal failure- HypoAlbuminemia , Proteinuria , ? NS Multi drug abuse Plan: had the catheter changed and dialysed - last dialysis 11/28 next 11/30 On Procardiaxl BID clonidin PRN monitor renal parameters, and dialyse as needed On Renagel- On flomax- Urine studies- Urine Tox screen- MJ and Amphetamines Monitor renal parameters- DC planning... Per orders Subjective ROS Limited/Unobtainable: No Constitutional: Reports: malaise Allergies: Coded Allergies: SULFUR (Unverified Allergy, Unknown, unk, 11/16/16) Per patient allergic to sulfur Objective Last 24 Hour Vital Signs Date Time Temp Pulse Resp B/P Pulse Ox O2 Delivery O2 Flow Rate FiO2 12/01/16 04:00 98.2 73 20 133/78 100 Room Air 12/01/16 00:00 97.9 79 18 151/83 93 Room Air 11/30/16 20:00 98.2 78 22 129/83 91 Room Air 11/30/16 19:00 Room Air 11/30/16 19:00 94 Room Air 21 11/30/16 15:34 97.9 11/30/16 15:28 97.9 84 16 134/96 98 Room Air 11/30/16 11:51 97.9 76 16 142/85 Room Air 11/30/16 11:24 Room Air Intake and Output 11/30/16 12/01/16 18:59 06:59 Intake Total 1500 ml Output Total 2600 ml 1500 ml Balance -1100 ml -1500 ml Intake Oral 1500 ml Output Urine Total 1400 ml 1500 ml Hemodialysis UF 1200 ml Height (Feet): 6 Height (Inches): 1.00 Weight (Pounds): 200 General Appearance: no apparent distress Objective no change in PE GABRIELE GONZALEZ Dec 01, 2016 11:17
--- NOTE | 2016-12-01 11:42 | Pulmonology Progress Note ---
Assessment/Plan Assessment/Plan ASSESSMENT sepsis cellulitis LLE pain LLE anemia ATN on chronic renal disease started on HD HTN moderate pulmonary HTN polysubstance abuse PLAN OF CARE MS floor s/p abx Rx, ID follows , blood and urine cx negative , MRI tibia/fibula - no evidence of OM or abscess, no evidence of fasciitis or myositis, surgery seen and evaluated no need for surgical intervention venous Duplex BLE negative pain management started on HD s/p Zeferino placement 11/18 and subsequent exchange to permacath 11/25 nephro follows monitor renal parameters and lytes, avoid nephrotoxic renal US - no hydro, echogenic kidneys, c/w medical renal disease urine tox screen + marijuana, amphetamines, opiates ECHO with preserved EF and RVSP of 47 c/w moderate pulmonary HTN BP management with CCB DVT prophylaxis PT/OT bowel regimen dc plan need outpt HD arrangement awaiting for insurance case discussed and evaluated by supervising physician Subjective Allergies: Coded Allergies: SULFUR (Unverified Allergy, Unknown, unk, 11/16/16) Per patient allergic to sulfur Subjective afebrile, leukocytosis resolved on HD currently Objective Last 24 Hour Vital Signs Date Time Temp Pulse Resp B/P Pulse Ox O2 Delivery O2 Flow Rate FiO2 12/01/16 04:00 98.2 73 20 133/78 100 Room Air 12/01/16 00:00 97.9 79 18 151/83 93 Room Air 11/30/16 20:00 98.2 78 22 129/83 91 Room Air 11/30/16 19:00 Room Air 11/30/16 19:00 94 Room Air 21 11/30/16 15:34 97.9 11/30/16 15:28 97.9 84 16 134/96 98 Room Air 11/30/16 11:51 97.9 76 16 142/85 Room Air Intake and Output 11/30/16 12/01/16 19:00 07:00 Intake Total 1500 ml Output Total 2600 ml 1500 ml Balance -1100 ml -1500 ml Intake Oral 1500 ml Output Urine Total 1400 ml 1500 ml Hemodialysis UF 1200 ml Objective General: NAD, A/A/O x 3 male HEENT: NC/AT, EOMI PERRLA, OP moist Respiratory/Chest: chest wall non-tender, lungs clear, no respiratory distress , no accessory muscle use, RIJ HD catheter, intact Cardiovascular: normal peripheral pulses, normal rate, regular rhythm Abdomen: normal bowel sounds, soft, non tender, non distended Extremities: no cyanosis, no clubbing, left leg edema and erythema improved. Skin: left leg edema and erythema improved. multiple all over the body tattoos Neurologic/Psychiatric: stitch bonding machine drawer in II-XII grossly normal, no motor/sensory deficits, alert, oriented x 3, responsive Lymphatic: no neck adenopathy Musculoskeletal: normal muscle bulk Current Medications Medications (Trade) Dose Ordered Sig/Jenny Route PRN Reason Start Time Stop Time Status Last Admin Dose Admin Acetaminophen (Tylenol) 650 mg Q4H PRN ORAL fever 11/11/16 23:45 12/11/16 23:44 11/16/16 02:46 Acetaminophen/ Hydrocodone Bitart ([place] 10/325) 1 ea Q4H PRN ORAL For MODERATE Pain 11/27/16 15:03 12/04/16 11:29 11/30/16 14:35 Clonidine HCl (Catapres) 0.1 mg Q4H PRN ORAL bp over 170 syst 11/28/16 11:15 12/28/16 11:14 Dextrose (Dextrose 50%) STAT PRN IV Hypoglycemia 11/11/16 23:45 12/11/16 23:44 Docusate Sodium (Colace) 100 mg THREE TIMES A DAY ORAL 11/22/16 13:00 12/22/16 12:59 11/30/16 12:22 Heparin Sodium (Beef Lung) (Hep-Lock) 200 unit Q8HR PRN INJ for line flush 11/30/16 23:30 12/05/16 23:29 12/01/16 01:37 Heparin Sodium (Porcine) (Heparin 5000 units/ml) 5,000 units EVERY 12 HOURS SUBQ 11/12/16 09:00 12/12/16 08:59 11/30/16 08:12 Morphine Sulfate (Morphine Sulfate) 2 mg Q4H PRN IVP PAIN UNRELIEVED BY NORCO 11/27/16 17:15 12/04/16 17:14 Nifedipine (Procardia XL) 60 mg BID ORAL 11/28/16 12:00 12/28/16 11:59 11/30/16 11:01 Ondansetron HCl (Zofran) 4 mg Q6H PRN IVP Nausea & Vomiting 11/11/16 23:45 12/11/16 23:44 Polyethylene Glycol (Miralax) 17 gm HSPRN PRN ORAL Constipation 11/11/16 23:45 12/11/16 23:44 Quetiapine Fumarate (SEROquel) 25 mg Q12HR ORAL 11/24/16 11:00 12/24/16 10:59 11/25/16 08:46 Sevelamer Carbonate (Renvela) 2,400 mg THREE TIMES A DAY ORAL 11/25/16 09:30 12/25/16 09:29 11/30/16 12:23 Tamsulosin HCl (Flomax) 0.4 mg BID ORAL 11/16/16 11:30 12/16/16 11:29 11/30/16 11:00 Zolpidem Tartrate (Ambien) 5 mg HSPRN PRN ORAL Insomnia 11/11/16 23:45 12/11/16 23:44 Armando (Giana)Mabel NP Dec 01, 2016 11:41
[2016-12-01] MEDS: Tamsulosin 0.4mg cap ORAL SCH ×2 (11:56→19:02)
[2016-12-01] MEDS: Docusate 100mg cap ORAL SCH ×3 (11:57→19:02)
[2016-12-01 12:17] VITALS: BP 158/88
[2016-12-01] MEDS: Norco 10mg/325mg tab ORAL PRN ×2 (12:44→21:05)
[2016-12-01 14:36] LABS: BASOPHILS % (AUTO) 1.5 % (0.0-2.0); EOSINOPHILS % (AUTO) 1.7 % (0.0-3.0); LYMPHOCYTES % (AUTO) 14.4 % (20.0-45.0); MEAN CORPUSCULAR HEMOGLOBIN 29.2 PG (27.0-31.0); MEAN CORPUSCULAR HGB CONC 32.1 G/DL (32.0-36.0); MEAN CORPUSCULAR VOLUME 91 FL (80-99); MEAN PLATELET VOLUME 5.6 FL (6.5-10.1); MONOCYTES % (AUTO) 7.6 % (1.0-10.0); NEUTROPHILS % (AUTO) 74.8 % (45.0-75.0); PLATELET COUNT 259 K/UL (150-450); RED BLOOD COUNT 3.23 M/UL (4.70-6.10); RED CELL DISTRIBUTION WIDTH 11.7 % (11.6-14.8); WHITE BLOOD COUNT 8.7 K/UL (4.8-10.8)
[2016-12-01 14:54] LABS: ALBUMIN/GLOBULIN RATIO 0.7 (1.0-2.7); CALCIUM 8.5 mg/dL (8.6-10.2); CREATININE 3.8 mg/dL (0.7-1.2); CRP QUANT 2.5 mg/dL (< 0.5); GLOMERULAR FILTRATION RATE 20.8 mL/min (>60); MAGNESIUM 1.6 mg/dL (1.7-2.5); PHOSPHORUS 3.8 mg/dL (2.5-4.8); POTASSIUM 3.5 mEQ/L (3.4-4.9); TOTAL PROTEIN 6.7 g/dL (6.6-8.7); URIC ACID 3.4 mg/dL (3.0-7.5)
[2016-12-01 20:00] VITALS: BP 143/78
[2016-12-02] VITALS: BP 119/78
[2016-12-02 04:00] VITALS: BP 126/79
[2016-12-02] MEDS: Norco 10mg/325mg tab ORAL PRN ×3 (04:59→13:34)
[2016-12-02] MEDS: Heplock Flush 100 units/ml 3 ml syr INJ PRN (05:13)
[2016-12-02 06:19] LABS: ALBUMIN/GLOBULIN RATIO 0.7 (1.0-2.7); CALCIUM 8.2 mg/dL (8.6-10.2); CREATININE 3.7 mg/dL (0.7-1.2); GLOMERULAR FILTRATION RATE 21.6 mL/min (>60); MAGNESIUM 1.6 mg/dL (1.7-2.5); PHOSPHORUS 4.2 mg/dL (2.5-4.8); POTASSIUM 3.7 mEQ/L (3.4-4.9); TOTAL PROTEIN 6.1 g/dL (6.6-8.7)
--- NOTE | 2016-12-02 07:21 | Infectious Diseases Prog Note ---
Assessment/Plan Assessment/Plan ASSESSMENT: 46-year-old male with: Left lower extremity cellulitis - improved SP Rx MRI : no evidence of associated abscess, fasciitis or osteomyelitis Doppler : No DVT Fever - resolved Leucocytosis - resolved ARF --> HD SP roddy 11/18, exchanged 11/25 US of Kid : Echogenic kidneys. Medical renal disease suspected. Polysubstance abuse - UDS(+) Amphetamines, opiates, marijuana, tobacco Sulfa allergy Full Code PLAN: ok to DC off of ABX from ID standpoint ( 11/28 SP PO doxycycline d# 7 ) ( 11/23 SP Ceftaroline d# 9 ) ( 11/14 SP on cefepime and vancomycin d# 4 ) Monitor CBC, temperatures Monitor BMP. HD prn Subjective Constitutional: Denies: anorexia, chills, drenching sweats, fatigue, fever, no symptoms, other Allergies: Coded Allergies: SULFUR (Unverified Allergy, Unknown, unk, 11/16/16) Per patient allergic to sulfur Objective Vital Signs Last 24 Hour Vital Signs Date Time Temp Pulse Resp B/P Pulse Ox O2 Delivery O2 Flow Rate FiO2 12/02/16 00:00 97.0 77 20 119/78 98 Room Air 12/01/16 22:04 98.1 12/01/16 20:00 98.1 84 20 143/78 98 Room Air 12/01/16 19:02 89 158/88 12/01/16 12:17 97.9 89 16 158/88 98 Room Air 12/01/16 11:56 73 133/78 Height (Feet): 6 Height (Inches): 1.00 Weight (Pounds): 200 HEENT: atraumatic Respiratory/Chest: lungs clear Cardiovascular: normal rate Abdomen: no organomegaly Laboratory Tests Test 12/01/16 14:10 12/02/16 05:15 White Blood Count 8.7 K/UL (4.8-10.8) # Red Blood Count 3.23 M/UL (4.70-6.10) L Hemoglobin 9.4 G/DL (14.2-18.0) #L Hematocrit 29.4 % (42.0-52.0) #L Mean Corpuscular Volume 91 FL (80-99) Mean Corpuscular Hemoglobin 29.2 PG (27.0-31.0) Mean Corpuscular Hemoglobin Concent 32.1 G/DL (32.0-36.0) Red Cell Distribution Width 11.7 % (11.6-14.8) Platelet Count 259 K/UL (150-450) # Mean Platelet Volume 5.6 FL (6.5-10.1) L Neutrophils (%) (Auto) 74.8 % (45.0-75.0) Lymphocytes (%) (Auto) 14.4 % (20.0-45.0) L Monocytes (%) (Auto) 7.6 % (1.0-10.0) Eosinophils (%) (Auto) 1.7 % (0.0-3.0) Basophils (%) (Auto) 1.5 % (0.0-2.0) Sodium Level 139 mEQ/L (135-145) 143 mEQ/L (135-145) Potassium Level 3.5 mEQ/L (3.4-4.9) 3.7 mEQ/L (3.4-4.9) Chloride Level 97 mEQ/L (98-107) L 103 mEQ/L (98-107) Carbon Dioxide Level 27 mEQ/L (20-30) 26 mEQ/L (20-30) Anion Gap 15 (5-15) 14 (5-15) Blood Urea Nitrogen 18 mg/dL (7-23) 17 mg/dL (7-23) Creatinine 3.8 mg/dL (0.7-1.2) H 3.7 mg/dL (0.7-1.2) H Estimat Glomerular Filtration Rate 20.8 mL/min (>60) 21.6 mL/min (>60) Glucose Level 152 mg/dL (74-106) H 89 mg/dL (74-106) Uric Acid 3.4 mg/dL (3.0-7.5) Calcium Level 8.5 mg/dL (8.6-10.2) L 8.2 mg/dL (8.6-10.2) L Phosphorus Level 3.8 mg/dL (2.5-4.8) 4.2 mg/dL (2.5-4.8) Magnesium Level 1.6 mg/dL (1.7-2.5) L 1.6 mg/dL (1.7-2.5) L Total Bilirubin 0.3 mg/dL (0.0-1.2) 0.4 mg/dL (0.0-1.2) Aspartate Amino Transf (AST/SGOT) 20 U/L (5-40) 22 U/L (5-40) Alanine Aminotransferase (ALT/SGPT) 9 U/L (3-41) 12 U/L (3-41) Alkaline Phosphatase 56 U/L (40-129) 51 U/L (40-129) C-Reactive Protein, Quantitative 2.5 mg/dL (< 0.5) H Total Protein 6.7 g/dL (6.6-8.7) 6.1 g/dL (6.6-8.7) L Albumin 2.9 g/dL (3.5-5.2) L 2.6 g/dL (3.5-5.2) L Globulin 3.8 g/dL 3.5 g/dL Albumin/Globulin Ratio 0.7 (1.0-2.7) L 0.7 (1.0-2.7) L Current Medications Medications (Trade) Dose Ordered Sig/Jenny Route PRN Reason Start Time Stop Time Status Last Admin Dose Admin Acetaminophen (Tylenol) 650 mg Q4H PRN ORAL fever 11/11/16 23:45 12/11/16 23:44 11/16/16 02:46 Acetaminophen/ Hydrocodone Bitart ([place] 10/325) 1 ea Q4H PRN ORAL For MODERATE Pain 11/27/16 15:03 12/04/16 11:29 12/02/16 04:59 Clonidine HCl (Catapres) 0.1 mg Q4H PRN ORAL bp over 170 syst 11/28/16 11:15 12/28/16 11:14 Dextrose (Dextrose 50%) STAT PRN IV Hypoglycemia 11/11/16 23:45 12/11/16 23:44 Docusate Sodium (Colace) 100 mg THREE TIMES A DAY ORAL 11/22/16 13:00 12/22/16 12:59 12/01/16 19:02 Heparin Sodium (Beef Lung) (Hep-Lock) 200 unit Q8HR PRN INJ for line flush 11/30/16 23:30 12/05/16 23:29 12/02/16 05:13 Heparin Sodium (Porcine) (Heparin 5000 units/ml) 5,000 units EVERY 12 HOURS SUBQ 11/12/16 09:00 12/12/16 08:59 12/01/16 21:02 Morphine Sulfate (Morphine Sulfate) 2 mg Q4H PRN IVP PAIN UNRELIEVED BY NORCO 11/27/16 17:15 12/04/16 17:14 Nifedipine (Procardia XL) 60 mg BID ORAL 11/28/16 12:00 12/28/16 11:59 12/01/16 19:02 Ondansetron HCl (Zofran) 4 mg Q6H PRN IVP Nausea & Vomiting 11/11/16 23:45 12/11/16 23:44 Polyethylene Glycol (Miralax) 17 gm HSPRN PRN ORAL Constipation 11/11/16 23:45 12/11/16 23:44 Quetiapine Fumarate (SEROquel) 25 mg Q12HR ORAL 11/24/16 11:00 12/24/16 10:59 11/25/16 08:46 Sevelamer Carbonate (Renvela) 2,400 mg THREE TIMES A DAY ORAL 11/25/16 09:30 12/25/16 09:29 12/01/16 19:02 Tamsulosin HCl (Flomax) 0.4 mg BID ORAL 11/16/16 11:30 12/16/16 11:29 12/01/16 19:02 Zolpidem Tartrate (Ambien) 5 mg HSPRN PRN ORAL Insomnia 11/11/16 23:45 12/11/16 23:44 ALE NOONAN M.D. Dec 02, 2016 07:21
[2016-12-02 08:15] VITALS: BP 133/71
[2016-12-02] MEDS: Heparin 5000 units/ml inj SUBQ SCH ×3 (09:00→21:00)
[2016-12-02] MEDS: Tamsulosin 0.4mg cap ORAL SCH ×2 (09:29→17:09)
[2016-12-02] MEDS: Docusate 100mg cap ORAL SCH ×3 (09:30→17:09)
--- NOTE | 2016-12-02 10:07 | General Progress Note ---
Assessment/Plan Status: stable Status Narrative Cr stablizing Assessment/Plan Status: Cellulitis left leg- Sepsis, received Amikacin and Vanco in the past. Acute renal failure- appears resolving- HypoAlbuminemia , Proteinuria , ? NS Multi drug abuse Plan: had the catheter changed and dialysed - last dialysis 11/30 , watch renal parameters On Procardiaxl BID clonidin PRN monitor renal parameters, and dialyse as needed On Renagel- On flomax- Urine studies- Urine Tox screen- MJ and Amphetamines Monitor renal parameters- DC planning... Per orders Subjective ROS Limited/Unobtainable: No Allergies: Coded Allergies: SULFUR (Unverified Allergy, Unknown, unk, 11/16/16) Per patient allergic to sulfur Objective Last 24 Hour Vital Signs Date Time Temp Pulse Resp B/P Pulse Ox O2 Delivery O2 Flow Rate FiO2 12/02/16 09:28 79 126/79 12/02/16 08:15 97.6 77 21 133/71 97 Room Air 12/02/16 04:00 97.6 79 20 126/79 98 Room Air 12/02/16 00:00 97.0 77 20 119/78 98 Room Air 12/01/16 22:04 98.1 12/01/16 20:00 98.1 84 20 143/78 98 Room Air 12/01/16 19:02 89 158/88 12/01/16 12:17 97.9 89 16 158/88 98 Room Air 12/01/16 11:56 73 133/78 Intake and Output 12/01/16 12/02/16 19:00 07:00 Intake Total 2000 ml 360 ml Output Total 500 ml 950 ml Balance 1500 ml -590 ml Intake Oral 2000 ml 360 ml Output Urine Total 500 ml 950 ml # Voids 2 # Bowel Movements 1 Laboratory Tests 12/01/16 14:10: White Blood Count 8.7#, Red Blood Count 3.23L, Hemoglobin 9.4#L, Hematocrit 29.4 #L, Mean Corpuscular Volume 91, Mean Corpuscular Hemoglobin 29.2, Mean Corpuscular Hemoglobin Concent 32.1, Red Cell Distribution Width 11.7, Platelet Count 259#, Mean Platelet Volume 5.6L, Neutrophils (%) (Auto) 74.8, Lymphocytes (%) (Auto) 14.4L, Monocytes (%) (Auto) 7.6, Eosinophils (%) (Auto) 1.7, Basophils (%) (Auto) 1.5, Sodium Level 139, Potassium Level 3.5, Chloride Level 97L, Carbon Dioxide Level 27, Anion Gap 15, Blood Urea Nitrogen 18, Creatinine 3.8H, Estimat Glomerular Filtration Rate 20.8, Glucose Level 152H, Uric Acid 3.4 , Calcium Level 8.5L, Phosphorus Level 3.8, Magnesium Level 1.6L, Total Bilirubin 0.3, Aspartate Amino Transf (AST/SGOT) 20, Alanine Aminotransferase ( ALT/SGPT) 9, Alkaline Phosphatase 56, C-Reactive Protein, Quantitative 2.5H, Total Protein 6.7, Albumin 2.9L, Globulin 3.8, Albumin/Globulin Ratio 0.7L 12/02/16 05:15: Sodium Level 143, Potassium Level 3.7, Chloride Level 103, Carbon Dioxide Level 26, Anion Gap 14, Blood Urea Nitrogen 17, Creatinine 3.7H, Estimat Glomerular Filtration Rate 21.6, Glucose Level 89, Calcium Level 8.2L, Phosphorus Level 4.2 , Magnesium Level 1.6L, Total Bilirubin 0.4, Aspartate Amino Transf (AST/SGOT) 22, Alanine Aminotransferase (ALT/SGPT) 12, Alkaline Phosphatase 51, Total Protein 6.1L, Albumin 2.6L, Globulin 3.5, Albumin/Globulin Ratio 0.7L Height (Feet): 6 Height (Inches): 1.00 Weight (Pounds): 200 General Appearance: no apparent distress Objective no change in PE GABRIELE GONZALEZ Dec 02, 2016 10:07
[2016-12-02 12:00] VITALS: BP 114/68
[2016-12-02 16:00] VITALS: BP 141/64
[2016-12-02 20:00] VITALS: BP 175/95
[2016-12-03] VITALS: BP 115/74
[2016-12-03 04:00] VITALS: BP 108/90
[2016-12-03 07:21] LABS: BASOPHILS % (AUTO) 2.3 % (0.0-2.0); EOSINOPHILS % (AUTO) 5.1 % (0.0-3.0); LYMPHOCYTES % (AUTO) 29.1 % (20.0-45.0); MEAN CORPUSCULAR HEMOGLOBIN 28.8 PG (27.0-31.0); MEAN CORPUSCULAR VOLUME 90 FL (80-99); MEAN PLATELET VOLUME 5.7 FL (6.5-10.1); MONOCYTES % (AUTO) 9.3 % (1.0-10.0); NEUTROPHILS % (AUTO) 54.2 % (45.0-75.0); PLATELET COUNT 244 K/UL (150-450); RED BLOOD COUNT 3.28 M/UL (4.70-6.10); RED CELL DISTRIBUTION WIDTH 11.8 % (11.6-14.8); WHITE BLOOD COUNT 5.9 K/UL (4.8-10.8)
[2016-12-03 07:51] LABS: ALBUMIN/GLOBULIN RATIO 0.8 (1.0-2.7); CALCIUM 8.8 mg/dL (8.6-10.2); CREATININE 3.6 mg/dL (0.7-1.2); GLOMERULAR FILTRATION RATE 22.2 mL/min (>60); PHOSPHORUS 5.1 mg/dL (2.5-4.8); POTASSIUM 3.8 mEQ/L (3.4-4.9); TOTAL PROTEIN 6.7 g/dL (6.6-8.7); URIC ACID 3.6 mg/dL (3.0-7.5)
[2016-12-03 08:00] VITALS: BP 160/97
[2016-12-03] MEDS: Tamsulosin 0.4mg cap ORAL SCH ×2 (09:00→18:00)
[2016-12-03] MEDS: Heparin 5000 units/ml inj SUBQ SCH ×2 (09:00→19:41)
[2016-12-03] MEDS: Docusate 100mg cap ORAL SCH ×3 (09:00→18:00)
--- NOTE | 2016-12-03 09:40 | Infectious Diseases Prog Note ---
Assessment/Plan Assessment/Plan ASSESSMENT: 46-year-old male with: Left lower extremity cellulitis - improved SP Rx MRI : no evidence of associated abscess, fasciitis or osteomyelitis Doppler : No DVT Fever - resolved Leucocytosis - resolved ARF --> HD SP roddy 11/18, exchanged 11/25 US of Kid : Echogenic kidneys. Medical renal disease suspected. Polysubstance abuse - UDS(+) Amphetamines, opiates, marijuana, tobacco Sulfa allergy Full Code PLAN: ok to DC off of ABX from ID standpoint ( 11/28 SP PO doxycycline d# 7 ) ( 11/23 SP Ceftaroline d# 9 ) ( 11/14 SP on cefepime and vancomycin d# 4 ) Monitor CBC, temperatures Monitor BMP. HD prn Subjective Allergies: Coded Allergies: SULFUR (Unverified Allergy, Unknown, unk, 11/16/16) Per patient allergic to sulfur Subjective remains afebrile. no new complaint DC planning ongoing Objective Vital Signs Last 24 Hour Vital Signs Date Time Temp Pulse Resp B/P Pulse Ox O2 Delivery O2 Flow Rate FiO2 12/03/16 09:00 89 166/100 12/03/16 08:00 97.7 89 20 160/97 98 Room Air 12/03/16 04:00 97.9 78 18 108/90 97 Room Air 12/03/16 00:00 98.1 80 18 115/74 96 Room Air 12/02/16 20:00 98.4 94 19 175/95 94 Room Air 12/02/16 17:09 84 141/64 12/02/16 16:00 97.5 84 16 141/64 97 Room Air 12/02/16 14:33 98.0 12/02/16 12:00 98.0 69 19 114/68 95 Room Air Height (Feet): 6 Height (Inches): 1.00 Weight (Pounds): 200 General Appearance: no acute distress Respiratory/Chest: no respiratory distress Cardiovascular: normal rate, regular rhythm Abdomen: normal bowel sounds, soft, non tender, non distended Laboratory Tests Test 12/03/16 06:30 White Blood Count 5.9 K/UL (4.8-10.8) Red Blood Count 3.28 M/UL (4.70-6.10) L Hemoglobin 9.4 G/DL (14.2-18.0) L Hematocrit 29.5 % (42.0-52.0) L Mean Corpuscular Volume 90 FL (80-99) Mean Corpuscular Hemoglobin 28.8 PG (27.0-31.0) Mean Corpuscular Hemoglobin Concent 32.0 G/DL (32.0-36.0) Red Cell Distribution Width 11.8 % (11.6-14.8) Platelet Count 244 K/UL (150-450) Mean Platelet Volume 5.7 FL (6.5-10.1) L Neutrophils (%) (Auto) 54.2 % (45.0-75.0) Lymphocytes (%) (Auto) 29.1 % (20.0-45.0) Monocytes (%) (Auto) 9.3 % (1.0-10.0) Eosinophils (%) (Auto) 5.1 % (0.0-3.0) H Basophils (%) (Auto) 2.3 % (0.0-2.0) H Sodium Level 142 mEQ/L (135-145) Potassium Level 3.8 mEQ/L (3.4-4.9) Chloride Level 101 mEQ/L (98-107) Carbon Dioxide Level 28 mEQ/L (20-30) Anion Gap 13 (5-15) Blood Urea Nitrogen 17 mg/dL (7-23) Creatinine 3.6 mg/dL (0.7-1.2) H Estimat Glomerular Filtration Rate 22.2 mL/min (>60) Glucose Level 95 mg/dL (74-106) Uric Acid 3.6 mg/dL (3.0-7.5) Calcium Level 8.8 mg/dL (8.6-10.2) Phosphorus Level 5.1 mg/dL (2.5-4.8) H Total Bilirubin 0.3 mg/dL (0.0-1.2) Aspartate Amino Transf (AST/SGOT) 19 U/L (5-40) Alanine Aminotransferase (ALT/SGPT) 9 U/L (3-41) Alkaline Phosphatase 56 U/L (40-129) Total Protein 6.7 g/dL (6.6-8.7) Albumin 3.1 g/dL (3.5-5.2) L Globulin 3.6 g/dL Albumin/Globulin Ratio 0.8 (1.0-2.7) L Current Medications Medications (Trade) Dose Ordered Sig/Jenny Route PRN Reason Start Time Stop Time Status Last Admin Dose Admin Acetaminophen (Tylenol) 650 mg Q4H PRN ORAL fever 11/11/16 23:45 12/11/16 23:44 11/16/16 02:46 Acetaminophen/ Hydrocodone Bitart ([place] 10/325) 1 ea Q4H PRN ORAL For MODERATE Pain 11/27/16 15:03 12/04/16 11:29 12/02/16 13:34 Clonidine HCl (Catapres) 0.1 mg Q4H PRN ORAL bp over 170 syst 11/28/16 11:15 12/28/16 11:14 Dextrose (Dextrose 50%) STAT PRN IV Hypoglycemia 11/11/16 23:45 12/11/16 23:44 Docusate Sodium (Colace) 100 mg THREE TIMES A DAY ORAL 11/22/16 13:00 12/22/16 12:59 12/02/16 17:09 Heparin Sodium (Beef Lung) (Hep-Lock) 200 unit Q8HR PRN INJ for line flush 11/30/16 23:30 12/05/16 23:29 12/02/16 05:13 Heparin Sodium (Porcine) (Heparin 5000 units/ml) 5,000 units EVERY 12 HOURS SUBQ 11/12/16 09:00 12/12/16 08:59 12/01/16 21:02 Morphine Sulfate (Morphine Sulfate) 2 mg Q4H PRN IVP PAIN UNRELIEVED BY NORCO 11/27/16 17:15 12/04/16 17:14 Nifedipine (Procardia XL) 60 mg BID ORAL 11/28/16 12:00 12/28/16 11:59 12/02/16 17:09 Ondansetron HCl (Zofran) 4 mg Q6H PRN IVP Nausea & Vomiting 11/11/16 23:45 12/11/16 23:44 Polyethylene Glycol (Miralax) 17 gm HSPRN PRN ORAL Constipation 11/11/16 23:45 12/11/16 23:44 Quetiapine Fumarate (SEROquel) 25 mg Q12HR ORAL 11/24/16 11:00 12/24/16 10:59 12/02/16 09:30 Sevelamer Carbonate (Renvela) 1,600 mg THREE TIMES A DAY ORAL 12/02/16 13:00 01/01/17 12:59 12/02/16 17:09 Tamsulosin HCl (Flomax) 0.4 mg BID ORAL 11/16/16 11:30 12/16/16 11:29 12/02/16 17:09 Zolpidem Tartrate (Ambien) 5 mg HSPRN PRN ORAL Insomnia 11/11/16 23:45 12/11/16 23:44 JULIO CHRISTIANSEN Dec 03, 2016 09:40
--- NOTE | 2016-12-03 10:24 | General Progress Note ---
Assessment/Plan Status: stable - - Cr unchanged , off HD Status Narrative possible recovering from [facility] Assessment/Plan Status: Cellulitis left leg- Sepsis, received Amikacin and Vanco in the past. Acute renal failure- appears resolving- HypoAlbuminemia , Proteinuria , ? NS Multi drug abuse Plan: refuses medications !!!! last dialysis 11/30 , watch renal parameters On Procardiaxl BID clonidin PRN for high BP monitor renal parameters, and dialyse as needed On Renagel- On flomax- Urine studies- Urine Tox screen- MJ and Amphetamines Monitor renal parameters- DC planning... Per orders Subjective ROS Limited/Unobtainable: No Allergies: Coded Allergies: SULFUR (Unverified Allergy, Unknown, unk, 11/16/16) Per patient allergic to sulfur Objective Last 24 Hour Vital Signs Date Time Temp Pulse Resp B/P Pulse Ox O2 Delivery O2 Flow Rate FiO2 12/03/16 09:00 89 166/100 12/03/16 08:00 97.7 89 20 160/97 98 Room Air 12/03/16 04:00 97.9 78 18 108/90 97 Room Air 12/03/16 00:00 98.1 80 18 115/74 96 Room Air 12/02/16 20:00 98.4 94 19 175/95 94 Room Air 12/02/16 17:09 84 141/64 12/02/16 16:00 97.5 84 16 141/64 97 Room Air 12/02/16 14:33 98.0 12/02/16 12:00 98.0 69 19 114/68 95 Room Air Intake and Output 12/02/16 12/03/16 19:00 07:00 Intake Total 480 ml 280 ml Output Total 1850 ml 2100 ml Balance -1370 ml -1820 ml Intake Oral 480 ml 280 ml Output Urine Total 1850 ml 2100 ml # Voids 2 3 Laboratory Tests 12/03/16 06:30: White Blood Count 5.9, Red Blood Count 3.28L, Hemoglobin 9.4L, Hematocrit 29.5L , Mean Corpuscular Volume 90, Mean Corpuscular Hemoglobin 28.8, Mean Corpuscular Hemoglobin Concent 32.0, Red Cell Distribution Width 11.8, Platelet Count 244, Mean Platelet Volume 5.7L, Neutrophils (%) (Auto) 54.2, Lymphocytes ( %) (Auto) 29.1, Monocytes (%) (Auto) 9.3, Eosinophils (%) (Auto) 5.1H, Basophils (%) (Auto) 2.3H, Sodium Level 142, Potassium Level 3.8, Chloride Level 101, Carbon Dioxide Level 28, Anion Gap 13, Blood Urea Nitrogen 17, Creatinine 3.6H, Estimat Glomerular Filtration Rate 22.2, Glucose Level 95, Uric Acid 3.6, Calcium Level 8.8, Phosphorus Level 5.1H, Total Bilirubin 0.3, Aspartate Amino Transf (AST/SGOT) 19, Alanine Aminotransferase (ALT/SGPT) 9, Alkaline Phosphatase 56, Total Protein 6.7, Albumin 3.1L, Globulin 3.6, Albumin/ Globulin Ratio 0.8L Height (Feet): 6 Height (Inches): 1.00 Weight (Pounds): 200 General Appearance: no apparent distress Objective no change in PE GABRIELE GONZALEZ Dec 03, 2016 10:24
[2016-12-03 12:00] VITALS: BP 156/85
[2016-12-03] MEDS: Norco 10mg/325mg tab ORAL PRN ×2 (15:38→19:40)
[2016-12-03 16:00] VITALS: BP 136/74
[2016-12-03] MEDS ORDERED: Lactulose 20gm/30ml UDC ORAL PRN ×2 (19:15→19:42)
[2016-12-03 20:00] VITALS: BP 130/80
--- NOTE | 2016-12-03 23:33 | Pulmonology Progress Note ---
Assessment/Plan Problems: (1) Sepsis (2) Cellulitis (3) ATN (acute tubular necrosis) Assessment/Plan renal function improving cellulitis resolved dc home in am Subjective ROS Limited/Unobtainable: No Allergies: Coded Allergies: SULFUR (Unverified Allergy, Unknown, unk, 11/16/16) Per patient allergic to sulfur Objective Last 24 Hour Vital Signs Date Time Temp Pulse Resp B/P Pulse Ox O2 Delivery O2 Flow Rate FiO2 12/03/16 20:39 98.2 12/03/16 20:00 97.9 90 18 130/80 96 Room Air 12/03/16 18:00 95 136/74 12/03/16 16:00 98.2 95 18 136/74 98 Room Air 12/03/16 15:39 88 156/85 12/03/16 12:00 98.2 88 20 156/85 97 Room Air 12/03/16 09:00 89 166/100 12/03/16 08:00 97.7 89 20 160/97 98 Room Air 12/03/16 04:00 97.9 78 18 108/90 97 Room Air 12/03/16 00:00 98.1 80 18 115/74 96 Room Air Intake and Output 12/02/16 12/03/16 19:00 07:00 Intake Total 480 ml 280 ml Output Total 1850 ml 2100 ml Balance -1370 ml -1820 ml Intake Oral 480 ml 280 ml Output Urine Total 1850 ml 2100 ml # Voids 2 3 HEENT: normocephalic Respiratory/Chest: chest wall non-tender, chest wall tender Cardiovascular: normal rate Abdomen: normal bowel sounds, no organomegaly Genitourinary: normal external genitalia 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 Laboratory Tests 12/03/16 06:30: White Blood Count 5.9, Red Blood Count 3.28L, Hemoglobin 9.4L, Hematocrit 29.5L , Mean Corpuscular Volume 90, Mean Corpuscular Hemoglobin 28.8, Mean Corpuscular Hemoglobin Concent 32.0, Red Cell Distribution Width 11.8, Platelet Count 244, Mean Platelet Volume 5.7L, Neutrophils (%) (Auto) 54.2, Lymphocytes ( %) (Auto) 29.1, Monocytes (%) (Auto) 9.3, Eosinophils (%) (Auto) 5.1H, Basophils (%) (Auto) 2.3H, Sodium Level 142, Potassium Level 3.8, Chloride Level 101, Carbon Dioxide Level 28, Anion Gap 13, Blood Urea Nitrogen 17, Creatinine 3.6H, Estimat Glomerular Filtration Rate 22.2, Glucose Level 95, Uric Acid 3.6, Calcium Level 8.8, Phosphorus Level 5.1H, Total Bilirubin 0.3, Aspartate Amino Transf (AST/SGOT) 19, Alanine Aminotransferase (ALT/SGPT) 9, Alkaline Phosphatase 56, Total Protein 6.7, Albumin 3.1L, Globulin 3.6, Albumin/ Globulin Ratio 0.8L Current Medications Medications (Trade) Dose Ordered Sig/Jenny Route PRN Reason Start Time Stop Time Status Last Admin Dose Admin Acetaminophen (Tylenol) 650 mg Q4H PRN ORAL Fever/Headache/Mild Pain 12/03/16 23:45 01/02/17 23:44 Acetaminophen/ Hydrocodone Bitart ([place] 10/325) 1 ea Q4H PRN ORAL For MODERATE Pain 11/27/16 15:03 12/04/16 11:29 12/03/16 19:40 Clonidine HCl (Catapres) 0.1 mg Q4H PRN ORAL bp over 170 syst 11/28/16 11:15 12/28/16 11:14 Dextrose (Dextrose 50%) STAT PRN IV Hypoglycemia 11/11/16 23:45 12/11/16 23:44 Docusate Sodium (Colace) 100 mg THREE TIMES A DAY ORAL 11/22/16 13:00 12/22/16 12:59 12/02/16 17:09 Heparin Sodium (Beef Lung) (Hep-Lock) 200 unit Q8HR PRN INJ for line flush 11/30/16 23:30 12/05/16 23:29 12/02/16 05:13 Heparin Sodium (Porcine) (Heparin 5000 units/ml) 5,000 units EVERY 12 HOURS SUBQ 11/12/16 09:00 12/12/16 08:59 12/01/16 21:02 Lactulose (Cephulac) 20 gm TIDPRN PRN ORAL CONSTIPATION 12/03/16 19:42 01/02/17 19:14 Morphine Sulfate (Morphine Sulfate) 2 mg Q4H PRN IVP PAIN UNRELIEVED BY NORCO 11/27/16 17:15 12/04/16 17:14 Nifedipine (Procardia XL) 60 mg BID ORAL 11/28/16 12:00 12/28/16 11:59 12/03/16 15:39 Ondansetron HCl (Zofran) 4 mg Q6H PRN IVP Nausea & Vomiting 11/11/16 23:45 12/11/16 23:44 Quetiapine Fumarate (SEROquel) 25 mg Q12HR ORAL 11/24/16 11:00 12/24/16 10:59 12/02/16 09:30 Sevelamer Carbonate (Renvela) 1,600 mg THREE TIMES A DAY ORAL 12/02/16 13:00 01/01/17 12:59 12/03/16 16:02 Tamsulosin HCl (Flomax) 0.4 mg BID ORAL 11/16/16 11:30 12/16/16 11:29 12/02/16 17:09 Zolpidem Tartrate (Ambien) 5 mg HSPRN PRN ORAL Insomnia 11/11/16 23:45 12/11/16 23:44 NARENDRA NICOLE Dec 03, 2016 23:33
[2016-12-04] VITALS: BP 118/75
[2016-12-04] MEDS: Norco 10mg/325mg tab ORAL PRN ×3 (00:28→10:09)
[2016-12-04 04:00] VITALS: BP 121/82
[2016-12-04 07:13] LABS: ALBUMIN/GLOBULIN RATIO 0.7 (1.0-2.7); CALCIUM 8.5 mg/dL (8.6-10.2); CREATININE 3.4 mg/dL (0.7-1.2); CRP QUANT 1.1 mg/dL (< 0.5); GLOMERULAR FILTRATION RATE 23.8 mL/min (>60); PHOSPHORUS 4.3 mg/dL (2.5-4.8); POTASSIUM 3.6 mEQ/L (3.4-4.9); TOTAL PROTEIN 6.5 g/dL (6.6-8.7); URIC ACID 3.8 mg/dL (3.0-7.5)
[2016-12-04 07:30] LABS: BASOPHILS % (AUTO) 1.4 % (0.0-2.0); EOSINOPHILS % (AUTO) 5.1 % (0.0-3.0); LYMPHOCYTES % (AUTO) 27.3 % (20.0-45.0); MEAN CORPUSCULAR HEMOGLOBIN 28.6 PG (27.0-31.0); MEAN CORPUSCULAR VOLUME 89 FL (80-99); MEAN PLATELET VOLUME 5.7 FL (6.5-10.1); MONOCYTES % (AUTO) 11.7 % (1.0-10.0); NEUTROPHILS % (AUTO) 54.5 % (45.0-75.0); PLATELET COUNT 193 K/UL (150-450); RED BLOOD COUNT 3.14 M/UL (4.70-6.10); RED CELL DISTRIBUTION WIDTH 12.1 % (11.6-14.8)
[2016-12-04 08:10] VITALS: BP 120/80
[2016-12-04] MEDS: Tamsulosin 0.4mg cap ORAL SCH (08:56)
[2016-12-04] MEDS: Docusate 100mg cap ORAL SCH ×2 (08:56→12:32)
[2016-12-04] MEDS: Heparin 5000 units/ml inj SUBQ SCH (09:03)
--- NOTE | 2016-12-04 09:24 | General Progress Note ---
Assessment/Plan Status: stable Status Narrative Cr lowering Assessment/Plan Status: Cellulitis left leg- Sepsis, received Amikacin and Vanco in the past. Acute renal failure- appears resolving- HypoAlbuminemia , Proteinuria , ? NS Multi drug abuse Plan: refuses medications at times !!!! last dialysis 11/30 , Cr lowering On Procardiaxl BID clonidin PRN for high BP On Renagel- On flomax- Urine studies- Urine Tox screen- MJ and Amphetamines Monitor renal parameters- Agree with DC planning...and out patient follow up with PMD Subjective ROS Limited/Unobtainable: No Allergies: Coded Allergies: SULFUR (Unverified Allergy, Unknown, unk, 11/16/16) Per patient allergic to sulfur Objective Last 24 Hour Vital Signs Date Time Temp Pulse Resp B/P Pulse Ox O2 Delivery O2 Flow Rate FiO2 12/04/16 08:56 89 120/80 12/04/16 08:10 98.2 89 19 120/80 97 Room Air 12/04/16 04:00 98.2 79 18 121/82 96 Room Air 12/04/16 00:00 97.7 88 18 118/75 97 Room Air 12/03/16 20:39 98.2 12/03/16 20:00 97.9 90 18 130/80 96 Room Air 12/03/16 18:00 95 136/74 12/03/16 16:00 98.2 95 18 136/74 98 Room Air 12/03/16 15:39 88 156/85 12/03/16 12:00 98.2 88 20 156/85 97 Room Air Intake and Output 12/03/16 12/04/16 19:00 07:00 Intake Total 480 ml Output Total 800 ml Balance -320 ml Intake Oral 480 ml Output Urine Total 800 ml # Voids 7 Current Medications Medications (Trade) Dose Ordered Sig/Jenny Route PRN Reason Start Time Stop Time Status Last Admin Dose Admin Acetaminophen (Tylenol) 650 mg Q4H PRN ORAL Fever/Headache/Mild Pain 12/03/16 23:45 01/02/17 23:44 Acetaminophen/ Hydrocodone Bitart ([place] 10/325) 1 ea Q4H PRN ORAL For MODERATE Pain 11/27/16 15:03 12/04/16 11:29 12/04/16 05:18 Clonidine HCl (Catapres) 0.1 mg Q4H PRN ORAL bp over 170 syst 11/28/16 11:15 12/28/16 11:14 Dextrose (Dextrose 50%) STAT PRN IV Hypoglycemia 11/11/16 23:45 12/11/16 23:44 Docusate Sodium (Colace) 100 mg THREE TIMES A DAY ORAL 11/22/16 13:00 12/22/16 12:59 12/02/16 17:09 Heparin Sodium (Beef Lung) (Hep-Lock) 200 unit Q8HR PRN INJ for line flush 11/30/16 23:30 12/05/16 23:29 12/02/16 05:13 Heparin Sodium (Porcine) (Heparin 5000 units/ml) 5,000 units EVERY 12 HOURS SUBQ 11/12/16 09:00 12/12/16 08:59 12/04/16 09:03 Lactulose (Cephulac) 20 gm TIDPRN PRN ORAL CONSTIPATION 12/03/16 19:42 01/02/17 19:14 12/03/16 23:35 Morphine Sulfate (Morphine Sulfate) 2 mg Q4H PRN IVP PAIN UNRELIEVED BY NORCO 11/27/16 17:15 12/04/16 17:14 Nifedipine (Procardia XL) 60 mg BID ORAL 11/28/16 12:00 12/28/16 11:59 12/04/16 08:56 Ondansetron HCl (Zofran) 4 mg Q6H PRN IVP Nausea & Vomiting 11/11/16 23:45 12/11/16 23:44 Quetiapine Fumarate (SEROquel) 25 mg Q12HR ORAL 11/24/16 11:00 12/24/16 10:59 12/02/16 09:30 Sevelamer Carbonate (Renvela) 1,600 mg THREE TIMES A DAY ORAL 12/02/16 13:00 01/01/17 12:59 12/04/16 09:04 Tamsulosin HCl (Flomax) 0.4 mg BID ORAL 11/16/16 11:30 12/16/16 11:29 12/04/16 08:56 Zolpidem Tartrate (Ambien) 5 mg HSPRN PRN ORAL Insomnia 11/11/16 23:45 12/11/16 23:44 Laboratory Tests 12/04/16 05:30: White Blood Count 6.0, Red Blood Count 3.14L, Hemoglobin 9.0L, Hematocrit 28.1L , Mean Corpuscular Volume 89, Mean Corpuscular Hemoglobin 28.6, Mean Corpuscular Hemoglobin Concent 32.0, Red Cell Distribution Width 12.1, Platelet Count 193, Mean Platelet Volume 5.7L, Neutrophils (%) (Auto) 54.5, Lymphocytes ( %) (Auto) 27.3, Monocytes (%) (Auto) 11.7H, Eosinophils (%) (Auto) 5.1H, Basophils (%) (Auto) 1.4, Sodium Level 139, Potassium Level 3.6, Chloride Level 100, Carbon Dioxide Level 26, Anion Gap 13, Blood Urea Nitrogen 20, Creatinine 3.4H, Estimat Glomerular Filtration Rate 23.8, Glucose Level 88, Uric Acid 3.8, Calcium Level 8.5L, Phosphorus Level 4.3, Magnesium Level 2.0, Total Bilirubin 0.3, Aspartate Amino Transf (AST/SGOT) 19, Alanine Aminotransferase (ALT/SGPT) 11, Alkaline Phosphatase 52, C-Reactive Protein, Quantitative 1.1H, Pro-B-Type Natriuretic Peptide 551H, Total Protein 6.5L, Albumin 2.8L, Globulin 3.7, Albumin/Globulin Ratio 0.7L Height (Feet): 6 Height (Inches): 1.00 Weight (Pounds): 200 General Appearance: no apparent distress Objective no change in PE GABRIELE GONZALEZ Dec 04, 2016 09:24
[2016-12-04] MEDS ORDERED: Sodium Bicarbonate 8.4% 50ml Inj IV PRN (11:15)
[2016-12-04] MEDS ORDERED: Lidocaine 1% Plain 30 ml INJ PRN (11:15)
[2016-12-04 12:29] VITALS: BP 143/79
--- NOTE | 2016-12-06 10:03 | Diagnostic Imaging Report ---
Indications: PermCath no longer needed Technique: Sterile prepping and draping right chest. Local anesthesia with 1% lidocaine. Chest dermatotomy extended. Using blunt dissection, the cuff of the catheter was freed from the surrounding soft tissues, and the catheter was removed. No imaging was performed. The patient tolerated the procedure well, without immediate complication. Comparison: None Findings: None Impression: Successful removal of tunneled dialysis catheter, as noted.
--- NOTE | 2016-12-06 18:19 | Discharge Summary ---
Discharge Summary Hospital Course Date of Admission Nov 11, 2016 at 23:30 Date of Discharge Dec 04, 2016 at 14:53 Admitting Diagnosis cellulitis left leg HPI Ameya Arias is a 46 year old male who was admitted on Nov 11, 2016 at 23:30 for Cellulitis Left Leg Hospital Course [id number] Discharge Discharge Disposition Patient was discharged to Recuperative Care Discharge Diagnoses: Tata Lopez NP Dec 06, 2016 18:19
--- NOTE | 2016-12-07 00:28 | Discharge Summary 2 SIG ---
DATE OF ADMISSION: 11/11/2016 DATE OF DISCHARGE: 12/04/2016 BRIEF HOSPITAL COURSE: The patient is a 46-year-old homeless gentleman who presented to ED after increased left leg pain and swelling. On evaluation at ED, he was febrile 102.7. WBC was elevated. He was admitted for cellulitis. Dr. Taylor was consulted for antibiotic management and Dr. Villasenor for surgical evaluation. MRI of the distal fibula showed soft tissue edema confined to the subcutaneous soft tissues of the left leg with no associated abscess and no evidence of osteomyelitis. Dr. Lara was consulted for evaluation of acute renal failure. Ultrasound of the kidney showed echogenic kidneys, normal in size. Negative for hydronephrosis. The patient was provided with wound care. No surgical intervention was needed. Acute renal failure has progressed. Dialysis catheter was placed and the patient was started on hemodialysis. A 24-hour urine protein was less than 1 gram. Urine toxicology was positive for marijuana and amphetamines. The patient's stay was complicated as contributed by the patient's noncompliance as the patient would sometimes refuse medications and blood draws. Catheter was clotted and initially refused replacement and a new non-tunneled catheter was placed on 11/25/2016. He ventrally had a tunneled catheter placed on 11/27/2016. However, renal failure was recovering, his leg cellulitis and leg wound healed. He was taken off antibiotics. Renal function improved. Tunneled catheter was removed. Social service was consulted to aid in the patient's placement and the patient was referred to recuperative care. Advised to follow up with [facility]. Van for transportation was provided and the patient was to be transported via hospital van. However, at the day of discharge, the patient took all his belongings and and walked out of the hospital. FINAL DIAGNOSES: 1. Left leg cellulitis with sepsis. 2. Acute renal failure. 3. Multidrug abuse. 4. Hypoalbuminemia. 5. Proteinuria. 6. Acute tubular necrosis. 7. Noncompliance as the patient would sometimes refuse blood draw and treatment. 8. Homelessness. Mirali Zarrabi, M.D. I have been assigned to dictate discharge summary on this account and I was not involved in the patient's management. Tata Lopez N.P. DR: KEVIN JOB#: [id number] CC: SEA
== END 2016-12-04 14:53 | disposition home or self-care (01) | DRG 710 ==
LOC: EDBD 20:59 → EMR 21:59 → MERGE 23:30 → 4E 23:30 → EDBEDREQ 11-12 00:24 → 4E 11-23 20:38
PROC: 02HV33Z Insertion of Infusion Device into Superior Vena Cava, Percutaneous Approach (ICD-10-PCS; 2016-11-14)
PROC: B548ZZA Ultrasonography of Superior Vena Cava, Guidance (ICD-10-PCS; 2016-11-14)
PROC: 5A1D60Z (ICD-10-PCS; 2016-11-18)
PROC: 02HV33Z Insertion of Infusion Device into Superior Vena Cava, Percutaneous Approach (ICD-10-PCS; 2016-11-18)
PROC: B518ZZA Fluoroscopy of Superior Vena Cava, Guidance (ICD-10-PCS; 2016-11-18)
PROC: 02HV33Z Insertion of Infusion Device into Superior Vena Cava, Percutaneous Approach (ICD-10-PCS; 2016-11-25)
PROC: B518ZZA Fluoroscopy of Superior Vena Cava, Guidance (ICD-10-PCS; 2016-11-25)
PROC: 05HM33Z Insertion of Infusion Device into Right Internal Jugular Vein, Percutaneous Approach (ICD-10-PCS; principal; 2016-11-27)
PROC: B513ZZA Fluoroscopy of Right Jugular Veins, Guidance (ICD-10-PCS; 2016-11-27)
PROC: 02PY33Z Removal of Infusion Device from Great Vessel, Percutaneous Approach (ICD-10-PCS; 2016-12-04)
DX: A41.9 Sepsis, unspecified organism (principal); N17.0 Acute kidney failure with tubular necrosis; L03.116 Cellulitis of left lower limb; I27.2 Other secondary pulmonary hypertension; E88.09 Other disorders of plasma-protein metabolism, not elsewhere classified; R65.20 Severe sepsis without septic shock; N39.0 Urinary tract infection, site not specified; I12.9 Hypertensive chronic kidney disease with stage 1 through stage 4 chronic kidney disease, or unspecified chronic kidney disease; N18.9 Chronic kidney disease, unspecified; D64.9 Anemia, unspecified; F15.90 Other stimulant use, unspecified, uncomplicated; Z72.89 Other problems related to lifestyle; F11.90 Opioid use, unspecified, uncomplicated; F12.90 Cannabis use, unspecified, uncomplicated; Z59.0 Homelessness
CPT/HCPCS: 36415; 36569; 36589; 71010; 75827; 76000; 76775; 76937; 80048; 80053; 80061; 80150; 80202; 80300; 81001; 81050; 82533; 82550; 82607; 82728; 82746; 82977; 83036; 83540; 83550; 83605; 83735; 83880; 83930; 84100; 84156; 84300; 84439; 84443; 84481; 84484; 84550; 85007; 85025; 85610; 85730; 86140; 86705; 86709; 86803; 87040; 87086; 87340; 89050; 93306; 93970; 94664; 94760; J0712

== ENCOUNTER 2016-12-11 11:45 | Emergency (ER) | payer MEDICAID ==
[~2016-12-11] VITALS: Ht 185.4 cm; Wt 0.9 kg
[2016-12-11 12:39] LABS: APPEARANCE,URINE SLIGHTLY CLOUDY; KETONES,URINE NEGATIVE (NEGATIVE); LEUKOCYTE ESTERASE ,URINE 1+ (NEGATIVE); NITRITE,URINE NEGATIVE (NEGATIVE); PH,URINE 6 (4.5-8.0); PROTEIN,URINE 4+ (NEGATIVE); UROBILINOGEN,URINE NORMAL MG/DL (0.0-1.0)
[2016-12-11 12:40] LABS: EOSINOPHILS % (AUTO) 4.8 % (0.0-3.0); LYMPHOCYTES % (AUTO) 28.2 % (20.0-45.0); MEAN CORPUSCULAR HEMOGLOBIN 29.5 PG (27.0-31.0); MEAN CORPUSCULAR HGB CONC 32.3 G/DL (32.0-36.0); MEAN CORPUSCULAR VOLUME 91 FL (80-99); MEAN PLATELET VOLUME 5.8 FL (6.5-10.1); MONOCYTES % (AUTO) 11.9 % (1.0-10.0); NEUTROPHILS % (AUTO) 54.1 % (45.0-75.0); PLATELET COUNT 315 K/UL (150-450); RED BLOOD COUNT 2.72 M/UL (4.70-6.10); RED CELL DISTRIBUTION WIDTH 13.4 % (11.6-14.8); WHITE BLOOD COUNT 7.6 K/UL (4.8-10.8)
[2016-12-11] MEDS ORDERED: Ketorolac 30mg Inj IV ONE (12:45)
[2016-12-11] MEDS ORDERED: Famotidine 20 MG/ 2ML VIAL IVP ONE (12:45)
[2016-12-11 12:47] LABS: PROTHROMBIN TIME 10.2 SEC (9.30-11.50)
[2016-12-11 12:55] VITALS: BP 130/81
[2016-12-11 12:57] LABS: ALANINE AMINOTRANSFERASE 28 U/L (3-41); AMYLASE 170 U/L (10-110); ANION GAP 12 (5-15); ASPARTATE AMINO TRANSFERASE 32 U/L (5-40); CALCIUM 8.5 mg/dL (8.6-10.2); CARBON DIOXIDE 25 mEQ/L (20-30); CHLORIDE 105 mEQ/L (98-107); CREATININE 1.9 mg/dL (0.7-1.2); GLOMERULAR FILTRATION RATE 46.5 mL/min (>60); HEMOLYSIS 3; LIPASE 79 U/L (< 60); POTASSIUM 4.5 mEQ/L (3.4-4.9); SODIUM 142 mEQ/L (135-145); TOTAL PROTEIN 6.1 g/dL (6.6-8.7)
[2016-12-11 13:16] LABS: BACTERIA,URINE FEW /HPF; RBC,URINE 20-30 /HPF (0 - 0); SQUAMOUS EPITHELIAL CELL,UR OCCASIONAL /LPF (NONE/OCC)
--- NOTE | 2016-12-11 15:36 | Emergency Room Report ---
History of Present Illness General Chief Complaint: Abdominal Pain Source: Patient Present Illness HPI The patient presents with abdominal pain. He describes the pain as aching, more mid abdomen, not radiating. He states it began the day he was discharged. He believes the pain is there because he was not discharged with pain medicine. He states "heavy pain medications" were given in the hospital and he feels he needs these. H/O GERD and stomach problems in the past. No hematemesis or melena. No fevers. He feels weak "like a shell". He was treated for cellulitis and renal failure and discharged 12/04 with improving renal function and not needing dialysis. He claims his kidney function was "normal" at discharge. He also c/o hematuria and some passage of clots, but is able to urinate at this time. No dysuria. No URI sy, cough, chest pain, palpitations, YOUNG. Anxious about living situation and wanting to continue at the transitional living situation. No SI or HI. H/O anemia. Denies recent drugs (had + tox at admission). Allergies: Coded Allergies: SULFUR (Unverified Allergy, Unknown, unk, 11/16/16) Per patient allergic to sulfur Patient History Past Medical History: see triage record Social History: Reports: drug use, smoking Social History Narrative Homeless but in transitional housing Reviewed Nursing Documentation: PMH: Agreed, PSxH: Agreed Nursing Documentation-PM Past Medical History: No History, Except For Review of Systems All Other Systems: negative except mentioned in HPI Physical Exam Vital Signs Date Time Temp Pulse Resp B/P Pulse Ox O2 Delivery O2 Flow Rate FiO2 12/11/16 11:55 98.2 90 16 130/81 98 Room Air Sp02 EP Interpretation: reviewed, normal General Appearance: well appearing, no apparent distress, GCS 15 Head: normocephalic Eyes: bilateral eye PERRL, bilateral eye normal inspection ENT: moist mucus membranes Neck: supple Respiratory: lungs clear, normal breath sounds Cardiovascular #1: regular rate, rhythm Cardiovascular #2: 2+ radial (R) Gastrointestinal: normal inspection, normal bowel sounds, no mass, non- distended, no guarding - mid abdomen, soft, no rebound, tenderness Rectal: heme negative stool - brown Musculoskeletal: back normal, gait/station normal, normal range of motion Neurologic: alert, oriented x3, grossly normal Psychiatric: other - somewhat pressured Skin: normal inspection, warm/dry, other - area where cellulitis was completely resolved Medical Decision Making Diagnostic Impression: Primary Impression: Abdominal pain Qualified Codes: R10.9 - Unspecified abdominal pain Additional Impressions: Resolving renal failure Anemia Qualified Codes: D64.9 - Anemia, unspecified Microscopic hematuria Drug-seeking behavior ER Course Patient presents with abdominal pain for 1 week. DDx: gastritis, PUD, GERD, pancreatitis, gall bladder disease amongst others. Also recent h/o renal failure. C/O hematuria also so need to exclude UTI and coagulopathy. Treatment with IV hydration, pepcid and toradol. Based on exam, no imaging studies indicated (PA had ordered CT which is not indicated). If increased WBC , consider CT. Labs sign for lower h/h, improved renal function, microscopic hematuria without pyuria. Pain markedly improved. Discussed anemia and other findings with PMD and renal MD. Both state unwilling to admit as no indication at this time for acute hospitalization. They also reported difficulties with patient refusing many treatments in hospital unless treated with pain medicine. No evidence of acute bleeding (microscopic hematuria excluded - present in hospital). H/H was similar 11/25. Vitals stable. Pain improved. Discussed discharge with patient and he stated he wanted to return to transitional housing. He states much of what he feels is that he does not want to go to shelters. Called renal social worker who evaluated the patient and declined to place patient again. She gave patient referrals but he did not take them. Patient insisting on getting stronger pain medicines but refuses Motrin ("tears up my stomach"). "I want something strong like what I was treated with in the hospital." I discussed my reluctance to do this due to his + tox screen in past. I offered tylenol and he refused to take Rx. I also advised that he needed to start taking a multivitamin with iron. He refused the prescriptions. He states he plans on going to [place] to be evaluated and admitted there. There is no medical emergency at this time. Patient stable for outpatient observation and treatment. Laboratory Tests Test 12/11/16 12:00 12/11/16 12:15 Urine Color Yellow Urine Appearance Slightly cloudy Urine pH 6 (4.5-8.0) Urine Specific [place] 1.015 (1.005-1.035) Urine Protein 4+ (NEGATIVE) H Urine Glucose (UA) Negative (NEGATIVE) Urine Ketones Negative (NEGATIVE) Urine Occult Blood 5+ (NEGATIVE) H Urine Nitrite Negative (NEGATIVE) Urine Bilirubin Negative (NEGATIVE) Urine Urobilinogen Normal MG/DL (0.0-1.0) Urine Leukocyte Esterase 1+ (NEGATIVE) H Urine RBC 20-30 /HPF (0 - 0) H Urine WBC 2-4 /HPF (0 - 0) Urine Squamous Epithelial Cells Occasional /LPF Urine Bacteria Few /HPF (NONE) White Blood Count 7.6 K/UL (4.8-10.8) Red Blood Count 2.72 M/UL (4.70-6.10) L Hemoglobin 8.0 G/DL (14.2-18.0) L Hematocrit 24.9 % (42.0-52.0) L Mean Corpuscular Volume 91 FL (80-99) Mean Corpuscular Hemoglobin 29.5 PG (27.0-31.0) Mean Corpuscular Hemoglobin Concent 32.3 G/DL (32.0-36.0) Red Cell Distribution Width 13.4 % (11.6-14.8) Platelet Count 315 K/UL (150-450) Mean Platelet Volume 5.8 FL (6.5-10.1) L Neutrophils (%) (Auto) 54.1 % (45.0-75.0) Lymphocytes (%) (Auto) 28.2 % (20.0-45.0) Monocytes (%) (Auto) 11.9 % (1.0-10.0) H Eosinophils (%) (Auto) 4.8 % (0.0-3.0) H Basophils (%) (Auto) 1.0 % (0.0-2.0) Prothrombin Time 10.2 SEC (9.30-11.50) Prothrombin Time INR 1.0 (0.9-1.1) PTT 26 SEC (23-33) Sodium Level 142 mEQ/L (135-145) Potassium Level 4.5 mEQ/L (3.4-4.9) Chloride Level 105 mEQ/L (98-107) Carbon Dioxide Level 25 mEQ/L (20-30) Anion Gap 12 (5-15) Blood Urea Nitrogen 17 mg/dL (7-23) Creatinine 1.9 mg/dL (0.7-1.2) H Estimate Glomerular Filtration Rate 46.5 mL/min (>60) Glucose Level 124 mg/dL (74-106) H Calcium Level 8.5 mg/dL (8.6-10.2) L Total Bilirubin < 0.2 mg/dL (0.0-1.2) Aspartate Amino Transferase (AST) 32 U/L (5-40) Alanine Aminotransferase (ALT) 28 U/L (3-41) Alkaline Phosphatase 56 U/L (40-129) Total Protein 6.1 g/dL (6.6-8.7) L Albumin 3.1 g/dL (3.5-5.2) L Globulin 3.0 g/dL Albumin/Globulin Ratio 1.0 (1.0-2.7) Amylase Level 170 U/L (10-110) H Lipase 79 U/L (< 60) H EKG Diagnostic Results Rate: normal Rhythm: NSR ST Segments: no acute changes - j point elevation Rhythm Strip Diag. Results EP Interpretation: yes Rhythm: NSR, no PVC's, no ectopy Last Vital Signs Date Time Temp Pulse Resp B/P Pulse Ox O2 Delivery O2 Flow Rate FiO2 12/11/16 16:57 98.0 82 15 129/81 99 Room Air Status: improved Disposition: HOME, SELF-CARE Condition: Improved Scripts Famotidine (PEPCID) 20 Mg Tablet 20 MG ORAL DAILY, #30 TAB 0 Refills Prov: Don Holcomb M.D. 12/11/16 Acetaminophen (Tylenol) 325 Mg Tablet 650 MG ORAL Q6H Y for Prn Pain/Headache/Temp > 101, #30 TAB 0 Refills Prov: Don Holcomb M.D. 12/11/16 Referrals: GABRIELE GONZALEZ (PCP) Don Holcomb M.D. Dec 11, 2016 15:36
[2016-12-11 15:37] VITALS: BP 134/78
[2016-12-11] MEDS ORDERED: PEPCID20 MG ORAL (16:37)
[2016-12-11] MEDS ORDERED: TYLENOL325 MG ORAL (16:37)
[2016-12-11 16:56] VITALS: BP 129/81
[2016-12-11 16:57] VITALS: BP 129/81
--- NOTE | 2016-12-14 16:12 | Cardiology Report ---
APPROVED REPORT EKG Measurement Heart [id number] Normal sinus rhythm Voltage criteria for left ventricular hypertrophy ST elevation, probably due to early repolarization Abnormal ECG
== END 2016-12-11 16:59 | disposition home or self-care (01) ==
LOC: EMR 12:35 → MERGE 12:35 → EMR 16:59
DX: R10.9 Unspecified abdominal pain (principal); N19 Unspecified kidney failure; D64.9 Anemia, unspecified; R31.29 Other microscopic hematuria; Z76.5 Malingerer [conscious simulation]; Z87.19 Personal history of other diseases of the digestive system; Z88.2 Allergy status to sulfonamides
CPT/HCPCS: 36415; 80053; 81003; 82150; 83690; 85025; 85610; 85730; 93005; 96374; 96375; 99284; J1885; J2405; S0028

== ENCOUNTER 2016-12-23 02:06 | Emergency (ER) | payer MEDICAID ==
[~2016-12-23] VITALS: Ht 185.4 cm; Wt 90.7 kg
[~2016-12-23 02:06] MED LIST changes: +PEPCID20 MG ORAL; +TYLENOL325 MG ORAL
[2016-12-23 03:04] LABS: BASOPHILS % (AUTO) 1.3 % (0.0-2.0); EOSINOPHILS % (AUTO) 5.3 % (0.0-3.0); LYMPHOCYTES % (AUTO) 20.7 % (20.0-45.0); MEAN CORPUSCULAR HEMOGLOBIN 29.7 PG (27.0-31.0); MEAN CORPUSCULAR HGB CONC 32.6 G/DL (32.0-36.0); MEAN CORPUSCULAR VOLUME 91 FL (80-99); MEAN PLATELET VOLUME 6.5 FL (6.5-10.1); MONOCYTES % (AUTO) 12.9 % (1.0-10.0); NEUTROPHILS % (AUTO) 59.7 % (45.0-75.0); PLATELET COUNT 237 K/UL (150-450); RED BLOOD COUNT 3.44 M/UL (4.70-6.10); RED CELL DISTRIBUTION WIDTH 12.9 % (11.6-14.8); WHITE BLOOD COUNT 6.8 K/UL (4.8-10.8)
[2016-12-23 03:20] LABS: ALANINE AMINOTRANSFERASE 8 U/L (3-41); ALBUMIN/GLOBULIN RATIO 0.9 (1.0-2.7); ANION GAP 14 (5-15); ASPARTATE AMINO TRANSFERASE 19 U/L (5-40); CALCIUM 8.3 mg/dL (8.6-10.2); CARBON DIOXIDE 27 mEQ/L (20-30); CHLORIDE 99 mEQ/L (98-107); CREATININE 1.5 mg/dL (0.7-1.2); GLOMERULAR FILTRATION RATE > 60 mL/min (>60); HEMOLYSIS 33; LIPASE 67 U/L (< 60); POTASSIUM 3.5 mEQ/L (3.4-4.9); SODIUM 140 mEQ/L (135-145); TOTAL PROTEIN 6.3 g/dL (6.6-8.7)
--- NOTE | 2016-12-23 03:54 | Emergency Room Report ---
History of Present Illness General Chief Complaint: Back Pain-No Injury Source: Patient Present Illness HPI This is a 46-year-old male who presents with chief complaint of kidney pain. Please note, he had checked in before under different name. He was admitted under Ameya Arias, . He was made it in November for sepsis secondary to cellulitis of the lower extremity. He had renal failure that required dialysis. He was seen again here in December 11 and blood work showed anemia but improving kidney function. Today he presents with bilateral kidney pain. He said is 7/10. Ongoing for last 2 days. Said his urine is darker denies any fever chills denies any nausea vomiting. Similar pain in the past. No other complaint. Allergies: Coded Allergies: SULFA (SULFONAMIDE ANTIBIOTICS) (Verified Allergy, Unknown, 12/23/16) Patient History Past Medical History: see triage record, old chart reviewed Past Surgical History: other Pertinent Family History: none Social History: Reports: drug use Immunizations: other Reviewed Nursing Documentation: PMH: Agreed, PSxH: Agreed Nursing Documentation-PMH Hx Hypertension: Yes - ANEMIA Hx Gastrointestinal Problems: Yes - KIDNEY FAILURE Review of Systems Eye: Denies: blurred vision, eye pain ENT: Denies: ear pain, nose congestion, throat swelling Respiratory: Denies: cough, shortness of breath Cardiovascular: Denies: chest pain, palpitations Gastrointestinal: Reports: abdominal pain, Denies: diarrhea, nausea, vomiting Musculoskeletal: Denies: back pain, joint pain Skin: Denies: rash Neurological: Denies: headache, numbness Endocrine: Denies: increased thirst, increased urine Hematologic/Lymphatic: Denies: easy bruising All Other Systems: negative except mentioned in HPI Physical Exam Vital Signs Date Time Temp Pulse Resp B/P Pulse Ox O2 Delivery O2 Flow Rate FiO2 12/23/16 02:12 99.0 92 16 173/102 100 Room Air vitals with hypertension Sp02 EP Interpretation: reviewed, normal General Appearance: well appearing, no apparent distress, alert Head: normocephalic, atraumatic Eyes: bilateral eye EOMI, bilateral eye PERRL ENT: hearing grossly normal, normal pharynx Neck: full range of motion, supple, no meningismus Respiratory: chest non-tender, lungs clear, normal breath sounds Cardiovascular #1: regular rate, rhythm, no murmur Gastrointestinal: normal bowel sounds, no mass, no organomegaly, no bruit, non- distended, tenderness - Mild, diffuse Musculoskeletal: back normal, gait/station normal, normal range of motion Psychiatric: mood/affect normal Skin: warm/dry Medical Decision Making Diagnostic Impression: Primary Impression: Abdominal pain Qualified Codes: R10.84 - Generalized abdominal pain Additional Impressions: Back pain Qualified Codes: M54.9 - Dorsalgia, unspecified Substance abuse Anemia due to chronic kidney disease Hematuria Hypertension Qualified Codes: I10 - Essential (primary) hypertension ER Course Patient presents with back pain/abdominal pain. Most likely drug abuse in nature. CT scan unremarkable. Kidney function improving since discharge. No evidence of acute abdomen. No evidence of dissection. No evidence of infection. We'll discharge home. Lab Results Impression labs unremarkable CT/MRI/US Diagnostic Results CT/MRI/US Diagnostic Results : Imaging Test Ordered: CT abd and pelvis Impression Read by radiologist. Unremarkable. Last Vital Signs Date Time Temp Pulse Resp B/P Pulse Ox O2 Delivery O2 Flow Rate FiO2 12/23/16 02:12 99.0 92 16 173/102 100 Room Air Status: improved Disposition: HOME, SELF-CARE Condition: Stable Scripts Acetaminophen* (ACETAMINOPHEN EXTRA STRENGTH*) 500 Mg Tablet 500 MG ORAL Q8H Y for Fever/Headache/Mild Pain, #30 TAB Prov: RON AWAD M.D. 12/23/16 Patient Instructions: Back Pain, Adult Additional Instructions: Abstain from drugs and alcohol. Trachea medication. Followup with your DrTrey in 2-3 days. Return if symptom worsen. RON AWAD M.D. Dec 23, 2016 03:54
[2016-12-23 03:55] LABS: APPEARANCE,URINE CLEAR; KETONES,URINE NEGATIVE (NEGATIVE); LEUKOCYTE ESTERASE ,URINE NEGATIVE (NEGATIVE); NITRITE,URINE NEGATIVE (NEGATIVE); PH,URINE 7 (4.5-8.0); PROTEIN,URINE 3+ (NEGATIVE); UROBILINOGEN,URINE NORMAL MG/DL (0.0-1.0)
[2016-12-23 04:06] LABS: BACTERIA,URINE FEW /HPF; RBC,URINE TNTC /HPF (0 - 0); SQUAMOUS EPITHELIAL CELL,UR OCCASIONAL /LPF (NONE/OCC)
[2016-12-23] MEDS ORDERED: ACETAMINOPHEN500 M3 ORAL (04:09)
[2016-12-23 04:11] VITALS: BP 155/96
[2016-12-23 04:27] VITALS: BP 155/96
--- NOTE | 2016-12-24 12:56 | Diagnostic Imaging Report ---
Indication: Abdominal pain Technique: Spiral acquisitions obtained through the abdomen and pelvis. No oral contrast utilized, per emergency room physician request No IV contrast utilized, per referring physician request.. Multiplanar reconstructions were generated. Total dose length product 586 mGycm. CTDIvol(s) 12 mGy Comparison: 05/07/2016 Findings: Lack of oral contrast limits assessment of the GI tract. The appendix is normal. No evidence of diverticulosis or diverticulitis. No small bowel distention. No free or loculated intraperitoneal air or fluid. Lack of IV contrast limits assessment of the solid organs. The liver is somewhat enlarged. No focal abnormalities. The gallbladder, bile ducts, pancreas, spleen, are unremarkable. No renal or ureteral calculi. No hydronephrosis or hydroureter. No retroperitoneal or mesenteric mass or adenopathy. No pelvic mass or adenopathy. The included lung bases are clear. There is mild degenerative spondylosis Compared to prior exam, previously described enteritis changes are no longer evident. The size of the liver has increased. Impression: Limited exam, due to lack of oral and IV contrast Previously demonstrated enteritis changes are no longer evident No acute process currently Borderline hepatomegaly, increased from 05/07/2016 This agrees with the preliminary interpretation provided overnight by [facility]. The CT scanner at [facility] is accredited by the [employer] and the scans are performed using protocols designed to limit radiation exposure to as low as reasonably achievable to attain images of sufficient resolution adequate for diagnostic evaluation.
== END 2016-12-23 04:27 | disposition home or self-care (01) ==
LOC: EMR 02:28
DX: I12.0 Hypertensive chronic kidney disease with stage 5 chronic kidney disease or end stage renal disease (principal); N18.6 End stage renal disease; D63.1 Anemia in chronic kidney disease; R10.84 Generalized abdominal pain; M54.9 Dorsalgia, unspecified; R31.9 Hematuria, unspecified; F19.10 Other psychoactive substance abuse, uncomplicated
CPT/HCPCS: 36415; 74176; 80053; 80300; 81003; 83690; 85025; 96360

== ENCOUNTER 2019-02-23 10:26 | Emergency (ER) | payer MEDICAID, OTHER ==
[~2019-02-23] VITALS: Ht 185.4 cm; Wt 90.7 kg
[~2019-02-23 10:26] MED LIST changes: +ACETAMINOPHEN500 M3 ORAL
--- NOTE | 2019-02-23 10:44 | NUR ---
ED Nurse Note: Pt came into the ER w/ complaints of right lower leg edema and redness since yesterday morning. Pt denies having trauma. Pt is rating the pain 10/10 in that area. Non radiating. Redness, warmth, and edema noted on the site. Pt states that he had the same symptoms 2 years ago and was admitted in the hospital and received dialysis. Pt is A + O x4. Ambulatory. Skin warm to touch.
[2019-02-23] MEDS ORDERED: Vancomycin 1 GM in NS 275 ML IV ONE (10:45)
[2019-02-23 10:46] VITALS: BP 145/80
[2019-02-23 10:58] VITALS: BP 145/80
--- NOTE | 2019-02-23 10:58 | NUR ---
ED Nurse Note: Pt decided that he needed his phone charged and decided to leave. Provided a phone nuclear operator but was not the right match. Stated he will come back. Pt left ER without being seen by ERMD. Left Er w/ all belongings.
[2019-02-23] MEDS ORDERED: CLINDAMYCIN HC300 MG ORAL (14:54)
--- NOTE | 2019-02-24 08:50 | Emergency Room Report ---
Physical Exam Vital Signs Date Time Temp Pulse Resp B/P (MAP) Pulse Ox O2 Delivery O2 Flow Rate FiO2 02/23/19 10:35 98.4 97 16 143/88 96 Room Air 02/23/19 10:46 98 Medical Decision Making Diagnostic Impression: Primary Impression: Patient left without being seen ER Course Patient left without being seen. Last Vital Signs Date Time Temp Pulse Resp B/P (MAP) Pulse Ox O2 Delivery O2 Flow Rate FiO2 02/23/19 10:58 98.3 95 22 145/80 98 Room Air 98 Disposition: ELOPED Condition: Unknown Referrals: NOT CHOSEN IPA/,REFERRING (PCP) Aileen Rosales DO Feb 24, 2019 08:49
== END 2019-02-23 10:59 | disposition left against medical advice (07) ==
LOC: EMR 10:59
DX: Z53.21 Procedure and treatment not carried out due to patient leaving prior to being seen by health care provider (principal)

== ENCOUNTER 2019-02-23 13:00 | Emergency (ER) | payer MEDICAID, OTHER ==
[~2019-02-23] VITALS: Ht 185.4 cm; Wt 90.7 kg
[2019-02-23] MEDS ORDERED: Lidocaine 1% MPF 10mg/ml 5ml INJ ONE (13:45)
--- NOTE | 2019-02-23 13:51 | Emergency Room Report ---
History of Present Illness General Chief Complaint: Edema Present Illness HPI 48-year-old male presents with right lower extremity swelling that began 3 days ago. The patient states that he has had this happen one year ago and was told it was cellulitis. Patient states that he has no provoking factors. Denies any recent trauma or drug use. States he has a history of acute kidney injury with dialysis which has since resolved. Nothing any medications at this time. Denies any recent travel, diabetes, chest pain, shortness of breath, bleeding disorders, headache, abdominal pain, nausea, numbness, or paralysis. Allergies: Coded Allergies: SULFA (SULFONAMIDE ANTIBIOTICS) (Verified Allergy, Unknown, 12/23/16) SULFUR (Unverified Allergy, Unknown, unk, 12/23/16) Per patient allergic to sulfur Patient History Past Medical History: see triage record Past Surgical History: none Pertinent Family History: none Reviewed Nursing Documentation: PMH: Agreed; PSxH: Agreed Nursing Documentation-PMH Hx Hypertension: Yes - ANEMIA Hx Gastrointestinal Problems: Yes - KIDNEY FAILURE Review of Systems All Other Systems: negative except mentioned in HPI Physical Exam Vital Signs Date Time Temp Pulse Resp B/P (MAP) Pulse Ox O2 Delivery O2 Flow Rate FiO2 02/23/19 13:21 98.6 90 16 127/82 95 Room Air Sp02 EP Interpretation: reviewed, normal General Appearance: no apparent distress, alert, GCS 15, non-toxic Head: normocephalic, atraumatic Eyes: bilateral eye normal inspection, bilateral eye PERRL ENT: hearing grossly normal, normal pharynx, no angioedema, normal voice Neck: full range of motion, supple/symm/no masses Respiratory: chest non-tender, lungs clear, normal breath sounds, speaking full sentences Cardiovascular #1: regular rate, rhythm, no edema Musculoskeletal: back normal, gait/station normal, normal range of motion, inflammation - right distal tibia, swelling - right distal tibia, tender - right distal tibia Neurologic: alert, oriented x3, responsive, motor strength/tone normal, sensory intact, speech normal Psychiatric: judgement/insight normal, memory normal, mood/affect normal, no suicidal/homicidal ideation Skin: normal color, warm/dry, well hydrated Lymphatic: no adenopathy Medical Decision Making PA Attestation Dr. Rosales my supervising physician with whom patient management has been discussed with. Diagnostic Impression: Primary Impression: Cellulitis Qualified Codes: L03.115 - Cellulitis of right lower limb ER Course 48-year-old male presents with right lower extremity swelling and redness for 3 days. On exam it is swollen, erythematous, tender to touch. Exam was performed which was negative for DVT. Labs were ordered which showed no leukocytosis, anemia or signs of sepsis. His renal function appears to be intact. She has no significant lateral abnormalities. Patient was given a gram of Rocephin and will go home with prescription for clindamycin for his cellulitis. Patient was advised to return within 2 to 3 days for recheck of his right lower extremity swelling. Patient appears hemodynamically stable with no signs of emergent pathology. Differential diagnosis includes but limited to cellulitis, DVT, CHF, venous sufficiency. CT/MRI/US Diagnostic Results CT/MRI/US Diagnostic Results : Imaging Test Ordered: Venous US RLE Impression No DVT, Possible lymph noted noted in right groin. Last Vital Signs Date Time Temp Pulse Resp B/P (MAP) Pulse Ox O2 Delivery O2 Flow Rate FiO2 02/23/19 13:21 98.6 90 16 127/82 95 Room Air Scripts Clindamycin Hcl (CLINDAMYCIN HCL) 300 Mg Capsule 300 MG ORAL TID for 10 Days, #30 CAP Prov: Mary Alice Madrigal 02/23/19 Patient Instructions: Cellulitis Additional Instructions: Take medication as directed. Patient instructed to take ibuprofen and tylenol as needed for pain. Patient to return for wound check in 2-3 days either here, urgent care or with PCP. Advised patient to keep site of infection elevated above the level of their heart 3 or 4 times a day, for 30 minutes each time to help reduce swelling. Patient is to keep the infected area clean and dry. They can take a shower or bath, but be sure to pat the area dry with a towel afterward. Patient instructed to not put any antibiotic ointments or creams on the area. Patient should come back sooner if their symptoms do not get better within 3 days of starting treatment or if the red area gets bigger, more swollen , or more painful. Mary Alice Madrigal Feb 23, 2019 13:51
[2019-02-23 14:27] LABS: BASOPHILS % (AUTO) 1.2 % (0.0-2.0); EOSINOPHILS % (AUTO) 1.7 % (0.0-3.0); HEMATOCRIT 41.2 % (42.0-52.0); LYMPHOCYTES % (AUTO) 19.3 % (20.0-45.0); MEAN CORPUSCULAR VOLUME 92 FL (80-99); MONOCYTES % (AUTO) 8.1 % (1.0-10.0); NEUTROPHILS % (AUTO) 69.8 % (45.0-75.0); PLATELET COUNT 260 K/UL (150-450); RED BLOOD COUNT 4.47 M/UL (4.70-6.10); RED CELL DISTRIBUTION WIDTH 12.7 % (11.6-14.8); WHITE BLOOD COUNT 7.2 K/UL (4.8-10.8)
[2019-02-23 14:34] LABS: ANION GAP 8 mmol/L (5-15); BLOOD UREA NITROGEN 13 mg/dL (7-18); CALCIUM 8.8 MG/DL (8.5-10.1); CARBON DIOXIDE 30 MMOL/L (21-32); CHLORIDE 102 MMOL/L (98-107); CREATININE 1.1 MG/DL (0.55-1.30); POTASSIUM 3.6 MMOL/L (3.5-5.1); SODIUM 139 MMOL/L (136-145)
[2019-02-23 14:39] LABS: ALANINE AMINOTRANSFERASE 18 U/L (12-78); ALBUMIN 3.4 G/DL (3.4-5.0); ALBUMIN/GLOBULIN RATIO 0.8 (1.0-2.7); ALKALINE PHOSPHATASE 80 U/L (46-116); ASPARTATE AMINO TRANSFERASE 21 U/L (15-37); BILIRUBIN,TOTAL 0.5 MG/DL (0.2-1.0)
[2019-02-23 14:54] VITALS: BP 127/82
[2019-02-23] MEDS ORDERED: CLINDAMYCIN HC300 MG ORAL (14:54)
--- NOTE | 2019-02-23 14:55 | NUR ---
ED Nurse Note:pt. came with right lower leg cellulitis, VSS, venous dupler study was done and blood sent to labs ,
--- NOTE | 2019-02-23 15:09 | NUR ---
HAND-OFF: Report given to Estephania.
--- NOTE | 2019-02-23 15:15 | NUR ---
ED Nurse Note: pt cleared to be d/c per ERMD, pt discharge and aftercare instruction w/ prescription provided, pt education done via discussion and handout, pt advised to follow up with pcp or return to ed if sx worsen or new sx develop, pt verbalized understanding and agrees with plan, vss, ambulatory w/ steady gait, iv d/c and ID band removed, pt was provided w/ list of clinic to follow up and snf for reference, pt refused to give address, states he has place to go, pt refused to go to the snf. pt given sandwich and water.
[2019-02-23 15:18] VITALS: BP 129/75
--- NOTE | 2019-02-23 15:55 | NUR ---
ED Nurse Note: pt left w/ all belongings.
--- NOTE | 2019-02-23 16:16 | Diagnostic Imaging Report ---
Indication: Right leg edema and pain Technique: Grayscale and duplex images of the right lower extremity veins Comparison: none Findings: Grayscale duplex images demonstrate no evidence of intraluminal thrombus. Normal phasic Doppler waveforms, demonstrating normal augmentation response and no evidence of valvular insufficiency. Normal compressibility of all deep venous structures. Impression: Negative for evidence of right lower extremity deep venous thrombosis
== END 2019-02-23 15:55 | disposition home or self-care (01) ==
LOC: EMR 13:52
DX: L03.115 Cellulitis of right lower limb (principal); Z88.2 Allergy status to sulfonamides; I12.9 Hypertensive chronic kidney disease with stage 1 through stage 4 chronic kidney disease, or unspecified chronic kidney disease; N18.9 Chronic kidney disease, unspecified
CPT/HCPCS: 36415; 80053; 85025; 85651; 93971; 96372; 96374; 99284; J0696

== ENCOUNTER 2019-07-30 20:51 | Emergency (ER) | payer OTHER ==
[~2019-07-30] VITALS: Ht 185.4 cm; Wt 90.7 kg
[~2019-07-30 20:51] MED LIST changes: +CLINDAMYCIN HC300 MG ORAL
[2019-07-30 20:53] VITALS: BP 136/75
--- NOTE | 2019-07-30 21:13 | Emergency Room Report ---
History of Present Illness General Chief Complaint: Male Urogenital Problems Source: Patient Present Illness HPI This is a 48-year-old male with a history of gonorrhea in the past. He presents with chief complaint of penile discharge. Onset for about a week. Greenish in color. Has dysuria. No fever chills but no nausea no vomiting. He is sexually active with one partner but unprotected sex. No joint pain. No other complaint. Allergies: Coded Allergies: SULFA (SULFONAMIDE ANTIBIOTICS) (Verified Allergy, Unknown, 12/23/16) SULFUR (Unverified Allergy, Unknown, unk, 12/23/16) Per patient allergic to sulfur Patient History Past Medical History: see triage record, old chart reviewed Past Surgical History: none Pertinent Family History: none Social History: Denies: smoking Immunizations: other Reviewed Nursing Documentation: PMH: Agreed; PSxH: Agreed Nursing Documentation-PMH Past Medical History: No History, Except For Hx Hypertension: Yes - ANEMIA Hx Gastrointestinal Problems: Yes - Kidney Failure Review of Systems Eye: Denies: eye pain, blurred vision ENT: Denies: ear pain, nose congestion, throat swelling Respiratory: Denies: cough, shortness of breath Cardiovascular: Denies: chest pain, palpitations Gastrointestinal: Denies: abdominal pain, diarrhea, nausea, vomiting Genitourinary: Reports: discharge Musculoskeletal: Denies: back pain, joint pain Skin: Denies: rash Neurological: Denies: headache, numbness Endocrine: Denies: increased thirst, increased urine Hematologic/Lymphatic: Denies: easy bruising All Other Systems: negative except mentioned in HPI Physical Exam Vital Signs Date Time Temp Pulse Resp B/P (MAP) Pulse Ox O2 Delivery O2 Flow Rate FiO2 07/30/19 20:53 97.5 102 18 136/75 98 Room Air Vitals normal Sp02 EP Interpretation: reviewed, normal General Appearance: well appearing, no apparent distress, alert Head: normocephalic, atraumatic Eyes: bilateral eye PERRL, bilateral eye EOMI ENT: hearing grossly normal, normal pharynx Neck: full range of motion, supple, no meningismus Respiratory: chest non-tender, lungs clear, normal breath sounds Cardiovascular #1: regular rate, rhythm, no murmur Gastrointestinal: normal bowel sounds, non tender, no mass, no organomegaly, no bruit, non-distended Genitourinary: penis normal, other - Greenish discharge Musculoskeletal: back normal, gait/station normal, normal range of motion Psychiatric: mood/affect normal Medical Decision Making Diagnostic Impression: Primary Impression: Urethritis ER Course Presents with urethritis. Most likely gonorrhea. Also treated for chlamydia. Recommend outpatient testing for HIV, hepatitis, syphilis and other STDs. Told patient to have partner treated also. Last Vital Signs Date Time Temp Pulse Resp B/P (MAP) Pulse Ox O2 Delivery O2 Flow Rate FiO2 07/30/19 20:53 97.5 102 18 136/75 (95) 98 Room Air Status: improved Disposition: HOME, SELF-CARE Condition: Stable Patient Instructions: Urethritis, Adult Additional Instructions: Have your partner treated. Recommend outpatient testing for HIV, hepatitis, syphilis and other STDs. This can be done anonymously. Follow-up with your doctor in 7 days. Return if symptoms worsen. Mariano Camp MD Jul 30, 2019 21:13
[2019-07-30] MEDS ORDERED: Azithromycin 250mg tab ORAL ONE (21:15)
[2019-07-30] MEDS ORDERED: Lidocaine 1% MPF 10mg/ml 5ml INJ ONE (21:15)
[2019-07-30 21:19] VITALS: BP 127/80
--- NOTE | 2019-07-30 21:19 | NUR ---
ER DISCHARGE NOTE: Pt was seen due to penile greenish discharge. Patient is cleared to be discharged per ERMD, pt is aox4, on room air, with stable vital signs. pt was given dc instructions, pt was able to verbalize understanding, pt id band removed. pt is able to ambulate with steady gait. pt took all belongings.
== END 2019-07-30 21:19 | disposition home or self-care (01) ==
LOC: EMR 21:08
DX: N34.2 Other urethritis (principal); Z88.2 Allergy status to sulfonamides
CPT/HCPCS: 96372; J0696; Q0144; Z7502; 99283